=== PATIENT | male | born 1950 | race Caucasian/White ===

== ENCOUNTER → 2016-09-07 | Outpatient (CLI) | payer MEDICARE ==
[2015-11-26 23:42] VITALS: BP 168/88
[~2016-09-07] MED LIST: CLIN300C8 PO; FLUT9.9S NS
--- NOTE | 2016-09-07 16:18 | RAD ---
Indication congestion. Chronic sinusitis. Axial images through the paranasal sinuses were obtained and reformatted in the coronal and sagittal planes. No similar imaging is available. No acute finding is seen in the visualized brain. There is a small focus of encephalomalacia in the right posterior fossa. The mastoid air cells are normally aerated. There is some minimal debris in the left frontal sinus. The right frontal sinus appears normal. Ethmoid air cells are normally aerated. There is small polyp or retention cyst in the right maxillary sinus. Minimal mucosal thickening is seen at the base of the left. The sphenoid sinus appears unremarkable. Ostiomeatal complexes are unremarkable. IMPRESSION: No significant finding. Minimal debris in the left frontal sinus and slight mucosal thickening at the base of the left maxillary sinus. PQRS Compliance Statement: One or more of the following individualized dose reduction techniques were utilized for this examination: 1. Automated exposure control 2. Adjustment of the mA and/or kV according to patient size 3. Use of iterative reconstruction technique
== END | disposition home or self-care (01) ==
LOC: CT 12:44
PROVIDERS: ATTEND Otolaryngology
DX: J32.4 Chronic pansinusitis (principal); J34.1 Cyst and mucocele of nose and nasal sinus; G93.89 Other specified disorders of brain
CPT/HCPCS: 70486

== ENCOUNTER 2016-10-31 08:28 | Inpatient (IN) | payer MEDICARE ==
[~2016-10-31] VITALS: Ht 167.6 cm; Wt 87.1 kg
[2016-10-31] MEDS ORDERED: MORPHINE SULFATE 2 MG/ML DISP.SYRIN. IV/SQ PRN (08:45)
--- NOTE | 2016-10-31 09:00 | PHYS DOC ---
General Chief Complaint: CHEST PAIN Stated Complaint: CHEST PAIN Time Seen by MD: 08:30 Source: patient Exam Limitations: no limitations Problems: History of Present Illness Initial Comments Patient is an 66-year-old male brought to the ED by his significant other with chest discomfort. Patient states that 2 days (Sunday) while walking at [employer] he noticed bilateral lower chest discomfort described as burning. He had no associated shortness of breath, cough, nausea or vomiting, arm or neck symptoms , dizziness, palpitations, or syncope. He says he woke up with the symptoms on Sunday morning and that they were not resulted from riding roller coasters or other aggressive park rides. Over the course of the past 2 days symptoms remained present. The patient cannot reproduce these symptoms with deep breaths or positional changes. Currently pt with b/l lower chest/rib pain 6/10 burning , like can't take deep breath. States today pain worsened so he and SO thought he should come for evaluation. PCP Dr Brothers Patient follows with Dr. Rod's developmental writing instructor for "silent PA" in the past. He saw Dr. Rod this past week, spouse says he recently started hydrochlorothiazide. Timing/Duration: constant (2 days) Severity: moderate Modifying Factors: improves with other Associated Symptoms: chest pain, other Allergies: Coded Allergies: Penicillins (Verified Allergy, Unknown, 11/26/15) Past Medical History Medical History: heart disease (silent PA in past follows with Dr Rod), high cholesterol, hypertension Surgical History: noncontributory Social History Smoker: quit greater than 1 year (1975) Alcohol: occasionally Drugs: none Review of Systems Constitutional: denies chills, denies diaphoresis, denies fever, malaise Respiratory: see HPI Cardiovascular: see HPI Gastrointestinal: denies abdominal pain, denies diarrhea, denies nausea, denies vomiting Genitourinary: denies dysuria, denies frequency, denies hematuria Musculoskeletal: denies back pain, denies joint swelling, denies neck pain Psychiatric/Neurological: denies headache, denies numbness, denies paresthesia , denies weakness Hematologic/Lymphatic: denies blood clots, denies easy bleeding, denies easy bruising Physical Exam General Appearance: no apparent distress, obese Eyes: bilateral eye normal inspection, bilateral eye PERRL, bilateral eye EOMI Ear, Nose, Throat: hearing grossly normal, normal ENT inspection, normal pharynx Neck: non-tender, supple Respiratory: chest non-tender, no respiratory distress, other (faint wheeze b/ l good air movement) Cardiovascular: normal peripheral pulses, regular rate, rhythm Gastrointestinal: normal bowel sounds, non tender, soft Back: no CVA tenderness, no vertebral tenderness Extremities: non-tender, normal inspection Neurologic/Psychiatric: vp of marketing II-XII nml as tested, no motor/sensory deficits, alert, normal mood/affect, oriented x 3 Skin: normal color, warm/dry Orders, Labs, Meds EKG: NSR 63 bpm, diffuse T flattening, artifact noted v6 no STEMI. Interpreted by Dr Swanson. PATIENT: GEOVANNI ROQUE ACCOUNT: [id number] : 1950 LOCATION: ER AGE: 66 SEX: M EXAM STATUS: REG ER ORD. PHYSICIAN: TANA SWANSON DO REASON: b/l lower chest pain PROCEDURE: CHEST PA & LATERAL Chest, 2 views, 10/31/2016: History: Chest pain Comparison is made to a study from 11/26/2015. The heart size and pulmonary vascularity are normal. There is a calcified granuloma in the right lower chest. No acute infiltrates are seen. There is no evidence of pleural fluid. IMPRESSION: No acute cardiopulmonary abnormality is detected. DICTATED AND SIGNED BY: ROBI OREILLY MD DATE: 10/31/16906 CC: JEANNE BROTHERS MD; TANA SWANSON DO ~ Pertinent labs: glucosuria 100, Cr 1.5, BUN 15 1045: Pt rechecked, states after duoneb CP improved somewhat currently states /10. I discussed pt with Dr Fleming. Given pt symptoms and PMH pt accepted for Obs to follow CE, continue respiratory support, Cardiology evaluation/echo tomorrow. Departure Time of Disposition: 10:57 Disposition: ADMITTED INPATIENT Diagnosis: chest pain, COPD, renal insuff, h/o CAD Condition: STABLE Additional Instructions: Tele/Obs admission Dr Fleming is accepting TANA SWANSON DO Oct 31, 2016 09:00
--- NOTE | 2016-10-31 09:10 | RAD ---
Chest, 2 views, 10/31/2016: History: Chest pain Comparison is made to a study from 11/26/2015. The heart size and pulmonary vascularity are normal. There is a calcified granuloma in the right lower chest. No acute infiltrates are seen. There is no evidence of pleural fluid. IMPRESSION: No acute cardiopulmonary abnormality is detected.
[2016-10-31 09:11] LABS: BASO # 0.1 x10^3/uL (0.0-0.2); BASO % 1 % (0-3); EOS # 0.3 x10^3/uL (0.0-0.7); EOS % 4 % (0-3); HEMOGLOBIN 12.9 g/dL (13.0-17.5); LYMPH # 1.4 x10^3/uL (1.0-4.8); LYMPH % 21 % (24-48); MEAN CORPUSCULAR HEMOGLOBIN 31 pg (25-35); MEAN CORPUSCULAR HGB CONC 35 g/dL (31-37); MEAN CORPUSCULAR VOLUME 87 fL (79-100); MONO # 0.8 x10^3/uL (0.0-1.1); MONO % 12 % (0-9); NEUT # 4.2 x10^3uL (1.8-7.7); NEUT % 62 % (31-73); PLATELET COUNT 259 x10^3/uL (140-400); RED BLOOD COUNT 4.24 x10^6/uL (4.30-5.70); RED CELL DISTRIBUTION WIDTH 14.5 % (11.5-14.5); WHITE BLOOD COUNT 6.8 x10^3/uL (4.0-11.0)
[2016-10-31] MEDS ORDERED: KETOROLAC 30 MG/ML VIAL. IV ONE (09:20)
[2016-10-31] MEDS ORDERED: ASPIRIN 81 MG TAB.CHEW PO ONE (09:20)
[2016-10-31] MEDS ORDERED: NITROGLYCERIN SUBLINGUAL 0.4 MG BOTTLE OF 25. SL PRN (09:20)
[2016-10-31 09:21] LABS: ALBUMIN 3.7 g/dL (3.4-5.0); ALBUMIN/GLOBULIN RATIO 1.1 (1.0-1.7); CREATININE 1.5 mg/dL (0.7-1.3); GFR 46.8; MAGNESIUM 1.9 mg/dL (1.8-2.4); POTASSIUM 3.5 mmol/L (3.5-5.1); TOTAL BILIRUBIN 0.7 mg/dL (0.2-1.0); TOTAL PROTEIN 7.2 g/dL (6.4-8.2)
[2016-10-31] MEDS ORDERED: IPRATRPIUM/ALBUTEROL 0.5/2.5MG 3 ML NEBU. NEB ONE (09:45)
[2016-10-31 09:52] LABS: BARBITURATES NEG (NEG); BENZODIAZEPINES NEG (NEG); CANNABINOIDS NEG (NEG); COCAINE NEG (NEG); METHADONE NEG (NEG); OPIATES NEG (NEG); PHENCYCLIDINE NEG (NEG)
[2016-10-31 09:53] LABS: AMPHETAMINE/METHAMPHETAMINE NEG (NEG)
[2016-10-31 09:56] LABS: BACTERIA,URINE 0 /HPF (0-FEW); BILIRUBIN,URINE NEG (NEG); CLARITY,URINE CLEAR; COLOR,URINE YELLOW; GLUCOSE,URINE 100 mg/dL (NEG); NITRITE,URINE NEG (NEG); RBC,URINE 0 /HPF (0-2); SQUAMOUS EPITHELIAL CELL,UR OCC /LPF; UROBILINOGEN,URINE 0.2 mg/dL (0.2 mg/dL); WBC,URINE 0 /HPF (0-4)
[2016-10-31] MEDS ORDERED: ACETAMINOPHEN 325 MG TABLET PO PRN (11:00)
[2016-10-31] MEDS ORDERED: ONDANSETRON PF 4 MG/2 ML VIAL. IV PRN (11:00)
[2016-10-31 13:09] VITALS: BP_SYST 166; BP_DIAS 70; BP_DIAS 98
--- NOTE | 2016-10-31 13:18 | NUR ---
The patient, GEOVANNI ROQUE, 66 y/o, M admitted by JULISA HICKEY MD, was given written information regarding hospital policies, unit procedures and contact persons. Valuables were checked and documented, pt's Sarah at bedside during admission, pt denies pain, call light within reach, no complaints.
--- NOTE | 2016-10-31 13:45 | NUR ---
MAIRA Rhodes with Dr. George's office notified of consult- pt had stress test and ECHO earlier this year and his BP meds were adjusted a couple of weeks ago. No orders at this time.
[2016-10-31] MEDS ORDERED: BENZ1TAB5 PO (14:15)
[2016-10-31] MEDS ORDERED: ASPI81TA50 PO (14:15)
[2016-10-31] MEDS ORDERED: LOSA100T6 PO (14:15)
[2016-10-31] MEDS ORDERED: METO-247 PO (14:17)
[2016-10-31] MEDS ORDERED: SIMV20TA3 PO (14:17)
[2016-10-31] MEDS ORDERED: OMEP40CA5 PO (14:17)
[2016-10-31] MEDS ORDERED: CETI10TA22 PO (14:17)
[2016-10-31] MEDS ORDERED: HYDR25TA9 PO (14:32)
[2016-10-31 15:14] VITALS: BP 159/72
[2016-10-31] MEDS ORDERED: ALBUTEROL SULFATE 2.5 MG/3 ML NEBU. NEB PRN (16:00)
[2016-10-31] MEDS: IPRATRPIUM/ALBUTEROL 0.5/2.5MG 3 ML NEBU. NEB SCH ×3 (16:00→21:27)
[2016-10-31] MEDS ORDERED: methylPREDNISolone SOD SUCC PF 125 MG/2 ML VIAL. IV SCH (18:00)
--- NOTE | 2016-10-31 18:42 | HP ---
ADMIT DATE: 10/31/2016 HISTORY OF PRESENT ILLNESS: The patient is a 66-year-old male patient who came to the Emergency Room this morning with a complaint of chest pain and basically described it as bilateral lower chest discomfort and described as burning that started 2 days ago while walking at . He awakened this morning at around 6:30 in the morning with the same complaint from sleep, but denied any shortness of breath. Denied any cough, nausea, or vomiting. Denied any pain in his left arm, shoulder, or left side of the neck. Denied any dizziness, palpitations, or syncope. Over the course of the last 2 days, symptoms remained present. The patient cannot produce these symptoms with deep breathing or positional changes. Currently, he has pain in both costochondral junction rated about 6-10 burning in nature and because of that, he was admitted. He came to the Emergency Room for further evaluation and treatment. PAST MEDICAL HISTORY: Significant for hypertension, hyperlipidemia, and gastroesophageal reflux disease. He apparently is known to have coronary artery disease and has had myocardial infarction, although has no stent deployment or open heart surgery and according to his , he has had a stress test done about a year ago and was normal and was seen by Dr. Rodriguez about a week ago and was started him on hydrochlorothiazide. PAST SURGICAL HISTORY: Significant for left rotator cuff repair and esophagogastroduodenoscopy as well as colonoscopy. ALLERGIES: He is allergic to PENICILLIN. MEDICATIONS: He is currently on following medications, he is on aspirin 81 mg once a day, benztropine mesylate 1 mg 3 times a day, and cetirizine 10 mg daily. He is on simvastatin 20 mg at bedtime, omeprazole 40 mg once a day, metoprolol succinate 100 mg once a day, losartan potassium 100 mg once a day, and hydrochlorothiazide 25 mg once a day. FAMILY HISTORY: He has three brothers, the older brother at age of 52 because of myocardial infarction and second brother has open heart surgery. Third brother is according to him is overweight, but otherwise healthy. He has two sisters who are older, but healthier. His father at age of 58 because of myocardial infarction. Mother at age of 86. She has severe osteoporosis. SOCIAL HISTORY: He is and has 3 sons and 1 daughter. He is an ex-smoker quit in 1975 after smoking pack a day for almost 10 years. He drinks a can of beer almost everyday. He does not use drugs. 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 REVIEW OF SYSTEMS: The patient denied any blurring of vision, cataract, glaucoma, or macular degeneration. Denied any earache, tinnitus, or sensorineural deafness. Denied any nosebleeds, stuffy nose, or postnasal drip. Denied any sore throat, sore tongue, toothache, hoarseness of voice, or difficulty swallowing. Denied any nausea, vomiting, diarrhea, or constipation. Denied any hematemesis, melena, or hematochezia. Denied any dysuria, frequency, or hematuria. Did complain of chest pain. Denied any shortness of breath, orthopnea, or paroxysmal nocturnal dyspnea, although he did complain that he sleeps in a recliner because of shortness of breath. Denied any chills, rigors, or fever. Denied any dizziness, lightheadedness, or vertigo. PHYSICAL EXAMINATION: GENERAL: On arrival to the Emergency Room, he looked well and was clearly in no apparent respiratory distress. Slightly pale, but no jaundice, cyanosis, or thyromegaly. No jugular venous distention. No limb edema. VITAL SIGNS: His heart rate was 67, blood pressure 166/70, temperature was 98.6, respiratory rate 20, and oxygen saturation was 96%. HEENT: Showed normocephalic and atraumatic. NECK: Supple. HEART: Showed normal first and second heart sounds with no gallop, rub, or murmur. CHEST: Clear to auscultation. No crepitation or rhonchi. ABDOMEN: Distended, soft, and nontender. No guarding or rigidity. No organomegaly. Hernial orifices are intact. Bowel sounds normal. NEUROLOGIC: He was awake, alert, and responding appropriately. Cranial nerves are intact. EXTREMITIES: He moves extremities without difficulty. He ambulates without assistance or assistive devices. LABORATORY DATA: He had lab work done while in the Emergency Room showed his white cell count to be 6800, hemoglobin 13, hematocrit 37, MCV 87, and platelet count 259,000 with normal manual differential. His serum sodium was 135, potassium 3.5, chloride 99, bicarbonate 29, anion gap of 7, BUN 14, creatinine 1.5, and estimated GFR was 45 mL per minute. His glucose was 90, calcium was 9, and magnesium was 1.9. Total bilirubin, AST, ALT, and alkaline phosphatase were normal. His first set of cardiac enzymes showed troponin to be less than 0.017. His total protein was 7.2, albumin 3.7, and lipase 134. B-type natriuretic peptide was 243. His prothrombin time was 10.3, INR of 1, aPTT 26, and D-dimer was 0.28. Urinalysis showed the urine was yellow and clear with a pH of 5.5 and specific gravity 1.005. The urine was negative for protein. There was small amount of glucose, negative for ketones, nitrite, and leukocyte esterase. His urine toxicology screen was negative. His chest x-ray showed that his heart size and pulmonary vascularity are normal. There is a calcified granuloma in the right lower lobe. No acute infiltrates are seen. There is no evidence of pleural fluid. He has had an EKG, which showed that he was in normal sinus rhythm at 63 beats per minute. Diffuse T wave flattening, but no evidence of ST segment elevation or depression. ASSESSMENT AND PLAN: The plan is basically the patient was admitted with chest pain, although the complaint is fairly atypical it looks like more of costochondral pain in both sides. He does not carry a diagnosis of COPD, although he has quit smoking in 1975 after smoking for about one pack a day for almost 10 years according to him. He has a very strong family history of coronary artery disease and he apparently has also impaired kidney function. Unfortunately, I do not have any other numbers to compare with. My plan is to do two more sets of cardiac enzyme and consult the cardiology team. We will check his fasting lipid profile tomorrow and continue all his current medication and decide on further management accordingly. JULISA HICKEY MD DR: ZENA/shilo JOB#: [id number] / [id number]
--- NOTE | 2016-10-31 19:19 | PDOC ---
Exam Serg Demential Exam: Serg Note: Please also refer to the separate dictated note~for this date of service dictated separately.~Patient seen individually. Discussed the patient with Nursing staff reviewed the chart.~Reviewed interim history and current functioning. Reviewed vital signs,~Labs/ Radiology~and current medications noted below. Continue current treatment with the changes noted in the dictated addendum note Assessment: Vital Signs: Vital Signs Date Time Temp Pulse Resp B/P (MAP) Pulse Ox O2 Delivery O2 Flow Rate FiO2 10/31/16 16:44 99 Room Air 10/31/16 15:14 98.4 66 20 159/72 (101) I&O Intake and Output 11/01/16 07:00 Intake Total 820 ml Balance 820 ml Intake Oral 820 ml # Voids 2 Labs: Laboratory Tests Test 10/31/16 08:50 10/31/16 09:33 White Blood Count 6.8 x10^3/uL (4.0-11.0) Red Blood Count 4.24 x10^6/uL (4.30-5.70) L Hemoglobin 12.9 g/dL (13.0-17.5) L Hematocrit 37.0 % (39.0-53.0) L Mean Corpuscular Volume 87 fL (79-100) Mean Corpuscular Hemoglobin 31 pg (25-35) Mean Corpuscular Hemoglobin Concent 35 g/dL (31-37) Red Cell Distribution Width 14.5 % (11.5-14.5) Platelet Count 259 x10^3/uL (140-400) Neutrophils (%) (Auto) 62 % (31-73) Lymphocytes (%) (Auto) 21 % (24-48) L Monocytes (%) (Auto) 12 % (0-9) H Eosinophils (%) (Auto) 4 % (0-3) H Basophils (%) (Auto) 1 % (0-3) Neutrophils # (Auto) 4.2 x10^3uL (1.8-7.7) Lymphocytes # (Auto) 1.4 x10^3/uL (1.0-4.8) Monocytes # (Auto) 0.8 x10^3/uL (0.0-1.1) Eosinophils # (Auto) 0.3 x10^3/uL (0.0-0.7) Basophils # (Auto) 0.1 x10^3/uL (0.0-0.2) Prothrombin Time 10.3 SEC (9.4-11.4) Prothrombin Time INR 1.0 (0.9-1.1) PTT 26 SEC (23-33) D-Dimer (Stacy) 0.28 mg/L (0.00-0.50) Sodium Level 135 mmol/L (136-145) L Potassium Level 3.5 mmol/L (3.5-5.1) Chloride Level 99 mmol/L (98-107) Carbon Dioxide Level 29 mmol/L (21-32) Anion Gap 7 (6-14) Blood Urea Nitrogen 14 mg/dL (8-26) Creatinine 1.5 mg/dL (0.7-1.3) H Estimated GFR (Cockcroft-Gault) 46.8 BUN/Creatinine Ratio 9 (6-20) Glucose Level 90 mg/dL (70-99) Calcium Level 9.0 mg/dL (8.5-10.1) Magnesium Level 1.9 mg/dL (1.8-2.4) Total Bilirubin 0.7 mg/dL (0.2-1.0) Aspartate Amino Transferase (AST) 18 U/L (15-37) Alanine Aminotransferase (ALT) 19 U/L (16-63) Alkaline Phosphatase 61 U/L (46-116) Creatine Kinase 208 U/L (39-308) Troponin I Quantitative < 0.017 ng/mL (0-0.055) CW-Vmj-S-Type Natriuretic Peptide 243 pg/mL (0-124) H Total Protein 7.2 g/dL (6.4-8.2) Albumin 3.7 g/dL (3.4-5.0) Albumin/Globulin Ratio 1.1 (1.0-1.7) Lipase 134 U/L (73-393) Urine Collection Type Unknown Urine Color Yellow Urine Clarity Clear Urine pH 5.5 Urine Specific [place] <=1.005 Urine Protein Neg (NEG-TRACE) Urine Glucose (UA) 100 mg/dL (NEG) Urine Ketones (Stick) Neg mg/dL (NEG) Urine Blood Neg (NEG) Urine Nitrite Neg (NEG) Urine Bilirubin Neg (NEG) Urine Urobilinogen Dipstick 0.2 mg/dL (0.2 mg/dL) Urine Leukocyte Esterase Neg (NEG) Urine RBC 0 /HPF (0-2) Urine WBC 0 /HPF (0-4) Urine Squamous Epithelial Cells Occ /LPF Urine Bacteria 0 /HPF (0-FEW) Urine Opiates Screen Neg (NEG) Urine Methadone Screen Neg (NEG) Urine Barbiturates Neg (NEG) Urine Phencyclidine Screen Neg (NEG) Urine Amphetamine/Methamphetamine Neg (NEG) Urine Benzodiazepines Screen Neg (NEG) Urine Cocaine Screen Neg (NEG) Urine Cannabinoids Screen Neg (NEG) Urine Ethyl Alcohol Neg (NEG) Current Medications: Meds: Current Medications Aspirin (Children'S Aspirin) 324 mg 1X ONCE PO Last administered on 10/31/16 09:17; Start 10/31/16 at 09:20; Stop 10/31/16 at 09:21; Status DC Nitroglycerin (Nitrostat) 0.4 mg PRN Q5MIN PRN SL CP RATING > 1/10; Start 10/31 at 09:20; Stop 11/01/16 at 09:19 Morphine Sulfate (Morphine 2mg Syringe) 2 mg PRN Q15MIN PRN IV/SQ PAIN GREATER THAN 3/10 Last administered on 10/31/16 11:33; Start 10/31/16 at 08:45; Stop at 08:44 Ketorolac Tromethamine (Toradol) 30 mg 1X ONCE IV Last administered on 09:20; Start 10/31/16 at 09:20; Stop 10/31/16 at 09:21; Status DC Albuterol/ Ipratropium (Duoneb) 3 ml 1X ONCE NEB Last administered on 09:41; Start 10/31/16 at 09:45; Stop 10/31/16 at 09:46; Status DC Ondansetron HCl (Zofran) 4 mg PRN Q4HRS PRN IV NAUSEA/VOMITING; Start 10/31/16 at 11:00; Stop 11/01/16 at 10:59 Acetaminophen (Tylenol) 650 mg PRN Q4HRS PRN PO FEVER; Start 10/31/16 at 11:00 ; Stop 11/01/16 at 10:59 Albuterol/ Ipratropium (Duoneb) 3 ml RTQID NEB Last administered on 9/12/17at 16:42; Start 10/31/16 at 12:00; Stop 11/01/16 at 11:59 Methylprednisolone Sodium Succinate (SOLU-Medrol 125MG VIAL) 125 mg Q6HRS IV ; Start 10/31/16 at 18:00; Stop 10/31/16 at 18:00; Status DC Aspirin (Aspirin Enteric Coated) 81 mg DAILY PO ; Start 11/01/16 at 09:00 Benztropine Mesylate (Cogentin) 1 mg TID PO ; Start 10/31/16 at 21:00; Stop 02/04 at 21:00; Status DC Cetirizine HCl (ZyrTEC) 10 mg DAILY PO ; Start 11/01/16 at 09:00 Hydrochlorothiazide (Hydrodiuril) 25 mg DAILY PO ; Start 11/01/16 at 09:00 Simvastatin (Zocor) 20 mg QHS PO ; Start 10/31/16 at 21:00 Losartan Potassium (Cozaar) 100 mg DAILY PO ; Start 11/01/16 at 09:00 Metoprolol Succinate (Toprol Xl) 100 mg DAILY PO ; Start 11/01/16 at 09:00 Pantoprazole Sodium (Protonix) 40 mg DAILYAC PO ; Start 11/01/16 at 07:30 Albuterol Sulfate (Ventolin) 2.5 mg Q1HR PRN NEB SHORTNESS OF BREATH; Start 02/04 at 16:00 Benztropine Mesylate (Cogentin) 1 mg BID76 PO ; Start 11/01/16 at 07:00 Quetiapine Fumarate (SEROquel) 25 mg QHS PO ; Start 10/31/16 at 21:00 Active Scripts Active Reported Hydrochlorothiazide Tablet (Hydrochlorothiazide) 25 Mg Tablet 1 Tab PO DAILY Zyrtec (Cetirizine Hcl) 10 Mg Tablet 1 Tab PO DAILY Simvastatin 20 Mg Tablet 1 Tab PO QHS Metoprolol Succinate ( Xl ) (Metoprolol Succinate) 100 Mg Tab.er.24h 1 Tab PO DAILY Omeprazole 40 Mg Capsule.dr 1 Cap PO DAILY Losartan Potassium 100 Mg Tablet 100 Mg PO DAILY Benztropine Mesylate 1 Mg Tablet 1 Tab PO TID Aspir-Low (Aspirin) 81 Mg Tablet.dr 1 Tab PO DAILY Diagnosis: Problems: (1) Anxiety disorder (2) Dementia, vascular, with delusions (3) Impulse control disorder (4) Psychosis, atypical JOSE NOLASCO MD Oct 31, 2016 19:19
[2016-10-31] MEDS ORDERED: BENZOCAINE/MENTHOL LOZENGE 16'S BOX. PO PRN (19:30)
[2016-10-31] MEDS: HYDROcodone/APAP 5/325MG 1 TAB TABLET PO PRN (19:45)
[2016-10-31 19:55] VITALS: BP 142/55
[2016-10-31] MEDS: SIMVASTATIN 20 MG TABLET PO SCH (20:25)
[2016-10-31] MEDS ORDERED: BENZTROPINE MESYLATE 1 MG TABLET PO SCH (21:00)
[2016-10-31] MEDS ORDERED: QUEtiapine 25 MG TABLET. PO SCH (21:00)
[2016-10-31 22:51] VITALS: BP 134/72
--- NOTE | 2016-11-01 01:04 | EKG ---
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
[2016-11-01 05:03] VITALS: BP 139/65
[2016-11-01] MEDS: IPRATRPIUM/ALBUTEROL 0.5/2.5MG 3 ML NEBU. NEB SCH ×2 (05:32→11:02)
[2016-11-01] MEDS: BENZTROPINE MESYLATE 1 MG TABLET PO SCH ×2 (06:17→18:19)
[2016-11-01 06:37] LABS: BASO # 0.1 x10^3/uL (0.0-0.2); BASO % 1 % (0-3); EOS # 0.3 x10^3/uL (0.0-0.7); EOS % 4 % (0-3); HEMATOCRIT 35.1 % (39.0-53.0); HEMOGLOBIN 12.4 g/dL (13.0-17.5); LYMPH # 1.4 x10^3/uL (1.0-4.8); LYMPH % 20 % (24-48); MEAN CORPUSCULAR HEMOGLOBIN 31 pg (25-35); MEAN CORPUSCULAR HGB CONC 36 g/dL (31-37); MEAN CORPUSCULAR VOLUME 86 fL (79-100); MONO # 0.8 x10^3/uL (0.0-1.1); MONO % 12 % (0-9); NEUT # 4.3 x10^3uL (1.8-7.7); NEUT % 63 % (31-73); PLATELET COUNT 190 x10^3/uL (140-400); RED BLOOD COUNT 4.06 x10^6/uL (4.30-5.70); RED CELL DISTRIBUTION WIDTH 13.9 % (11.5-14.5); WHITE BLOOD COUNT 6.8 x10^3/uL (4.0-11.0)
[2016-11-01 06:51] LABS: ALBUMIN 3.3 g/dL (3.4-5.0); ALBUMIN/GLOBULIN RATIO 1.3 (1.0-1.7); CALCIUM 8.3 mg/dL (8.5-10.1); CREATININE 3.4 mg/dL (0.7-1.3); GFR 18.2; POTASSIUM 3.5 mmol/L (3.5-5.1); TOTAL BILIRUBIN 0.6 mg/dL (0.2-1.0); TOTAL PROTEIN 5.9 g/dL (6.4-8.2)
[2016-11-01] MEDS: PANTOPRAZOLE 40 MG TABLET. PO SCH (07:40)
[2016-11-01] MEDS ORDERED: hydroCHLOROthiazide 25 MG TABLET PO SCH (09:00)
[2016-11-01] MEDS ORDERED: LOSARTAN 50 MG TABLET. PO SCH (09:00)
[2016-11-01] MEDS: ASPIRIN ENTERIC COATED 81 MG TABLET.DR. PO SCH (09:04)
[2016-11-01] MEDS: METOPROLOL SUCC 24HR ER 50 MG TAB.ER.24H. PO SCH (09:05)
[2016-11-01] MEDS: CETIRIZINE HCL 10 MG TABLET PO SCH (09:06)
[2016-11-01] MEDS ORDERED: hydrALAZINE 20 MG/ML VIAL. IV PRN (09:30)
[2016-11-01] MEDS ORDERED: IV NORMAL SALINE 500ML 500 ML IV ONE (09:30)
--- NOTE | 2016-11-01 09:47 | PDOC2 ---
CARDIAC CONSULT DATE OF CONSULT Date Of Consult DATE: 11/01/16 TIME: 09:30 REASON FOR CONSULT Reason for Consult Chest pain REFERRING PHYSICIAN Referring Physician Dr. Jose Fleming HPI History of Present Illness Mr. Chan is a very pleasant 66-year-old gentleman who usually follows closely with my partner, Dr. Jack Rod, in our office. The patient has a history of essential hypertension, hyperlipidemia, heart failure with preserved ejection fraction, abnormal ECG, and abnormal stress test consistent with prior infarct. The patient was most recently seen in our office a few weeks ago at which time he was noted to be mildly hypertensive, and was initiated on a regimen of hydrochlorothiazide in addition to his baseline antihypertensives. The patient does usually take a beta-angela and angiotensin receptor angela for his underlying cardiomyopathy. Unfortunately, the patient was recently admitted to [facility] with a several day history of progressive coughing associated with development of chest pain. He described this as a burning sensation that radiated across his chest. He denies any radiation to his arms, neck, or back. He did not have any significant association with shortness of breath. Patient denies any associated nausea or vomiting. Apparently, the patient woken from sleep yesterday morning with severe coughing and resultant chest pain, and this prompted him to come in for further evaluation. His symptoms have apparently improved somewhat since admission. The patient has not been able to identify any exacerbating or relieving factors other than palpation of his chest as well as deep coughing and respiratory movements. He has not been able to identify any relieving factors. His workup thus far has included serial troponin enzymes which were negative. His ECG did not demonstrate any significant ischemic changes. I did review his chest x-ray which was unremarkable. In review of his records, the patient's most recent echocardiogram was performed in our office in February of 2016. This demonstrated evidence of a mid distal anterior, mid distal anteroseptal, and mid distal inferior and apical hypokinesis. His LV systolic function was borderline normal with an ejection fraction calculated to be 50-55%. He did not have any significant structural or functional abnormalities noted otherwise. The patient's most recent ischemic evaluation was in the form of a Lexiscan nuclear stress test performed in May 2015 which demonstrated evidence of prior infarct, but no inducible ischemia. This morning, the patient reports that he is doing relatively well. Review of his lab workup, however, does demonstrate development of acute renal failure. The patient has remained hemodynamically stable otherwise. He has no other particular complaints this morning. PAST MEDICAL HISTORY Past Medical History Past medical history is consistent with essential hypertension, hyperlipidemia, abnormal ECG, abnormal stress test, questionable prior myocardial infarct, borderline cardiomyopathy, paranoid schizophrenia. FAMILY HISTORY Family History Noncontributory SOCIAL HISTORY Social History Pt denies any active smoking. CURRENT MEDICATIONS Current Medications Current Medications Aspirin (Children'S Aspirin) 324 mg 1X ONCE PO Last administered on 10/31/16 09:17; Start 10/31/16 at 09:20; Stop 10/31/16 at 09:21; Status DC Nitroglycerin (Nitrostat) 0.4 mg PRN Q5MIN PRN SL CP RATING > 1/10; Start 10/31 at 09:20; Stop 11/01/16 at 09:19; Status DC Morphine Sulfate (Morphine 2mg Syringe) 2 mg PRN Q15MIN PRN IV/SQ PAIN GREATER THAN 3/10 Last administered on 10/31/16 11:33; Start 10/31/16 at 08:45; Stop at 08:44; Status DC Ketorolac Tromethamine (Toradol) 30 mg 1X ONCE IV Last administered on 09:20; Start 10/31/16 at 09:20; Stop 10/31/16 at 09:21; Status DC Albuterol/ Ipratropium (Duoneb) 3 ml 1X ONCE NEB Last administered on 09:41; Start 10/31/16 at 09:45; Stop 10/31/16 at 09:46; Status DC Ondansetron HCl (Zofran) 4 mg PRN Q4HRS PRN IV NAUSEA/VOMITING; Start 10/31/16 at 11:00; Stop 11/01/16 at 10:59 Acetaminophen (Tylenol) 650 mg PRN Q4HRS PRN PO FEVER; Start 10/31/16 at 11:00 ; Stop 11/01/16 at 10:59 Albuterol/ Ipratropium (Duoneb) 3 ml RTQID NEB Last administered on 11/01/16 05:32; Start 10/31/16 at 12:00; Stop 11/01/16 at 11:59 Methylprednisolone Sodium Succinate (SOLU-Medrol 125MG VIAL) 125 mg Q6HRS IV ; Start 10/31/16 at 18:00; Stop 10/31/16 at 18:00; Status DC Aspirin (Aspirin Enteric Coated) 81 mg DAILY PO Last administered on 11/01/16 09:04; Start 11/01/16 at 09:00 Benztropine Mesylate (Cogentin) 1 mg TID PO ; Start 10/31/16 at 21:00; Stop 02/04 at 21:00; Status DC Cetirizine HCl (ZyrTEC) 10 mg DAILY PO Last administered on 11/01/16 09:06; Start 11/01/16 at 09:00 Hydrochlorothiazide (Hydrodiuril) 25 mg DAILY PO Last administered on 09:06; Start 11/01/16 at 09:00; Status Future Hold Simvastatin (Zocor) 20 mg QHS PO Last administered on 10/31/16 20:25; Start at 21:00 Losartan Potassium (Cozaar) 100 mg DAILY PO Last administered on 11/01/16 09: 05; Start 11/01/16 at 09:00; Status Future Hold Metoprolol Succinate (Toprol Xl) 100 mg DAILY PO Last administered on 09:05; Start 11/01/16 at 09:00 Pantoprazole Sodium (Protonix) 40 mg DAILYAC PO Last administered on 11/01/16 07:40; Start 11/01/16 at 07:30 Albuterol Sulfate (Ventolin) 2.5 mg Q1HR PRN NEB SHORTNESS OF BREATH; Start 02/04 at 16:00 Benztropine Mesylate (Cogentin) 1 mg [id number] PO Last administered on 11/01/16 06 :17; Start 11/01/16 at 07:00 Quetiapine Fumarate (SEROquel) 25 mg QHS PO Last administered on 10/31/16 20: 25; Start 10/31/16 at 21:00 Throat Lozenges (Cepacol Sore Throat Lozenge) 1 katty PRN Q2HR PRN PO SORE THROAT Last administered on 10/31/16 19:44; Start 10/31/16 at 19:30 Acetaminophen/ Hydrocodone Bitart (Lortab 5/325) 1 tab PRN Q6HRS PRN PO PAIN Last administered on 10/31/16t 19:45; Start 10/31/16 at 19:30 Sodium Chloride 500 ml @ 0 mls/hr 1X ONCE IV ; Start 11/01/16 at 09:30; Stop at 09:31 Sodium Chloride 1,000 ml @ 75 mls/hr [id number] IV ; Start 11/01/16 at 09:30; Status UNV Hydralazine HCl (Apresoline) 10 mg PRN Q4HRS PRN IV ELEVATED BP, SEE COMMENTS; Start 11/01/16 at 09:30; Status UNV Active Scripts Active Reported Hydrochlorothiazide Tablet (Hydrochlorothiazide) 25 Mg Tablet 1 Tab PO DAILY Zyrtec (Cetirizine Hcl) 10 Mg Tablet 1 Tab PO DAILY Simvastatin 20 Mg Tablet 1 Tab PO QHS Metoprolol Succinate ( Xl ) (Metoprolol Succinate) 100 Mg Tab.er.24h 1 Tab PO DAILY Omeprazole 40 Mg Capsule.dr 1 Cap PO DAILY Losartan Potassium 100 Mg Tablet 100 Mg PO DAILY Benztropine Mesylate 1 Mg Tablet 1 Tab PO TID Aspir-Low (Aspirin) 81 Mg Tablet.dr 1 Tab PO DAILY ALLERGIES Allergies: Coded Allergies: Penicillins (Verified Allergy, Unknown, 11/26/15) ROS Review of Systems 14-point organ system ROS is negative other than as described above. PHYSICAL EXAM General: Alert, Oriented X3, Cooperative, No acute distress HEENT: Atraumatic, PERRLA, EOMI Lungs: Clear to auscultation, Normal air movement Heart: Regular rate, Normal S1, Normal S2, No murmurs, Gallops, Rubs Abdomen: Normal bowel sounds, Soft, No tenderness Extremities: No clubbing, No cyanosis, No edema, Normal pulses Skin: No rashes Neuro: Normal speech, Strength at 5/5 X4 ext, Normal tone, Cranial nerves 3-12 NL Psych/Mental Status: Mental status NL, Mood NL MUSCULOSKELETAL: No deformity, No swelling VITALS Vital Signs Vital Signs Date Time Temp Pulse Resp B/P (MAP) Pulse Ox O2 Delivery O2 Flow Rate FiO2 11/01/16 09:05 70 139/65 11/01/16 05:33 95 Room Air 11/01/16 05:03 98.1 18 LABS LABS Laboratory Tests Test 10/31/16 08:50 10/31/16 09:33 11/01/16 06:15 White Blood Count 6.8 x10^3/uL (4.0-11.0) 6.8 x10^3/uL (4.0-11.0) Red Blood Count 4.24 x10^6/uL (4.30-5.70) 4.06 x10^6/uL (4.30-5.70) Hemoglobin 12.9 g/dL (13.0-17.5) 12.4 g/dL (13.0-17.5) Hematocrit 37.0 % (39.0-53.0) 35.1 % (39.0-53.0) Mean Corpuscular Volume 87 fL (79-100) 86 fL (79-100) Mean Corpuscular Hemoglobin 31 pg (25-35) 31 pg (25-35) Mean Corpuscular Hemoglobin Concent 35 g/dL (31-37) 36 g/dL (31-37) Red Cell Distribution Width 14.5 % (11.5-14.5) 13.9 % (11.5-14.5) Platelet Count 259 x10^3/uL (140-400) 190 x10^3/uL (140-400) Neutrophils (%) (Auto) 62 % (31-73) 63 % (31-73) Lymphocytes (%) (Auto) 21 % (24-48) 20 % (24-48) Monocytes (%) (Auto) 12 % (0-9) 12 % (0-9) Eosinophils (%) (Auto) 4 % (0-3) 4 % (0-3) Basophils (%) (Auto) 1 % (0-3) 1 % (0-3) Neutrophils # (Auto) 4.2 x10^3uL (1.8-7.7) 4.3 x10^3uL (1.8-7.7) Lymphocytes # (Auto) 1.4 x10^3/uL (1.0-4.8) 1.4 x10^3/uL (1.0-4.8) Monocytes # (Auto) 0.8 x10^3/uL (0.0-1.1) 0.8 x10^3/uL (0.0-1.1) Eosinophils # (Auto) 0.3 x10^3/uL (0.0-0.7) 0.3 x10^3/uL (0.0-0.7) Basophils # (Auto) 0.1 x10^3/uL (0.0-0.2) 0.1 x10^3/uL (0.0-0.2) Prothrombin Time 10.3 SEC (9.4-11.4) Prothromb Time International Ratio 1.0 (0.9-1.1) Activated Partial Thromboplast Time 26 SEC (23-33) D-Dimer (Stacy) 0.28 mg/L (0.00-0.50) Sodium Level 135 mmol/L (136-145) 133 mmol/L (136-145) Potassium Level 3.5 mmol/L (3.5-5.1) 3.5 mmol/L (3.5-5.1) Chloride Level 99 mmol/L (98-107) 98 mmol/L (98-107) Carbon Dioxide Level 29 mmol/L (21-32) 30 mmol/L (21-32) Anion Gap 7 (6-14) 5 (6-14) Blood Urea Nitrogen 14 mg/dL (8-26) 24 mg/dL (8-26) Creatinine 1.5 mg/dL (0.7-1.3) 3.4 mg/dL (0.7-1.3) Estimated GFR (Cockcroft-Gault) 46.8 18.2 BUN/Creatinine Ratio 9 (6-20) 7 (6-20) Glucose Level 90 mg/dL (70-99) 104 mg/dL (70-99) Calcium Level 9.0 mg/dL (8.5-10.1) 8.3 mg/dL (8.5-10.1) Magnesium Level 1.9 mg/dL (1.8-2.4) Total Bilirubin 0.7 mg/dL (0.2-1.0) 0.6 mg/dL (0.2-1.0) Aspartate Amino Transf (AST/SGOT) 18 U/L (15-37) 23 U/L (15-37) Alanine Aminotransferase (ALT/SGPT) 19 U/L (16-63) 19 U/L (16-63) Alkaline Phosphatase 61 U/L (46-116) 56 U/L (46-116) Creatine Kinase 208 U/L (39-308) Troponin I Quantitative < 0.017 ng/mL (0-0.055) < 0.017 ng/mL (0-0.055) XN-Kza-K-Type Natriuretic Peptide 243 pg/mL (0-124) Total Protein 7.2 g/dL (6.4-8.2) 5.9 g/dL (6.4-8.2) Albumin 3.7 g/dL (3.4-5.0) 3.3 g/dL (3.4-5.0) Albumin/Globulin Ratio 1.1 (1.0-1.7) 1.3 (1.0-1.7) Lipase 134 U/L (73-393) Urine Collection Type Unknown Urine Color Yellow Urine Clarity Clear Urine pH 5.5 Urine Specific [place] <=1.005 Urine Protein Neg (NEG-TRACE) Urine Glucose (UA) 100 mg/dL (NEG) Urine Ketones (Stick) Neg mg/dL (NEG) Urine Blood Neg (NEG) Urine Nitrite Neg (NEG) Urine Bilirubin Neg (NEG) Urine Urobilinogen Dipstick 0.2 mg/dL (0.2 mg/dL) Urine Leukocyte Esterase Neg (NEG) Urine RBC 0 /HPF (0-2) Urine WBC 0 /HPF (0-4) Urine Squamous Epithelial Cells Occ /LPF Urine Bacteria 0 /HPF (0-FEW) Urine Opiates Screen Neg (NEG) Urine Methadone Screen Neg (NEG) Urine Barbiturates Neg (NEG) Urine Phencyclidine Screen Neg (NEG) Urine Amphetamine/Methamphetamine Neg (NEG) Urine Benzodiazepines Screen Neg (NEG) Urine Cocaine Screen Neg (NEG) Urine Cannabinoids Screen Neg (NEG) Urine Ethyl Alcohol Neg (NEG) ECHOCARDIOGRAM Echocardiogram ECHOCARDIOGRAM IMPRESSION (03/20/2016): This is a limited 2D study to assess ejection fraction. The left ventricle is normal in size. There is normal left ventricular wall thickness. There is mid-distal anterior, mid-distal anteroseptal, mid-distal inferior, and apical hypokinesis. The left ventricular systolic function appears low normal with a visually estimated ejection fraction of 50-55%. The left ventricular diastolic function was not determined on this study. Compared to the report (images were not available for review) of the study dated 06/07/2015, the ejection fraction appears slightly improved. ASSESSMENT/PLAN Assessment/Plan 1. Chest pain, atypical 2. Essential hypertension 3. Hyperlipidemia 4. Acute renal failure 5. History of mild ischemic cardiomyopathy, stable 6. Abnormal ECG Mr. Cahn presented with a several day history of progressively worsening cough associated with chest discomfort. Etiology of his chest pain is not completely clear at this point in time, but he does report multiple atypical features. I suspect that his pain is related to underlying costochondritis related to his chronic coughing. Interestingly, the his chest discomfort is reproducible on exam with deep palpation of his chest wall. From a cardiovascular standpoint, the patient did undergo a workup for ACS with serial troponin enzymes which were negative. His ECG did not demonstrate any acute ischemic changes. I do note that he had a echocardiogram performed earlier this year with findings noted above. His most recent ischemic evaluation was approximately 1 year ago, and was deemed to be low risk for ischemia. Of most concern currently is the fact that the patient has developed acute renal failure. I suspect this is due to pre renal source versus ATN. I have asked the nursing staff to discontinue his hydrochlorothiazide in the acute setting. I will also continue to hold his ARB. I have asked that the patient receive IV fluids today. I will plan on managing his blood pressure with IV hydralazine on a as needed basis. Once renal function improves, we could consider restarting his home Cozaar regimen at that time. If he remains hypertensive, we may need to consider placing the patient on amlodipine. At this point in time, I would hold off on any cardiac diagnostic testing. We could reconsider a repeat stress test in the outpatient setting once he is ready for discharge. Thank you for allowing me to participate in the care of your patient. Should you have any further questions, please do not hesitate to contact me. We will continue to follow along. SERAFIN TENORIO MD Nov 01, 2016 09:47
[2016-11-01 10:13] VITALS: BP 137/64
--- NOTE | 2016-11-01 10:45 | CONS ---
DATE OF CONSULTATION: 10/31/2016 PSYCHIATRIC CONSULTATION IDENTIFYING DATA: The patient is a 66-year-old male seen in bed 115 , [facility] for a psychiatric consult requested by Dr. Fleming on account of the patient's paranoia, questionable hallucinations. The patient seen individually, discussed with nursing staff, reviewed the chart. I met with the patient's . All of this was done the evening of 10/31/2016. This note covers elements not covered in my initial note on the patient. CHIEF COMPLAINT: "Yes, I do get afraid." HISTORY OF PRESENT ILLNESS: The patient has an 8-10 year history of increasing paranoia, believing one of his ex-coworkers is going to kill him. He has been psychotic, questionably hallucinating. He was treated at the [facility] in [place] by MAIRA Ordaz started on Invega and later changed to Risperdal and it was at 6 mg a day according to the . The paranoia was much better, but the patient was having tremors and weakness. The took him to Neurology and they suggested tapering the Risperdal, which was done. The patient's paranoia and psychosis remained fairly under control, despite coming off the Risperdal, but then recently the patient had sinus infection and was started on steroids 2 months ago and the paranoia has come back significantly. It is to a point where the patient can stay at home by himself and the takes him in the car with her to work and he stays in the car all day. Reportedly; the patient has a followup with , with Psychiatry, and with Neurology, but since he is here at [place], the question is whether we should consider restarting him on an antipsychotic for his psychosis. The states his psychosis is interfering significantly with his functioning and the patient concurs. He has had some short-term memory deficits, but is reasonably oriented. He drinks 1 beer a day, but no history of alcohol withdrawal symptoms, DUIs, DTs, or shakes is noted. No clear history of bipolar disorder. PAST PSYCHIATRIC HISTORY: As noted above. PAST MEDICAL HISTORY: The patient was admitted for chest pain. He has a history of hypertension, hyperlipidemia, GERD, coronary artery disease; status post AL with stent and open heart surgery. PAST SURGICAL HISTORY: Left rotator cuff repair, EGD, colonoscopy. DRUG ALLERGIES: ALLERGY TO PENICILLIN. CURRENT PSYCHOTROPICS: He is not on Risperdal any longer and he is on Cogentin 1 mg 3 times a day. It is unclear why he is on such a high dosage; however. FAMILY HISTORY: Positive for AL in his 2 brothers and father. Mother at age 86 and she had severe osteoporosis. SOCIAL HISTORY: He is , has 3 sons and 1 daughter. He is an ex-smoker, quit in 76 after smoking a pack a day for 10 years. Drinks a can of beer almost daily. No history of alcohol abuse. 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 He lives at home with his who is still employed. MENTAL STATUS EXAMINATION: The patient is oriented to himself and situation. He was unaware of the year, felt it was 2017; unaware of the month, felt the date was the where is in fact is the 12th. He a long harden. Speech is coherent, abstraction fair, able to do one step on serial sevens, unable to spell world forward or backward because he stated he is not good at spelling. No active suicidal or homicidal ideation. Attention span is short. says CT head was done at Neurology and they will be returning there for followup and therefore, we will not repeat it here. REVIEW OF SYSTEMS: Positive for some tiredness. No blurred vision. No GI, , pulmonary, eye, ENT system symptoms on review. No suicidal or homicidal ideation. 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 PLAN: I had a lengthy discussion with the patient and his about treatment options. They would like to avoid Risperdal and were unable to afford the Invega. We will start the patient on Seroquel 25 mg p.o. at bedtime since hopefully this should be better tolerated than the Risperdal. I just do not know at what dosage would it have an adequate antipsychotic effect, but he will be following up at for further adjustments. For now, we will start at 25 mg p.o. at bedtime and reduce the Cogentin from 1 mg 3 times a day to 1 mg [address] a day[address] Dr. Fleming, thank you for the opportunity to participate in your patient's care. We will follow with you. JOSE NOLASCO MD DR: SAMARA/shilo JOB#: [id number] / [id number]
[2016-11-01] MEDS: IV NORMAL SALINE 1,000ML 1,000 ML IV SCH ×2 (11:08→21:35)
[2016-11-01] MEDS: HYDROcodone/APAP 5/325MG 1 TAB TABLET PO PRN (12:44)
[2016-11-01 12:56] VITALS: BP 108/72
[2016-11-01 15:54] VITALS: BP 166/72
--- NOTE | 2016-11-01 18:16 | PDOC ---
Exam Serg Demential Exam: Serg Note: Please also refer to the separate dictated note~for this date of service dictated separately.~Patient seen individually. Discussed the patient with Nursing staff reviewed the chart.~Reviewed interim history and current functioning. Reviewed vital signs,~Labs/ Radiology~and current medications noted below. Continue current treatment with the changes noted in the dictated addendum note Assessment: Vital Signs: Vital Signs Date Time Temp Pulse Resp B/P (MAP) Pulse Ox O2 Delivery O2 Flow Rate FiO2 11/01/16 15:54 98.2 64 20 166/72 (103) 97 Room Air I&O Intake and Output 11/02/16 07:01 Intake Total 1200 ml Output Total 300 ml Balance 900 ml Intake Oral 1200 ml Output Urine Total 300 ml Labs: Laboratory Tests Test 11/01/16 06:15 White Blood Count 6.8 x10^3/uL (4.0-11.0) Red Blood Count 4.06 x10^6/uL (4.30-5.70) L Hemoglobin 12.4 g/dL (13.0-17.5) L Hematocrit 35.1 % (39.0-53.0) L Mean Corpuscular Volume 86 fL (79-100) Mean Corpuscular Hemoglobin 31 pg (25-35) Mean Corpuscular Hemoglobin Concent 36 g/dL (31-37) Red Cell Distribution Width 13.9 % (11.5-14.5) Platelet Count 190 x10^3/uL (140-400) Neutrophils (%) (Auto) 63 % (31-73) Lymphocytes (%) (Auto) 20 % (24-48) L Monocytes (%) (Auto) 12 % (0-9) H Eosinophils (%) (Auto) 4 % (0-3) H Basophils (%) (Auto) 1 % (0-3) Neutrophils # (Auto) 4.3 x10^3uL (1.8-7.7) Lymphocytes # (Auto) 1.4 x10^3/uL (1.0-4.8) Monocytes # (Auto) 0.8 x10^3/uL (0.0-1.1) Eosinophils # (Auto) 0.3 x10^3/uL (0.0-0.7) Basophils # (Auto) 0.1 x10^3/uL (0.0-0.2) Sodium Level 133 mmol/L (136-145) L Potassium Level 3.5 mmol/L (3.5-5.1) Chloride Level 98 mmol/L (98-107) Carbon Dioxide Level 30 mmol/L (21-32) Anion Gap 5 (6-14) L Blood Urea Nitrogen 24 mg/dL (8-26) # Creatinine 3.4 mg/dL (0.7-1.3) H Estimated GFR (Cockcroft-Gault) 18.2 BUN/Creatinine Ratio 7 (6-20) Glucose Level 104 mg/dL (70-99) H Calcium Level 8.3 mg/dL (8.5-10.1) L Total Bilirubin 0.6 mg/dL (0.2-1.0) Aspartate Amino Transferase (AST) 23 U/L (15-37) Alanine Aminotransferase (ALT) 19 U/L (16-63) Alkaline Phosphatase 56 U/L (46-116) Troponin I Quantitative < 0.017 ng/mL (0-0.055) Total Protein 5.9 g/dL (6.4-8.2) L Albumin 3.3 g/dL (3.4-5.0) L Albumin/Globulin Ratio 1.3 (1.0-1.7) Triglycerides Level 222 mg/dL (0-150) H Cholesterol Level 123 mg/dL (0-200) LDL Cholesterol, Calculated 51 mg/dL (0-100) VLDL Cholesterol, Calculated 44 mg/dL (0-40) H Non-HDL Cholesterol Calculated 95 mg/dL (0-129) HDL Cholesterol 28 mg/dL (40-60) L Cholesterol/HDL Ratio 4.0 Current Medications: Meds: Current Medications Aspirin (Children'S Aspirin) 324 mg 1X ONCE PO Last administered on 10/31/16 09:17; Start 10/31/16 at 09:20; Stop 10/31/16 at 09:21; Status DC Nitroglycerin (Nitrostat) 0.4 mg PRN Q5MIN PRN SL CP RATING > 1/10; Start 10/31 at 09:20; Stop 11/01/16 at 09:19; Status DC Morphine Sulfate (Morphine 2mg Syringe) 2 mg PRN Q15MIN PRN IV/SQ PAIN GREATER THAN 3/10 Last administered on 10/31/16 11:33; Start 10/31/16 at 08:45; Stop at 08:44; Status DC Ketorolac Tromethamine (Toradol) 30 mg 1X ONCE IV Last administered on 09:20; Start 10/31/16 at 09:20; Stop 10/31/16 at 09:21; Status DC Albuterol/ Ipratropium (Duoneb) 3 ml 1X ONCE NEB Last administered on 09:41; Start 10/31/16 at 09:45; Stop 10/31/16 at 09:46; Status DC Ondansetron HCl (Zofran) 4 mg PRN Q4HRS PRN IV NAUSEA/VOMITING; Start 10/31/16 at 11:00; Stop 11/01/16 at 10:59; Status DC Acetaminophen (Tylenol) 650 mg PRN Q4HRS PRN PO FEVER; Start 10/31/16 at 11:00 ; Stop 11/01/16 at 10:59; Status DC Albuterol/ Ipratropium (Duoneb) 3 ml RTQID NEB Last administered on 11/01/16 11:02; Start 10/31/16 at 12:00; Stop 11/01/16 at 11:59; Status DC Methylprednisolone Sodium Succinate (SOLU-Medrol 125MG VIAL) 125 mg Q6HRS IV ; Start 10/31/16 at 18:00; Stop 10/31/16 at 18:00; Status DC Aspirin (Aspirin Enteric Coated) 81 mg DAILY PO Last administered on 11/01/16 09:04; Start 11/01/16 at 09:00 Benztropine Mesylate (Cogentin) 1 mg TID PO ; Start 10/31/16 at 21:00; Stop 02/04 at 21:00; Status DC Cetirizine HCl (ZyrTEC) 10 mg DAILY PO Last administered on 11/01/16 09:06; Start 11/01/16 at 09:00 Hydrochlorothiazide (Hydrodiuril) 25 mg DAILY PO Last administered on 09:06; Start 11/01/16 at 09:00; Status Future Hold Simvastatin (Zocor) 20 mg QHS PO Last administered on 10/31/16 20:25; Start at 21:00 Losartan Potassium (Cozaar) 100 mg DAILY PO Last administered on 11/01/16 09: 05; Start 11/01/16 at 09:00; Status Future Hold Metoprolol Succinate (Toprol Xl) 100 mg DAILY PO Last administered on 09:05; Start 11/01/16 at 09:00 Pantoprazole Sodium (Protonix) 40 mg DAILYAC PO Last administered on 11/01/16 07:40; Start 11/01/16 at 07:30 Albuterol Sulfate (Ventolin) 2.5 mg Q1HR PRN NEB SHORTNESS OF BREATH; Start 02/04 at 16:00 Benztropine Mesylate (Cogentin) 1 mg [id number] PO Last administered on 11/01/16 06 :17; Start 11/01/16 at 07:00 Quetiapine Fumarate (SEROquel) 25 mg QHS PO Last administered on 10/31/16 20: 25; Start 10/31/16 at 21:00 Throat Lozenges (Cepacol Sore Throat Lozenge) 1 katty PRN Q2HR PRN PO SORE THROAT Last administered on 10/31/16 19:44; Start 10/31/16 at 19:30 Acetaminophen/ Hydrocodone Bitart (Lortab 5/325) 1 tab PRN Q6HRS PRN PO PAIN Last administered on 11/01/16 12:44; Start 10/31/16 at 19:30 Sodium Chloride 500 ml @ 0 mls/hr 1X ONCE IV Last administered on 11/01/16 09 :50; Start 11/01/16 at 09:30; Stop 11/01/16 at 09:31; Status DC Sodium Chloride 1,000 ml @ 75 mls/hr [id number] IV Last administered on 11:08; Start 11/01/16 at 09:30 Hydralazine HCl (Apresoline) 10 mg PRN Q4HRS PRN IV ELEVATED BP, SEE COMMENTS; Start 11/01/16 at 09:30 Active Scripts Active Reported Hydrochlorothiazide Tablet (Hydrochlorothiazide) 25 Mg Tablet 1 Tab PO DAILY Zyrtec (Cetirizine Hcl) 10 Mg Tablet 1 Tab PO DAILY Simvastatin 20 Mg Tablet 1 Tab PO QHS Metoprolol Succinate ( Xl ) (Metoprolol Succinate) 100 Mg Tab.er.24h 1 Tab PO DAILY Omeprazole 40 Mg Capsule.dr 1 Cap PO DAILY Losartan Potassium 100 Mg Tablet 100 Mg PO DAILY Benztropine Mesylate 1 Mg Tablet 1 Tab PO TID Aspir-Low (Aspirin) 81 Mg Tablet.dr 1 Tab PO DAILY Diagnosis: Problems: (1) Dementia, vascular, with delusions (2) Psychosis, atypical (3) Impulse control disorder (4) Anxiety disorder JOSE NOLASCO MD Nov 01, 2016 18:16
[2016-11-01 19:34] VITALS: BP 157/97
[2016-11-01] MEDS: QUEtiapine 50 MG TABLET. PO SCH (20:08)
[2016-11-01] MEDS: SIMVASTATIN 20 MG TABLET PO SCH (20:08)
[2016-11-01] MEDS ORDERED: IPRATRPIUM/ALBUTEROL 0.5/2.5MG 3 ML NEBU. NEB ONE (20:45)
--- NOTE | 2016-11-01 22:12 | NUR ---
Nursing: Pt increasingly anxious and delusional. Shouting at , "Don't tell me it's not real!" Believes there is a man outside the window polluting the air in his room. Now wandering in hallway looking out windows. Unable to calm pt down. Dr. Alonzo notified. PRN orders received and meds administered. Pt compliant with meds. Pt now sitting up in chair at end of the fallon, but refuses to return to room at this time. at side. Will monitor.
[2016-11-01] MEDS: HALOPERIDOL 5 MG TABLET PO PRN (22:22)
[2016-11-01] MEDS: LORazepam 0.5 MG TABLET PO PRN (22:22)
[2016-11-01 23:42] VITALS: BP 165/63
--- NOTE | 2016-11-02 00:32 | NUR ---
Nursing: PRN Haldol and Ativan effective. Pt calmed and willing to return to room. Now laying in bed, resting comfortably. at bedside.
--- NOTE | 2016-11-02 04:23 | PN ---
DATE: 11/01/2016 SUBJECTIVE: The patient is resting flat, comfortably in bed, in no apparent distress. He continued to have pain around his bilateral costochondral areas; however, he was evaluated by the adjunct political science instructor, he had 2 sets of cardiac enzymes that were negative. His chest pain is atypical, of more concern is that his kidney function has dramatically deteriorated. His creatinine has risen from 1.5 to 3.4. His nephrotoxic medications were discontinued including hydrochlorothiazide, losartan potassium and I have requested to scan his bladder and obviously , we will arrange for him to have an indwelling Blair catheter. PHYSICAL EXAMINATION: GENERAL: When I examined him, he was resting flat, comfortably in bed, in no apparent respiratory distress, pale, but no jaundice, cyanosis or thyromegaly. No jugular venous distention. No lower limb edema. VITAL SIGNS: His heart rate was 73, blood pressure 137/64, temperature was 98.5, respiratory rate 20 and oxygen saturation was 94%. HEAD, EYES, EARS, NOSE AND THROAT: Showed normocephalic, atraumatic. NECK: Supple. HEART: Showed normal first and second heart sounds with no gallop, rub or murmur. CHEST: Clear to auscultation. No crepitation or rhonchi. ABDOMEN: Distended, soft, nontender. No guarding or rigidity. No organomegaly. Hernial orifices intact. Bowel sounds normal. NEUROLOGIC: He was awake, alert, responding appropriately. Cranial nerves intact. He moves extremities without difficulty, ambulates without assistance or assistive devices. The patient apparently has been hallucinating and we did consult Dr. Alonzo to see him and his impression is that the patient either has psychotic disorder, unspecified versus early major neurocognitive disorder, possibly vascular with delusion. He was started on Seroquel p.o. at bedtime. He was also started on Cogentin from 1-3 times a day to 1 mg twice a day. His intake over the last 24 hours was 1060, no output was recorded. LABORATORY DATA: This morning showed a serum sodium 133, potassium 3.5, chloride 98, bicarbonate 30, anion gap of 5, BUN 24, creatinine 3.4. Estimated GFR was down to 18 mL per minute. His glucose 104. Calcium was 8.3. Total bilirubin, AST, ALT, alkaline phosphatase were normal. Total protein was 5.9, albumin 3.3. His triglycerides were . Total cholesterol 123, HDL cholesterol was 51, VLDL was 44. HDL was 28 and the ratio was 4. ASSESSMENT AND PLAN: Chest pain, fairly atypical. The two sets of cardiac enzymes were negative. The adjunct political science instructor recommended to hold off on any cardiac diagnostic testing, to re-consider repeat stress test as an outpatient. His acute renal failure the cause of which is not very clear; however, we stopped his hydrochlorothiazide and his losartan and was started on IV fluid. We will repeat his labs tomorrow. I did scan his bladder and there was no evidence of any obstruction at least for the time being and we will decide on further management accordingly. Other medical problems are including essential hypertension, hyperlipidemia, history of mild ischemic cardiomyopathy. JULISA HICKEY MD DR: ZENA/shilo JOB#: [id number] / [id number]
[2016-11-02] MEDS: BENZTROPINE MESYLATE 1 MG TABLET PO SCH ×2 (05:32→17:29)
[2016-11-02 06:02] VITALS: BP 152/66
[2016-11-02 07:01] LABS: CREATININE 2.7 mg/dL (0.7-1.3); GFR 23.8; MAGNESIUM 1.6 mg/dL (1.8-2.4); POTASSIUM 3.4 mmol/L (3.5-5.1)
[2016-11-02] MEDS: ASPIRIN ENTERIC COATED 81 MG TABLET.DR. PO SCH (07:36)
[2016-11-02] MEDS: PANTOPRAZOLE 40 MG TABLET. PO SCH (07:36)
[2016-11-02] MEDS: CETIRIZINE HCL 10 MG TABLET PO SCH (07:36)
[2016-11-02] MEDS: METOPROLOL SUCC 24HR ER 50 MG TAB.ER.24H. PO SCH (07:36)
[2016-11-02] MEDS: HALOPERIDOL 5 MG TABLET PO PRN ×3 (07:36→18:01)
--- NOTE | 2016-11-02 09:24 | RAD ---
Examination: Ultrasound kidneys History: History of acute renal failure Comparison: None available Findings: The right kidney measures 11.5 x 6.4 x 5.5 cm Left kidney 11.3 x5.8 x5.8 cm. Urinary bladder is mildly distended. Mild prominent appearing pyramids identified in the bilateral kidneys. No evidence of hydronephrosis. Bilateral ureteral jets identified in the urinary bladder. Impression: Minimally prominent pyramids in the bilateral kidneys. No evidence of hydronephrosis or mass.
[2016-11-02] MEDS ORDERED: SODIUM CHLORIDE 0.65% NASAL SPRAY 45ML BOTTLE. NS PRN (09:30)
--- NOTE | 2016-11-02 09:45 | PDOC ---
ANA WILLS [employer] [employer] 11/02/16 0945: PROGRESS NOTES Assessment We are seeing the patient for chest pain 1. Chest pain, atypical - cardiac enzymes are negative and myocardial infarction has been ruled out. Will plan for outpatient nuclear stress test. 2. Essential hypertension - will add amlodipine and keep him off of the Cozaar hydrochlorothiazide for now. 3. Hyperlipidemia -continue medical therapy 4. Acute renal failure -his creatinine has improved and today is down to 2.7. I would recommend continuing IV fluid and check again in the a.m.. We will keep him off his Cozaar and hydrochlorothiazide for now. 5. History of mild ischemic cardiomyopathy, stable 6. Abnormal ECG Problems: Subjective he is quite sleepy this morning and does feel like he is improving. His chest pain has improved only hurts when he is coughing. He continues to feel short of breath. Objective Vital Signs Date Time Temp Pulse Resp B/P (MAP) Pulse Ox O2 Delivery O2 Flow Rate FiO2 11/02/16 08:00 Room Air 11/02/16 07:36 69 152/66 11/02/16 06:02 98.1 20 96 Intake and Output 11/03/16 07:00 Intake Total 480 ml Output Total 400 ml Balance 80 ml Intake Oral 480 ml Output Urine Total 400 ml Abdomen: Normal bowel sounds, Soft, No tenderness Heart: Regular rate, Normal S1, Normal S2, No murmurs Extremities: No edema, Normal pulses General: Alert, Oriented X3, Cooperative HEENT: EOMI, Mucous membr. moist/pink Lungs: Clear to auscultation Psych/Mental Status: Mental status NL, Mood NL Review of Relevant I have reviewed the following items víctor (where applicable) has been applied. Labs Laboratory Tests Test 11/01/16 06:15 11/02/16 06:22 White Blood Count 6.8 x10^3/uL (4.0-11.0) Red Blood Count 4.06 x10^6/uL (4.30-5.70) Hemoglobin 12.4 g/dL (13.0-17.5) Hematocrit 35.1 % (39.0-53.0) Mean Corpuscular Volume 86 fL (79-100) Mean Corpuscular Hemoglobin 31 pg (25-35) Mean Corpuscular Hemoglobin Concent 36 g/dL (31-37) Red Cell Distribution Width 13.9 % (11.5-14.5) Platelet Count 190 x10^3/uL (140-400) Neutrophils (%) (Auto) 63 % (31-73) Lymphocytes (%) (Auto) 20 % (24-48) Monocytes (%) (Auto) 12 % (0-9) Eosinophils (%) (Auto) 4 % (0-3) Basophils (%) (Auto) 1 % (0-3) Neutrophils # (Auto) 4.3 x10^3uL (1.8-7.7) Lymphocytes # (Auto) 1.4 x10^3/uL (1.0-4.8) Monocytes # (Auto) 0.8 x10^3/uL (0.0-1.1) Eosinophils # (Auto) 0.3 x10^3/uL (0.0-0.7) Basophils # (Auto) 0.1 x10^3/uL (0.0-0.2) Sodium Level 133 mmol/L (136-145) 133 mmol/L (136-145) Potassium Level 3.5 mmol/L (3.5-5.1) 3.4 mmol/L (3.5-5.1) Chloride Level 98 mmol/L (98-107) 100 mmol/L (98-107) Carbon Dioxide Level 30 mmol/L (21-32) 26 mmol/L (21-32) Anion Gap 5 (6-14) 7 (6-14) Blood Urea Nitrogen 24 mg/dL (8-26) 21 mg/dL (8-26) Creatinine 3.4 mg/dL (0.7-1.3) 2.7 mg/dL (0.7-1.3) Estimated GFR (Cockcroft-Gault) 18.2 23.8 BUN/Creatinine Ratio 7 (6-20) Glucose Level 104 mg/dL (70-99) 97 mg/dL (70-99) Calcium Level 8.3 mg/dL (8.5-10.1) 8.0 mg/dL (8.5-10.1) Total Bilirubin 0.6 mg/dL (0.2-1.0) Aspartate Amino Transf (AST/SGOT) 23 U/L (15-37) Alanine Aminotransferase (ALT/SGPT) 19 U/L (16-63) Alkaline Phosphatase 56 U/L (46-116) Troponin I Quantitative < 0.017 ng/mL (0-0.055) Total Protein 5.9 g/dL (6.4-8.2) Albumin 3.3 g/dL (3.4-5.0) Albumin/Globulin Ratio 1.3 (1.0-1.7) Triglycerides Level 222 mg/dL (0-150) Cholesterol Level 123 mg/dL (0-200) LDL Cholesterol, Calculated 51 mg/dL (0-100) VLDL Cholesterol, Calculated 44 mg/dL (0-40) Non-HDL Cholesterol Calculated 95 mg/dL (0-129) HDL Cholesterol 28 mg/dL (40-60) Cholesterol/HDL Ratio 4.0 Magnesium Level 1.6 mg/dL (1.8-2.4) Medications Current Medications Aspirin (Children'S Aspirin) 324 mg 1X ONCE PO Last administered on 10/31/16 09:17; Start 10/31/16 at 09:20; Stop 10/31/16 at 09:21; Status DC Nitroglycerin (Nitrostat) 0.4 mg PRN Q5MIN PRN SL CP RATING > 1/10; Start 10/31 at 09:20; Stop 11/01/16 at 09:19; Status DC Morphine Sulfate (Morphine 2mg Syringe) 2 mg PRN Q15MIN PRN IV/SQ PAIN GREATER THAN 3/10 Last administered on 10/31/16 11:33; Start 10/31/16 at 08:45; Stop at 08:44; Status DC Ketorolac Tromethamine (Toradol) 30 mg 1X ONCE IV Last administered on 09:20; Start 10/31/16 at 09:20; Stop 10/31/16 at 09:21; Status DC Albuterol/ Ipratropium (Duoneb) 3 ml 1X ONCE NEB Last administered on 09:41; Start 10/31/16 at 09:45; Stop 10/31/16 at 09:46; Status DC Ondansetron HCl (Zofran) 4 mg PRN Q4HRS PRN IV NAUSEA/VOMITING; Start 10/31/16 at 11:00; Stop 11/01/16 at 10:59; Status DC Acetaminophen (Tylenol) 650 mg PRN Q4HRS PRN PO FEVER; Start 10/31/16 at 11:00 ; Stop 11/01/16 at 10:59; Status DC Albuterol/ Ipratropium (Duoneb) 3 ml RTQID NEB Last administered on 11/01/16 11:02; Start 10/31/16 at 12:00; Stop 11/01/16 at 11:59; Status DC Methylprednisolone Sodium Succinate (SOLU-Medrol 125MG VIAL) 125 mg Q6HRS IV ; Start 10/31/16 at 18:00; Stop 10/31/16 at 18:00; Status DC Aspirin (Aspirin Enteric Coated) 81 mg DAILY PO Last administered on 11/02/16 07:36; Start 11/01/16 at 09:00 Benztropine Mesylate (Cogentin) 1 mg TID PO ; Start 10/31/16 at 21:00; Stop 02/04 at 21:00; Status DC Cetirizine HCl (ZyrTEC) 10 mg DAILY PO Last administered on 11/02/16 07:36; Start 11/01/16 at 09:00 Hydrochlorothiazide (Hydrodiuril) 25 mg DAILY PO Last administered on 09:06; Start 11/01/16 at 09:00; Status Future Hold Simvastatin (Zocor) 20 mg QHS PO Last administered on 11/01/16 20:08; Start at 21:00 Losartan Potassium (Cozaar) 100 mg DAILY PO Last administered on 11/01/16 09: 05; Start 11/01/16 at 09:00; Status Future Hold Metoprolol Succinate (Toprol Xl) 100 mg DAILY PO Last administered on 07:36; Start 11/01/16 at 09:00 Pantoprazole Sodium (Protonix) 40 mg DAILYAC PO Last administered on 11/02/16 07:36; Start 11/01/16 at 07:30 Albuterol Sulfate (Ventolin) 2.5 mg Q1HR PRN NEB SHORTNESS OF BREATH Last administered on 11/01/16 20:50; Start 10/31/16 at 16:00 Benztropine Mesylate (Cogentin) 1 mg [id number] PO Last administered on 11/02/16 05 :32; Start 11/01/16 at 07:00 Quetiapine Fumarate (SEROquel) 25 mg QHS PO Last administered on 10/31/16 20: 25; Start 10/31/16 at 21:00; Stop 11/01/16 at 18:32; Status DC Throat Lozenges (Cepacol Sore Throat Lozenge) 1 katty PRN Q2HR PRN PO SORE THROAT Last administered on 10/31/16 19:44; Start 10/31/16 at 19:30 Acetaminophen/ Hydrocodone Bitart (Lortab 5/325) 1 tab PRN Q6HRS PRN PO PAIN Last administered on 11/01/16 12:44; Start 10/31/16 at 19:30 Sodium Chloride 500 ml @ 0 mls/hr 1X ONCE IV Last administered on 11/01/16 09 :50; Start 11/01/16 at 09:30; Stop 11/01/16 at 09:31; Status DC Sodium Chloride 1,000 ml @ 75 mls/hr [id number] IV Last administered on 21:35; Start 11/01/16 at 09:30 Hydralazine HCl (Apresoline) 10 mg PRN Q4HRS PRN IV ELEVATED BP, SEE COMMENTS Last administered on 11/01/16 21:33; Start 11/01/16 at 09:30 Quetiapine Fumarate (SEROquel) 50 mg QHS PO Last administered on 11/01/16 20: 08; Start 11/01/16 at 21:00 Albuterol/ Ipratropium (Duoneb) 3 ml 1X ONCE NEB ; Start 11/01/16 at 20:45; Stop 11/01/16 at 20:47; Status DC Haloperidol (Haldol) 5 mg PRN Q2HR PRN PO PSYCHOSIS Last administered on 07:36; Start 11/01/16 at 22:15 Lorazepam (Ativan) 0.25 mg PRN Q2HR PRN PO ANXIETY / AGITATION Last administered on 11/01/16 22:22; Start 11/01/16 at 22:15 Sodium Chloride (Saline Mist Nasal) 1 jose de jesus PRN Q1HR PRN NS NASAL CONGESTION; Start 11/02/16 at 09:30 Amlodipine Besylate (Norvasc) 10 mg DAILY PO ; Start 11/02/16 at 10:00 Active Scripts Active Reported Hydrochlorothiazide Tablet (Hydrochlorothiazide) 25 Mg Tablet 1 Tab PO DAILY Zyrtec (Cetirizine Hcl) 10 Mg Tablet 1 Tab PO DAILY Simvastatin 20 Mg Tablet 1 Tab PO QHS Metoprolol Succinate ( Xl ) (Metoprolol Succinate) 100 Mg Tab.er.24h 1 Tab PO DAILY Omeprazole 40 Mg Capsule.dr 1 Cap PO DAILY Losartan Potassium 100 Mg Tablet 100 Mg PO DAILY Benztropine Mesylate 1 Mg Tablet 1 Tab PO TID Aspir-Low (Aspirin) 81 Mg Tablet.dr 1 Tab PO DAILY Vitals/I & O Vital Sign - Last 24 Hours 11/01/16 11/01/16 11/01/16 11/01/16 10:13 11:03 12:44 12:56 Temp 98.5 Pulse 73 80 Resp 20 B/P (MAP) 137/64 (88) 108/72 (84) Pulse Ox 94 95 97 O2 Delivery Room Air Room Air Room Air Room Air 11/01/16 11/01/16 11/01/16 11/01/16 15:19 15:54 19:34 20:00 Temp 98.2 98.8 Pulse 64 65 Resp 20 20 B/P (MAP) 166/72 (103) 157/97 (117) Pulse Ox 97 96 O2 Delivery Room Air Room Air Room Air Room Air 11/01/16 11/01/16 11/01/16 11/02/16 20:52 21:33 23:42 06:02 Temp 98.6 98.1 Pulse 72 73 69 Resp 18 20 B/P (MAP) 181/71 165/63 (97) 152/66 (94) Pulse Ox 96 96 96 O2 Delivery Room Air Room Air Room Air 11/02/16 11/02/16 07:36 08:00 Pulse 69 B/P (MAP) 152/66 O2 Delivery Room Air Intake and Output 11/02/16 11/02/16 11/03/16 15:00 23:00 07:00 Intake Total 480 ml Output Total 400 ml Balance 80 ml GEOVANNI SINHA Jr, MD 11/06/16 0976: PROGRESS NOTES Assessment The patient was seen by Ana Wills, [employer] and I have reviewed her findings and plan and agree with above. Due to staffing constraints, we did not have an attending available on this day to see the patient. Problems: ANA WILLS APRN Nov 02, 2016 09:45 GEOVANNI SINHA Jr, MD Nov 06, 2016 18:21
[2016-11-02 11:21] VITALS: BP 151/67
[2016-11-02] MEDS: amLODIPine BESYLATE 10 MG TABLET PO SCH (11:33)
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
[2016-11-02] MEDS: IV NORMAL SALINE 1,000ML 1,000 ML IV SCH ×2 (12:28→20:15)
[2016-11-02 16:14] VITALS: BP 138/64
[2016-11-02] MEDS: MAGNESIUM OXIDE 400 MG TABLET PO SCH ×2 (17:28→20:15)
[2016-11-02] MEDS: POTASSIUM CHLORIDE 20 MEQ TABLET.ER. PO SCH ×2 (17:28→20:16)
[2016-11-02 19:40] VITALS: BP 162/80
[2016-11-02] MEDS: QUEtiapine 50 MG TABLET. PO SCH (20:16)
[2016-11-02] MEDS: LORazepam 0.5 MG TABLET PO PRN (20:16)
[2016-11-02] MEDS: SIMVASTATIN 20 MG TABLET PO SCH (20:16)
--- NOTE | 2016-11-02 21:29 | PDOC ---
Exam Serg Demential Exam: Serg Note: Please also refer to the separate dictated note~for this date of service dictated separately.~Patient seen individually. Discussed the patient with Nursing staff reviewed the chart.~Reviewed interim history and current functioning. Reviewed vital signs,~Labs/ Radiology~and current medications noted below. Continue current treatment with the changes noted in the dictated addendum note Assessment: Vital Signs: Vital Signs Date Time Temp Pulse Resp B/P (MAP) Pulse Ox O2 Delivery O2 Flow Rate FiO2 11/02/16 19:40 98.0 71 20 162/80 (107) 97 Room Air I&O Intake and Output 11/03/16 07:00 Intake Total 2794 ml Output Total 3500 ml Balance -706 ml Intake Oral 1880 ml IV Total 914 ml Output Urine Total 3500 ml # Bowel Movements 1 Labs: Laboratory Tests Test 11/02/16 06:22 Sodium Level 133 mmol/L (136-145) L Potassium Level 3.4 mmol/L (3.5-5.1) L Chloride Level 100 mmol/L (98-107) Carbon Dioxide Level 26 mmol/L (21-32) Anion Gap 7 (6-14) Blood Urea Nitrogen 21 mg/dL (8-26) Creatinine 2.7 mg/dL (0.7-1.3) H Estimated GFR (Cockcroft-Gault) 23.8 Glucose Level 97 mg/dL (70-99) Calcium Level 8.0 mg/dL (8.5-10.1) L Magnesium Level 1.6 mg/dL (1.8-2.4) L Current Medications: Meds: Current Medications Aspirin (Children'S Aspirin) 324 mg 1X ONCE PO Last administered on 10/31/16 09:17; Start 10/31/16 at 09:20; Stop 10/31/16 at 09:21; Status DC Nitroglycerin (Nitrostat) 0.4 mg PRN Q5MIN PRN SL CP RATING > 1/10; Start 10/31 at 09:20; Stop 11/01/16 at 09:19; Status DC Morphine Sulfate (Morphine 2mg Syringe) 2 mg PRN Q15MIN PRN IV/SQ PAIN GREATER THAN 3/10 Last administered on 10/31/16 11:33; Start 10/31/16 at 08:45; Stop at 08:44; Status DC Ketorolac Tromethamine (Toradol) 30 mg 1X ONCE IV Last administered on 09:20; Start 10/31/16 at 09:20; Stop 10/31/16 at 09:21; Status DC Albuterol/ Ipratropium (Duoneb) 3 ml 1X ONCE NEB Last administered on 09:41; Start 10/31/16 at 09:45; Stop 10/31/16 at 09:46; Status DC Ondansetron HCl (Zofran) 4 mg PRN Q4HRS PRN IV NAUSEA/VOMITING; Start 10/31/16 at 11:00; Stop 11/01/16 at 10:59; Status DC Acetaminophen (Tylenol) 650 mg PRN Q4HRS PRN PO FEVER; Start 10/31/16 at 11:00 ; Stop 11/01/16 at 10:59; Status DC Albuterol/ Ipratropium (Duoneb) 3 ml RTQID NEB Last administered on 11/01/16 11:02; Start 10/31/16 at 12:00; Stop 11/01/16 at 11:59; Status DC Methylprednisolone Sodium Succinate (SOLU-Medrol 125MG VIAL) 125 mg Q6HRS IV ; Start 10/31/16 at 18:00; Stop 10/31/16 at 18:00; Status DC Aspirin (Aspirin Enteric Coated) 81 mg DAILY PO Last administered on 11/02/16 07:36; Start 11/01/16 at 09:00 Benztropine Mesylate (Cogentin) 1 mg TID PO ; Start 10/31/16 at 21:00; Stop 02/04 at 21:00; Status DC Cetirizine HCl (ZyrTEC) 10 mg DAILY PO Last administered on 11/02/16 07:36; Start 11/01/16 at 09:00 Hydrochlorothiazide (Hydrodiuril) 25 mg DAILY PO Last administered on 09:06; Start 11/01/16 at 09:00; Status Future Hold Simvastatin (Zocor) 20 mg QHS PO Last administered on 11/02/16 20:16; Start at 21:00 Losartan Potassium (Cozaar) 100 mg DAILY PO Last administered on 11/01/16 09: 05; Start 11/01/16 at 09:00; Status Future Hold Metoprolol Succinate (Toprol Xl) 100 mg DAILY PO Last administered on 07:36; Start 11/01/16 at 09:00 Pantoprazole Sodium (Protonix) 40 mg DAILYAC PO Last administered on 11/02/16 07:36; Start 11/01/16 at 07:30 Albuterol Sulfate (Ventolin) 2.5 mg Q1HR PRN NEB SHORTNESS OF BREATH Last administered on 11/01/16 20:50; Start 10/31/16 at 16:00 Benztropine Mesylate (Cogentin) 1 mg [id number] PO Last administered on 11/02/16 17 :29; Start 11/01/16 at 07:00 Quetiapine Fumarate (SEROquel) 25 mg QHS PO Last administered on 10/31/16 20: 25; Start 10/31/16 at 21:00; Stop 11/01/16 at 18:32; Status DC Throat Lozenges (Cepacol Sore Throat Lozenge) 1 katty PRN Q2HR PRN PO SORE THROAT Last administered on 10/31/16 19:44; Start 10/31/16 at 19:30 Acetaminophen/ Hydrocodone Bitart (Lortab 5/325) 1 tab PRN Q6HRS PRN PO PAIN Last administered on 11/01/16 12:44; Start 10/31/16 at 19:30 Sodium Chloride 500 ml @ 0 mls/hr 1X ONCE IV Last administered on 11/01/16 09 :50; Start 11/01/16 at 09:30; Stop 11/01/16 at 09:31; Status DC Sodium Chloride 1,000 ml @ 75 mls/hr [id number] IV Last administered on 20:15; Start 11/01/16 at 09:30 Hydralazine HCl (Apresoline) 10 mg PRN Q4HRS PRN IV ELEVATED BP, SEE COMMENTS Last administered on 11/01/16 21:33; Start 11/01/16 at 09:30 Quetiapine Fumarate (SEROquel) 50 mg QHS PO Last administered on 11/02/16 20: 16; Start 11/01/16 at 21:00 Albuterol/ Ipratropium (Duoneb) 3 ml 1X ONCE NEB ; Start 11/01/16 at 20:45; Stop 11/01/16 at 20:47; Status DC Haloperidol (Haldol) 5 mg PRN Q2HR PRN PO PSYCHOSIS Last administered on 18:01; Start 11/01/16 at 22:15 Lorazepam (Ativan) 0.25 mg PRN Q2HR PRN PO ANXIETY / AGITATION Last administered on 11/02/16 20:16; Start 11/01/16 at 22:15 Sodium Chloride (Saline Mist Nasal) 1 jose de jesus PRN Q1HR PRN NS NASAL CONGESTION Last administered on 11/02/16 11:33; Start 11/02/16 at 09:30 Amlodipine Besylate (Norvasc) 10 mg DAILY PO Last administered on 11/02/16 11: 33; Start 11/02/16 at 10:00 Potassium Chloride (Klor-Con) 20 meq TID PO Last administered on 11/02/16 20: 16; Start 11/02/16 at 14:00 Magnesium Oxide (Magnesium Oxide) 400 mg TID PO Last administered on 11/02/16 20:15; Start 11/02/16 at 14:00 Active Scripts Active Reported Hydrochlorothiazide Tablet (Hydrochlorothiazide) 25 Mg Tablet 1 Tab PO DAILY Zyrtec (Cetirizine Hcl) 10 Mg Tablet 1 Tab PO DAILY Simvastatin 20 Mg Tablet 1 Tab PO QHS Metoprolol Succinate ( Xl ) (Metoprolol Succinate) 100 Mg Tab.er.24h 1 Tab PO DAILY Omeprazole 40 Mg Capsule.dr 1 Cap PO DAILY Losartan Potassium 100 Mg Tablet 100 Mg PO DAILY Benztropine Mesylate 1 Mg Tablet 1 Tab PO TID Aspir-Low (Aspirin) 81 Mg Tablet.dr 1 Tab PO DAILY Diagnosis: Problems: (1) Impulse control disorder (2) Psychosis, atypical (3) Dementia, vascular, with delusions JOSE NOLASCO MD Nov 02, 2016 21:29
[2016-11-02 23:15] VITALS: BP 145/73
[2016-11-03 05:21] VITALS: BP 166/75
[2016-11-03] MEDS: BENZTROPINE MESYLATE 1 MG TABLET PO SCH (06:00)
[2016-11-03 06:33] LABS: BASO # 0.1 x10^3/uL (0.0-0.2); BASO % 1 % (0-3); EOS # 0.3 x10^3/uL (0.0-0.7); EOS % 6 % (0-3); HEMATOCRIT 33.2 % (39.0-53.0); HEMOGLOBIN 11.9 g/dL (13.0-17.5); LYMPH # 1.5 x10^3/uL (1.0-4.8); LYMPH % 30 % (24-48); MEAN CORPUSCULAR HEMOGLOBIN 31 pg (25-35); MEAN CORPUSCULAR HGB CONC 36 g/dL (31-37); MEAN CORPUSCULAR VOLUME 86 fL (79-100); MONO # 0.7 x10^3/uL (0.0-1.1); MONO % 13 % (0-9); NEUT # 2.5 x10^3uL (1.8-7.7); NEUT % 49 % (31-73); PLATELET COUNT 207 x10^3/uL (140-400); RED BLOOD COUNT 3.86 x10^6/uL (4.30-5.70); RED CELL DISTRIBUTION WIDTH 14.2 % (11.5-14.5)
[2016-11-03 06:43] LABS: ALBUMIN 3.2 g/dL (3.4-5.0); CALCIUM 8.8 mg/dL (8.5-10.1); CREATININE 1.7 mg/dL (0.7-1.3); GFR 40.5; POTASSIUM 4.5 mmol/L (3.5-5.1); TOTAL BILIRUBIN 0.5 mg/dL (0.2-1.0); TOTAL PROTEIN 6.5 g/dL (6.4-8.2)
[2016-11-03] MEDS: CETIRIZINE HCL 10 MG TABLET PO SCH (08:27)
[2016-11-03] MEDS: amLODIPine BESYLATE 10 MG TABLET PO SCH (08:27)
[2016-11-03] MEDS: PANTOPRAZOLE 40 MG TABLET. PO SCH (08:28)
[2016-11-03] MEDS: ASPIRIN ENTERIC COATED 81 MG TABLET.DR. PO SCH (08:28)
[2016-11-03] MEDS: METOPROLOL SUCC 24HR ER 50 MG TAB.ER.24H. PO SCH (08:28)
[2016-11-03] MEDS: MAGNESIUM OXIDE 400 MG TABLET PO SCH (08:28)
[2016-11-03] MEDS: POTASSIUM CHLORIDE 20 MEQ TABLET.ER. PO SCH (08:32)
--- NOTE | 2016-11-03 09:01 | PDOC ---
ANA WILLS [employer] AD[employer] 11/03/16 0901: PROGRESS NOTES Assessment We are seeing the patient for chest pain 1. Chest pain, atypical - cardiac enzymes are negative and myocardial infarction has been ruled out. Will plan for outpatient nuclear stress test. 2. Essential hypertension - He has been Metoprolol XL and Cozaar and last week HCT was added. Cozaar and HCT were stopped when creatinine raimundo to 3.7 and amlodipine was started. Today improved to 1.7 and blood pressure is borderline. Plan to add back cozaar. 3. Hyperlipidemia -continue medical therapy 4. Acute renal failure -his creatinine has improved with stopping HCT and hydration -- today is down to 1.7 5. History of mild ischemic cardiomyopathy, stable 6. Abnormal ECG Problems: Subjective He was given Ativan last night and this morning is very sleepy. He denies any chest pain, dyspnea, or palpitations. Slept well and appetite is good. Objective Vital Signs Date Time Temp Pulse Resp B/P (MAP) Pulse Ox O2 Delivery O2 Flow Rate FiO2 11/03/16 08:28 72 166/75 11/03/16 07:38 Room Air 11/03/16 05:21 97.8 20 93 Abdomen: Normal bowel sounds, Soft, No tenderness Heart: Regular rate, Normal S1, Normal S2, No murmurs Extremities: No edema, Normal pulses General: Alert, Cooperative, No acute distress HEENT: EOMI, Mucous membr. moist/pink Psych/Mental Status: Mental status NL, Mood NL Review of Relevant I have reviewed the following items víctor (where applicable) has been applied. Labs Laboratory Tests Test 11/02/16 06:22 11/03/16 06:04 Sodium Level 133 mmol/L (136-145) 141 mmol/L (136-145) Potassium Level 3.4 mmol/L (3.5-5.1) 4.5 mmol/L (3.5-5.1) Chloride Level 100 mmol/L (98-107) 106 mmol/L (98-107) Carbon Dioxide Level 26 mmol/L (21-32) 33 mmol/L (21-32) Anion Gap 7 (6-14) 2 (6-14) Blood Urea Nitrogen 21 mg/dL (8-26) 16 mg/dL (8-26) Creatinine 2.7 mg/dL (0.7-1.3) 1.7 mg/dL (0.7-1.3) Estimated GFR (Cockcroft-Gault) 23.8 40.5 Glucose Level 97 mg/dL (70-99) 96 mg/dL (70-99) Calcium Level 8.0 mg/dL (8.5-10.1) 8.8 mg/dL (8.5-10.1) Magnesium Level 1.6 mg/dL (1.8-2.4) 1.8 mg/dL (1.8-2.4) White Blood Count 5.0 x10^3/uL (4.0-11.0) Red Blood Count 3.86 x10^6/uL (4.30-5.70) Hemoglobin 11.9 g/dL (13.0-17.5) Hematocrit 33.2 % (39.0-53.0) Mean Corpuscular Volume 86 fL (79-100) Mean Corpuscular Hemoglobin 31 pg (25-35) Mean Corpuscular Hemoglobin Concent 36 g/dL (31-37) Red Cell Distribution Width 14.2 % (11.5-14.5) Platelet Count 207 x10^3/uL (140-400) Neutrophils (%) (Auto) 49 % (31-73) Lymphocytes (%) (Auto) 30 % (24-48) Monocytes (%) (Auto) 13 % (0-9) Eosinophils (%) (Auto) 6 % (0-3) Basophils (%) (Auto) 1 % (0-3) Neutrophils # (Auto) 2.5 x10^3uL (1.8-7.7) Lymphocytes # (Auto) 1.5 x10^3/uL (1.0-4.8) Monocytes # (Auto) 0.7 x10^3/uL (0.0-1.1) Eosinophils # (Auto) 0.3 x10^3/uL (0.0-0.7) Basophils # (Auto) 0.1 x10^3/uL (0.0-0.2) BUN/Creatinine Ratio 9 (6-20) Total Bilirubin 0.5 mg/dL (0.2-1.0) Aspartate Amino Transf (AST/SGOT) 22 U/L (15-37) Alanine Aminotransferase (ALT/SGPT) 19 U/L (16-63) Alkaline Phosphatase 49 U/L (46-116) Total Protein 6.5 g/dL (6.4-8.2) Albumin 3.2 g/dL (3.4-5.0) Albumin/Globulin Ratio 1.0 (1.0-1.7) Medications Current Medications Aspirin (Children'S Aspirin) 324 mg 1X ONCE PO Last administered on 10/31/16 09:17; Start 10/31/16 at 09:20; Stop 10/31/16 at 09:21; Status DC Nitroglycerin (Nitrostat) 0.4 mg PRN Q5MIN PRN SL CP RATING > 1/10; Start 10/31 at 09:20; Stop 11/01/16 at 09:19; Status DC Morphine Sulfate (Morphine 2mg Syringe) 2 mg PRN Q15MIN PRN IV/SQ PAIN GREATER THAN 3/10 Last administered on 10/31/16 11:33; Start 10/31/16 at 08:45; Stop at 08:44; Status DC Ketorolac Tromethamine (Toradol) 30 mg 1X ONCE IV Last administered on 09:20; Start 10/31/16 at 09:20; Stop 10/31/16 at 09:21; Status DC Albuterol/ Ipratropium (Duoneb) 3 ml 1X ONCE NEB Last administered on 09:41; Start 10/31/16 at 09:45; Stop 10/31/16 at 09:46; Status DC Ondansetron HCl (Zofran) 4 mg PRN Q4HRS PRN IV NAUSEA/VOMITING; Start 10/31/16 at 11:00; Stop 11/01/16 at 10:59; Status DC Acetaminophen (Tylenol) 650 mg PRN Q4HRS PRN PO FEVER; Start 10/31/16 at 11:00 ; Stop 11/01/16 at 10:59; Status DC Albuterol/ Ipratropium (Duoneb) 3 ml RTQID NEB Last administered on 11/01/16 11:02; Start 10/31/16 at 12:00; Stop 11/01/16 at 11:59; Status DC Methylprednisolone Sodium Succinate (SOLU-Medrol 125MG VIAL) 125 mg Q6HRS IV ; Start 10/31/16 at 18:00; Stop 10/31/16 at 18:00; Status DC Aspirin (Aspirin Enteric Coated) 81 mg DAILY PO Last administered on 11/03/16 08:28; Start 11/01/16 at 09:00 Benztropine Mesylate (Cogentin) 1 mg TID PO ; Start 10/31/16 at 21:00; Stop 02/04 at 21:00; Status DC Cetirizine HCl (ZyrTEC) 10 mg DAILY PO Last administered on 11/03/16 08:27; Start 11/01/16 at 09:00 Hydrochlorothiazide (Hydrodiuril) 25 mg DAILY PO Last administered on 09:06; Start 11/01/16 at 09:00; Status Future Hold Simvastatin (Zocor) 20 mg QHS PO Last administered on 11/02/16 20:16; Start at 21:00 Losartan Potassium (Cozaar) 100 mg DAILY PO Last administered on 11/01/16 09: 05; Start 11/01/16 at 09:00; Status Future Hold Metoprolol Succinate (Toprol Xl) 100 mg DAILY PO Last administered on 08:28; Start 11/01/16 at 09:00 Pantoprazole Sodium (Protonix) 40 mg DAILYAC PO Last administered on 11/03/16 08:28; Start 11/01/16 at 07:30 Albuterol Sulfate (Ventolin) 2.5 mg Q1HR PRN NEB SHORTNESS OF BREATH Last administered on 11/01/16 20:50; Start 10/31/16 at 16:00 Benztropine Mesylate (Cogentin) 1 mg [id number] PO Last administered on 11/03/16 06 :00; Start 11/01/16 at 07:00 Quetiapine Fumarate (SEROquel) 25 mg QHS PO Last administered on 10/31/16 20: 25; Start 10/31/16 at 21:00; Stop 11/01/16 at 18:32; Status DC Throat Lozenges (Cepacol Sore Throat Lozenge) 1 katty PRN Q2HR PRN PO SORE THROAT Last administered on 10/31/16 19:44; Start 10/31/16 at 19:30 Acetaminophen/ Hydrocodone Bitart (Lortab 5/325) 1 tab PRN Q6HRS PRN PO PAIN Last administered on 11/01/16 12:44; Start 10/31/16 at 19:30 Sodium Chloride 500 ml @ 0 mls/hr 1X ONCE IV Last administered on 11/01/16 09 :50; Start 11/01/16 at 09:30; Stop 11/01/16 at 09:31; Status DC Sodium Chloride 1,000 ml @ 75 mls/hr [id number] IV Last administered on 20:15; Start 11/01/16 at 09:30 Hydralazine HCl (Apresoline) 10 mg PRN Q4HRS PRN IV ELEVATED BP, SEE COMMENTS Last administered on 11/01/16 21:33; Start 11/01/16 at 09:30 Quetiapine Fumarate (SEROquel) 50 mg QHS PO Last administered on 11/02/16 20: 16; Start 11/01/16 at 21:00 Albuterol/ Ipratropium (Duoneb) 3 ml 1X ONCE NEB ; Start 11/01/16 at 20:45; Stop 11/01/16 at 20:47; Status DC Haloperidol (Haldol) 5 mg PRN Q2HR PRN PO PSYCHOSIS Last administered on 18:01; Start 11/01/16 at 22:15 Lorazepam (Ativan) 0.25 mg PRN Q2HR PRN PO ANXIETY / AGITATION Last administered on 11/02/16 20:16; Start 11/01/16 at 22:15 Sodium Chloride (Saline Mist Nasal) 1 jose de jesus PRN Q1HR PRN NS NASAL CONGESTION Last administered on 11/02/16 11:33; Start 11/02/16 at 09:30 Amlodipine Besylate (Norvasc) 10 mg DAILY PO Last administered on 11/03/16 08: 27; Start 11/02/16 at 10:00 Potassium Chloride (Klor-Con) 20 meq TID PO Last administered on 11/03/16 08: 32; Start 11/02/16 at 14:00 Magnesium Oxide (Magnesium Oxide) 400 mg TID PO Last administered on 9/15/17at 08:28; Start 11/02/16 at 14:00 Active Scripts Active Reported Hydrochlorothiazide Tablet (Hydrochlorothiazide) 25 Mg Tablet 1 Tab PO DAILY Zyrtec (Cetirizine Hcl) 10 Mg Tablet 1 Tab PO DAILY Simvastatin 20 Mg Tablet 1 Tab PO QHS Metoprolol Succinate ( Xl ) (Metoprolol Succinate) 100 Mg Tab.er.24h 1 Tab PO DAILY Omeprazole 40 Mg Capsule. 1 Cap PO DAILY Losartan Potassium 100 Mg Tablet 100 Mg PO DAILY Benztropine Mesylate 1 Mg Tablet 1 Tab PO TID Aspir-Low (Aspirin) 81 Mg Tablet.dr 1 Tab PO DAILY Vitals/I & O Vital Sign - Last 24 Hours 11/02/16 11/02/16 11/02/16 11/02/16 11:21 11:33 11:35 16:14 Temp 98.3 98.3 Pulse 63 63 53 Resp 14 18 B/P (MAP) 151/67 (95) 151/67 138/64 (88) Pulse Ox 96 97 O2 Delivery Room Air Room Air 11/02/16 11/02/16 11/02/16 11/03/16 19:40 20:00 23:15 05:21 Temp 98.0 98.2 97.8 Pulse 71 68 72 Resp 20 19 20 B/P (MAP) 162/80 (107) 145/73 (97) 166/75 (105) Pulse Ox 97 96 93 O2 Delivery Room Air Room Air Room Air Room Air 11/03/16 11/03/16 11/03/16 07:38 08:27 08:28 Pulse 72 72 B/P (MAP) 166/75 166/75 O2 Delivery Room Air MYLES QUINTEROS MD 11/03/16 1240: PROGRESS NOTES Assessment I have participated in the care of this patient and I have reviewed and agree with all pertinent clinical information above including history, exam, and recommendations. His chest pains have improved and the patient is described as a burning sensation Constitutional: Well developed, well nourished, no acute distress, non-toxic appearance. HENT: Normocephalic, atraumatic, bilateral external ears normal, oropharynx moist, no oral exudates, nose normal. Eyes: MARY, EOMI, conjunctiva normal, no discharge. Neck: Normal range of motion, no tenderness, supple, no stridor. Cardiovascular: First and second heart sounds. No significant murmurs Thorax and Lungs: Diminished Breath sounds bilaterally Abdomen: Bowel sounds normal, soft, no tenderness, no masses, no pulsatile masses. Skin: Warm, dry, no erythema, no rash. Back: No tenderness, no CVA tenderness. Extremities: Intact distal pulses, no tenderness, no cyanosis, no clubbing, ROM intact, no edema. Neurologic: Alert and oriented X 3, normal motor function, normal sensory function, no focal deficits noted. Psychologic: Affect normal, judgement normal, mood normal. Impression Chest pain: The pain was atypical, a burning sensation when he developed a deep breath in. His troponins are negative. We will arrange him to a have a outpatient stress test Acute renal failure: Unknown etiology. His creatinine went up to 3.4. His ultrasound of the kidneys were negative. There is no documented hypotension although his reports that his blood pressure was in the 80s Hypertension: Amlodipine has been added Problems: ANA WILLS APRN Nov 03, 2016 09:01 MYLES QUINTEROS MD Nov 03, 2016 12:40
--- NOTE | 2016-11-03 10:18 | PN ---
DATE: 11/02/2016 SUBJECTIVE: The patient is sitting comfortably in his chair in no apparent distress. He denied any chest pain, denied any shortness of breath, orthopnea, or paroxysmal nocturnal dyspnea. He stated that he has been in and out of the bathroom as we start him yesterday on IV fluid and his urine output has dramatically risen. PHYSICAL EXAMINATION: GENERAL: When I saw him, he looked well and was clearly in no apparent respiratory distress, pale, but no jaundice, cyanosis, or thyromegaly. No jugular venous distention. No limb edema. VITAL SIGNS: His heart rate 63, blood pressure was 151/67, temperature was 98.3, respiratory rate was 14, and oxygen saturation was 96%. HEAD, EYES, EARS, NOSE AND THROAT: Showed normocephalic, atraumatic. NECK: Supple. HEART: Showed normal first and second heart sounds with no gallop, rub, or murmur. CHEST: Clear to auscultation. No crepitation or rhonchi. ABDOMEN: Distended, soft, nontender. NEUROLOGIC: He was awake, alert, responding appropriately. Cranial nerves intact. He moves extremities without difficulty. He ambulates without assistance or assistive devices. His intake over the last 24 hours was 4050, output was . LABORATORY DATA: As of this morning showed a serum sodium 133, potassium 3.4, chloride 100, bicarbonate 26, anion gap of 7, BUN 21, creatinine 2.7, estimated GFR was 23 mL per minute. His glucose was 97. Calcium was 8, magnesium was 1.6. Total bilirubin, AST, ALT, alkaline phosphatase were normal. His total protein was 5.9, albumin 3.3. His white cell count was 6800, hemoglobin was 12.4, hematocrit 35, MCV 86, and platelet count of 190,000. ASSESSMENT: Chest pain is fairly atypical. Two sets of cardiac enzymes ruled out myocardial infarction and acute kidney injury for which we discontinued his losartan and hydrochlorothiazide, he is now on IV fluid and his kidney function is improving. Creatinine is down from 3.4-2.7. Other medical problems including hypertension seems to be reasonably controlled, hyperlipidemia, history of mild ischemic cardiomyopathy. PLAN: To continue with IV fluid, replenish his potassium. We will repeat his lab work, apparently was seen by Dr. Alonzo and recommended inpatient psychiatric stabilization. We will discharge him tomorrow if his kidney function has normalized. JULISA HICKEY MD DR: ZENA/shilo JOB#: [id number] / [id number]
[2016-11-03 11:00] VITALS: BP 161/79
--- NOTE | 2016-11-03 14:54 | NUR ---
NSG NOTE; DISCHARGE TO [facility] REPORT CALLED TO JEANNE JARQUIN ON HU DISCHARGE TO [facility] AT 1435 VIA AMB ACCOMP BY SPOUSE AND [facility] PERSONNEL
[2016-11-03] MEDS ORDERED: QUET50TA5 PO (16:40)
[2016-11-03] MEDS ORDERED: POTA10CA PO (16:40)
[2016-11-03] MEDS ORDERED: HYDR-2758 PO (16:40)
[2016-11-03] MEDS ORDERED: MAGN400T3 PO (16:40)
[2016-11-03] MEDS ORDERED: SODI30SP NS (16:40)
[2016-11-03] MEDS ORDERED: PANT40TA3 PO (16:40)
[2016-11-03] MEDS ORDERED: AMLO10TA2 PO (16:40)
[2016-11-03] MEDS ORDERED: BENZ1LOZ48 PO (16:40)
[2016-11-03] MEDS ORDERED: ALBU18HF IH (16:40)
[2016-11-03] MEDS ORDERED: LORA0.5T PO (16:40)
[2016-11-03] MEDS ORDERED: HALO5TAB PO (16:40)
--- NOTE | 2016-11-03 23:04 | DS ---
DATE OF DISCHARGE: 10/31/2016 Discharge Summary DATE OF DISCHARGE: 11/03/2016 DATE OF SERVICE: 11/03/2016 HOSPITAL COURSE: The patient is a 66-year-old male patient who was admitted initially for chest pain which was fairly atypical, has had 3 sets of cardiac enzymes that ruled out myocardial infarction and the Cardiology team planned for outpatient nuclear stress test, hypertension and while in the hospital, his creatinine has dramatically risen from 1.5 to 3.7. His hydrochlorothiazide was added with Cozaar recently and both were stopped and we started him on IV fluids. His creatinine came down from 3.7 to 1.7, hyperlipidemia and basically as his kidney function improved, the patient was seen by Dr. Alonzo for psychotic disorder, unspecified with possible neurocognitive disorder, possible Alzheimer, vascular and he recommended that the patient be [facility] for inpatient psychiatric stabilization to which the patient and his agreed and the patient was discharged to [facility] to continue with all his medication. PHYSICAL EXAMINATION: GENERAL: When I saw him this afternoon, he looked well and was clearly in no apparent respiratory distress, pale, but no jaundice, cyanosis, or thyromegaly. No jugular venous distension. No limb edema. VITAL SIGNS: His heart rate was 62, blood pressure was 161/79, temperature was 98.3, respiratory rate was 18 and oxygen saturation was 97% on room air. HEAD, EYES, EARS, NOSE AND THROAT: Showed normocephalic, atraumatic. NECK: Supple. HEART: Showed normal first and second heart sounds with no gallop, rub or murmur. CHEST: Clear to auscultation. No crepitation or rhonchi. ABDOMEN: Distended, soft, nontender. No guarding or rigidity. No organomegaly. Hernial orifices intact. Bowel sounds normal. NEUROLOGIC: He was awake, alert, responding appropriately. All cranial nerves intact. He moves extremities without difficulty, ambulates without assistance or assistive devices. His intake over the last 24 hours was 3785, output was 5700. LABORATORY DATA: This morning showed a serum sodium 141, potassium 4.5, chloride 106, bicarbonate 33, anion gap of 2, BUN 16, creatinine 1.7, estimated GFR was 14 mL per minute. His glucose was 96, calcium was 8.8, magnesium was 1.8. Total bilirubin, AST, ALT, alkaline phosphatase were normal. Total protein was 6.5, albumin was 3.2. He had, as I said, 3 sets of cardiac enzymes negative. EKG was normal. His triglycerides were 222, cholesterol 123, LDL was 51, VLDL was 44, and HDL cholesterol was 28. The ratio was 4. White cell count this morning was 5000, hemoglobin 12, hematocrit 33, MCV 86 and platelet count 207,000. DISCHARGE MEDICATIONS: He was transferred to [facility] to continue on following medications: Magnesium oxide 400 mg 3 times a day. Potassium chloride 20 mEq 3 times a day. Amlodipine 10 mg daily. Saline nasal spray one spray to each nostril every hour as needed. Lorazepam 0.25 mg every 2 hours. Haloperidol 5 mg every 2 hours as needed for agitation. Quetiapine fumarate 50 mg at bedtime. Hydralazine. We discontinued his hydralazine and normal saline. Metoprolol 100 mg once a day. Cetirizine 10 mg once a day. Aspirin 81 mg once a day. Protonix 40 mg daily. Benztropine 1 mg twice a day. Simvastatin 20 mg at bedtime. Hydrocodone/APAP 5/325 one tablet every 4 hours. He is on Cepacol sore throat lozenges, 1 lozenge every 2 hours. Albuterol sulfate 2.5 mg every 2 hours by nebulizer. FINAL DISCHARGE DIAGNOSES: 1. Atypical chest pain, myocardial infarction was ruled out. The Cardiology planned outpatient nuclear stress test. 2. Hypertension, reasonably controlled. His Cozaar and hydrochlorothiazide were discontinued. He is now on metoprolol and amlodipine. 3. Acute kidney injury. Creatinine has improved. His creatinine is down to 1.7 from high of 3.7. 4. Hyperlipidemia for which he is on simvastatin and his LDL was only 51. 5. History of ischemic cardiomyopathy, stable. 6. Psychotic disorder versus neurocognitive disorder for which he was transferred to [facility]. JULISA HICKEY MD DR: ZENA/shilo JOB#: [id number] / [id number]
--- NOTE | 2016-11-04 02:08 | PN ---
DATE: 11/02/2016 This late entry 11/02/2016 covers elements not covered in my initial of 11/02/2016. I met with the patient's evening of 11/02/2016 and around midnight of 11/01/2016/11/02/2016, I was called by nursing staff as the patient was extremely paranoid, agitated, felt there was someone after him, looking through the windows. He was loud, disruptive, psychotic, wanted the security called, sat out, refused to get back into his room, and it was quite an ordeal. I did prescribe p.r.n. Haldol and Ativan and after quite a long time, he seemed to settle down. Nursing staff had to clean the hallway and the floor of his room with alcohol before he would enter the room. During the day on 11/02/2016, he admits to having had the experience the previous evening, minimizes any recent thoughts in that respect, remains intermittently psychotic, nevertheless, more so in the evening. REVIEW OF SYSTEMS: Positive for some tiredness. No CV, , pulmonary, eye system symptoms on review. MENTAL STATUS EXAM: Oriented to himself and situation. Speech is coherent, typical for him, abstraction fair, computation impaired, language function intact. Attention span short. I discussed all of this with the patient's . LABORATORY DATA: Reviewed. IMPRESSION: Psychotic disorder, unspecified, rule out major neurocognitive disorder, early Lewy body with delusions, anxiety disorder, unspecified. PLAN: Continue current psychotropics as mentioned in my initial note. Haldol and Ativan p.r.n. have been added and we will leave it at that. We will transfer him to the [facility] for further psychiatric stabilization once he is medically stable. MAN Delicia NOLASCO MD DR: SAMARA/shilo JOB#: [id number] / [id number]
== END 2016-11-03 14:35 | DRG 205 ==
LOC: ER 08:28 → 1 SOUTH 12:00 → ER 12:35
PROVIDERS: ADMIT Internal Medicine; ATTEND Internal Medicine
DX: M94.0 Chondrocostal junction syndrome [Tietze] (principal); N17.0 Acute kidney failure with tubular necrosis; F23 Brief psychotic disorder; E78.00 Pure hypercholesterolemia, unspecified; E78.5 Hyperlipidemia, unspecified; F01.50 Vascular dementia, unspecified severity, without behavioral disturbance, psychotic disturbance, mood disturbance, and anxiety; F02.80 Dementia in other diseases classified elsewhere, unspecified severity, without behavioral disturbance, psychotic disturbance, mood disturbance, and anxiety; G30.9 Alzheimer's disease, unspecified; I50.9 Heart failure, unspecified; F41.9 Anxiety disorder, unspecified; F63.9 Impulse disorder, unspecified; I11.0 Hypertensive heart disease with heart failure; I25.10 Atherosclerotic heart disease of native coronary artery without angina pectoris; R94.39 Abnormal result of other cardiovascular function study; R20.8 Other disturbances of skin sensation; I25.5 Ischemic cardiomyopathy; K21.9 Gastro-esophageal reflux disease without esophagitis; I25.2 Old myocardial infarction; Z82.49 Family history of ischemic heart disease and other diseases of the circulatory system; Z87.891 Personal history of nicotine dependence; Z82.62 Family history of osteoporosis; Z88.0 Allergy status to penicillin
CPT/HCPCS: 36415; 71020; 76770; 80048; 80053; 80061; 80307; 81001; 82550; 83690; 83735; 83880; 84484; 85025; 85379; 85610; 85730; 93005; 94250; 94640; 96374; 96375; J0360; J1885; J2270; J7040; J7613; J7620; 99285-25; G0479; J7030

== ENCOUNTER 2016-11-03 13:31 | Inpatient (IN) | payer MEDICARE ==
[~2016-11-03] VITALS: Ht 167.6 cm; Wt 90.0 kg
[~2016-11-03 13:31] MED LIST changes: +ASPI81TA50 PO; +BENZ1TAB5 PO; +CETI10TA22 PO; +HYDR25TA9 PO; +LOSA100T6 PO; +METO-247 PO; +OMEP40CA5 PO; +SIMV20TA3 PO
[2016-11-03] MEDS ORDERED: MAGNESIUM HYDROXIDE 2,400 MG/30 ML ORAL.SUSP. PO PRN (14:45)
[2016-11-03] MEDS ORDERED: METHYL SALICYLATE/MENTHOL TOPICAL OINTMENT 29GM TUBE. TP PRN (14:45)
[2016-11-03] MEDS ORDERED: ACETAMINOPHEN 325 MG TABLET PO PRN (14:45)
[2016-11-03] MEDS ORDERED: AMLO10TA2 PO (16:40)
[2016-11-03] MEDS ORDERED: QUET50TA5 PO (16:40)
[2016-11-03] MEDS ORDERED: HYDR-2758 PO (16:40)
[2016-11-03] MEDS ORDERED: BENZ1LOZ48 PO (16:40)
[2016-11-03] MEDS ORDERED: PANT40TA3 PO (16:40)
[2016-11-03] MEDS ORDERED: ALBU18HF IH (16:40)
[2016-11-03] MEDS ORDERED: POTA10CA PO (16:40)
[2016-11-03] MEDS ORDERED: MAGN400T3 PO (16:40)
[2016-11-03] MEDS ORDERED: SODI30SP NS (16:40)
[2016-11-03] MEDS ORDERED: LORA0.5T PO (16:40)
[2016-11-03] MEDS ORDERED: HALO5TAB PO (16:40)
[2016-11-03 16:49] VITALS: BP 164/74
--- NOTE | 2016-11-03 20:17 | PDOC ---
Exam Serg Demential Exam: Serg Note: Please also refer to the separate dictated note~for this date of service dictated separately.~Patient seen individually. Discussed the patient with Nursing staff reviewed the chart.~Reviewed interim history and current functioning. Reviewed vital signs,~Labs/ Radiology~and current medications noted below. Continue current treatment with the changes noted in the dictated addendum note Assessment: Vital Signs: Vital Signs Date Time Temp Pulse Resp B/P (MAP) Pulse Ox O2 Delivery O2 Flow Rate FiO2 11/03/16 16:49 97.7 65 18 164/74 (104) 96 I&O Intake and Output 11/04/16 07:00 Intake Total 480 ml Balance 480 ml Intake Oral 480 ml Labs: Laboratory Tests Test 11/03/16 06:04 Magnesium Level 1.8 mg/dL (1.8-2.4) Current Medications: Meds: Current Medications Acetaminophen (Tylenol) 650 mg PRN Q6HRS PRN PO PAIN / TEMP; Start 11/03/16 at 14:45 Multi-Ingredient Ointment (Analgesic [place]) 1 jose de jesus PRN QID PRN TP MUSCLE PAIN; Start 11/03/16 at 14:45 Al Hydroxide/Mg Hydroxide (Mylanta Plus Xs) 15 ml PRN AFTMEALHC PRN PO DYSPEPSIA; Start 11/03/16 at 14:45 Magnesium Hydroxide (Milk Of Magnesia) 2,400 mg PRN QHS PRN PO CONSTIPATION; Start 11/03/16 at 14:45 Aspirin (Aspirin Enteric Coated) 81 mg DAILY PO ; Start 11/04/16 at 09:00 Cetirizine HCl (ZyrTEC) 10 mg DAILY PO ; Start 11/04/16 at 09:00 Losartan Potassium (Cozaar) 100 mg DAILY PO ; Start 11/04/16 at 09:00 Active Scripts Active Reported Amlodipine Besylate 10 Mg Tablet 10 Mg PO DAILY Saline Nasal [place] (Sodium Chloride) 30 Ml [place] 30 Ml NS Q1HR PRN Seroquel (Quetiapine Fumarate) 50 Mg Tablet 50 Mg PO QHS Potassium Chloride 10 Meq Capsule.er 20 Meq PO TID Protonix (Pantoprazole Sodium) 40 Mg Tablet.dr 40 Mg PO DAILYAC Magnesium Oxide 400 Mg Tablet 400 Mg PO TID Lorazepam 0.5 Mg Tablet 0.25 Mg PO PRN Q2HR PRN Hydrocodone-Apap 5-325 (Hydrocodone Bit/Acetaminophen) 1 Each Tablet 1 Tab PO PRN Q6HRS PRN Haloperidol 5 Mg Tablet 5 Mg PO PRN Q2HR PRN Cepacol Sore Throat Lozenge (Benzocaine/Menthol) 1 Each Lozenge 1 Each PO PRN Q2HR PRN Ventolin Hfa Inhaler (Albuterol Sulfate) 18 Gm Hfa.aer.ad 2.5 Mg IH Q1HR PRN Zyrtec (Cetirizine Hcl) 10 Mg Tablet 1 Tab PO DAILY Simvastatin 20 Mg Tablet 20 Mg PO QHS Metoprolol Succinate ( Xl ) (Metoprolol Succinate) 100 Mg Tab.er.24h 100 Mg PO DAILY Benztropine Mesylate 1 Mg Tablet 1 Mg PO [id number] Aspir-Low (Aspirin) 81 Mg Tablet. 1 Tab PO DAILY Diagnosis: Problems: (1) Anxiety disorder (2) Impulse control disorder (3) Psychosis, atypical (4) Dementia, vascular, with delusions (5) Unspecified psychosis JOSE NOLASCO MD Nov 03, 2016 20:17
[2016-11-04] MEDS ORDERED: BENZOCAINE/MENTHOL LOZENGE 16'S BOX. PO PRN
[2016-11-04] MEDS ORDERED: HYDROcodone/APAP 5/325MG 1 TAB TABLET PO PRN
[2016-11-04] MEDS ORDERED: LORazepam 0.5 MG TABLET PO PRN
[2016-11-04] MEDS ORDERED: SODIUM CHLORIDE 0.65% NASAL SPRAY 45ML BOTTLE. NS PRN
[2016-11-04] MEDS ORDERED: ALBUTEROL SULFATE 8GM INHALER. IH PRN
[2016-11-04] MEDS ORDERED: ALBUTEROL SULFATE 2.5 MG/3 ML NEBU. NEB PRN (00:15)
[2016-11-04 05:13] LABS: T3 TOTAL 112 ng/dL (71-180); THYROXINE 7.6 ug/dL (4.5-12.0)
[2016-11-04 06:04] VITALS: BP 170/99
[2016-11-04] MEDS ORDERED: BENZTROPINE MESYLATE 1 MG TABLET PO SCH (07:00)
[2016-11-04] MEDS: METOPROLOL SUCC 24HR ER 50 MG TAB.ER.24H. PO SCH (09:07)
[2016-11-04] MEDS: MAGNESIUM OXIDE 400 MG TABLET PO SCH ×3 (09:07→20:40)
[2016-11-04] MEDS: PANTOPRAZOLE 40 MG TABLET. PO SCH (09:07)
[2016-11-04] MEDS: POTASSIUM CHLORIDE 20 MEQ TABLET.ER. PO SCH ×3 (09:08→20:40)
[2016-11-04] MEDS: CETIRIZINE HCL 10 MG TABLET PO SCH (09:08)
[2016-11-04] MEDS: amLODIPine BESYLATE 10 MG TABLET PO SCH (09:08)
[2016-11-04] MEDS: ASPIRIN ENTERIC COATED 81 MG TABLET.DR. PO SCH (09:08)
[2016-11-04] MEDS: LOSARTAN 50 MG TABLET. PO SCH (09:09)
--- NOTE | 2016-11-04 09:51 | HP ---
ADMIT DATE: 11/03/2016 This is a late entry covers the elements not covered in my initial note of 11/03/2016. IDENTIFYING DATA: The patient is a 66-year-old male referred to us from [address] [place] [address] Fleming where I had followed him from a psychiatric standpoint on account of worsening paranoia, hallucinations, being extremely fearful, distraught, agitated that prior coworker was trying to kill him. He had failed prior outpatient psychiatric interventions at the [facility] and at the [facility] where he was also seen for a neurological consult. CHIEF COMPLAINT: "Yes, he is going to kill me." My says that will not happen, but she does not know everything. I told him that I would report him at work for his alcohol and he said he would come after me. He comes, but people do not see him. I see him." I met with the patient's several times, gathered background information at length. HISTORY OF PRESENT ILLNESS: The patient has 8 to 10-year history of increasing paranoia, believing one of his ex-coworker was going to kill him because of the above. He has been psychotic, hallucinating. He was treated at the [facility] in [place] by MAIRA Ordaz and started on a Invega, later changed to Risperdal 6 mg a day. Paranoia was better. He was having tremors, weakness, Cogentin was added. The took him to Neurology; they suggested tapering the Risperdal, which was done. The patient did well for a period of time off the Risperdal, then recently had a sinus infection for which he has been hospitalized for recurrence of her psychosis was very significant after he had been on steroids. It reached a point where the patient is unable to stay at home by himself and the takes him in the car with her to work and he stays in the car all the day. The was to take him back to psychiatry Neurology for followup, but he presented to [facility] for his medical reconsult, I was asked to consult and followed him on . While on , I was called in the middle of the night and the patient refused to be in his room, was outside in the hallway, agitated, psychotic, will see the coworker coming to kill him. We had started Haldol p.r.n. seems to help a little bit with psychosis persisted behaviors were deemed dangerous, unmanageable at home where he lives at home with his and therefore, referred for inpatient psychiatric stabilization. He does have a history of mood swings, some history of drinking beer, but no DUIs, DTs shakes noted. No clear history of bipolar disorder. He has had some short-term memory deficits and given the extent of his psychosis, question has been raised about the possibility of Lewy body dementia. PAST PSYCHIATRIC HISTORY: As above. PAST MEDICAL HISTORY: The patient was admitted to [facility] for chest pain, history of hypertension, hyperlipidemia, GERD, coronary artery disease, status post ME and stent and open heart. PAST SURGICAL HISTORY: Left rotator cuff surgery, EGD, and colonoscopy. ALLERGIES: PENICILLIN. FAMILY HISTORY: Positive for ME in his 2 brothers and father. Mother at 86. She had severe osteoporosis. SOCIAL HISTORY: He is , has 3 sons, 1 daughter. He is an ex-smoker, quit in 76 after smoking a pack a day for 10 years. He drinks one can of beer everyday. 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 He lives at home with his who is still employed. CURRENT PSYCHOTROPICS: Cogentin 1 mg b.i.d., Haldol 5 mg q.2 hours p.r.n. psychosis, and Ativan 0.25 mg q.2 hours p.r.n. anxiety, and Seroquel 50 mg at bedtime. MENTAL STATUS EXAM: The patient was seen individually evening of 11/03/2016. He is oriented to himself, situation, and confused about the year and the month, knew he was at the hospital. He was still very paranoid and has spent an extended amount of time attending to address with him some of his psychosis that his does not see this situation in the same way as he does and he was quite clear that they she does not know "everything." Speech is coherent, abstraction fair, computation impaired, language function intact, attention span short. Memory is impaired. No active suicidal or homicidal ideation. LABORATORY DATA: Reviewed. 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 Rest of diagnoses as above. PLAN: Admit to the geropsychiatry unit at [facility]. I will see the patient daily individually. Medical followup with Dr. Leigh/Dr. Fleming. Continue current psychotropics, but reduce the Cogentin down to 1 mg a day since this could be worsening some of his cognitive deficits in fact worsening the paranoia and given the possibility of Lewy body dementia. We will start Namenda 5 b.i.d., Exelon patch 4.6 mg a day. Adjust these two a therapeutic level. Increase Seroquel to 75 mg p.o. at bedtime. Maintain the rest unchanged. We will make further adjustments as clinically indicated. I will carefully review the drug interactions and risk/benefit ratio favors no clubbing change once noted above. MAN Delicia NOLASCO MD DR: SAMARA/shilo JOB#: [id number] / [id number]
--- NOTE | 2016-11-04 11:21 | RAD ---
CT head without contrast 11/04/2016 Indication: Altered mental status Comparison: 09/07/[address] Technique: Multiple axial noncontrast CT images of the head were obtained from the skull base through the vertex. Findings: The ventricles, sulci and basal cisterns are within normal limits. 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 Vergara-white matter differentiation is otherwise normal. There is no acute intracranial hemorrhage. There is no mass, mass effect or midline shift. Posterior fossa is within normal limits. Sellar and suprasellar cistern appear normal. Orbits are normal in appearance. Paranasal sinuses are well aerated. Mastoid air cells are well aerated. Scalp and calvaria are normal. Impression: There is no acute intracranial hemorrhage. 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 PQRS Compliance Statement: One or more of the following individualized dose reduction techniques were utilized for this examination: 1. Automated exposure control 2. Adjustment of the mA and/or kV according to patient size 3. Use of iterative reconstruction technique
[2016-11-04 11:35] LABS: THYROID STIM HORMONE (TSH) 5.492 uIU/mL (0.358-3.740)
[2016-11-04 13:57] LABS: BASO # 0.1 x10^3/uL (0.0-0.2); BASO % 1 % (0-3); EOS # 0.3 x10^3/uL (0.0-0.7); EOS % 4 % (0-3); HEMATOCRIT 36.7 % (39.0-53.0); HEMOGLOBIN 13.2 g/dL (13.0-17.5); LYMPH # 1.1 x10^3/uL (1.0-4.8); LYMPH % 16 % (24-48); MEAN CORPUSCULAR HEMOGLOBIN 31 pg (25-35); MEAN CORPUSCULAR HGB CONC 36 g/dL (31-37); MEAN CORPUSCULAR VOLUME 86 fL (79-100); MONO # 0.6 x10^3/uL (0.0-1.1); MONO % 9 % (0-9); NEUT # 4.7 x10^3uL (1.8-7.7); NEUT % 70 % (31-73); PLATELET COUNT 269 x10^3/uL (140-400); RED BLOOD COUNT 4.26 x10^6/uL (4.30-5.70); RED CELL DISTRIBUTION WIDTH 14.2 % (11.5-14.5); WHITE BLOOD COUNT 6.7 x10^3/uL (4.0-11.0)
[2016-11-04 14:14] LABS: ALBUMIN 3.7 g/dL (3.4-5.0); ALBUMIN/GLOBULIN RATIO 0.9 (1.0-1.7); CALCIUM 9.2 mg/dL (8.5-10.1); CREATININE 1.5 mg/dL (0.7-1.3); GFR 46.8; TOTAL BILIRUBIN 0.5 mg/dL (0.2-1.0); TOTAL PROTEIN 7.6 g/dL (6.4-8.2)
[2016-11-04 15:40] VITALS: BP 148/70
[2016-11-04] MEDS: hydrALAZINE 25 MG TABLET PO SCH (20:40)
[2016-11-04] MEDS: ATORVASTATIN CALCIUM 10 MG TABLET. PO SCH (20:40)
[2016-11-04] MEDS: MEMANTINE 5 MG TABLET. PO SCH (20:40)
[2016-11-04] MEDS: QUEtiapine 50 MG TABLET. PO SCH (20:41)
[2016-11-04] MEDS: CLOBETASOL EMOLLIENT 0.05% TOPICAL CREAM 15GM TUBE. TP SCH (20:42)
[2016-11-04] MEDS ORDERED: QUEtiapine 50 MG TABLET. PO SCH (21:00)
--- NOTE | 2016-11-04 22:40 | PDOC ---
Exam Serg Demential Exam: Serg Note: Please also refer to the separate dictated note~for this date of service dictated separately.~Patient seen individually. Discussed the patient with Nursing staff reviewed the chart.~Reviewed interim history and current functioning. Reviewed vital signs,~Labs/ Radiology~and current medications noted below. Continue current treatment with the changes noted in the dictated addendum note Assessment: Vital Signs: Vital Signs Date Time Temp Pulse Resp B/P (MAP) Pulse Ox O2 Delivery O2 Flow Rate FiO2 11/04/16 20:40 81 148/70 11/04/16 15:40 97.9 16 93 I&O Intake and Output 11/05/16 07:00 Intake Total 840 ml Balance 840 ml Intake Oral 840 ml Labs: Laboratory Tests Test 11/04/16 13:43 White Blood Count 6.7 x10^3/uL (4.0-11.0) Red Blood Count 4.26 x10^6/uL (4.30-5.70) L Hemoglobin 13.2 g/dL (13.0-17.5) Hematocrit 36.7 % (39.0-53.0) L Mean Corpuscular Volume 86 fL (79-100) Mean Corpuscular Hemoglobin 31 pg (25-35) Mean Corpuscular Hemoglobin Concent 36 g/dL (31-37) Red Cell Distribution Width 14.2 % (11.5-14.5) Platelet Count 269 x10^3/uL (140-400) Neutrophils (%) (Auto) 70 % (31-73) Lymphocytes (%) (Auto) 16 % (24-48) L Monocytes (%) (Auto) 9 % (0-9) Eosinophils (%) (Auto) 4 % (0-3) H Basophils (%) (Auto) 1 % (0-3) Neutrophils # (Auto) 4.7 x10^3uL (1.8-7.7) Lymphocytes # (Auto) 1.1 x10^3/uL (1.0-4.8) Monocytes # (Auto) 0.6 x10^3/uL (0.0-1.1) Eosinophils # (Auto) 0.3 x10^3/uL (0.0-0.7) Basophils # (Auto) 0.1 x10^3/uL (0.0-0.2) Sodium Level 136 mmol/L (136-145) Potassium Level 4.0 mmol/L (3.5-5.1) Chloride Level 101 mmol/L (98-107) Carbon Dioxide Level 26 mmol/L (21-32) Anion Gap 9 (6-14) Blood Urea Nitrogen 12 mg/dL (8-26) Creatinine 1.5 mg/dL (0.7-1.3) H Estimated GFR (Cockcroft-Gault) 46.8 BUN/Creatinine Ratio 8 (6-20) Glucose Level 152 mg/dL (70-99) H Calcium Level 9.2 mg/dL (8.5-10.1) Total Bilirubin 0.5 mg/dL (0.2-1.0) Aspartate Amino Transferase (AST) 38 U/L (15-37) H Alanine Aminotransferase (ALT) 44 U/L (16-63) Alkaline Phosphatase 61 U/L (46-116) Total Protein 7.6 g/dL (6.4-8.2) Albumin 3.7 g/dL (3.4-5.0) Albumin/Globulin Ratio 0.9 (1.0-1.7) L Current Medications: Meds: Current Medications Acetaminophen (Tylenol) 650 mg PRN Q6HRS PRN PO PAIN / TEMP; Start 11/03/16 at 14:45 Multi-Ingredient Ointment (Analgesic Jefferson) 1 jose de jesus PRN QID PRN TP MUSCLE PAIN; Start 11/03/16 at 14:45 Al Hydroxide/Mg Hydroxide (Mylanta Plus Xs) 15 ml PRN AFTMEALHC PRN PO DYSPEPSIA; Start 11/03/16 at 14:45 Magnesium Hydroxide (Milk Of Magnesia) 2,400 mg PRN QHS PRN PO CONSTIPATION; Start 11/03/16 at 14:45 Aspirin (Aspirin Enteric Coated) 81 mg DAILY PO Last administered on 11/04/16 09:08; Start 11/04/16 at 09:00 Cetirizine HCl (ZyrTEC) 10 mg DAILY PO Last administered on 11/04/16 09:08; Start 11/04/16 at 09:00 Losartan Potassium (Cozaar) 100 mg DAILY PO Last administered on 11/04/16 09: 09; Start 11/04/16 at 09:00 Benztropine Mesylate (Cogentin) 1 mg [id number] PO Last administered on 11/04/16 06 :04; Start 11/04/16 at 07:00; Stop 11/04/16 at 12:16; Status DC Haloperidol (Haldol) 5 mg PRN Q2HR PRN PO psychosis; Start 11/04/16 at 00:00 Lorazepam (Ativan) 0.25 mg PRN Q2HR PRN PO ANXIETY / AGITATION; Start 11/04/16 at 00:00 Quetiapine Fumarate (SEROquel) 50 mg QHS PO ; Start 11/04/16 at 21:00; Stop at 21:00; Status DC Albuterol Sulfate (Ventolin Hfa) 2 puff Q1HR PRN IH SHORTNESS OF BREATH; Start 11/04/16 at 00:00; Status UNV Amlodipine Besylate (Norvasc) 10 mg DAILY PO Last administered on 11/04/16 09: 08; Start 11/04/16 at 09:00 Throat Lozenges (Cepacol Sore Throat Lozenge) 1 katty PRN Q2HR PRN PO sore throat ; Start 11/04/16 at 00:00 Acetaminophen/ Hydrocodone Bitart (Lortab 5/325) 1 tab PRN Q6HRS PRN PO SEVERE PAIN; Start 11/04/16 at 00:00 Magnesium Oxide (Magnesium Oxide) 400 mg TID PO Last administered on 11/04/16 20:40; Start 11/04/16 at 09:00 Pantoprazole Sodium (Protonix) 40 mg DAILYAC PO Last administered on 11/04/16 09:07; Start 11/04/16 at 07:30 Atorvastatin Calcium (Lipitor) 10 mg QHS PO Last administered on 11/04/16 20: 40; Start 11/04/16 at 21:00 Sodium Chloride (Saline Mist Nasal) 1 jose de jesus PRN Q1HR PRN NS nasal congestion; Start 11/04/16 at 00:00 Metoprolol Succinate (Toprol Xl) 100 mg DAILY PO Last administered on 09:07; Start 11/04/16 at 09:00 Potassium Chloride (Klor-Con) 20 meq TID PO Last administered on 11/04/16 20: 40; Start 11/04/16 at 09:00 Albuterol Sulfate (Ventolin) 2.5 mg PRN Q1HR PRN NEB SHORTNESS OF BREATH; Start 11/04/16 at 00:15 Rivastigmine (Exelon) 1 patch DAILY TD ; Start 11/05/16 at 09:00 Benztropine Mesylate (Cogentin) 1 mg DAILY PO ; Start 11/05/16 at 09:00 Quetiapine Fumarate (SEROquel) 75 mg QHS PO Last administered on 11/04/16 20: 41; Start 11/04/16 at 21:00 Memantine (Namenda) 5 mg BID PO Last administered on 11/04/16 20:40; Start at 21:00 Hydralazine HCl (Apresoline) 25 mg TID PO Last administered on 11/04/16 20:40 ; Start 11/04/16 at 21:00 Clobetasol Propionate 1 jose de jesus BID TP Last administered on 11/04/16 20:42; Start 11/04/16 at 21:00 Active Scripts Active Reported Amlodipine Besylate 10 Mg Tablet 10 Mg PO DAILY Saline Nasal Cypress (Sodium Chloride) 30 Ml Cypress 30 Ml NS Q1HR PRN Seroquel (Quetiapine Fumarate) 50 Mg Tablet 50 Mg PO QHS Potassium Chloride 10 Meq Capsule.er 20 Meq PO TID Protonix (Pantoprazole Sodium) 40 Mg Tablet.dr 40 Mg PO DAILYAC Magnesium Oxide 400 Mg Tablet 400 Mg PO TID Lorazepam 0.5 Mg Tablet 0.25 Mg PO PRN Q2HR PRN Hydrocodone-Apap 5-325 (Hydrocodone Bit/Acetaminophen) 1 Each Tablet 1 Tab PO PRN Q6HRS PRN Haloperidol 5 Mg Tablet 5 Mg PO PRN Q2HR PRN Cepacol Sore Throat Lozenge (Benzocaine/Menthol) 1 Each Lozenge 1 Each PO PRN Q2HR PRN Ventolin Hfa Inhaler (Albuterol Sulfate) 18 Gm Hfa.aer.ad 2.5 Mg IH Q1HR PRN Zyrtec (Cetirizine Hcl) 10 Mg Tablet 1 Tab PO DAILY Simvastatin 20 Mg Tablet 20 Mg PO QHS Metoprolol Succinate ( Xl ) (Metoprolol Succinate) 100 Mg Tab.er.24h 100 Mg PO DAILY Benztropine Mesylate 1 Mg Tablet 1 Mg PO [id number] Aspir-Low (Aspirin) 81 Mg Tablet. 1 Tab PO DAILY Diagnosis: Problems: (1) Lewy body dementia with behavioral disturbance (2) Dementia, vascular, with delusions (3) Unspecified psychosis (4) Psychosis, atypical (5) Impulse control disorder (6) Anxiety disorder JOSE NOLASCO MD Nov 04, 2016 22:40
[2016-11-05 05:41] VITALS: BP 167/79
[2016-11-05] MEDS: PANTOPRAZOLE 40 MG TABLET. PO SCH (07:18)
[2016-11-05] MEDS: METOPROLOL SUCC 24HR ER 50 MG TAB.ER.24H. PO SCH (07:18)
[2016-11-05] MEDS: POTASSIUM CHLORIDE 20 MEQ TABLET.ER. PO SCH ×3 (07:19→20:46)
[2016-11-05] MEDS: amLODIPine BESYLATE 10 MG TABLET PO SCH (07:19)
[2016-11-05] MEDS: CETIRIZINE HCL 10 MG TABLET PO SCH (07:19)
[2016-11-05] MEDS: MEMANTINE 5 MG TABLET. PO SCH ×2 (07:19→20:45)
[2016-11-05] MEDS: MAGNESIUM OXIDE 400 MG TABLET PO SCH ×3 (07:20→20:45)
[2016-11-05] MEDS: ASPIRIN ENTERIC COATED 81 MG TABLET.DR. PO SCH (07:20)
[2016-11-05] MEDS: hydrALAZINE 25 MG TABLET PO SCH ×3 (07:20→20:46)
[2016-11-05] MEDS: LOSARTAN 50 MG TABLET. PO SCH (07:20)
[2016-11-05 08:22] LABS: CALCIUM 9.2 mg/dL (8.5-10.1); CREATININE 1.3 mg/dL (0.7-1.3); GFR 55.2; POTASSIUM 4.1 mmol/L (3.5-5.1)
[2016-11-05] MEDS: CLOBETASOL EMOLLIENT 0.05% TOPICAL CREAM 15GM TUBE. TP SCH ×2 (09:47→20:49)
[2016-11-05] MEDS: BENZTROPINE MESYLATE 1 MG TABLET PO SCH (09:47)
[2016-11-05] MEDS: RIVASTIGMINE 4.6MG PATCH. TD SCH (09:47)
--- NOTE | 2016-11-05 09:53 | CONS ---
DATE OF CONSULTATION: 11/04/2016 HISTORY OF PRESENT ILLNESS: The patient is a 66-year-old male patient who was initially admitted to [address] [place] [address] with a complaint of chest pain that was fairly atypical, we did 3 sets of cardiac enzymes that were negative. His fasting lipid profile showed that his LDL cholesterol was only 51. He was seen in consultation by the Cardiology team and they did not recommend any further ischemic workup; however, while he was in [address] [place] [address], his serum creatinine has dramatically risen from 1.5 to 3.4 and his BUN has also risen from 14 to 24 and therefore, I have discontinued his losartan and hydrochlorothiazide and was started on IV fluid. His creatinine came down nicely from 3.4 to 2.7 and finally to 1.7. As he had some psychotic disorder, unspecified with possible major neurocognitive disorder, Lewy body, delusion, anxiety, a decision was made to admit him to [facility] for inpatient psychiatric stabilization after his kidney function has improved. When I saw him today, he looked well and he denied any further episodes of chest pain. In fact, he denied any other complaint. PAST MEDICAL HISTORY: Significant for hypertension, hyperlipidemia, gastroesophageal reflux disease. He apparently is known to have coronary artery disease. He apparently is followed by Dr. Rod and was started on hydrochlorothiazide only a week before his admission. PAST SURGICAL HISTORY: Significant for left rotator cuff repair and esophagogastroduodenoscopy as well as colonoscopy. ALLERGIES: He is allergic to PENICILLIN. MEDICATIONS: He is currently on following medications: He is on albuterol sulfate via nebulizer every 4 hours, amlodipine besylate 10 mg once a day, aspirin 81 mg once a day, Cepacol sore throat lozenges 1 every 2 hours, benztropine mesylate 1 mg twice a day, cetirizine 10 mg once a day, haloperidol 5 mg every 2 hours, hydrocodone/APAP 5/325 one every 6 hours, lorazepam 0.5 mg every 2 hours, magnesium oxide 400 mg 3 times a day, metoprolol succinate 100 mg extended release tablet 1 tablet once a day, Protonix 40 mg daily before breakfast, potassium chloride 20 mEq 3 times a day, Seroquel 50 mg at bedtime, simvastatin 20 mg at bedtime, saline nasal spray one spray to each nostril every hour as needed for nasal congestion. PHYSICAL EXAMINATION: GENERAL: On examining him today, he was sitting comfortably in bed, in no apparent respiratory distress. He was pale, but no jaundice, cyanosis, or thyromegaly. No jugular venous distention. No limb edema. VITAL SIGNS: His heart rate was 74, blood pressure was 170/99, temperature was 98.4, respiratory rate was 18 and oxygen saturation was 93% on room air. HEENT: Showed normocephalic, atraumatic. NECK: Supple. HEART: Showed normal first and second heart sounds with no gallop, rub or murmur. CHEST: Clear to auscultation. No crepitation or rhonchi. ABDOMEN: Distended, soft, nontender. NEUROLOGIC: He was awake, alert, responding appropriately. Cranial nerves intact. EXTREMITIES: He moves extremities without difficulty, ambulates without assistance or assistive devices. LABORATORY DATA: This morning showed a white cell count of 6700, hemoglobin 13, hematocrit 37, MCV 86 and platelet count 269,000. His chemistry showed a serum sodium 136, potassium 4, chloride 101, bicarbonate 26, anion gap of 9, BUN 12, creatinine 1.5, estimated GFR was 47 mL per minute. His glucose 152. Calcium was 9.2. Total bilirubin, AST, ALT, alkaline phosphatase were normal. His triglycerides were 127, total cholesterol 132, LDL cholesterol 73, VLDL was 25, HDL cholesterol was 98 and the ratio was 3. His TSH was slightly elevated at 5.49, however, his total T4 and total T3 were normal. His 25-hydroxy vitamin D was 58.9. Serum iron was 7, TIBC was 209 and percent saturation was 36%. SUMMARY: This is a 66-year-old male patient who was seen initially in [address] [place] [address] for what seemed to be atypical chest pain. He has 3 sets of cardiac enzymes and EKG that ruled out myocardial infarction. While there, he was noted to have some form of unspecified psychosis versus early cognitive impairment. He also developed acute kidney injury likely a combination of hydrochlorothiazide and losartan potassium, it was stopped. He was treated with IV fluid and his kidney function has slowly improved, in fact by this morning, his creatinine was down to 1.5, which is the baseline. He is here for inpatient psychiatric stabilization. His blood pressure continues to be slightly elevated. My plan is to add another antihypertensive medication, he is already on metoprolol 100 mg once a day and amlodipine 10 mg, he is also on losartan potassium 100 mg. I will add hydralazine 25 mg 3 times a day and repeat again his labs tomorrow to make sure that his kidney function continues to improve. Thank you, Dr. Alonzo for allowing me to participate in the care of this patient. JULISA HICKEY MD DR: ZENA/shilo JOB#: [id number] / [id number]
[2016-11-05 15:58] VITALS: BP 159/68
--- NOTE | 2016-11-05 19:46 | PDOC ---
Exam Serg Demential Exam: Serg Note: Please also refer to the separate dictated note~for this date of service dictated separately.~Patient seen individually. Discussed the patient with Nursing staff reviewed the chart.~Reviewed interim history and current functioning. Reviewed vital signs,~Labs/ Radiology~and current medications noted below. Continue current treatment with the changes noted in the dictated addendum note Assessment: Vital Signs: Vital Signs Date Time Temp Pulse Resp B/P (MAP) Pulse Ox O2 Delivery O2 Flow Rate FiO2 11/05/16 15:58 98.3 93 18 159/68 (98) 97 I&O Intake and Output 11/06/16 07:00 Intake Total 1200 ml Balance 1200 ml Intake Oral 1200 ml Labs: Laboratory Tests Test 11/05/16 07:37 Sodium Level 137 mmol/L (136-145) Potassium Level 4.1 mmol/L (3.5-5.1) Chloride Level 104 mmol/L (98-107) Carbon Dioxide Level 27 mmol/L (21-32) Anion Gap 6 (6-14) Blood Urea Nitrogen 9 mg/dL (8-26) Creatinine 1.3 mg/dL (0.7-1.3) Estimated GFR (Cockcroft-Gault) 55.2 Glucose Level 113 mg/dL (70-99) H Calcium Level 9.2 mg/dL (8.5-10.1) Current Medications: Meds: Current Medications Acetaminophen (Tylenol) 650 mg PRN Q6HRS PRN PO PAIN / TEMP Last administered on 11/05/16 15:40; Start 11/03/16 at 14:45 Multi-Ingredient Ointment (Analgesic [place]) 1 jose de jesus PRN QID PRN TP MUSCLE PAIN; Start 11/03/16 at 14:45 Al Hydroxide/Mg Hydroxide (Mylanta Plus Xs) 15 ml PRN AFTMEALHC PRN PO DYSPEPSIA; Start 11/03/16 at 14:45 Magnesium Hydroxide (Milk Of Magnesia) 2,400 mg PRN QHS PRN PO CONSTIPATION; Start 11/03/16 at 14:45 Aspirin (Aspirin Enteric Coated) 81 mg DAILY PO Last administered on 11/05/16 07:20; Start 11/04/16 at 09:00 Cetirizine HCl (ZyrTEC) 10 mg DAILY PO Last administered on 11/05/16 07:19; Start 11/04/16 at 09:00 Losartan Potassium (Cozaar) 100 mg DAILY PO Last administered on 11/05/16 07: 20; Start 11/04/16 at 09:00 Benztropine Mesylate (Cogentin) 1 mg [id number] PO Last administered on 11/04/16 06 :04; Start 11/04/16 at 07:00; Stop 11/04/16 at 12:16; Status DC Haloperidol (Haldol) 5 mg PRN Q2HR PRN PO psychosis; Start 11/04/16 at 00:00 Lorazepam (Ativan) 0.25 mg PRN Q2HR PRN PO ANXIETY / AGITATION Last administered on 11/04/16 23:45; Start 11/04/16 at 00:00 Quetiapine Fumarate (SEROquel) 50 mg QHS PO ; Start 11/04/16 at 21:00; Stop at 21:00; Status DC Albuterol Sulfate (Ventolin Hfa) 2 puff Q1HR PRN IH SHORTNESS OF BREATH; Start 11/04/16 at 00:00; Status UNV Amlodipine Besylate (Norvasc) 10 mg DAILY PO Last administered on 11/05/16 07: 19; Start 11/04/16 at 09:00 Throat Lozenges (Cepacol Sore Throat Lozenge) 1 katty PRN Q2HR PRN PO sore throat ; Start 11/04/16 at 00:00 Acetaminophen/ Hydrocodone Bitart (Lortab 5/325) 1 tab PRN Q6HRS PRN PO SEVERE PAIN; Start 11/04/16 at 00:00 Magnesium Oxide (Magnesium Oxide) 400 mg TID PO Last administered on 11/05/16 13:37; Start 11/04/16 at 09:00 Pantoprazole Sodium (Protonix) 40 mg DAILYAC PO Last administered on 11/05/16 07:18; Start 11/04/16 at 07:30 Atorvastatin Calcium (Lipitor) 10 mg QHS PO Last administered on 11/04/16 20: 40; Start 11/04/16 at 21:00 Sodium Chloride (Saline Mist Nasal) 1 jose de jesus PRN Q1HR PRN NS nasal congestion; Start 11/04/16 at 00:00 Metoprolol Succinate (Toprol Xl) 100 mg DAILY PO Last administered on 07:18; Start 11/04/16 at 09:00 Potassium Chloride (Klor-Con) 20 meq TID PO Last administered on 11/05/16 13: 39; Start 11/04/16 at 09:00 Albuterol Sulfate (Ventolin) 2.5 mg PRN Q1HR PRN NEB SHORTNESS OF BREATH; Start 11/04/16 at 00:15 Rivastigmine (Exelon) 1 patch DAILY TD Last administered on 11/05/16 09:47; Start 11/05/16 at 09:00 Benztropine Mesylate (Cogentin) 1 mg DAILY PO Last administered on 11/05/16 09 :47; Start 11/05/16 at 09:00 Quetiapine Fumarate (SEROquel) 75 mg QHS PO Last administered on 11/04/16 20: 41; Start 11/04/16 at 21:00 Memantine (Namenda) 5 mg BID PO Last administered on 11/05/16 07:19; Start at 21:00 Hydralazine HCl (Apresoline) 25 mg TID PO Last administered on 11/05/16 13:38 ; Start 11/04/16 at 21:00 Clobetasol Propionate 1 jose de jesus BID TP Last administered on 11/05/16 09:47; Start 11/04/16 at 21:00 Mirtazapine (Remeron) 7.5 mg QHS PO ; Start 11/05/16 at 21:00 Active Scripts Active Reported Amlodipine Besylate 10 Mg Tablet 10 Mg PO DAILY Saline Nasal [place] (Sodium Chloride) 30 Ml [place] 30 Ml NS Q1HR PRN Seroquel (Quetiapine Fumarate) 50 Mg Tablet 50 Mg PO QHS Potassium Chloride 10 Meq Capsule.er 20 Meq PO TID Protonix (Pantoprazole Sodium) 40 Mg Tablet.dr 40 Mg PO DAILYAC Magnesium Oxide 400 Mg Tablet 400 Mg PO TID Lorazepam 0.5 Mg Tablet 0.25 Mg PO PRN Q2HR PRN Hydrocodone-Apap 5-325 (Hydrocodone Bit/Acetaminophen) 1 Each Tablet 1 Tab PO PRN Q6HRS PRN Haloperidol 5 Mg Tablet 5 Mg PO PRN Q2HR PRN Cepacol Sore Throat Lozenge (Benzocaine/Menthol) 1 Each Lozenge 1 Each PO PRN Q2HR PRN Ventolin Hfa Inhaler (Albuterol Sulfate) 18 Gm Hfa.aer.ad 2.5 Mg IH Q1HR PRN Zyrtec (Cetirizine Hcl) 10 Mg Tablet 1 Tab PO DAILY Simvastatin 20 Mg Tablet 20 Mg PO QHS Metoprolol Succinate ( Xl ) (Metoprolol Succinate) 100 Mg Tab.er.24h 100 Mg PO DAILY Benztropine Mesylate 1 Mg Tablet 1 Mg PO [id number] Aspir-Low (Aspirin) 81 Mg Tablet.dr 1 Tab PO DAILY Diagnosis: Problems: (1) Anxiety disorder (2) Impulse control disorder (3) Psychosis, atypical (4) Unspecified psychosis (5) Dementia, vascular, with delusions (6) Lewy body dementia with behavioral disturbance JOSE NOLASCO MD Nov 05, 2016 19:46
[2016-11-05] MEDS: ATORVASTATIN CALCIUM 10 MG TABLET. PO SCH (20:45)
[2016-11-05] MEDS: QUEtiapine 50 MG TABLET. PO SCH (20:49)
[2016-11-05] MEDS: MIRTAZAPINE 7.5 MG TABLET. PO SCH (20:52)
--- NOTE | 2016-11-06 00:41 | PN ---
DATE: 11/04/2016 This is a late entry for 11/04/2016 covers elements not covered in my initial note of 11/04/2016. I met with the patient evening of 11/04/2016. SUBJECTIVE: The patient has been calm, wandering, pleasant, still paranoid, believes his coworker is going to try and hurt him. REVIEW OF SYSTEMS: No CV, , pulmonary, eye system symptoms on review. MENTAL STATUS EXAM: Oriented to himself and situation. Speech coherent, abstraction fair, computation impaired, language function intact, attention span short. Mood and affect still somewhat anxious, labile, paranoid, more so in the evening. LABORATORY DATA: Reviewed. IMPRESSION: Unchanged from initial note. PLAN: Continue current psychotropics mentioned in my initial note including Exelon patch and Namenda that were added together with Seroquel, the reduced dosage of Cogentin and Haldol p.r.n. JOSE NOLASCO MD DR: SAMARA/shilo JOB#: [id number] / [id number]
[2016-11-06 06:12] VITALS: BP 143/68
[2016-11-06] MEDS: RIVASTIGMINE 4.6MG PATCH. TD SCH (07:50)
[2016-11-06] MEDS: CETIRIZINE HCL 10 MG TABLET PO SCH (07:51)
[2016-11-06] MEDS: BENZTROPINE MESYLATE 1 MG TABLET PO SCH (07:51)
[2016-11-06] MEDS: MAGNESIUM OXIDE 400 MG TABLET PO SCH ×3 (07:51→20:39)
[2016-11-06] MEDS: LOSARTAN 50 MG TABLET. PO SCH (07:51)
[2016-11-06] MEDS: PANTOPRAZOLE 40 MG TABLET. PO SCH (07:51)
[2016-11-06] MEDS: ASPIRIN ENTERIC COATED 81 MG TABLET.DR. PO SCH (07:52)
[2016-11-06] MEDS: amLODIPine BESYLATE 10 MG TABLET PO SCH (07:53)
[2016-11-06] MEDS: POTASSIUM CHLORIDE 20 MEQ TABLET.ER. PO SCH ×3 (07:53→20:38)
[2016-11-06] MEDS: METOPROLOL SUCC 24HR ER 50 MG TAB.ER.24H. PO SCH (07:53)
[2016-11-06] MEDS: MEMANTINE 5 MG TABLET. PO SCH ×2 (07:53→20:38)
[2016-11-06] MEDS: hydrALAZINE 25 MG TABLET PO SCH ×3 (07:54→20:38)
[2016-11-06] MEDS: CLOBETASOL EMOLLIENT 0.05% TOPICAL CREAM 15GM TUBE. TP SCH ×2 (09:00→20:41)
[2016-11-06] MEDS ORDERED: Influenza vaccine per PROTOCOL. MC PRN (12:45)
[2016-11-06 16:15] VITALS: BP 124/66
[2016-11-06] MEDS ORDERED: traZODone 100 MG TABLET. PO PRN (18:15)
--- NOTE | 2016-11-06 19:44 | PDOC ---
Exam Serg Demential Exam: Serg Note: Please also refer to the separate dictated note~for this date of service dictated separately.~Patient seen individually. Discussed the patient with Nursing staff reviewed the chart.~Reviewed interim history and current functioning. Reviewed vital signs,~Labs/ Radiology~and current medications noted below. Continue current treatment with the changes noted in the dictated addendum note Assessment: Vital Signs: Vital Signs Date Time Temp Pulse Resp B/P (MAP) Pulse Ox O2 Delivery O2 Flow Rate FiO2 11/06/16 16:15 97.8 71 16 124/66 (85) 98 I&O Intake and Output 11/07/16 07:00 Intake Total 1200 ml Balance 1200 ml Intake Oral 1200 ml Current Medications: Meds: Current Medications Acetaminophen (Tylenol) 650 mg PRN Q6HRS PRN PO PAIN / TEMP Last administered on 11/05/16 15:40; Start 11/03/16 at 14:45 Multi-Ingredient Ointment (Analgesic [place]) 1 jose de jesus PRN QID PRN TP MUSCLE PAIN; Start 11/03/16 at 14:45 Al Hydroxide/Mg Hydroxide (Mylanta Plus Xs) 15 ml PRN AFTMEALHC PRN PO DYSPEPSIA; Start 11/03/16 at 14:45 Magnesium Hydroxide (Milk Of Magnesia) 2,400 mg PRN QHS PRN PO CONSTIPATION; Start 11/03/16 at 14:45 Aspirin (Aspirin Enteric Coated) 81 mg DAILY PO Last administered on 11/06/16 07:52; Start 11/04/16 at 09:00 Cetirizine HCl (ZyrTEC) 10 mg DAILY PO Last administered on 11/06/16 07:51; Start 11/04/16 at 09:00 Losartan Potassium (Cozaar) 100 mg DAILY PO Last administered on 11/06/16 07: 51; Start 11/04/16 at 09:00 Benztropine Mesylate (Cogentin) 1 mg [id number] PO Last administered on 11/04/16 06 :04; Start 11/04/16 at 07:00; Stop 11/04/16 at 12:16; Status DC Haloperidol (Haldol) 5 mg PRN Q2HR PRN PO psychosis; Start 11/04/16 at 00:00 Lorazepam (Ativan) 0.25 mg PRN Q2HR PRN PO ANXIETY / AGITATION Last administered on 11/04/16 23:45; Start 11/04/16 at 00:00 Quetiapine Fumarate (SEROquel) 50 mg QHS PO ; Start 11/04/16 at 21:00; Stop at 21:00; Status DC Albuterol Sulfate (Ventolin Hfa) 2 puff Q1HR PRN IH SHORTNESS OF BREATH; Start 11/04/16 at 00:00; Status UNV Amlodipine Besylate (Norvasc) 10 mg DAILY PO Last administered on 11/06/16 07: 53; Start 11/04/16 at 09:00 Throat Lozenges (Cepacol Sore Throat Lozenge) 1 katty PRN Q2HR PRN PO sore throat ; Start 11/04/16 at 00:00 Acetaminophen/ Hydrocodone Bitart (Lortab 5/325) 1 tab PRN Q6HRS PRN PO SEVERE PAIN; Start 11/04/16 at 00:00 Magnesium Oxide (Magnesium Oxide) 400 mg TID PO Last administered on 11/06/16 13:34; Start 11/04/16 at 09:00 Pantoprazole Sodium (Protonix) 40 mg DAILYAC PO Last administered on 11/06/16 07:51; Start 11/04/16 at 07:30 Atorvastatin Calcium (Lipitor) 10 mg QHS PO Last administered on 11/05/16 20: 45; Start 11/04/16 at 21:00 Sodium Chloride (Saline Mist Nasal) 1 jose de jesus PRN Q1HR PRN NS nasal congestion; Start 11/04/16 at 00:00 Metoprolol Succinate (Toprol Xl) 100 mg DAILY PO Last administered on 07:53; Start 11/04/16 at 09:00 Potassium Chloride (Klor-Con) 20 meq TID PO Last administered on 11/06/16 13: 34; Start 11/04/16 at 09:00 Albuterol Sulfate (Ventolin) 2.5 mg PRN Q1HR PRN NEB SHORTNESS OF BREATH; Start 11/04/16 at 00:15 Rivastigmine (Exelon) 1 patch DAILY TD Last administered on 11/06/16 07:50; Start 11/05/16 at 09:00; Stop 11/06/16 at 18:07; Status DC Benztropine Mesylate (Cogentin) 1 mg DAILY PO Last administered on 11/06/16 07 :51; Start 11/05/16 at 09:00; Stop 11/06/16 at 15:28; Status DC Quetiapine Fumarate (SEROquel) 75 mg QHS PO Last administered on 11/05/16 20: 49; Start 11/04/16 at 21:00 Memantine (Namenda) 5 mg BID PO Last administered on 11/06/16 07:53; Start at 21:00 Hydralazine HCl (Apresoline) 25 mg TID PO Last administered on 11/06/16 13:34 ; Start 11/04/16 at 21:00 Clobetasol Propionate 1 jose de jesus BID TP Last administered on 11/05/16 09:47; Start 11/04/16 at 21:00 Mirtazapine (Remeron) 7.5 mg QHS PO Last administered on 11/05/16 20:52; Start 11/05/16 at 21:00 Info (FLU VACCINE per PROTOCOL) 1 ea PRN 1X PRN MC PER PROTOCOL; Start at 12:45 Rivastigmine (Exelon) 1 patch DAILY TD ; Start 11/07/16 at 09:00 Trazodone HCl (Desyrel) 100 mg QHS PO ; Start 11/06/16 at 21:00 Trazodone HCl (Desyrel) 100 mg PRN QHS PRN PO INSOMNIA, MAY REPEAT X1; Start at 18:15 Active Scripts Active Reported Amlodipine Besylate 10 Mg Tablet 10 Mg PO DAILY Saline Nasal [place] (Sodium Chloride) 30 Ml [place] 30 Ml NS Q1HR PRN Seroquel (Quetiapine Fumarate) 50 Mg Tablet 50 Mg PO QHS Potassium Chloride 10 Meq Capsule.er 20 Meq PO TID Protonix (Pantoprazole Sodium) 40 Mg Tablet.dr 40 Mg PO DAILYAC Magnesium Oxide 400 Mg Tablet 400 Mg PO TID Lorazepam 0.5 Mg Tablet 0.25 Mg PO PRN Q2HR PRN Hydrocodone-Apap 5-325 (Hydrocodone Bit/Acetaminophen) 1 Each Tablet 1 Tab PO PRN Q6HRS PRN Haloperidol 5 Mg Tablet 5 Mg PO PRN Q2HR PRN Cepacol Sore Throat Lozenge (Benzocaine/Menthol) 1 Each Lozenge 1 Each PO PRN Q2HR PRN Ventolin Hfa Inhaler (Albuterol Sulfate) 18 Gm Hfa.aer.ad 2.5 Mg IH Q1HR PRN Zyrtec (Cetirizine Hcl) 10 Mg Tablet 1 Tab PO DAILY Simvastatin 20 Mg Tablet 20 Mg PO QHS Metoprolol Succinate ( Xl ) (Metoprolol Succinate) 100 Mg Tab.er.24h 100 Mg PO DAILY Benztropine Mesylate 1 Mg Tablet 1 Mg PO [id number] Aspir-Low (Aspirin) 81 Mg Tablet.dr 1 Tab PO DAILY Diagnosis: Problems: (1) Anxiety disorder (2) Impulse control disorder (3) Psychosis, atypical (4) Unspecified psychosis (5) Dementia, vascular, with delusions (6) Lewy body dementia with behavioral disturbance JOSE NOLASCO MD Nov 06, 2016 19:44
[2016-11-06 20:34] VITALS: BP 157/84
[2016-11-06] MEDS: QUEtiapine 50 MG TABLET. PO SCH (20:37)
[2016-11-06] MEDS: MIRTAZAPINE 7.5 MG TABLET. PO SCH (20:37)
[2016-11-06] MEDS: ATORVASTATIN CALCIUM 10 MG TABLET. PO SCH (20:39)
[2016-11-06] MEDS: traZODone 100 MG TABLET. PO SCH (20:41)
--- NOTE | 2016-11-07 05:11 | PN ---
DATE: 11/05/2016 SUBJECTIVE: This is a late entry 11/05/2016 covers elements not covered in my initial note of 11/05/2016. The patient was seen individually evening of 11/05/2016. Overall, per nursing report he has been compliant and gets paranoid suspicious in the evening and this was quite evident as I met with him and discussed this. He slept 5-1/4 hours. REVIEW OF SYSTEMS: No CV, , pulmonary, eye, or ENT system symptoms on review. MENTAL STATUS EXAM: Does have short term memory deficits. Speech is coherent, abstraction fair, computation impaired, and language function intact. Mood and affect are somewhat anxious. Paranoia is evident more so in the evening. LABORATORY DATA: Reviewed. IMPRESSION: Probable major neurocognitive disorder, early Lewy body with delusion, depression, psychotic disorder, unspecified; anxiety disorder, unspecified; and impulse control disorder, unspecified. PLAN: Continue Haldol, Ativan p.r.n., Seroquel 75 mg at bedtime, Namenda 5 b.i.d., Exelon patch 4.6 mg a day, Cogentin 1 mg daily, which we will go ahead and stop starting 11/06/2016, and increase the Exelon patch to 9.5 mg a day on 11/06/2016 and we will later increase the Namenda as well. We will start Remeron 7.5 mg at bedtime. Reviewed and drug interactions. Risk/benefit ratio favors no further change. I have carefully considered all possible interactions given his Lewy body dementia diagnosis. JOSE NOLASCO MD DR: SAMARA/shilo JOB#: [id number] / [id number]
[2016-11-07 05:58] VITALS: BP 146/75
[2016-11-07] MEDS: PANTOPRAZOLE 40 MG TABLET. PO SCH (08:47)
[2016-11-07] MEDS: METOPROLOL SUCC 24HR ER 50 MG TAB.ER.24H. PO SCH (08:47)
[2016-11-07] MEDS: hydrALAZINE 25 MG TABLET PO SCH ×3 (08:47→19:53)
[2016-11-07] MEDS: LOSARTAN 50 MG TABLET. PO SCH (08:48)
[2016-11-07] MEDS: amLODIPine BESYLATE 10 MG TABLET PO SCH (08:48)
[2016-11-07] MEDS: POTASSIUM CHLORIDE 20 MEQ TABLET.ER. PO SCH ×3 (08:48→19:54)
[2016-11-07] MEDS: CETIRIZINE HCL 10 MG TABLET PO SCH (08:48)
[2016-11-07] MEDS: MEMANTINE 5 MG TABLET. PO SCH ×2 (08:48→19:54)
[2016-11-07] MEDS: MAGNESIUM OXIDE 400 MG TABLET PO SCH ×3 (08:48→19:54)
[2016-11-07] MEDS: ASPIRIN ENTERIC COATED 81 MG TABLET.DR. PO SCH (08:48)
[2016-11-07] MEDS: RIVASTIGMINE 9.5MG PATCH. TD SCH (08:51)
[2016-11-07] MEDS: CLOBETASOL EMOLLIENT 0.05% TOPICAL CREAM 15GM TUBE. TP SCH ×2 (08:51→19:55)
[2016-11-07] MEDS: HALOPERIDOL 5 MG TABLET PO PRN (08:51)
[2016-11-07 15:46] VITALS: BP 111/57
--- NOTE | 2016-11-07 19:40 | PDOC ---
Exam Serg Demential Exam: Serg Note: Please also refer to the separate dictated note~for this date of service dictated separately.~Patient seen individually. Discussed the patient with Nursing staff reviewed the chart.~Reviewed interim history and current functioning. Reviewed vital signs,~Labs/ Radiology~and current medications noted below. Continue current treatment with the changes noted in the dictated addendum note Assessment: Vital Signs: Vital Signs Date Time Temp Pulse Resp B/P (MAP) Pulse Ox O2 Delivery O2 Flow Rate FiO2 11/07/16 15:46 97.6 68 18 111/57 (75) 94 11/06/16 20:59 Room Air I&O Intake and Output 11/08/16 07:00 Intake Total 1640 ml Balance 1640 ml Intake Oral 1640 ml Current Medications: Meds: Current Medications Acetaminophen (Tylenol) 650 mg PRN Q6HRS PRN PO PAIN / TEMP Last administered on 11/05/16 15:40; Start 11/03/16 at 14:45 Multi-Ingredient Ointment (Analgesic [place]) 1 jose de jesus PRN QID PRN TP MUSCLE PAIN; Start 11/03/16 at 14:45 Al Hydroxide/Mg Hydroxide (Mylanta Plus Xs) 15 ml PRN AFTMEALHC PRN PO DYSPEPSIA; Start 11/03/16 at 14:45 Magnesium Hydroxide (Milk Of Magnesia) 2,400 mg PRN QHS PRN PO CONSTIPATION; Start 11/03/16 at 14:45 Aspirin (Aspirin Enteric Coated) 81 mg DAILY PO Last administered on 11/07/16 08:48; Start 11/04/16 at 09:00 Cetirizine HCl (ZyrTEC) 10 mg DAILY PO Last administered on 11/07/16 08:48; Start 11/04/16 at 09:00 Losartan Potassium (Cozaar) 100 mg DAILY PO Last administered on 11/07/16 08: 48; Start 11/04/16 at 09:00 Benztropine Mesylate (Cogentin) 1 mg [id number] PO Last administered on 11/04/16 06 :04; Start 11/04/16 at 07:00; Stop 11/04/16 at 12:16; Status DC Haloperidol (Haldol) 5 mg PRN Q2HR PRN PO psychosis Last administered on 08:51; Start 11/04/16 at 00:00 Lorazepam (Ativan) 0.25 mg PRN Q2HR PRN PO ANXIETY / AGITATION Last administered on 11/04/16 23:45; Start 11/04/16 at 00:00 Quetiapine Fumarate (SEROquel) 50 mg QHS PO ; Start 11/04/16 at 21:00; Stop at 21:00; Status DC Albuterol Sulfate (Ventolin Hfa) 2 puff Q1HR PRN IH SHORTNESS OF BREATH; Start 11/04/16 at 00:00; Status UNV Amlodipine Besylate (Norvasc) 10 mg DAILY PO Last administered on 11/07/16 08: 48; Start 11/04/16 at 09:00 Throat Lozenges (Cepacol Sore Throat Lozenge) 1 katty PRN Q2HR PRN PO sore throat ; Start 11/04/16 at 00:00 Acetaminophen/ Hydrocodone Bitart (Lortab 5/325) 1 tab PRN Q6HRS PRN PO SEVERE PAIN; Start 11/04/16 at 00:00 Magnesium Oxide (Magnesium Oxide) 400 mg TID PO Last administered on 11/07/16 14:25; Start 11/04/16 at 09:00 Pantoprazole Sodium (Protonix) 40 mg DAILYAC PO Last administered on 11/07/16 08:47; Start 11/04/16 at 07:30 Atorvastatin Calcium (Lipitor) 10 mg QHS PO Last administered on 11/06/16 20: 39; Start 11/04/16 at 21:00 Sodium Chloride (Saline Mist Nasal) 1 jose de jesus PRN Q1HR PRN NS nasal congestion; Start 11/04/16 at 00:00 Metoprolol Succinate (Toprol Xl) 100 mg DAILY PO Last administered on 08:47; Start 11/04/16 at 09:00 Potassium Chloride (Klor-Con) 20 meq TID PO Last administered on 11/07/16 14: 25; Start 11/04/16 at 09:00 Albuterol Sulfate (Ventolin) 2.5 mg PRN Q1HR PRN NEB SHORTNESS OF BREATH Last administered on 11/06/16 20:59; Start 11/04/16 at 00:15 Rivastigmine (Exelon) 1 patch DAILY TD Last administered on 11/06/16 07:50; Start 11/05/16 at 09:00; Stop 11/06/16 at 18:07; Status DC Benztropine Mesylate (Cogentin) 1 mg DAILY PO Last administered on 11/06/16 07 :51; Start 11/05/16 at 09:00; Stop 11/06/16 at 15:28; Status DC Quetiapine Fumarate (SEROquel) 75 mg QHS PO Last administered on 11/06/16 20: 37; Start 11/04/16 at 21:00 Memantine (Namenda) 5 mg BID PO Last administered on 11/07/16 08:48; Start at 21:00 Hydralazine HCl (Apresoline) 25 mg TID PO Last administered on 11/07/16 14:25 ; Start 11/04/16 at 21:00 Clobetasol Propionate 1 jose de jesus BID TP Last administered on 11/07/16 08:51; Start 11/04/16 at 21:00 Mirtazapine (Remeron) 7.5 mg QHS PO Last administered on 11/06/16 20:37; Start 11/05/16 at 21:00 Info (FLU VACCINE per PROTOCOL) 1 ea PRN 1X PRN MC PER PROTOCOL; Start at 12:45 Rivastigmine (Exelon) 1 patch DAILY TD Last administered on 11/07/16 08:51; Start 11/07/16 at 09:00 Trazodone HCl (Desyrel) 100 mg QHS PO Last administered on 11/06/16 20:41; Start 11/06/16 at 21:00 Trazodone HCl (Desyrel) 100 mg PRN QHS PRN PO INSOMNIA, MAY REPEAT X1; Start at 18:15 Active Scripts Active Reported Amlodipine Besylate 10 Mg Tablet 10 Mg PO DAILY Saline Nasal [place] (Sodium Chloride) 30 Ml [place] 30 Ml NS Q1HR PRN Seroquel (Quetiapine Fumarate) 50 Mg Tablet 50 Mg PO QHS Potassium Chloride 10 Meq Capsule.er 20 Meq PO TID Protonix (Pantoprazole Sodium) 40 Mg Tablet.dr 40 Mg PO DAILYAC Magnesium Oxide 400 Mg Tablet 400 Mg PO TID Lorazepam 0.5 Mg Tablet 0.25 Mg PO PRN Q2HR PRN Hydrocodone-Apap 5-325 (Hydrocodone Bit/Acetaminophen) 1 Each Tablet 1 Tab PO PRN Q6HRS PRN Haloperidol 5 Mg Tablet 5 Mg PO PRN Q2HR PRN Cepacol Sore Throat Lozenge (Benzocaine/Menthol) 1 Each Lozenge 1 Each PO PRN Q2HR PRN Ventolin Hfa Inhaler (Albuterol Sulfate) 18 Gm Hfa.aer.ad 2.5 Mg IH Q1HR PRN Zyrtec (Cetirizine Hcl) 10 Mg Tablet 1 Tab PO DAILY Simvastatin 20 Mg Tablet 20 Mg PO QHS Metoprolol Succinate ( Xl ) (Metoprolol Succinate) 100 Mg Tab.er.24h 100 Mg PO DAILY Benztropine Mesylate 1 Mg Tablet 1 Mg PO [id number] Aspir-Low (Aspirin) 81 Mg Tablet. 1 Tab PO DAILY Diagnosis: Problems: (1) Anxiety disorder (2) Impulse control disorder (3) Psychosis, atypical (4) Unspecified psychosis (5) Dementia, vascular, with delusions (6) Lewy body dementia with behavioral disturbance JOSE NOLASCO MD Nov 07, 2016 19:40
[2016-11-07] MEDS: ATORVASTATIN CALCIUM 10 MG TABLET. PO SCH (19:54)
[2016-11-07] MEDS: MIRTAZAPINE 7.5 MG TABLET. PO SCH (19:54)
[2016-11-07] MEDS: traZODone 100 MG TABLET. PO SCH (19:54)
[2016-11-07] MEDS: QUEtiapine 50 MG TABLET. PO SCH (19:55)
--- NOTE | 2016-11-08 04:33 | PN ---
DATE: 11/06/2016 PSYCHIATRIC PROGRESS NOTE This is a late entry for 11/06/2016 covers the elements not covered in my initial note of 11/06/2016. SUBJECTIVE: I met with the patient in the evening of 11/06/2016. The patient slept 3-3/4 hours the previous evening, gets a little more paranoid in the evening believing his ex-coworkers is going to come and hurt him, but less so than before, little bit calmer, more pleasant on 11/06/2016 than the day before. REVIEW OF SYSTEMS: No CV, , pulmonary, eye, ENT system symptoms on review. MENTAL STATUS EXAM: Oriented to himself and situation. Speech is coherent, abstraction fair, computation impaired, language function intact, attention span short. Mood and affect still somewhat anxious, dysphoric, labile at times, but improved. LABORATORY DATA: Reviewed. IMPRESSION: Unchanged from initial note. PLAN: Start trazodone 100 mg at bedtime scheduled plus june repeat x 1 p.r.n. insomnia. Continue Remeron 7.5 mg at bedtime, rest of the psychotropics unchanged as before including Seroquel 75 mg at bedtime, Haldol and Ativan p.r.n., Namenda 5 b.i.d., Exelon patch was increased to 9.5 mg daily. We will need to increase Namenda in due course as well given the probability of diagnosis of major neurocognitive disorder, Lewy body type with delusions. Reviewed drug interactions. Risk/benefit ratio favors no further. JOSE NOLASCO MD DR: SAMAAR/shilo JOB#: [id number] / [id number]
[2016-11-08 05:40] VITALS: BP 131/64
[2016-11-08] MEDS: CLOBETASOL EMOLLIENT 0.05% TOPICAL CREAM 15GM TUBE. TP SCH ×2 (09:00→19:41)
[2016-11-08] MEDS: RIVASTIGMINE 9.5MG PATCH. TD SCH (09:55)
[2016-11-08] MEDS: LOSARTAN 50 MG TABLET. PO SCH (09:56)
[2016-11-08] MEDS: POTASSIUM CHLORIDE 20 MEQ TABLET.ER. PO SCH ×3 (09:56→19:40)
[2016-11-08] MEDS: MEMANTINE 5 MG TABLET. PO SCH (09:56)
[2016-11-08] MEDS: METOPROLOL SUCC 24HR ER 50 MG TAB.ER.24H. PO SCH (09:57)
[2016-11-08] MEDS: MAGNESIUM OXIDE 400 MG TABLET PO SCH ×3 (09:57→19:41)
[2016-11-08] MEDS: amLODIPine BESYLATE 10 MG TABLET PO SCH (09:57)
[2016-11-08] MEDS: PANTOPRAZOLE 40 MG TABLET. PO SCH (09:58)
[2016-11-08] MEDS: ASPIRIN ENTERIC COATED 81 MG TABLET.DR. PO SCH (09:58)
[2016-11-08] MEDS: CETIRIZINE HCL 10 MG TABLET PO SCH (09:58)
[2016-11-08] MEDS: hydrALAZINE 25 MG TABLET PO SCH ×3 (09:58→19:41)
[2016-11-08 16:42] VITALS: BP 128/65
[2016-11-08] MEDS: traZODone 100 MG TABLET. PO SCH (19:40)
[2016-11-08] MEDS: ATORVASTATIN CALCIUM 10 MG TABLET. PO SCH (19:40)
[2016-11-08] MEDS: MIRTAZAPINE 7.5 MG TABLET. PO SCH (19:41)
[2016-11-08] MEDS: QUEtiapine 50 MG TABLET. PO SCH (19:43)
[2016-11-08] MEDS: MEMANTINE 10 MG TABLET. PO SCH (19:46)
--- NOTE | 2016-11-08 21:06 | PDOC ---
Exam Serg Demential Exam: Serg Note: Please also refer to the separate dictated note~for this date of service dictated separately.~Patient seen individually. Discussed the patient with Nursing staff reviewed the chart.~Reviewed interim history and current functioning. Reviewed vital signs,~Labs/ Radiology~and current medications noted below. Continue current treatment with the changes noted in the dictated addendum note Assessment: Vital Signs: Vital Signs Date Time Temp Pulse Resp B/P (MAP) Pulse Ox O2 Delivery O2 Flow Rate FiO2 11/08/16 19:41 71 128/65 11/08/16 16:42 97.9 16 98 11/08/16 05:40 Room Air I&O Intake and Output 11/09/16 07:00 Intake Total 1080 ml Balance 1080 ml Intake Oral 1080 ml Current Medications: Meds: Current Medications Acetaminophen (Tylenol) 650 mg PRN Q6HRS PRN PO PAIN / TEMP Last administered on 11/05/16 15:40; Start 11/03/16 at 14:45 Multi-Ingredient Ointment (Analgesic [place]) 1 jose de jesus PRN QID PRN TP MUSCLE PAIN; Start 11/03/16 at 14:45 Al Hydroxide/Mg Hydroxide (Mylanta Plus Xs) 15 ml PRN AFTMEALHC PRN PO DYSPEPSIA; Start 11/03/16 at 14:45 Magnesium Hydroxide (Milk Of Magnesia) 2,400 mg PRN QHS PRN PO CONSTIPATION; Start 11/03/16 at 14:45 Aspirin (Aspirin Enteric Coated) 81 mg DAILY PO Last administered on 11/08/16 09:58; Start 11/04/16 at 09:00 Cetirizine HCl (ZyrTEC) 10 mg DAILY PO Last administered on 11/08/16 09:58; Start 11/04/16 at 09:00 Losartan Potassium (Cozaar) 100 mg DAILY PO Last administered on 11/08/16 09: 56; Start 11/04/16 at 09:00 Benztropine Mesylate (Cogentin) 1 mg [id number] PO Last administered on 11/04/16 06 :04; Start 11/04/16 at 07:00; Stop 11/04/16 at 12:16; Status DC Haloperidol (Haldol) 5 mg PRN Q2HR PRN PO psychosis Last administered on 08:51; Start 11/04/16 at 00:00 Lorazepam (Ativan) 0.25 mg PRN Q2HR PRN PO ANXIETY / AGITATION Last administered on 11/04/16 23:45; Start 11/04/16 at 00:00 Quetiapine Fumarate (SEROquel) 50 mg QHS PO ; Start 11/04/16 at 21:00; Stop at 21:00; Status DC Albuterol Sulfate (Ventolin Hfa) 2 puff Q1HR PRN IH SHORTNESS OF BREATH; Start 11/04/16 at 00:00; Status UNV Amlodipine Besylate (Norvasc) 10 mg DAILY PO Last administered on 11/08/16 09: 57; Start 11/04/16 at 09:00 Throat Lozenges (Cepacol Sore Throat Lozenge) 1 katty PRN Q2HR PRN PO sore throat ; Start 11/04/16 at 00:00 Acetaminophen/ Hydrocodone Bitart (Lortab 5/325) 1 tab PRN Q6HRS PRN PO SEVERE PAIN; Start 11/04/16 at 00:00 Magnesium Oxide (Magnesium Oxide) 400 mg TID PO Last administered on 11/08/16 19:41; Start 11/04/16 at 09:00 Pantoprazole Sodium (Protonix) 40 mg DAILYAC PO Last administered on 11/08/16 09:58; Start 11/04/16 at 07:30 Atorvastatin Calcium (Lipitor) 10 mg QHS PO Last administered on 11/08/16 19: 40; Start 11/04/16 at 21:00 Sodium Chloride (Saline Mist Nasal) 1 jose de jesus PRN Q1HR PRN NS nasal congestion; Start 11/04/16 at 00:00 Metoprolol Succinate (Toprol Xl) 100 mg DAILY PO Last administered on 09:57; Start 11/04/16 at 09:00 Potassium Chloride (Klor-Con) 20 meq TID PO Last administered on 11/08/16 19: 40; Start 11/04/16 at 09:00 Albuterol Sulfate (Ventolin) 2.5 mg PRN Q1HR PRN NEB SHORTNESS OF BREATH Last administered on 11/06/16 20:59; Start 11/04/16 at 00:15 Rivastigmine (Exelon) 1 patch DAILY TD Last administered on 11/06/16 07:50; Start 11/05/16 at 09:00; Stop 11/06/16 at 18:07; Status DC Benztropine Mesylate (Cogentin) 1 mg DAILY PO Last administered on 11/06/16 07 :51; Start 11/05/16 at 09:00; Stop 11/06/16 at 15:28; Status DC Quetiapine Fumarate (SEROquel) 75 mg QHS PO Last administered on 11/08/16 19: 43; Start 11/04/16 at 21:00 Memantine (Namenda) 5 mg BID PO Last administered on 11/08/16 09:56; Start at 21:00; Stop 11/08/16 at 13:31; Status DC Hydralazine HCl (Apresoline) 25 mg TID PO Last administered on 11/08/16 19:41 ; Start 11/04/16 at 21:00 Clobetasol Propionate 1 jose de jesus BID TP Last administered on 11/08/16 19:41; Start 11/04/16 at 21:00 Mirtazapine (Remeron) 7.5 mg QHS PO Last administered on 11/08/16 19:41; Start 11/05/16 at 21:00 Info (FLU VACCINE per PROTOCOL) 1 ea PRN 1X PRN MC PER PROTOCOL; Start at 12:45 Rivastigmine (Exelon) 1 patch DAILY TD Last administered on 11/08/16 09:55; Start 11/07/16 at 09:00 Trazodone HCl (Desyrel) 100 mg QHS PO Last administered on 11/08/16 19:40; Start 11/06/16 at 21:00 Trazodone HCl (Desyrel) 100 mg PRN QHS PRN PO INSOMNIA, MAY REPEAT X1; Start at 18:15 Memantine (Namenda) 10 mg BID PO Last administered on 11/08/16 19:46; Start at 21:00 Active Scripts Active Reported Amlodipine Besylate 10 Mg Tablet 10 Mg PO DAILY Saline Nasal [place] (Sodium Chloride) 30 Ml [place] 30 Ml NS Q1HR PRN Seroquel (Quetiapine Fumarate) 50 Mg Tablet 50 Mg PO QHS Potassium Chloride 10 Meq Capsule.er 20 Meq PO TID Protonix (Pantoprazole Sodium) 40 Mg Tablet.dr 40 Mg PO DAILYAC Magnesium Oxide 400 Mg Tablet 400 Mg PO TID Lorazepam 0.5 Mg Tablet 0.25 Mg PO PRN Q2HR PRN Hydrocodone-Apap 5-325 (Hydrocodone Bit/Acetaminophen) 1 Each Tablet 1 Tab PO PRN Q6HRS PRN Haloperidol 5 Mg Tablet 5 Mg PO PRN Q2HR PRN Cepacol Sore Throat Lozenge (Benzocaine/Menthol) 1 Each Lozenge 1 Each PO PRN Q2HR PRN Ventolin Hfa Inhaler (Albuterol Sulfate) 18 Gm Hfa.aer.ad 2.5 Mg IH Q1HR PRN Zyrtec (Cetirizine Hcl) 10 Mg Tablet 1 Tab PO DAILY Simvastatin 20 Mg Tablet 20 Mg PO QHS Metoprolol Succinate ( Xl ) (Metoprolol Succinate) 100 Mg Tab.er.24h 100 Mg PO DAILY Benztropine Mesylate 1 Mg Tablet 1 Mg PO [id number] Aspir-Low (Aspirin) 81 Mg Tablet. 1 Tab PO DAILY Diagnosis: Problems: (1) Anxiety disorder (2) Impulse control disorder (3) Psychosis, atypical (4) Unspecified psychosis (5) Dementia, vascular, with delusions (6) Lewy body dementia with behavioral disturbance JOSE NOLASCO MD Nov 08, 2016 21:06
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
[2016-11-09 05:50] VITALS: BP 138/79
[2016-11-09] MEDS: RIVASTIGMINE 9.5MG PATCH. TD SCH (09:35)
[2016-11-09] MEDS: ASPIRIN ENTERIC COATED 81 MG TABLET.DR. PO SCH (09:36)
[2016-11-09] MEDS: CETIRIZINE HCL 10 MG TABLET PO SCH (09:36)
[2016-11-09] MEDS: LOSARTAN 50 MG TABLET. PO SCH (09:36)
[2016-11-09] MEDS: METOPROLOL SUCC 24HR ER 50 MG TAB.ER.24H. PO SCH (09:36)
[2016-11-09] MEDS: MAGNESIUM OXIDE 400 MG TABLET PO SCH ×3 (09:37→20:15)
[2016-11-09] MEDS: amLODIPine BESYLATE 10 MG TABLET PO SCH (09:37)
[2016-11-09] MEDS: PANTOPRAZOLE 40 MG TABLET. PO SCH (09:37)
[2016-11-09] MEDS: hydrALAZINE 25 MG TABLET PO SCH ×3 (09:37→20:14)
[2016-11-09] MEDS: MEMANTINE 10 MG TABLET. PO SCH ×2 (09:37→20:15)
[2016-11-09] MEDS: CLOBETASOL EMOLLIENT 0.05% TOPICAL CREAM 15GM TUBE. TP SCH ×2 (09:38→20:13)
[2016-11-09] MEDS: POTASSIUM CHLORIDE 20 MEQ TABLET.ER. PO SCH ×3 (09:38→20:15)
[2016-11-09 16:22] VITALS: BP 112/53
[2016-11-09] MEDS: QUEtiapine 50 MG TABLET. PO SCH (20:14)
[2016-11-09] MEDS: MIRTAZAPINE 7.5 MG TABLET. PO SCH (20:14)
[2016-11-09] MEDS: traZODone 100 MG TABLET. PO SCH (20:15)
[2016-11-09] MEDS: ATORVASTATIN CALCIUM 10 MG TABLET. PO SCH (20:15)
--- NOTE | 2016-11-09 21:04 | PDOC ---
Exam Serg Demential Exam: Serg Note: Please also refer to the separate dictated note~for this date of service dictated separately.~Patient seen individually. Discussed the patient with Nursing staff reviewed the chart.~Reviewed interim history and current functioning. Reviewed vital signs,~Labs/ Radiology~and current medications noted below. Continue current treatment with the changes noted in the dictated addendum note Assessment: Vital Signs: Vital Signs Date Time Temp Pulse Resp B/P (MAP) Pulse Ox O2 Delivery O2 Flow Rate FiO2 11/09/16 20:14 69 112/53 11/09/16 16:22 97.7 17 95 11/09/16 05:50 Room Air I&O Intake and Output 11/10/16 07:00 Intake Total 940 ml Balance 940 ml Intake Oral 940 ml Current Medications: Meds: Current Medications Acetaminophen (Tylenol) 650 mg PRN Q6HRS PRN PO PAIN / TEMP Last administered on 11/05/16 15:40; Start 11/03/16 at 14:45 Multi-Ingredient Ointment (Analgesic [place]) 1 jose de jesus PRN QID PRN TP MUSCLE PAIN; Start 11/03/16 at 14:45 Al Hydroxide/Mg Hydroxide (Mylanta Plus Xs) 15 ml PRN AFTMEALHC PRN PO DYSPEPSIA; Start 11/03/16 at 14:45 Magnesium Hydroxide (Milk Of Magnesia) 2,400 mg PRN QHS PRN PO CONSTIPATION; Start 11/03/16 at 14:45 Aspirin (Aspirin Enteric Coated) 81 mg DAILY PO Last administered on 11/09/16 09:36; Start 11/04/16 at 09:00 Cetirizine HCl (ZyrTEC) 10 mg DAILY PO Last administered on 11/09/16 09:36; Start 11/04/16 at 09:00 Losartan Potassium (Cozaar) 100 mg DAILY PO Last administered on 11/09/16 09: 36; Start 11/04/16 at 09:00 Benztropine Mesylate (Cogentin) 1 mg [id number] PO Last administered on 11/04/16 06 :04; Start 11/04/16 at 07:00; Stop 11/04/16 at 12:16; Status DC Haloperidol (Haldol) 5 mg PRN Q2HR PRN PO psychosis Last administered on 08:51; Start 11/04/16 at 00:00 Lorazepam (Ativan) 0.25 mg PRN Q2HR PRN PO ANXIETY / AGITATION Last administered on 11/04/16 23:45; Start 11/04/16 at 00:00 Quetiapine Fumarate (SEROquel) 50 mg QHS PO ; Start 11/04/16 at 21:00; Stop at 21:00; Status DC Albuterol Sulfate (Ventolin Hfa) 2 puff Q1HR PRN IH SHORTNESS OF BREATH; Start 11/04/16 at 00:00; Status UNV Amlodipine Besylate (Norvasc) 10 mg DAILY PO Last administered on 11/09/16 09: 37; Start 11/04/16 at 09:00 Throat Lozenges (Cepacol Sore Throat Lozenge) 1 katty PRN Q2HR PRN PO sore throat ; Start 11/04/16 at 00:00 Acetaminophen/ Hydrocodone Bitart (Lortab 5/325) 1 tab PRN Q6HRS PRN PO SEVERE PAIN; Start 11/04/16 at 00:00 Magnesium Oxide (Magnesium Oxide) 400 mg TID PO Last administered on 11/09/16 20:15; Start 11/04/16 at 09:00 Pantoprazole Sodium (Protonix) 40 mg DAILYAC PO Last administered on 11/09/16 09:37; Start 11/04/16 at 07:30 Atorvastatin Calcium (Lipitor) 10 mg QHS PO Last administered on 11/09/16 20: 15; Start 11/04/16 at 21:00 Sodium Chloride (Saline Mist Nasal) 1 jose de jesus PRN Q1HR PRN NS nasal congestion; Start 11/04/16 at 00:00 Metoprolol Succinate (Toprol Xl) 100 mg DAILY PO Last administered on 09:36; Start 11/04/16 at 09:00 Potassium Chloride (Klor-Con) 20 meq TID PO Last administered on 11/09/16 20: 15; Start 11/04/16 at 09:00 Albuterol Sulfate (Ventolin) 2.5 mg PRN Q1HR PRN NEB SHORTNESS OF BREATH Last administered on 11/06/16 20:59; Start 11/04/16 at 00:15 Rivastigmine (Exelon) 1 patch DAILY TD Last administered on 11/06/16 07:50; Start 11/05/16 at 09:00; Stop 11/06/16 at 18:07; Status DC Benztropine Mesylate (Cogentin) 1 mg DAILY PO Last administered on 11/06/16 07 :51; Start 11/05/16 at 09:00; Stop 11/06/16 at 15:28; Status DC Quetiapine Fumarate (SEROquel) 75 mg QHS PO Last administered on 11/08/16 19: 43; Start 11/04/16 at 21:00; Stop 11/09/16 at 18:09; Status DC Memantine (Namenda) 5 mg BID PO Last administered on 11/08/16 09:56; Start at 21:00; Stop 11/08/16 at 13:31; Status DC Hydralazine HCl (Apresoline) 25 mg TID PO Last administered on 11/09/16 20:14 ; Start 11/04/16 at 21:00 Clobetasol Propionate 1 jose de jesus BID TP Last administered on 11/09/16 20:13; Start 11/04/16 at 21:00 Mirtazapine (Remeron) 7.5 mg QHS PO Last administered on 11/09/16 20:14; Start 11/05/16 at 21:00 Info (FLU VACCINE per PROTOCOL) 1 ea PRN 1X PRN MC PER PROTOCOL; Start at 12:45 Rivastigmine (Exelon) 1 patch DAILY TD Last administered on 11/09/16 09:35; Start 11/07/16 at 09:00 Trazodone HCl (Desyrel) 100 mg QHS PO Last administered on 11/09/16 20:15; Start 11/06/16 at 21:00 Trazodone HCl (Desyrel) 100 mg PRN QHS PRN PO INSOMNIA, MAY REPEAT X1; Start at 18:15 Memantine (Namenda) 10 mg BID PO Last administered on 11/09/16 20:15; Start at 21:00 Quetiapine Fumarate (SEROquel) 125 mg QHS PO Last administered on 9/21/17at 20: 14; Start 11/09/16 at 21:00 Active Scripts Active Reported Amlodipine Besylate 10 Mg Tablet 10 Mg PO DAILY Saline Nasal [place] (Sodium Chloride) 30 Ml [place] 30 Ml NS Q1HR PRN Seroquel (Quetiapine Fumarate) 50 Mg Tablet 50 Mg PO QHS Potassium Chloride 10 Meq Capsule.er 20 Meq PO TID Protonix (Pantoprazole Sodium) 40 Mg Tablet.dr 40 Mg PO DAILYAC Magnesium Oxide 400 Mg Tablet 400 Mg PO TID Lorazepam 0.5 Mg Tablet 0.25 Mg PO PRN Q2HR PRN Hydrocodone-Apap 5-325 (Hydrocodone Bit/Acetaminophen) 1 Each Tablet 1 Tab PO PRN Q6HRS PRN Haloperidol 5 Mg Tablet 5 Mg PO PRN Q2HR PRN Cepacol Sore Throat Lozenge (Benzocaine/Menthol) 1 Each Lozenge 1 Each PO PRN Q2HR PRN Ventolin Hfa Inhaler (Albuterol Sulfate) 18 Gm Hfa.aer.ad 2.5 Mg IH Q1HR PRN Zyrtec (Cetirizine Hcl) 10 Mg Tablet 1 Tab PO DAILY Simvastatin 20 Mg Tablet 20 Mg PO QHS Metoprolol Succinate ( Xl ) (Metoprolol Succinate) 100 Mg Tab.er.24h 100 Mg PO DAILY Benztropine Mesylate 1 Mg Tablet 1 Mg PO [id number] Aspir-Low (Aspirin) 81 Mg Tablet. 1 Tab PO DAILY Diagnosis: Problems: (1) Anxiety disorder (2) Impulse control disorder (3) Psychosis, atypical (4) Unspecified psychosis (5) Dementia, vascular, with delusions (6) Lewy body dementia with behavioral disturbance JOSE NOLASCO MD Nov 09, 2016 21:04
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
[2016-11-10 05:55] VITALS: BP 162/63
[2016-11-10] MEDS: hydrALAZINE 25 MG TABLET PO SCH ×3 (09:48→19:53)
[2016-11-10] MEDS: METOPROLOL SUCC 24HR ER 50 MG TAB.ER.24H. PO SCH (09:48)
[2016-11-10] MEDS: ASPIRIN ENTERIC COATED 81 MG TABLET.DR. PO SCH (09:48)
[2016-11-10] MEDS: CLOBETASOL EMOLLIENT 0.05% TOPICAL CREAM 15GM TUBE. TP SCH ×2 (09:48→19:54)
[2016-11-10] MEDS: LOSARTAN 50 MG TABLET. PO SCH (09:49)
[2016-11-10] MEDS: POTASSIUM CHLORIDE 20 MEQ TABLET.ER. PO SCH ×3 (09:49→19:53)
[2016-11-10] MEDS: PANTOPRAZOLE 40 MG TABLET. PO SCH (09:51)
[2016-11-10] MEDS: CETIRIZINE HCL 10 MG TABLET PO SCH (09:51)
[2016-11-10] MEDS: MAGNESIUM OXIDE 400 MG TABLET PO SCH ×3 (09:51→19:53)
[2016-11-10] MEDS: MEMANTINE 10 MG TABLET. PO SCH ×2 (09:51→19:53)
[2016-11-10] MEDS: RIVASTIGMINE 9.5MG PATCH. TD SCH (09:52)
[2016-11-10] MEDS: amLODIPine BESYLATE 10 MG TABLET PO SCH (09:52)
[2016-11-10] MEDS: FLU VACC QS2017-18 (36MOS+)/PF 0.5 ML SYRINGE. VAX IM ONE ×2 (10:00→10:40)
[2016-11-10] MEDS ORDERED: FLU VACC QS2017-18 (36MOS+)/PF 0.5 ML SYRINGE. VAX IM ONE (11:00)
[2016-11-10 13:11] VITALS: BP 116/58
[2016-11-10 16:09] VITALS: BP 130/70
[2016-11-10] MEDS: traZODone 100 MG TABLET. PO SCH (19:53)
[2016-11-10] MEDS: ATORVASTATIN CALCIUM 10 MG TABLET. PO SCH (19:53)
[2016-11-10] MEDS: MIRTAZAPINE 7.5 MG TABLET. PO SCH (19:53)
[2016-11-10] MEDS: QUEtiapine 50 MG TABLET. PO SCH (19:53)
--- NOTE | 2016-11-10 20:55 | PDOC ---
Exam Serg Demential Exam: Serg Note: Please also refer to the separate dictated note~for this date of service dictated separately.~Patient seen individually. Discussed the patient with Nursing staff reviewed the chart.~Reviewed interim history and current functioning. Reviewed vital signs,~Labs/ Radiology~and current medications noted below. Continue current treatment with the changes noted in the dictated addendum note Assessment: Vital Signs: Vital Signs Date Time Temp Pulse Resp B/P (MAP) Pulse Ox O2 Delivery O2 Flow Rate FiO2 11/10/16 19:53 67 130/70 11/10/16 16:09 97.7 18 96 11/10/16 13:11 Room Air I&O Intake and Output 11/11/16 06:59 Intake Total 1680 ml Balance 1680 ml Intake Oral 1680 ml Current Medications: Meds: Current Medications Acetaminophen (Tylenol) 650 mg PRN Q6HRS PRN PO PAIN / TEMP Last administered on 11/05/16 15:40; Start 11/03/16 at 14:45 Multi-Ingredient Ointment (Analgesic [place]) 1 jose de jesus PRN QID PRN TP MUSCLE PAIN; Start 11/03/16 at 14:45 Al Hydroxide/Mg Hydroxide (Mylanta Plus Xs) 15 ml PRN AFTMEALHC PRN PO DYSPEPSIA; Start 11/03/16 at 14:45 Magnesium Hydroxide (Milk Of Magnesia) 2,400 mg PRN QHS PRN PO CONSTIPATION; Start 11/03/16 at 14:45 Aspirin (Aspirin Enteric Coated) 81 mg DAILY PO Last administered on 11/10/16 09:48; Start 11/04/16 at 09:00 Cetirizine HCl (ZyrTEC) 10 mg DAILY PO Last administered on 11/10/16 09:51; Start 11/04/16 at 09:00 Losartan Potassium (Cozaar) 100 mg DAILY PO Last administered on 11/10/16 09: 49; Start 11/04/16 at 09:00 Benztropine Mesylate (Cogentin) 1 mg [id number] PO Last administered on 11/04/16 06 :04; Start 11/04/16 at 07:00; Stop 11/04/16 at 12:16; Status DC Haloperidol (Haldol) 5 mg PRN Q2HR PRN PO psychosis Last administered on 08:51; Start 11/04/16 at 00:00 Lorazepam (Ativan) 0.25 mg PRN Q2HR PRN PO ANXIETY / AGITATION Last administered on 11/04/16 23:45; Start 11/04/16 at 00:00 Quetiapine Fumarate (SEROquel) 50 mg QHS PO ; Start 11/04/16 at 21:00; Stop at 21:00; Status DC Albuterol Sulfate (Ventolin Hfa) 2 puff Q1HR PRN IH SHORTNESS OF BREATH; Start 11/04/16 at 00:00; Status UNV Amlodipine Besylate (Norvasc) 10 mg DAILY PO Last administered on 11/10/16 09: 52; Start 11/04/16 at 09:00 Throat Lozenges (Cepacol Sore Throat Lozenge) 1 katty PRN Q2HR PRN PO sore throat ; Start 11/04/16 at 00:00 Acetaminophen/ Hydrocodone Bitart (Lortab 5/325) 1 tab PRN Q6HRS PRN PO SEVERE PAIN; Start 11/04/16 at 00:00 Magnesium Oxide (Magnesium Oxide) 400 mg TID PO Last administered on 11/10/16 19:53; Start 11/04/16 at 09:00 Pantoprazole Sodium (Protonix) 40 mg DAILYAC PO Last administered on 11/10/16 09:51; Start 11/04/16 at 07:30 Atorvastatin Calcium (Lipitor) 10 mg QHS PO Last administered on 11/10/16 19: 53; Start 11/04/16 at 21:00 Sodium Chloride (Saline Mist Nasal) 1 jose de jesus PRN Q1HR PRN NS nasal congestion; Start 11/04/16 at 00:00 Metoprolol Succinate (Toprol Xl) 100 mg DAILY PO Last administered on 09:48; Start 11/04/16 at 09:00 Potassium Chloride (Klor-Con) 20 meq TID PO Last administered on 11/10/16 19: 53; Start 11/04/16 at 09:00 Albuterol Sulfate (Ventolin) 2.5 mg PRN Q1HR PRN NEB SHORTNESS OF BREATH Last administered on 11/06/16 20:59; Start 11/04/16 at 00:15 Rivastigmine (Exelon) 1 patch DAILY TD Last administered on 11/06/16 07:50; Start 11/05/16 at 09:00; Stop 11/06/16 at 18:07; Status DC Benztropine Mesylate (Cogentin) 1 mg DAILY PO Last administered on 11/06/16 07 :51; Start 11/05/16 at 09:00; Stop 11/06/16 at 15:28; Status DC Quetiapine Fumarate (SEROquel) 75 mg QHS PO Last administered on 11/08/16 19: 43; Start 11/04/16 at 21:00; Stop 11/09/16 at 18:09; Status DC Memantine (Namenda) 5 mg BID PO Last administered on 11/08/16 09:56; Start at 21:00; Stop 11/08/16 at 13:31; Status DC Hydralazine HCl (Apresoline) 25 mg TID PO Last administered on 11/10/16 19:53 ; Start 11/04/16 at 21:00 Clobetasol Propionate 1 jose de jesus BID TP Last administered on 11/10/16 19:54; Start 11/04/16 at 21:00 Mirtazapine (Remeron) 7.5 mg QHS PO Last administered on 11/10/16 19:53; Start 11/05/16 at 21:00 Info (FLU VACCINE per PROTOCOL) 1 ea PRN 1X PRN MC PER PROTOCOL; Start at 12:45; Stop 11/10/16 at 09:14; Status DC Rivastigmine (Exelon) 1 patch DAILY TD Last administered on 11/10/16 09:52; Start 11/07/16 at 09:00 Trazodone HCl (Desyrel) 100 mg QHS PO Last administered on 11/10/16 19:53; Start 11/06/16 at 21:00 Trazodone HCl (Desyrel) 100 mg PRN QHS PRN PO INSOMNIA, MAY REPEAT X1; Start at 18:15 Memantine (Namenda) 10 mg BID PO Last administered on 11/10/16 19:53; Start at 21:00 Quetiapine Fumarate (SEROquel) 125 mg QHS PO Last administered on 11/10/16 19: 53; Start 11/09/16 at 21:00 Influenza Virus Vaccine Quadrival (Fluarix Quad Syringe) 0.5 ml 1X ONCE VAX IM ; Start 11/10/16 at 10:00; Stop 11/10/16 at 10:01; Status DC Influenza Virus Vaccine Quadrival (Fluarix Quad Syringe) 0.5 ml 1X ONCE VAX IM Last administered on 11/10/16 10:54; Start 11/10/16 at 11:00; Stop 11/10/16 at 11:01; Status DC Active Scripts Active Reported Amlodipine Besylate 10 Mg Tablet 10 Mg PO DAILY Saline Nasal [place] (Sodium Chloride) 30 Ml [place] 30 Ml NS Q1HR PRN Seroquel (Quetiapine Fumarate) 50 Mg Tablet 50 Mg PO QHS Potassium Chloride 10 Meq Capsule.er 20 Meq PO TID Protonix (Pantoprazole Sodium) 40 Mg Tablet. 40 Mg PO DAILYAC Magnesium Oxide 400 Mg Tablet 400 Mg PO TID Lorazepam 0.5 Mg Tablet 0.25 Mg PO PRN Q2HR PRN Hydrocodone-Apap 5-325 (Hydrocodone Bit/Acetaminophen) 1 Each Tablet 1 Tab PO PRN Q6HRS PRN Haloperidol 5 Mg Tablet 5 Mg PO PRN Q2HR PRN Cepacol Sore Throat Lozenge (Benzocaine/Menthol) 1 Each Lozenge 1 Each PO PRN Q2HR PRN Ventolin Hfa Inhaler (Albuterol Sulfate) 18 Gm Hfa.aer.ad 2.5 Mg IH Q1HR PRN Zyrtec (Cetirizine Hcl) 10 Mg Tablet 1 Tab PO DAILY Simvastatin 20 Mg Tablet 20 Mg PO QHS Metoprolol Succinate ( Xl ) (Metoprolol Succinate) 100 Mg Tab.er.24h 100 Mg PO DAILY Benztropine Mesylate 1 Mg Tablet 1 Mg PO [id number] Aspir-Low (Aspirin) 81 Mg Tablet. 1 Tab PO DAILY Diagnosis: Problems: (1) Anxiety disorder (2) Impulse control disorder (3) Psychosis, atypical (4) Unspecified psychosis (5) Dementia, vascular, with delusions (6) Lewy body dementia with behavioral disturbance JOSE NOLASCO MD Nov 10, 2016 20:55
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
[2016-11-11 06:13] VITALS: BP 136/65
[2016-11-11 08:10] LABS: BASO # 0.1 x10^3/uL (0.0-0.2); BASO % 1 % (0-3); EOS # 0.4 x10^3/uL (0.0-0.7); EOS % 6 % (0-3); HEMATOCRIT 37.6 % (39.0-53.0); LYMPH # 1.4 x10^3/uL (1.0-4.8); LYMPH % 22 % (24-48); MEAN CORPUSCULAR HEMOGLOBIN 31 pg (25-35); MEAN CORPUSCULAR HGB CONC 35 g/dL (31-37); MEAN CORPUSCULAR VOLUME 88 fL (79-100); MONO # 0.7 x10^3/uL (0.0-1.1); MONO % 10 % (0-9); NEUT # 4.2 x10^3uL (1.8-7.7); NEUT % 62 % (31-73); PLATELET COUNT 249 x10^3/uL (140-400); RED BLOOD COUNT 4.26 x10^6/uL (4.30-5.70); WHITE BLOOD COUNT 6.8 x10^3/uL (4.0-11.0)
[2016-11-11 08:20] LABS: ALBUMIN 3.7 g/dL (3.4-5.0); ALBUMIN/GLOBULIN RATIO 1.1 (1.0-1.7); CREATININE 1.2 mg/dL (0.7-1.3); GFR 60.6; POTASSIUM 4.8 mmol/L (3.5-5.1); TOTAL BILIRUBIN 0.4 mg/dL (0.2-1.0); TOTAL PROTEIN 7.2 g/dL (6.4-8.2)
[2016-11-11] MEDS: PANTOPRAZOLE 40 MG TABLET. PO SCH (09:19)
[2016-11-11] MEDS: hydrALAZINE 25 MG TABLET PO SCH ×3 (09:22→19:36)
[2016-11-11] MEDS: ASPIRIN ENTERIC COATED 81 MG TABLET.DR. PO SCH (09:23)
[2016-11-11] MEDS: MEMANTINE 10 MG TABLET. PO SCH ×2 (09:24→19:39)
[2016-11-11] MEDS: LOSARTAN 50 MG TABLET. PO SCH (09:24)
[2016-11-11] MEDS: POTASSIUM CHLORIDE 20 MEQ TABLET.ER. PO SCH ×3 (09:24→19:36)
[2016-11-11] MEDS: MAGNESIUM OXIDE 400 MG TABLET PO SCH ×3 (09:24→19:36)
[2016-11-11] MEDS: amLODIPine BESYLATE 10 MG TABLET PO SCH (09:25)
[2016-11-11] MEDS: METOPROLOL SUCC 24HR ER 50 MG TAB.ER.24H. PO SCH (09:25)
[2016-11-11] MEDS: CLOBETASOL EMOLLIENT 0.05% TOPICAL CREAM 15GM TUBE. TP SCH ×2 (09:26→19:37)
[2016-11-11] MEDS: RIVASTIGMINE 9.5MG PATCH. TD SCH (09:26)
[2016-11-11] MEDS: CETIRIZINE HCL 10 MG TABLET PO SCH (09:26)
[2016-11-11 12:59] VITALS: BP 124/67
[2016-11-11] MEDS: MAG HYDROX/AL HYDROX/SIMETH 30 ML ORAL.SUSP PO PRN (13:02)
[2016-11-11 16:52] VITALS: BP 147/62
[2016-11-11] MEDS: MIRTAZAPINE 7.5 MG TABLET. PO SCH (19:36)
[2016-11-11] MEDS: QUEtiapine 50 MG TABLET. PO SCH (19:36)
[2016-11-11] MEDS: ATORVASTATIN CALCIUM 10 MG TABLET. PO SCH (19:36)
[2016-11-11] MEDS: traZODone 100 MG TABLET. PO SCH (19:37)
--- NOTE | 2016-11-11 21:09 | PDOC ---
Exam Serg Demential Exam: Serg Note: Please also refer to the separate dictated note~for this date of service dictated separately.~Patient seen individually. Discussed the patient with Nursing staff reviewed the chart.~Reviewed interim history and current functioning. Reviewed vital signs,~Labs/ Radiology~and current medications noted below. Continue current treatment with the changes noted in the dictated addendum note Assessment: Vital Signs: Vital Signs Date Time Temp Pulse Resp B/P (MAP) Pulse Ox O2 Delivery O2 Flow Rate FiO2 11/11/16 19:36 72 147/62 11/11/16 16:52 98.4 18 96 Room Air I&O Intake and Output 11/12/16 07:00 Intake Total 960 ml Balance 960 ml Intake Oral 960 ml Labs: Laboratory Tests Test 11/11/16 07:51 White Blood Count 6.8 x10^3/uL (4.0-11.0) Red Blood Count 4.26 x10^6/uL (4.30-5.70) L Hemoglobin 13.0 g/dL (13.0-17.5) Hematocrit 37.6 % (39.0-53.0) L Mean Corpuscular Volume 88 fL (79-100) Mean Corpuscular Hemoglobin 31 pg (25-35) Mean Corpuscular Hemoglobin Concent 35 g/dL (31-37) Red Cell Distribution Width 14.0 % (11.5-14.5) Platelet Count 249 x10^3/uL (140-400) Neutrophils (%) (Auto) 62 % (31-73) Lymphocytes (%) (Auto) 22 % (24-48) L Monocytes (%) (Auto) 10 % (0-9) H Eosinophils (%) (Auto) 6 % (0-3) H Basophils (%) (Auto) 1 % (0-3) Neutrophils # (Auto) 4.2 x10^3uL (1.8-7.7) Lymphocytes # (Auto) 1.4 x10^3/uL (1.0-4.8) Monocytes # (Auto) 0.7 x10^3/uL (0.0-1.1) Eosinophils # (Auto) 0.4 x10^3/uL (0.0-0.7) Basophils # (Auto) 0.1 x10^3/uL (0.0-0.2) Sodium Level 142 mmol/L (136-145) Potassium Level 4.8 mmol/L (3.5-5.1) Chloride Level 106 mmol/L (98-107) Carbon Dioxide Level 27 mmol/L (21-32) Anion Gap 9 (6-14) Blood Urea Nitrogen 10 mg/dL (8-26) Creatinine 1.2 mg/dL (0.7-1.3) Estimated GFR (Cockcroft-Gault) 60.6 BUN/Creatinine Ratio 8 (6-20) Glucose Level 93 mg/dL (70-99) Calcium Level 9.0 mg/dL (8.5-10.1) Total Bilirubin 0.4 mg/dL (0.2-1.0) Aspartate Amino Transferase (AST) 24 U/L (15-37) Alanine Aminotransferase (ALT) 43 U/L (16-63) Alkaline Phosphatase 56 U/L (46-116) Total Protein 7.2 g/dL (6.4-8.2) Albumin 3.7 g/dL (3.4-5.0) Albumin/Globulin Ratio 1.1 (1.0-1.7) Current Medications: Meds: Current Medications Acetaminophen (Tylenol) 650 mg PRN Q6HRS PRN PO PAIN / TEMP Last administered on 11/05/16 15:40; Start 11/03/16 at 14:45 Multi-Ingredient Ointment (Analgesic [place]) 1 jose de jesus PRN QID PRN TP MUSCLE PAIN; Start 11/03/16 at 14:45 Al Hydroxide/Mg Hydroxide (Mylanta Plus Xs) 15 ml PRN AFTMEALHC PRN PO DYSPEPSIA Last administered on 11/11/16 13:02; Start 11/03/16 at 14:45 Magnesium Hydroxide (Milk Of Magnesia) 2,400 mg PRN QHS PRN PO CONSTIPATION; Start 11/03/16 at 14:45 Aspirin (Aspirin Enteric Coated) 81 mg DAILY PO Last administered on 11/11/16 09:23; Start 11/04/16 at 09:00 Cetirizine HCl (ZyrTEC) 10 mg DAILY PO Last administered on 11/11/16 09:26; Start 11/04/16 at 09:00 Losartan Potassium (Cozaar) 100 mg DAILY PO Last administered on 11/11/16 09: 24; Start 11/04/16 at 09:00 Benztropine Mesylate (Cogentin) 1 mg [id number] PO Last administered on 11/04/16 06 :04; Start 11/04/16 at 07:00; Stop 11/04/16 at 12:16; Status DC Haloperidol (Haldol) 5 mg PRN Q2HR PRN PO psychosis Last administered on 08:51; Start 11/04/16 at 00:00 Lorazepam (Ativan) 0.25 mg PRN Q2HR PRN PO ANXIETY / AGITATION Last administered on 11/04/16 23:45; Start 11/04/16 at 00:00 Quetiapine Fumarate (SEROquel) 50 mg QHS PO ; Start 11/04/16 at 21:00; Stop at 21:00; Status DC Albuterol Sulfate (Ventolin Hfa) 2 puff Q1HR PRN IH SHORTNESS OF BREATH; Start 11/04/16 at 00:00; Status UNV Amlodipine Besylate (Norvasc) 10 mg DAILY PO Last administered on 11/11/16 09: 25; Start 11/04/16 at 09:00 Throat Lozenges (Cepacol Sore Throat Lozenge) 1 katty PRN Q2HR PRN PO sore throat ; Start 11/04/16 at 00:00 Acetaminophen/ Hydrocodone Bitart (Lortab 5/325) 1 tab PRN Q6HRS PRN PO SEVERE PAIN; Start 11/04/16 at 00:00 Magnesium Oxide (Magnesium Oxide) 400 mg TID PO Last administered on 11/11/16 19:36; Start 11/04/16 at 09:00 Pantoprazole Sodium (Protonix) 40 mg DAILYAC PO Last administered on 11/11/16 09:19; Start 11/04/16 at 07:30 Atorvastatin Calcium (Lipitor) 10 mg QHS PO Last administered on 11/11/16 19: 36; Start 11/04/16 at 21:00 Sodium Chloride (Saline Mist Nasal) 1 jose de jesus PRN Q1HR PRN NS nasal congestion; Start 11/04/16 at 00:00 Metoprolol Succinate (Toprol Xl) 100 mg DAILY PO Last administered on 09:25; Start 11/04/16 at 09:00 Potassium Chloride (Klor-Con) 20 meq TID PO Last administered on 11/11/16 19: 36; Start 11/04/16 at 09:00 Albuterol Sulfate (Ventolin) 2.5 mg PRN Q1HR PRN NEB SHORTNESS OF BREATH Last administered on 11/06/16 20:59; Start 11/04/16 at 00:15 Rivastigmine (Exelon) 1 patch DAILY TD Last administered on 11/06/16 07:50; Start 11/05/16 at 09:00; Stop 11/06/16 at 18:07; Status DC Benztropine Mesylate (Cogentin) 1 mg DAILY PO Last administered on 11/06/16 07 :51; Start 11/05/16 at 09:00; Stop 11/06/16 at 15:28; Status DC Quetiapine Fumarate (SEROquel) 75 mg QHS PO Last administered on 11/08/16 19: 43; Start 11/04/16 at 21:00; Stop 11/09/16 at 18:09; Status DC Memantine (Namenda) 5 mg BID PO Last administered on 11/08/16 09:56; Start at 21:00; Stop 11/08/16 at 13:31; Status DC Hydralazine HCl (Apresoline) 25 mg TID PO Last administered on 11/11/16 19:36 ; Start 11/04/16 at 21:00 Clobetasol Propionate 1 jose de jesus BID TP Last administered on 11/11/16 19:37; Start 11/04/16 at 21:00 Mirtazapine (Remeron) 7.5 mg QHS PO Last administered on 11/11/16 19:36; Start 11/05/16 at 21:00 Info (FLU VACCINE per PROTOCOL) 1 ea PRN 1X PRN MC PER PROTOCOL; Start at 12:45; Stop 11/10/16 at 09:14; Status DC Rivastigmine (Exelon) 1 patch DAILY TD Last administered on 11/11/16 09:26; Start 11/07/16 at 09:00 Trazodone HCl (Desyrel) 100 mg QHS PO Last administered on 11/11/16 19:37; Start 11/06/16 at 21:00 Trazodone HCl (Desyrel) 100 mg PRN QHS PRN PO INSOMNIA, MAY REPEAT X1; Start at 18:15 Memantine (Namenda) 10 mg BID PO Last administered on 11/11/16 19:39; Start at 21:00 Quetiapine Fumarate (SEROquel) 125 mg QHS PO Last administered on 11/11/16 19: 36; Start 11/09/16 at 21:00 Influenza Virus Vaccine Quadrival (Fluarix Quad Syringe) 0.5 ml 1X ONCE VAX IM ; Start 11/10/16 at 10:00; Stop 11/10/16 at 10:01; Status DC Influenza Virus Vaccine Quadrival (Fluarix Quad Syringe) 0.5 ml 1X ONCE VAX IM Last administered on 11/10/16 10:54; Start 11/10/16 at 11:00; Stop 11/10/16 at 11:01; Status DC Active Scripts Active Reported Amlodipine Besylate 10 Mg Tablet 10 Mg PO DAILY Saline Nasal [place] (Sodium Chloride) 30 Ml [place] 30 Ml NS Q1HR PRN Seroquel (Quetiapine Fumarate) 50 Mg Tablet 50 Mg PO QHS Potassium Chloride 10 Meq Capsule.er 20 Meq PO TID Protonix (Pantoprazole Sodium) 40 Mg Tablet.dr 40 Mg PO DAILYAC Magnesium Oxide 400 Mg Tablet 400 Mg PO TID Lorazepam 0.5 Mg Tablet 0.25 Mg PO PRN Q2HR PRN Hydrocodone-Apap 5-325 (Hydrocodone Bit/Acetaminophen) 1 Each Tablet 1 Tab PO PRN Q6HRS PRN Haloperidol 5 Mg Tablet 5 Mg PO PRN Q2HR PRN Cepacol Sore Throat Lozenge (Benzocaine/Menthol) 1 Each Lozenge 1 Each PO PRN Q2HR PRN Ventolin Hfa Inhaler (Albuterol Sulfate) 18 Gm Hfa.aer.ad 2.5 Mg IH Q1HR PRN Zyrtec (Cetirizine Hcl) 10 Mg Tablet 1 Tab PO DAILY Simvastatin 20 Mg Tablet 20 Mg PO QHS Metoprolol Succinate ( Xl ) (Metoprolol Succinate) 100 Mg Tab.er.24h 100 Mg PO DAILY Benztropine Mesylate 1 Mg Tablet 1 Mg PO [id number] Aspir-Low (Aspirin) 81 Mg Tablet. 1 Tab PO DAILY Diagnosis: Problems: (1) Anxiety disorder (2) Impulse control disorder (3) Psychosis, atypical (4) Unspecified psychosis (5) Dementia, vascular, with delusions (6) Lewy body dementia with behavioral disturbance JOSE NOLASCO MD Nov 11, 2016 21:09
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
[2016-11-12 06:15] VITALS: BP 171/67
[2016-11-12] MEDS: PANTOPRAZOLE 40 MG TABLET. PO SCH (09:10)
[2016-11-12] MEDS: hydrALAZINE 25 MG TABLET PO SCH ×3 (09:11→19:47)
[2016-11-12] MEDS: ASPIRIN ENTERIC COATED 81 MG TABLET.DR. PO SCH (09:12)
[2016-11-12] MEDS: POTASSIUM CHLORIDE 20 MEQ TABLET.ER. PO SCH ×3 (09:13→19:46)
[2016-11-12] MEDS: LOSARTAN 50 MG TABLET. PO SCH (09:13)
[2016-11-12] MEDS: MEMANTINE 10 MG TABLET. PO SCH ×2 (09:13→19:47)
[2016-11-12] MEDS: MAGNESIUM OXIDE 400 MG TABLET PO SCH ×3 (09:13→19:46)
[2016-11-12] MEDS: METOPROLOL SUCC 24HR ER 50 MG TAB.ER.24H. PO SCH (09:20)
[2016-11-12] MEDS: amLODIPine BESYLATE 10 MG TABLET PO SCH (09:20)
[2016-11-12] MEDS: RIVASTIGMINE 9.5MG PATCH. TD SCH (09:21)
[2016-11-12] MEDS: CLOBETASOL EMOLLIENT 0.05% TOPICAL CREAM 15GM TUBE. TP SCH ×2 (09:21→19:46)
[2016-11-12] MEDS: CETIRIZINE HCL 10 MG TABLET PO SCH (09:21)
[2016-11-12 14:16] VITALS: BP 126/53
[2016-11-12 16:15] VITALS: BP 144/67
[2016-11-12] MEDS: QUEtiapine 50 MG TABLET. PO SCH (19:46)
[2016-11-12] MEDS: MIRTAZAPINE 7.5 MG TABLET. PO SCH (19:46)
[2016-11-12] MEDS: ATORVASTATIN CALCIUM 10 MG TABLET. PO SCH (19:46)
[2016-11-12] MEDS: traZODone 100 MG TABLET. PO SCH (19:47)
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
[2016-11-12] MEDS: HALOPERIDOL 5 MG TABLET PO PRN (21:18)
--- NOTE | 2016-11-12 22:37 | PDOC ---
Exam Serg Demential Exam: Serg Note: Please also refer to the separate dictated note~for this date of service dictated separately.~Patient seen individually. Discussed the patient with Nursing staff reviewed the chart.~Reviewed interim history and current functioning. Reviewed vital signs,~Labs/ Radiology~and current medications noted below. Continue current treatment with the changes noted in the dictated addendum note Assessment: Vital Signs: Vital Signs Date Time Temp Pulse Resp B/P (MAP) Pulse Ox O2 Delivery O2 Flow Rate FiO2 11/12/16 19:47 80 144/67 11/12/16 16:15 97.8 18 96 11/12/16 06:15 Room Air I&O Intake and Output 11/13/16 07:00 Intake Total 1800 ml Balance 1800 ml Intake Oral 1800 ml # Voids 1 Current Medications: Meds: Current Medications Acetaminophen (Tylenol) 650 mg PRN Q6HRS PRN PO PAIN / TEMP Last administered on 11/05/16 15:40; Start 11/03/16 at 14:45 Multi-Ingredient Ointment (Analgesic [place]) 1 jose de jesus PRN QID PRN TP MUSCLE PAIN; Start 11/03/16 at 14:45 Al Hydroxide/Mg Hydroxide (Mylanta Plus Xs) 15 ml PRN AFTMEALHC PRN PO DYSPEPSIA Last administered on 11/11/16 13:02; Start 11/03/16 at 14:45 Magnesium Hydroxide (Milk Of Magnesia) 2,400 mg PRN QHS PRN PO CONSTIPATION; Start 11/03/16 at 14:45 Aspirin (Aspirin Enteric Coated) 81 mg DAILY PO Last administered on 11/12/16 09:12; Start 11/04/16 at 09:00 Cetirizine HCl (ZyrTEC) 10 mg DAILY PO Last administered on 11/12/16 09:21; Start 11/04/16 at 09:00 Losartan Potassium (Cozaar) 100 mg DAILY PO Last administered on 11/12/16 09: 13; Start 11/04/16 at 09:00 Benztropine Mesylate (Cogentin) 1 mg [id number] PO Last administered on 11/04/16 06 :04; Start 11/04/16 at 07:00; Stop 11/04/16 at 12:16; Status DC Haloperidol (Haldol) 5 mg PRN Q2HR PRN PO psychosis Last administered on 21:18; Start 11/04/16 at 00:00 Lorazepam (Ativan) 0.25 mg PRN Q2HR PRN PO ANXIETY / AGITATION Last administered on 11/04/16 23:45; Start 11/04/16 at 00:00 Quetiapine Fumarate (SEROquel) 50 mg QHS PO ; Start 11/04/16 at 21:00; Stop at 21:00; Status DC Albuterol Sulfate (Ventolin Hfa) 2 puff Q1HR PRN IH SHORTNESS OF BREATH; Start 11/04/16 at 00:00; Status UNV Amlodipine Besylate (Norvasc) 10 mg DAILY PO Last administered on 11/12/16 09: 20; Start 11/04/16 at 09:00 Throat Lozenges (Cepacol Sore Throat Lozenge) 1 katty PRN Q2HR PRN PO sore throat ; Start 11/04/16 at 00:00 Acetaminophen/ Hydrocodone Bitart (Lortab 5/325) 1 tab PRN Q6HRS PRN PO SEVERE PAIN; Start 11/04/16 at 00:00 Magnesium Oxide (Magnesium Oxide) 400 mg TID PO Last administered on 11/12/16 19:46; Start 11/04/16 at 09:00 Pantoprazole Sodium (Protonix) 40 mg DAILYAC PO Last administered on 11/12/16 09:10; Start 11/04/16 at 07:30 Atorvastatin Calcium (Lipitor) 10 mg QHS PO Last administered on 11/12/16 19: 46; Start 11/04/16 at 21:00 Sodium Chloride (Saline Mist Nasal) 1 jose de jesus PRN Q1HR PRN NS nasal congestion; Start 11/04/16 at 00:00 Metoprolol Succinate (Toprol Xl) 100 mg DAILY PO Last administered on 09:20; Start 11/04/16 at 09:00 Potassium Chloride (Klor-Con) 20 meq TID PO Last administered on 11/12/16 19: 46; Start 11/04/16 at 09:00 Albuterol Sulfate (Ventolin) 2.5 mg PRN Q1HR PRN NEB SHORTNESS OF BREATH Last administered on 11/06/16 20:59; Start 11/04/16 at 00:15 Rivastigmine (Exelon) 1 patch DAILY TD Last administered on 11/06/16 07:50; Start 11/05/16 at 09:00; Stop 11/06/16 at 18:07; Status DC Benztropine Mesylate (Cogentin) 1 mg DAILY PO Last administered on 11/06/16 07 :51; Start 11/05/16 at 09:00; Stop 11/06/16 at 15:28; Status DC Quetiapine Fumarate (SEROquel) 75 mg QHS PO Last administered on 11/08/16 19: 43; Start 11/04/16 at 21:00; Stop 11/09/16 at 18:09; Status DC Memantine (Namenda) 5 mg BID PO Last administered on 11/08/16 09:56; Start at 21:00; Stop 11/08/16 at 13:31; Status DC Hydralazine HCl (Apresoline) 25 mg TID PO Last administered on 11/12/16 19:47 ; Start 11/04/16 at 21:00 Clobetasol Propionate 1 jose de jesus BID TP Last administered on 11/12/16 19:46; Start 11/04/16 at 21:00 Mirtazapine (Remeron) 7.5 mg QHS PO Last administered on 11/12/16 19:46; Start 11/05/16 at 21:00 Info (FLU VACCINE per PROTOCOL) 1 ea PRN 1X PRN MC PER PROTOCOL; Start at 12:45; Stop 11/10/16 at 09:14; Status DC Rivastigmine (Exelon) 1 patch DAILY TD Last administered on 11/12/16 09:21; Start 11/07/16 at 09:00 Trazodone HCl (Desyrel) 100 mg QHS PO Last administered on 11/12/16 19:47; Start 11/06/16 at 21:00 Trazodone HCl (Desyrel) 100 mg PRN QHS PRN PO INSOMNIA, MAY REPEAT X1 Last administered on 11/12/16 21:18; Start 11/06/16 at 18:15 Memantine (Namenda) 10 mg BID PO Last administered on 11/12/16 19:47; Start at 21:00 Quetiapine Fumarate (SEROquel) 125 mg QHS PO Last administered on 11/11/16 19: 36; Start 11/09/16 at 21:00; Stop 11/12/16 at 18:12; Status DC Influenza Virus Vaccine Quadrival (Fluarix Quad Syringe) 0.5 ml 1X ONCE VAX IM ; Start 11/10/16 at 10:00; Stop 11/10/16 at 10:01; Status DC Influenza Virus Vaccine Quadrival (Fluarix Quad Syringe) 0.5 ml 1X ONCE VAX IM Last administered on 11/10/16 10:54; Start 11/10/16 at 11:00; Stop 11/10/16 at 11:01; Status DC Quetiapine Fumarate (SEROquel) 175 mg QHS PO Last administered on 11/12/16 19: 46; Start 11/12/16 at 21:00 Active Scripts Active Reported Amlodipine Besylate 10 Mg Tablet 10 Mg PO DAILY Saline Nasal [place] (Sodium Chloride) 30 Ml [place] 30 Ml NS Q1HR PRN Seroquel (Quetiapine Fumarate) 50 Mg Tablet 50 Mg PO QHS Potassium Chloride 10 Meq Capsule.er 20 Meq PO TID Protonix (Pantoprazole Sodium) 40 Mg Tablet. 40 Mg PO DAILYAC Magnesium Oxide 400 Mg Tablet 400 Mg PO TID Lorazepam 0.5 Mg Tablet 0.25 Mg PO PRN Q2HR PRN Hydrocodone-Apap 5-325 (Hydrocodone Bit/Acetaminophen) 1 Each Tablet 1 Tab PO PRN Q6HRS PRN Haloperidol 5 Mg Tablet 5 Mg PO PRN Q2HR PRN Cepacol Sore Throat Lozenge (Benzocaine/Menthol) 1 Each Lozenge 1 Each PO PRN Q2HR PRN Ventolin Hfa Inhaler (Albuterol Sulfate) 18 Gm Hfa.aer.ad 2.5 Mg IH Q1HR PRN Zyrtec (Cetirizine Hcl) 10 Mg Tablet 1 Tab PO DAILY Simvastatin 20 Mg Tablet 20 Mg PO QHS Metoprolol Succinate ( Xl ) (Metoprolol Succinate) 100 Mg Tab.er.24h 100 Mg PO DAILY Benztropine Mesylate 1 Mg Tablet 1 Mg PO [id number] Aspir-Low (Aspirin) 81 Mg Tablet.dr 1 Tab PO DAILY Diagnosis: Problems: (1) Anxiety disorder (2) Impulse control disorder (3) Psychosis, atypical (4) Unspecified psychosis (5) Dementia, vascular, with delusions (6) Lewy body dementia with behavioral disturbance JOSE NOLASCO MD Nov 12, 2016 22:37
[2016-11-13 06:49] VITALS: BP 144/68
[2016-11-13] MEDS: PANTOPRAZOLE 40 MG TABLET. PO SCH (08:56)
[2016-11-13] MEDS: ASPIRIN ENTERIC COATED 81 MG TABLET.DR. PO SCH (08:57)
[2016-11-13] MEDS: hydrALAZINE 25 MG TABLET PO SCH ×3 (08:57→20:00)
[2016-11-13] MEDS: MAGNESIUM OXIDE 400 MG TABLET PO SCH ×3 (08:59→20:01)
[2016-11-13] MEDS: LOSARTAN 50 MG TABLET. PO SCH (08:59)
[2016-11-13] MEDS: MEMANTINE 10 MG TABLET. PO SCH ×2 (08:59→20:00)
[2016-11-13] MEDS: POTASSIUM CHLORIDE 20 MEQ TABLET.ER. PO SCH ×3 (08:59→19:59)
[2016-11-13] MEDS: amLODIPine BESYLATE 10 MG TABLET PO SCH (09:00)
[2016-11-13] MEDS: METOPROLOL SUCC 24HR ER 50 MG TAB.ER.24H. PO SCH (09:00)
[2016-11-13] MEDS: CETIRIZINE HCL 10 MG TABLET PO SCH (09:01)
[2016-11-13] MEDS: CLOBETASOL EMOLLIENT 0.05% TOPICAL CREAM 15GM TUBE. TP SCH ×2 (09:01→20:01)
[2016-11-13] MEDS: RIVASTIGMINE 9.5MG PATCH. TD SCH (09:01)
[2016-11-13 14:00] VITALS: BP 136/68
[2016-11-13 16:22] VITALS: BP 118/71
[2016-11-13] MEDS: ATORVASTATIN CALCIUM 10 MG TABLET. PO SCH (19:59)
[2016-11-13] MEDS: traZODone 100 MG TABLET. PO SCH (19:59)
[2016-11-13] MEDS: MIRTAZAPINE 7.5 MG TABLET. PO SCH (20:00)
[2016-11-13] MEDS: QUEtiapine 50 MG TABLET. PO SCH (20:00)
--- NOTE | 2016-11-13 20:58 | PDOC ---
Exam Serg Demential Exam: Serg Note: Please also refer to the separate dictated note~for this date of service dictated separately.~Patient seen individually. Discussed the patient with Nursing staff reviewed the chart.~Reviewed interim history and current functioning. Reviewed vital signs,~Labs/ Radiology~and current medications noted below. Continue current treatment with the changes noted in the dictated addendum note Assessment: Vital Signs: Vital Signs Date Time Temp Pulse Resp B/P (MAP) Pulse Ox O2 Delivery O2 Flow Rate FiO2 11/13/16 20:00 70 118/71 11/13/16 16:22 98.0 18 95 11/12/16 06:15 Room Air I&O Intake and Output 11/14/16 07:00 Intake Total 1440 ml Balance 1440 ml Intake Oral 840 ml Tube Feeding 600 ml # Bowel Movements 1 Current Medications: Meds: Current Medications Acetaminophen (Tylenol) 650 mg PRN Q6HRS PRN PO PAIN / TEMP Last administered on 11/05/16 15:40; Start 11/03/16 at 14:45 Multi-Ingredient Ointment (Analgesic [place]) 1 jose de jesus PRN QID PRN TP MUSCLE PAIN; Start 11/03/16 at 14:45 Al Hydroxide/Mg Hydroxide (Mylanta Plus Xs) 15 ml PRN AFTMEALHC PRN PO DYSPEPSIA Last administered on 11/11/16 13:02; Start 11/03/16 at 14:45 Magnesium Hydroxide (Milk Of Magnesia) 2,400 mg PRN QHS PRN PO CONSTIPATION; Start 11/03/16 at 14:45 Aspirin (Aspirin Enteric Coated) 81 mg DAILY PO Last administered on 11/13/16 08:57; Start 11/04/16 at 09:00 Cetirizine HCl (ZyrTEC) 10 mg DAILY PO Last administered on 11/13/16 09:01; Start 11/04/16 at 09:00 Losartan Potassium (Cozaar) 100 mg DAILY PO Last administered on 11/13/16 08: 59; Start 11/04/16 at 09:00 Benztropine Mesylate (Cogentin) 1 mg [id number] PO Last administered on 11/04/16 06 :04; Start 11/04/16 at 07:00; Stop 11/04/16 at 12:16; Status DC Haloperidol (Haldol) 5 mg PRN Q2HR PRN PO psychosis Last administered on 21:18; Start 11/04/16 at 00:00 Lorazepam (Ativan) 0.25 mg PRN Q2HR PRN PO ANXIETY / AGITATION Last administered on 11/04/16 23:45; Start 11/04/16 at 00:00 Quetiapine Fumarate (SEROquel) 50 mg QHS PO ; Start 11/04/16 at 21:00; Stop at 21:00; Status DC Albuterol Sulfate (Ventolin Hfa) 2 puff Q1HR PRN IH SHORTNESS OF BREATH; Start 11/04/16 at 00:00; Status UNV Amlodipine Besylate (Norvasc) 10 mg DAILY PO Last administered on 11/13/16 09: 00; Start 11/04/16 at 09:00 Throat Lozenges (Cepacol Sore Throat Lozenge) 1 katty PRN Q2HR PRN PO sore throat ; Start 11/04/16 at 00:00 Acetaminophen/ Hydrocodone Bitart (Lortab 5/325) 1 tab PRN Q6HRS PRN PO SEVERE PAIN; Start 11/04/16 at 00:00 Magnesium Oxide (Magnesium Oxide) 400 mg TID PO Last administered on 11/13/16 20:01; Start 11/04/16 at 09:00 Pantoprazole Sodium (Protonix) 40 mg DAILYAC PO Last administered on 11/13/16 08:56; Start 11/04/16 at 07:30 Atorvastatin Calcium (Lipitor) 10 mg QHS PO Last administered on 11/13/16 19: 59; Start 11/04/16 at 21:00 Sodium Chloride (Saline Mist Nasal) 1 jose de jesus PRN Q1HR PRN NS nasal congestion; Start 11/04/16 at 00:00 Metoprolol Succinate (Toprol Xl) 100 mg DAILY PO Last administered on 09:00; Start 11/04/16 at 09:00 Potassium Chloride (Klor-Con) 20 meq TID PO Last administered on 11/13/16 19: 59; Start 11/04/16 at 09:00 Albuterol Sulfate (Ventolin) 2.5 mg PRN Q1HR PRN NEB SHORTNESS OF BREATH Last administered on 11/06/16 20:59; Start 11/04/16 at 00:15 Rivastigmine (Exelon) 1 patch DAILY TD Last administered on 11/06/16 07:50; Start 11/05/16 at 09:00; Stop 11/06/16 at 18:07; Status DC Benztropine Mesylate (Cogentin) 1 mg DAILY PO Last administered on 11/06/16 07 :51; Start 11/05/16 at 09:00; Stop 11/06/16 at 15:28; Status DC Quetiapine Fumarate (SEROquel) 75 mg QHS PO Last administered on 11/08/16 19: 43; Start 11/04/16 at 21:00; Stop 11/09/16 at 18:09; Status DC Memantine (Namenda) 5 mg BID PO Last administered on 11/08/16 09:56; Start at 21:00; Stop 11/08/16 at 13:31; Status DC Hydralazine HCl (Apresoline) 25 mg TID PO Last administered on 11/13/16 20:00 ; Start 11/04/16 at 21:00 Clobetasol Propionate 1 jose de jesus BID TP Last administered on 11/13/16 20:01; Start 11/04/16 at 21:00 Mirtazapine (Remeron) 7.5 mg QHS PO Last administered on 11/13/16 20:00; Start 11/05/16 at 21:00 Info (FLU VACCINE per PROTOCOL) 1 ea PRN 1X PRN MC PER PROTOCOL; Start at 12:45; Stop 11/10/16 at 09:14; Status DC Rivastigmine (Exelon) 1 patch DAILY TD Last administered on 11/13/16 09:01; Start 11/07/16 at 09:00 Trazodone HCl (Desyrel) 100 mg QHS PO Last administered on 11/13/16 19:59; Start 11/06/16 at 21:00 Trazodone HCl (Desyrel) 100 mg PRN QHS PRN PO INSOMNIA, MAY REPEAT X1 Last administered on 11/12/16 21:18; Start 11/06/16 at 18:15 Memantine (Namenda) 10 mg BID PO Last administered on 11/13/16 20:00; Start at 21:00 Quetiapine Fumarate (SEROquel) 125 mg QHS PO Last administered on 11/11/16 19: 36; Start 11/09/16 at 21:00; Stop 11/12/16 at 18:12; Status DC Influenza Virus Vaccine Quadrival (Fluarix Quad Syringe) 0.5 ml 1X ONCE VAX IM ; Start 11/10/16 at 10:00; Stop 11/10/16 at 10:01; Status DC Influenza Virus Vaccine Quadrival (Fluarix Quad Syringe) 0.5 ml 1X ONCE VAX IM Last administered on 11/10/16 10:54; Start 11/10/16 at 11:00; Stop 11/10/16 at 11:01; Status DC Quetiapine Fumarate (SEROquel) 175 mg QHS PO Last administered on 11/13/16 20: 00; Start 11/12/16 at 21:00 Active Scripts Active Reported Amlodipine Besylate 10 Mg Tablet 10 Mg PO DAILY Saline Nasal [place] (Sodium Chloride) 30 Ml [place] 30 Ml NS Q1HR PRN Seroquel (Quetiapine Fumarate) 50 Mg Tablet 50 Mg PO QHS Potassium Chloride 10 Meq Capsule.er 20 Meq PO TID Protonix (Pantoprazole Sodium) 40 Mg Tablet.dr 40 Mg PO DAILYAC Magnesium Oxide 400 Mg Tablet 400 Mg PO TID Lorazepam 0.5 Mg Tablet 0.25 Mg PO PRN Q2HR PRN Hydrocodone-Apap 5-325 (Hydrocodone Bit/Acetaminophen) 1 Each Tablet 1 Tab PO PRN Q6HRS PRN Haloperidol 5 Mg Tablet 5 Mg PO PRN Q2HR PRN Cepacol Sore Throat Lozenge (Benzocaine/Menthol) 1 Each Lozenge 1 Each PO PRN Q2HR PRN Ventolin Hfa Inhaler (Albuterol Sulfate) 18 Gm Hfa.aer.ad 2.5 Mg IH Q1HR PRN Zyrtec (Cetirizine Hcl) 10 Mg Tablet 1 Tab PO DAILY Simvastatin 20 Mg Tablet 20 Mg PO QHS Metoprolol Succinate ( Xl ) (Metoprolol Succinate) 100 Mg Tab.er.24h 100 Mg PO DAILY Benztropine Mesylate 1 Mg Tablet 1 Mg PO [id number] Aspir-Low (Aspirin) 81 Mg Tablet. 1 Tab PO DAILY Diagnosis: Problems: (1) Anxiety disorder (2) Impulse control disorder (3) Psychosis, atypical (4) Unspecified psychosis (5) Dementia, vascular, with delusions (6) Lewy body dementia with behavioral disturbance JOSE NOLASCO MD Nov 13, 2016 20:57
[2016-11-14 06:16] VITALS: BP 144/75
[2016-11-14] MEDS: CETIRIZINE HCL 10 MG TABLET PO SCH (07:57)
[2016-11-14] MEDS: ASPIRIN ENTERIC COATED 81 MG TABLET.DR. PO SCH (07:57)
[2016-11-14] MEDS: MAGNESIUM OXIDE 400 MG TABLET PO SCH ×3 (07:57→19:28)
[2016-11-14] MEDS: amLODIPine BESYLATE 10 MG TABLET PO SCH (07:57)
[2016-11-14] MEDS: hydrALAZINE 25 MG TABLET PO SCH ×3 (07:57→19:28)
[2016-11-14] MEDS: MEMANTINE 10 MG TABLET. PO SCH ×2 (07:58→19:29)
[2016-11-14] MEDS: PANTOPRAZOLE 40 MG TABLET. PO SCH (07:58)
[2016-11-14] MEDS: POTASSIUM CHLORIDE 20 MEQ TABLET.ER. PO SCH ×3 (07:58→19:28)
[2016-11-14] MEDS: LOSARTAN 50 MG TABLET. PO SCH (07:58)
[2016-11-14] MEDS: METOPROLOL SUCC 24HR ER 50 MG TAB.ER.24H. PO SCH (07:59)
[2016-11-14] MEDS: RIVASTIGMINE 9.5MG PATCH. TD SCH (07:59)
[2016-11-14] MEDS: CLOBETASOL EMOLLIENT 0.05% TOPICAL CREAM 15GM TUBE. TP SCH ×2 (08:01→19:29)
--- NOTE | 2016-11-14 08:21 | PN ---
DATE: 11/12/2016 PSYCHIATRIC PROGRESS NOTE This late entry 11/12/2016, covers elements not covered in my initial note of 11/12/2016. I met with the patient evening of 11/12/2016. The patient is still delusional, believes that his worker is out to get him, I processed this with him at some length individually. REVIEW OF SYSTEMS: No CV, , pulmonary, eye system symptoms on review. MENTAL STATUS EXAM: Oriented to himself and situation. Speech is coherent, has some latency, abstraction fair, computation impaired, language function intact, attention span short. Mood and affect, despite the above, appears improved, but he is somewhat paranoid. LABORATORY DATA: Reviewed. IMPRESSION: Unchanged from initial note. PLAN: Increase Seroquel 125 mg at bedtime to 175 mg at bedtime. Maintain the rest unchanged. Reviewed drug interactions, risk/benefit ratio favors no further change. DIAGNOSES: Psychotic disorder, unspecified; possible dementia, Lewy body with delusions; anxiety disorder, unspecified; mild cognitive impairment. MAN Delicia NOLASCO MD DR: SAMARA/shilo JOB#: [id number] / [id number]
[2016-11-14 16:03] VITALS: BP 127/74
[2016-11-14] MEDS: ATORVASTATIN CALCIUM 10 MG TABLET. PO SCH (19:28)
[2016-11-14] MEDS: MIRTAZAPINE 7.5 MG TABLET. PO SCH (19:28)
[2016-11-14] MEDS: traZODone 100 MG TABLET. PO SCH (19:29)
[2016-11-14] MEDS: QUEtiapine 50 MG TABLET. PO SCH (19:29)
--- NOTE | 2016-11-14 20:50 | PDOC ---
Exam Serg Demential Exam: Serg Note: Please also refer to the separate dictated note~for this date of service dictated separately.~Patient seen individually. Discussed the patient with Nursing staff reviewed the chart.~Reviewed interim history and current functioning. Reviewed vital signs,~Labs/ Radiology~and current medications noted below. Continue current treatment with the changes noted in the dictated addendum note Assessment: Vital Signs: Vital Signs Date Time Temp Pulse Resp B/P (MAP) Pulse Ox O2 Delivery O2 Flow Rate FiO2 11/14/16 19:28 66 127/74 11/14/16 16:03 98.4 16 96 11/12/16 06:15 Room Air I&O Intake and Output 11/15/16 07:00 Intake Total 1200 ml Balance 1200 ml Intake Oral 1200 ml Current Medications: Meds: Current Medications Acetaminophen (Tylenol) 650 mg PRN Q6HRS PRN PO PAIN / TEMP Last administered on 11/05/16 15:40; Start 11/03/16 at 14:45 Multi-Ingredient Ointment (Analgesic [place]) 1 jose [place] jesus PRN QID PRN TP MUSCLE PAIN; Start 11/03/16 at 14:45 Al Hydroxide/Mg Hydroxide (Mylanta Plus Xs) 15 ml PRN AFTMEALHC PRN PO DYSPEPSIA Last administered on 11/11/16 13:02; Start 11/03/16 at 14:45 Magnesium Hydroxide (Milk Of Magnesia) 2,400 mg PRN QHS PRN PO CONSTIPATION; Start 11/03/16 at 14:45 Aspirin (Aspirin Enteric Coated) 81 mg DAILY PO Last administered on 11/14/16 07:57; Start 11/04/16 at 09:00 Cetirizine HCl (ZyrTEC) 10 mg DAILY PO Last administered on 11/14/16 07:57; Start 11/04/16 at 09:00 Losartan Potassium (Cozaar) 100 mg DAILY PO Last administered on 11/14/16 07: 58; Start 11/04/16 at 09:00 Benztropine Mesylate (Cogentin) 1 mg [id number] PO Last administered on 11/04/16 06 :04; Start 11/04/16 at 07:00; Stop 11/04/16 at 12:16; Status DC Haloperidol (Haldol) 5 mg PRN Q2HR PRN PO psychosis Last administered on 21:18; Start 11/04/16 at 00:00 Lorazepam (Ativan) 0.25 mg PRN Q2HR PRN PO ANXIETY / AGITATION Last administered on 11/04/16 23:45; Start 11/04/16 at 00:00 Quetiapine Fumarate (SEROquel) 50 mg QHS PO ; Start 11/04/16 at 21:00; Stop at 21:00; Status DC Albuterol Sulfate (Ventolin Hfa) 2 puff Q1HR PRN IH SHORTNESS OF BREATH; Start 11/04/16 at 00:00; Status UNV Amlodipine Besylate (Norvasc) 10 mg DAILY PO Last administered on 11/14/16 07: 57; Start 11/04/16 at 09:00 Throat Lozenges (Cepacol Sore Throat Lozenge) 1 katty PRN Q2HR PRN PO sore throat ; Start 11/04/16 at 00:00 Acetaminophen/ Hydrocodone Bitart (Lortab 5/325) 1 tab PRN Q6HRS PRN PO SEVERE PAIN; Start 11/04/16 at 00:00 Magnesium Oxide (Magnesium Oxide) 400 mg TID PO Last administered on 11/14/16 19:28; Start 11/04/16 at 09:00 Pantoprazole Sodium (Protonix) 40 mg DAILYAC PO Last administered on 11/14/16 07:58; Start 11/04/16 at 07:30 Atorvastatin Calcium (Lipitor) 10 mg QHS PO Last administered on 11/14/16 19: 28; Start 11/04/16 at 21:00 Sodium Chloride (Saline Mist Nasal) 1 jose de jesus PRN Q1HR PRN NS nasal congestion; Start 11/04/16 at 00:00 Metoprolol Succinate (Toprol Xl) 100 mg DAILY PO Last administered on 07:59; Start 11/04/16 at 09:00 Potassium Chloride (Klor-Con) 20 meq TID PO Last administered on 11/14/16 19: 28; Start 11/04/16 at 09:00 Albuterol Sulfate (Ventolin) 2.5 mg PRN Q1HR PRN NEB SHORTNESS OF BREATH Last administered on 11/06/16 20:59; Start 11/04/16 at 00:15 Rivastigmine (Exelon) 1 patch DAILY TD Last administered on 11/06/16 07:50; Start 11/05/16 at 09:00; Stop 11/06/16 at 18:07; Status DC Benztropine Mesylate (Cogentin) 1 mg DAILY PO Last administered on 11/06/16 07 :51; Start 11/05/16 at 09:00; Stop 11/06/16 at 15:28; Status DC Quetiapine Fumarate (SEROquel) 75 mg QHS PO Last administered on 11/08/16 19: 43; Start 11/04/16 at 21:00; Stop 11/09/16 at 18:09; Status DC Memantine (Namenda) 5 mg BID PO Last administered on 11/08/16 09:56; Start at 21:00; Stop 11/08/16 at 13:31; Status DC Hydralazine HCl (Apresoline) 25 mg TID PO Last administered on 11/14/16 19:28 ; Start 11/04/16 at 21:00 Clobetasol Propionate 1 jose de jesus BID TP Last administered on 11/14/16 19:29; Start 11/04/16 at 21:00 Mirtazapine (Remeron) 7.5 mg QHS PO Last administered on 11/14/16 19:28; Start 11/05/16 at 21:00 Info (FLU VACCINE per PROTOCOL) 1 ea PRN 1X PRN MC PER PROTOCOL; Start at 12:45; Stop 11/10/16 at 09:14; Status DC Rivastigmine (Exelon) 1 patch DAILY TD Last administered on 11/14/16 07:59; Start 11/07/16 at 09:00 Trazodone HCl (Desyrel) 100 mg QHS PO Last administered on 11/14/16 19:29; Start 11/06/16 at 21:00 Trazodone HCl (Desyrel) 100 mg PRN QHS PRN PO INSOMNIA, MAY REPEAT X1 Last administered on 11/12/16 21:18; Start 11/06/16 at 18:15 Memantine (Namenda) 10 mg BID PO Last administered on 11/14/16 19:29; Start at 21:00 Quetiapine Fumarate (SEROquel) 125 mg QHS PO Last administered on 11/11/16 19: 36; Start 11/09/16 at 21:00; Stop 11/12/16 at 18:12; Status DC Influenza Virus Vaccine Quadrival (Fluarix Quad Syringe) 0.5 ml 1X ONCE VAX IM ; Start 11/10/16 at 10:00; Stop 11/10/16 at 10:01; Status DC Influenza Virus Vaccine Quadrival (Fluarix Quad Syringe) 0.5 ml 1X ONCE VAX IM Last administered on 11/10/16 10:54; Start 11/10/16 at 11:00; Stop 11/10/16 at 11:01; Status DC Quetiapine Fumarate (SEROquel) 175 mg QHS PO Last administered on 11/14/16 19: 29; Start 11/12/16 at 21:00 Fluvoxamine Maleate (Luvox) 25 mg HS PO Last administered on 11/14/16 20:30; Start 11/14/16 at 21:00 Active Scripts Active Reported Amlodipine Besylate 10 Mg Tablet 10 Mg PO DAILY Saline Nasal [place] (Sodium Chloride) 30 Ml [place] 30 Ml NS Q1HR PRN Seroquel (Quetiapine Fumarate) 50 Mg Tablet 50 Mg PO QHS Potassium Chloride 10 Meq Capsule.er 20 Meq PO TID Protonix (Pantoprazole Sodium) 40 Mg Tablet.dr 40 Mg PO DAILYAC Magnesium Oxide 400 Mg Tablet 400 Mg PO TID Lorazepam 0.5 Mg Tablet 0.25 Mg PO PRN Q2HR PRN Hydrocodone-Apap 5-325 (Hydrocodone Bit/Acetaminophen) 1 Each Tablet 1 Tab PO PRN Q6HRS PRN Haloperidol 5 Mg Tablet 5 Mg PO PRN Q2HR PRN Cepacol Sore Throat Lozenge (Benzocaine/Menthol) 1 Each Lozenge 1 Each PO PRN Q2HR PRN Ventolin Hfa Inhaler (Albuterol Sulfate) 18 Gm Hfa.aer.ad 2.5 Mg IH Q1HR PRN Zyrtec (Cetirizine Hcl) 10 Mg Tablet 1 Tab PO DAILY Simvastatin 20 Mg Tablet 20 Mg PO QHS Metoprolol Succinate ( Xl ) (Metoprolol Succinate) 100 Mg Tab.er.24h 100 Mg PO DAILY Benztropine Mesylate 1 Mg Tablet 1 Mg PO [id number] Aspir-Low (Aspirin) 81 Mg Tablet. 1 Tab PO DAILY Diagnosis: Problems: (1) Anxiety disorder (2) Impulse control disorder (3) Psychosis, atypical (4) Unspecified psychosis (5) Dementia, vascular, with delusions (6) Lewy body dementia with behavioral disturbance (7) Obsessive compulsive disorder JOSE NOLASCO MD Nov 14, 2016 20:50
[2016-11-15 06:19] VITALS: BP 128/67
[2016-11-15] MEDS: POTASSIUM CHLORIDE 20 MEQ TABLET.ER. PO SCH ×3 (09:07→19:43)
[2016-11-15] MEDS: METOPROLOL SUCC 24HR ER 50 MG TAB.ER.24H. PO SCH (09:08)
[2016-11-15] MEDS: MEMANTINE 10 MG TABLET. PO SCH ×2 (09:08→19:43)
[2016-11-15] MEDS: hydrALAZINE 25 MG TABLET PO SCH ×3 (09:08→19:43)
[2016-11-15] MEDS: CETIRIZINE HCL 10 MG TABLET PO SCH (09:08)
[2016-11-15] MEDS: LOSARTAN 50 MG TABLET. PO SCH (09:08)
[2016-11-15] MEDS: ASPIRIN ENTERIC COATED 81 MG TABLET.DR. PO SCH (09:09)
[2016-11-15] MEDS: MAGNESIUM OXIDE 400 MG TABLET PO SCH ×3 (09:09→19:43)
[2016-11-15] MEDS: amLODIPine BESYLATE 10 MG TABLET PO SCH (09:09)
[2016-11-15] MEDS: RIVASTIGMINE 9.5MG PATCH. TD SCH (09:09)
[2016-11-15] MEDS: PANTOPRAZOLE 40 MG TABLET. PO SCH (09:09)
[2016-11-15] MEDS: CLOBETASOL EMOLLIENT 0.05% TOPICAL CREAM 15GM TUBE. TP SCH ×2 (09:12→19:44)
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
[2016-11-15 16:09] VITALS: BP 160/74
[2016-11-15] MEDS: traZODone 100 MG TABLET. PO SCH (19:42)
[2016-11-15] MEDS: QUEtiapine 50 MG TABLET. PO SCH (19:42)
[2016-11-15] MEDS: MIRTAZAPINE 7.5 MG TABLET. PO SCH (19:43)
[2016-11-15] MEDS: ATORVASTATIN CALCIUM 10 MG TABLET. PO SCH (19:44)
--- NOTE | 2016-11-15 20:41 | PDOC ---
Exam Serg Demential Exam: Serg Note: Please also refer to the separate dictated note~for this date of service dictated separately.~Patient seen individually. Discussed the patient with Nursing staff reviewed the chart.~Reviewed interim history and current functioning. Reviewed vital signs,~Labs/ Radiology~and current medications noted below. Continue current treatment with the changes noted in the dictated addendum note Assessment: Vital Signs: Vital Signs Date Time Temp Pulse Resp B/P (MAP) Pulse Ox O2 Delivery O2 Flow Rate FiO2 11/15/16 19:43 68 160/74 11/15/16 16:09 97.9 19 97 11/12/16 06:15 Room Air I&O Intake and Output 11/16/16 07:00 Intake Total 1080 ml Balance 1080 ml Intake Oral 1080 ml Current Medications: Meds: Current Medications Acetaminophen (Tylenol) 650 mg PRN Q6HRS PRN PO PAIN / TEMP Last administered on 11/05/16 15:40; Start 11/03/16 at 14:45 Multi-Ingredient Ointment (Analgesic [place]) 1 jose de jesus PRN QID PRN TP MUSCLE PAIN; Start 11/03/16 at 14:45 Al Hydroxide/Mg Hydroxide (Mylanta Plus Xs) 15 ml PRN AFTMEALHC PRN PO DYSPEPSIA Last administered on 11/11/16 13:02; Start 11/03/16 at 14:45 Magnesium Hydroxide (Milk Of Magnesia) 2,400 mg PRN QHS PRN PO CONSTIPATION; Start 11/03/16 at 14:45 Aspirin (Aspirin Enteric Coated) 81 mg DAILY PO Last administered on 11/15/16 09:09; Start 11/04/16 at 09:00 Cetirizine HCl (ZyrTEC) 10 mg DAILY PO Last administered on 11/15/16 09:08; Start 11/04/16 at 09:00 Losartan Potassium (Cozaar) 100 mg DAILY PO Last administered on 11/15/16 09: 08; Start 11/04/16 at 09:00 Benztropine Mesylate (Cogentin) 1 mg [id number] PO Last administered on 11/04/16 06 :04; Start 11/04/16 at 07:00; Stop 11/04/16 at 12:16; Status DC Haloperidol (Haldol) 5 mg PRN Q2HR PRN PO psychosis Last administered on 21:18; Start 11/04/16 at 00:00 Lorazepam (Ativan) 0.25 mg PRN Q2HR PRN PO ANXIETY / AGITATION Last administered on 11/04/16 23:45; Start 11/04/16 at 00:00 Quetiapine Fumarate (SEROquel) 50 mg QHS PO ; Start 11/04/16 at 21:00; Stop at 21:00; Status DC Albuterol Sulfate (Ventolin Hfa) 2 puff Q1HR PRN IH SHORTNESS OF BREATH; Start 11/04/16 at 00:00; Status UNV Amlodipine Besylate (Norvasc) 10 mg DAILY PO Last administered on 11/15/16 09: 09; Start 11/04/16 at 09:00 Throat Lozenges (Cepacol Sore Throat Lozenge) 1 katty PRN Q2HR PRN PO sore throat ; Start 11/04/16 at 00:00 Acetaminophen/ Hydrocodone Bitart (Lortab 5/325) 1 tab PRN Q6HRS PRN PO SEVERE PAIN; Start 11/04/16 at 00:00 Magnesium Oxide (Magnesium Oxide) 400 mg TID PO Last administered on 11/15/16 19:43; Start 11/04/16 at 09:00 Pantoprazole Sodium (Protonix) 40 mg DAILYAC PO Last administered on 11/15/16 09:09; Start 11/04/16 at 07:30 Atorvastatin Calcium (Lipitor) 10 mg QHS PO Last administered on 11/15/16 19: 44; Start 11/04/16 at 21:00 Sodium Chloride (Saline Mist Nasal) 1 jsoe de jesus PRN Q1HR PRN NS nasal congestion; Start 11/04/16 at 00:00 Metoprolol Succinate (Toprol Xl) 100 mg DAILY PO Last administered on 09:08; Start 11/04/16 at 09:00 Potassium Chloride (Klor-Con) 20 meq TID PO Last administered on 11/15/16 19: 43; Start 11/04/16 at 09:00 Albuterol Sulfate (Ventolin) 2.5 mg PRN Q1HR PRN NEB SHORTNESS OF BREATH Last administered on 11/06/16 20:59; Start 11/04/16 at 00:15 Rivastigmine (Exelon) 1 patch DAILY TD Last administered on 11/06/16 07:50; Start 11/05/16 at 09:00; Stop 11/06/16 at 18:07; Status DC Benztropine Mesylate (Cogentin) 1 mg DAILY PO Last administered on 11/06/16 07 :51; Start 11/05/16 at 09:00; Stop 11/06/16 at 15:28; Status DC Quetiapine Fumarate (SEROquel) 75 mg QHS PO Last administered on 11/08/16 19: 43; Start 11/04/16 at 21:00; Stop 11/09/16 at 18:09; Status DC Memantine (Namenda) 5 mg BID PO Last administered on 11/08/16 09:56; Start at 21:00; Stop 11/08/16 at 13:31; Status DC Hydralazine HCl (Apresoline) 25 mg TID PO Last administered on 11/15/16 19:43 ; Start 11/04/16 at 21:00 Clobetasol Propionate 1 jose de jesus BID TP Last administered on 11/15/16 19:44; Start 11/04/16 at 21:00 Mirtazapine (Remeron) 7.5 mg QHS PO Last administered on 11/15/16 19:43; Start 11/05/16 at 21:00 Info (FLU VACCINE per PROTOCOL) 1 ea PRN 1X PRN MC PER PROTOCOL; Start at 12:45; Stop 11/10/16 at 09:14; Status DC Rivastigmine (Exelon) 1 patch DAILY TD Last administered on 11/15/16 09:09; Start 11/07/16 at 09:00 Trazodone HCl (Desyrel) 100 mg QHS PO Last administered on 11/15/16 19:42; Start 11/06/16 at 21:00 Trazodone HCl (Desyrel) 100 mg PRN QHS PRN PO INSOMNIA, MAY REPEAT X1 Last administered on 11/12/16 21:18; Start 11/06/16 at 18:15 Memantine (Namenda) 10 mg BID PO Last administered on 11/15/16 19:43; Start at 21:00 Quetiapine Fumarate (SEROquel) 125 mg QHS PO Last administered on 11/11/16 19: 36; Start 11/09/16 at 21:00; Stop 11/12/16 at 18:12; Status DC Influenza Virus Vaccine Quadrival (Fluarix Quad Syringe) 0.5 ml 1X ONCE VAX IM ; Start 11/10/16 at 10:00; Stop 11/10/16 at 10:01; Status DC Influenza Virus Vaccine Quadrival (Fluarix Quad Syringe) 0.5 ml 1X ONCE VAX IM Last administered on 11/10/16 10:54; Start 11/10/16 at 11:00; Stop 11/10/16 at 11:01; Status DC Quetiapine Fumarate (SEROquel) 175 mg QHS PO Last administered on 11/15/16 19: 42; Start 11/12/16 at 21:00 Fluvoxamine Maleate (Luvox) 25 mg HS PO Last administered on 11/15/16 19:43; Start 11/14/16 at 21:00 Active Scripts Active Reported Amlodipine Besylate 10 Mg Tablet 10 Mg PO DAILY Saline Nasal [place] (Sodium Chloride) 30 Ml [place] 30 Ml NS Q1HR PRN Seroquel (Quetiapine Fumarate) 50 Mg Tablet 50 Mg PO QHS Potassium Chloride 10 Meq Capsule.er 20 Meq PO TID Protonix (Pantoprazole Sodium) 40 Mg Tablet.dr 40 Mg PO DAILYAC Magnesium Oxide 400 Mg Tablet 400 Mg PO TID Lorazepam 0.5 Mg Tablet 0.25 Mg PO PRN Q2HR PRN Hydrocodone-Apap 5-325 (Hydrocodone Bit/Acetaminophen) 1 Each Tablet 1 Tab PO PRN Q6HRS PRN Haloperidol 5 Mg Tablet 5 Mg PO PRN Q2HR PRN Cepacol Sore Throat Lozenge (Benzocaine/Menthol) 1 Each Lozenge 1 Each PO PRN Q2HR PRN Ventolin Hfa Inhaler (Albuterol Sulfate) 18 Gm Hfa.aer.ad 2.5 Mg IH Q1HR PRN Zyrtec (Cetirizine Hcl) 10 Mg Tablet 1 Tab PO DAILY Simvastatin 20 Mg Tablet 20 Mg PO QHS Metoprolol Succinate ( Xl ) (Metoprolol Succinate) 100 Mg Tab.er.24h 100 Mg PO DAILY Benztropine Mesylate 1 Mg Tablet 1 Mg PO [id number] Aspir-Low (Aspirin) 81 Mg Tablet. 1 Tab PO DAILY Diagnosis: Problems: (1) Anxiety disorder (2) Impulse control disorder (3) Psychosis, atypical (4) Unspecified psychosis (5) Dementia, vascular, with delusions (6) Lewy body dementia with behavioral disturbance (7) Obsessive compulsive disorder JOSE NOLASCO MD Nov 15, 2016 20:41
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
[2016-11-16 05:56] VITALS: BP 146/66
[2016-11-16] MEDS: POTASSIUM CHLORIDE 20 MEQ TABLET.ER. PO SCH ×3 (09:51→20:28)
[2016-11-16] MEDS: LOSARTAN 50 MG TABLET. PO SCH (09:52)
[2016-11-16] MEDS: MAGNESIUM OXIDE 400 MG TABLET PO SCH ×3 (09:52→20:28)
[2016-11-16] MEDS: PANTOPRAZOLE 40 MG TABLET. PO SCH (09:52)
[2016-11-16] MEDS: hydrALAZINE 25 MG TABLET PO SCH ×3 (09:52→20:27)
[2016-11-16] MEDS: CETIRIZINE HCL 10 MG TABLET PO SCH (09:52)
[2016-11-16] MEDS: ASPIRIN ENTERIC COATED 81 MG TABLET.DR. PO SCH (09:52)
[2016-11-16] MEDS: amLODIPine BESYLATE 10 MG TABLET PO SCH (09:53)
[2016-11-16] MEDS: CLOBETASOL EMOLLIENT 0.05% TOPICAL CREAM 15GM TUBE. TP SCH ×2 (09:53→20:27)
[2016-11-16] MEDS: MEMANTINE 10 MG TABLET. PO SCH ×2 (09:53→20:28)
[2016-11-16] MEDS: RIVASTIGMINE 9.5MG PATCH. TD SCH (09:53)
[2016-11-16] MEDS: METOPROLOL SUCC 24HR ER 50 MG TAB.ER.24H. PO SCH (09:56)
[2016-11-16 15:48] VITALS: BP 114/46
[2016-11-16] MEDS: QUEtiapine 50 MG TABLET. PO SCH (20:27)
[2016-11-16] MEDS: MIRTAZAPINE 7.5 MG TABLET. PO SCH (20:27)
[2016-11-16] MEDS: ATORVASTATIN CALCIUM 10 MG TABLET. PO SCH (20:28)
[2016-11-16] MEDS: traZODone 100 MG TABLET. PO SCH (20:29)
--- NOTE | 2016-11-16 20:38 | PDOC ---
Exam Serg Demential Exam: Serg Note: Please also refer to the separate dictated note~for this date of service dictated separately.~Patient seen individually. Discussed the patient with Nursing staff reviewed the chart.~Reviewed interim history and current functioning. Reviewed vital signs,~Labs/ Radiology~and current medications noted below. Continue current treatment with the changes noted in the dictated addendum note Assessment: Vital Signs: Vital Signs Date Time Temp Pulse Resp B/P (MAP) Pulse Ox O2 Delivery O2 Flow Rate FiO2 11/16/16 20:27 69 122/64 11/16/16 15:48 98.8 18 95 Room Air I&O Intake and Output 11/17/16 06:59 Intake Total 960 ml Balance 960 ml Intake Oral 960 ml Current Medications: Meds: Current Medications Acetaminophen (Tylenol) 650 mg PRN Q6HRS PRN PO PAIN / TEMP Last administered on 11/05/16 15:40; Start 11/03/16 at 14:45 Multi-Ingredient Ointment (Analgesic [place]) 1 jose de jesus PRN QID PRN TP MUSCLE PAIN; Start 11/03/16 at 14:45 Al Hydroxide/Mg Hydroxide (Mylanta Plus Xs) 15 ml PRN AFTMEALHC PRN PO DYSPEPSIA Last administered on 11/11/16 13:02; Start 11/03/16 at 14:45 Magnesium Hydroxide (Milk Of Magnesia) 2,400 mg PRN QHS PRN PO CONSTIPATION; Start 11/03/16 at 14:45 Aspirin (Aspirin Enteric Coated) 81 mg DAILY PO Last administered on 11/16/16 09:52; Start 11/04/16 at 09:00 Cetirizine HCl (ZyrTEC) 10 mg DAILY PO Last administered on 11/16/16 09:52; Start 11/04/16 at 09:00 Losartan Potassium (Cozaar) 100 mg DAILY PO Last administered on 11/16/16 09: 52; Start 11/04/16 at 09:00 Benztropine Mesylate (Cogentin) 1 mg [id number] PO Last administered on 11/04/16 06 :04; Start 11/04/16 at 07:00; Stop 11/04/16 at 12:16; Status DC Haloperidol (Haldol) 5 mg PRN Q2HR PRN PO psychosis Last administered on 21:18; Start 11/04/16 at 00:00 Lorazepam (Ativan) 0.25 mg PRN Q2HR PRN PO ANXIETY / AGITATION Last administered on 11/04/16 23:45; Start 11/04/16 at 00:00 Quetiapine Fumarate (SEROquel) 50 mg QHS PO ; Start 11/04/16 at 21:00; Stop at 21:00; Status DC Albuterol Sulfate (Ventolin Hfa) 2 puff Q1HR PRN IH SHORTNESS OF BREATH; Start 11/04/16 at 00:00; Status UNV Amlodipine Besylate (Norvasc) 10 mg DAILY PO Last administered on 11/16/16 09: 53; Start 11/04/16 at 09:00 Throat Lozenges (Cepacol Sore Throat Lozenge) 1 katty PRN Q2HR PRN PO sore throat ; Start 11/04/16 at 00:00 Acetaminophen/ Hydrocodone Bitart (Lortab 5/325) 1 tab PRN Q6HRS PRN PO SEVERE PAIN; Start 11/04/16 at 00:00 Magnesium Oxide (Magnesium Oxide) 400 mg TID PO Last administered on 11/16/16 20:28; Start 11/04/16 at 09:00 Pantoprazole Sodium (Protonix) 40 mg DAILYAC PO Last administered on 11/16/16 09:52; Start 11/04/16 at 07:30 Atorvastatin Calcium (Lipitor) 10 mg QHS PO Last administered on 11/16/16 20: 28; Start 11/04/16 at 21:00 Sodium Chloride (Saline Mist Nasal) 1 jose de jesus PRN Q1HR PRN NS nasal congestion; Start 11/04/16 at 00:00 Metoprolol Succinate (Toprol Xl) 100 mg DAILY PO Last administered on 09:56; Start 11/04/16 at 09:00 Potassium Chloride (Klor-Con) 20 meq TID PO Last administered on 11/16/16 20: 28; Start 11/04/16 at 09:00 Albuterol Sulfate (Ventolin) 2.5 mg PRN Q1HR PRN NEB SHORTNESS OF BREATH Last administered on 11/06/16 20:59; Start 11/04/16 at 00:15 Rivastigmine (Exelon) 1 patch DAILY TD Last administered on 11/06/16 07:50; Start 11/05/16 at 09:00; Stop 11/06/16 at 18:07; Status DC Benztropine Mesylate (Cogentin) 1 mg DAILY PO Last administered on 11/06/16 07 :51; Start 11/05/16 at 09:00; Stop 11/06/16 at 15:28; Status DC Quetiapine Fumarate (SEROquel) 75 mg QHS PO Last administered on 11/08/16 19: 43; Start 11/04/16 at 21:00; Stop 11/09/16 at 18:09; Status DC Memantine (Namenda) 5 mg BID PO Last administered on 11/08/16 09:56; Start at 21:00; Stop 11/08/16 at 13:31; Status DC Hydralazine HCl (Apresoline) 25 mg TID PO Last administered on 11/16/16 20:27 ; Start 11/04/16 at 21:00 Clobetasol Propionate 1 jose de jesus BID TP Last administered on 11/16/16 20:27; Start 11/04/16 at 21:00 Mirtazapine (Remeron) 7.5 mg QHS PO Last administered on 11/16/16 20:27; Start 11/05/16 at 21:00 Info (FLU VACCINE per PROTOCOL) 1 ea PRN 1X PRN MC PER PROTOCOL; Start at 12:45; Stop 11/10/16 at 09:14; Status DC Rivastigmine (Exelon) 1 patch DAILY TD Last administered on 11/16/16 09:53; Start 11/07/16 at 09:00 Trazodone HCl (Desyrel) 100 mg QHS PO Last administered on 11/16/16 20:29; Start 11/06/16 at 21:00 Trazodone HCl (Desyrel) 100 mg PRN QHS PRN PO INSOMNIA, MAY REPEAT X1 Last administered on 11/12/16 21:18; Start 11/06/16 at 18:15 Memantine (Namenda) 10 mg BID PO Last administered on 11/16/16 20:28; Start at 21:00 Quetiapine Fumarate (SEROquel) 125 mg QHS PO Last administered on 11/11/16 19: 36; Start 11/09/16 at 21:00; Stop 11/12/16 at 18:12; Status DC Influenza Virus Vaccine Quadrival (Fluarix Quad Syringe) 0.5 ml 1X ONCE VAX IM ; Start 11/10/16 at 10:00; Stop 11/10/16 at 10:01; Status DC Influenza Virus Vaccine Quadrival (Fluarix Quad Syringe) 0.5 ml 1X ONCE VAX IM Last administered on 11/10/16 10:54; Start 11/10/16 at 11:00; Stop 11/10/16 at 11:01; Status DC Quetiapine Fumarate (SEROquel) 175 mg QHS PO Last administered on 11/16/16 20: 27; Start 11/12/16 at 21:00 Fluvoxamine Maleate (Luvox) 25 mg HS PO Last administered on 11/16/16 20:27; Start 11/14/16 at 21:00 Active Scripts Active Reported Amlodipine Besylate 10 Mg Tablet 10 Mg PO DAILY Saline Nasal [place] (Sodium Chloride) 30 Ml [place] 30 Ml NS Q1HR PRN Seroquel (Quetiapine Fumarate) 50 Mg Tablet 50 Mg PO QHS Potassium Chloride 10 Meq Capsule.er 20 Meq PO TID Protonix (Pantoprazole Sodium) 40 Mg Tablet.dr 40 Mg PO DAILYAC Magnesium Oxide 400 Mg Tablet 400 Mg PO TID Lorazepam 0.5 Mg Tablet 0.25 Mg PO PRN Q2HR PRN Hydrocodone-Apap 5-325 (Hydrocodone Bit/Acetaminophen) 1 Each Tablet 1 Tab PO PRN Q6HRS PRN Haloperidol 5 Mg Tablet 5 Mg PO PRN Q2HR PRN Cepacol Sore Throat Lozenge (Benzocaine/Menthol) 1 Each Lozenge 1 Each PO PRN Q2HR PRN Ventolin Hfa Inhaler (Albuterol Sulfate) 18 Gm Hfa.aer.ad 2.5 Mg IH Q1HR PRN Zyrtec (Cetirizine Hcl) 10 Mg Tablet 1 Tab PO DAILY Simvastatin 20 Mg Tablet 20 Mg PO QHS Metoprolol Succinate ( Xl ) (Metoprolol Succinate) 100 Mg Tab.er.24h 100 Mg PO DAILY Benztropine Mesylate 1 Mg Tablet 1 Mg PO [id number] Aspir-Low (Aspirin) 81 Mg Tablet. 1 Tab PO DAILY Diagnosis: Problems: (1) Anxiety disorder (2) Impulse control disorder (3) Psychosis, atypical (4) Unspecified psychosis (5) Dementia, vascular, with delusions (6) Lewy body dementia with behavioral disturbance (7) Obsessive compulsive disorder JOSE NOLASCO MD Nov 16, 2016 20:38
[2016-11-17 06:42] VITALS: BP 119/78
--- NOTE | 2016-11-17 08:03 | PN ---
DATE: 11/15/2016 This is a late entry for 11/15/2016 covers elements not covered in my initial note of 11/15/2016. SUBJECTIVE: I met with the patient in the evening of 11/15/2016. His visited him twice during the day and he has not expressed any of delusions. It is unclear if he is hiding them because he wants to get home, but I processed this with him at length individually and he denied it. REVIEW OF SYSTEMS: No CV, , pulmonary, eye, ENT system symptoms on review. MENTAL STATUS EXAM: Oriented to himself and situation. Speech is coherent, has a typical jannet to it. Abstraction fair, computation impaired. Short-term memory has some impairment. No active suicidal or homicidal ideation. Seems less psychotic. LABORATORY DATA: Reviewed. IMPRESSION: Unchanged from initial note. PLAN: Continue current psychotropics. Reviewed drug interactions. Risk/benefit ratio favors no further change. JOSE NOLASCO MD DR: SAMARA/shiol JOB#: [id number] / [id number]
[2016-11-17 08:26] VITALS: BP 122/54
[2016-11-17] MEDS: CLOBETASOL EMOLLIENT 0.05% TOPICAL CREAM 15GM TUBE. TP SCH ×2 (09:00→20:09)
[2016-11-17] MEDS: CETIRIZINE HCL 10 MG TABLET PO SCH (09:26)
[2016-11-17] MEDS: POTASSIUM CHLORIDE 20 MEQ TABLET.ER. PO SCH ×3 (09:26→20:09)
[2016-11-17] MEDS: MEMANTINE 10 MG TABLET. PO SCH ×2 (09:27→20:10)
[2016-11-17] MEDS: hydrALAZINE 25 MG TABLET PO SCH ×3 (09:27→20:10)
[2016-11-17] MEDS: METOPROLOL SUCC 24HR ER 50 MG TAB.ER.24H. PO SCH (09:27)
[2016-11-17] MEDS: amLODIPine BESYLATE 10 MG TABLET PO SCH (09:28)
[2016-11-17] MEDS: MAGNESIUM OXIDE 400 MG TABLET PO SCH ×3 (09:28→20:10)
[2016-11-17] MEDS: LOSARTAN 50 MG TABLET. PO SCH (09:28)
[2016-11-17] MEDS: ASPIRIN ENTERIC COATED 81 MG TABLET.DR. PO SCH (09:28)
[2016-11-17] MEDS: PANTOPRAZOLE 40 MG TABLET. PO SCH (09:28)
[2016-11-17] MEDS: RIVASTIGMINE 9.5MG PATCH. TD SCH (09:28)
[2016-11-17 10:35] LABS: ALBUMIN 3.7 g/dL (3.4-5.0); CALCIUM 9.2 mg/dL (8.5-10.1); CREATININE 1.2 mg/dL (0.7-1.3); GFR 60.6; MAGNESIUM 2.2 mg/dL (1.8-2.4); POTASSIUM 4.5 mmol/L (3.5-5.1); TOTAL BILIRUBIN 0.4 mg/dL (0.2-1.0); TOTAL PROTEIN 7.3 g/dL (6.4-8.2)
[2016-11-17 10:40] LABS: BASO # 0.1 x10^3/uL (0.0-0.2); BASO % 1 % (0-3); EOS # 0.3 x10^3/uL (0.0-0.7); EOS % 4 % (0-3); HEMATOCRIT 37.5 % (39.0-53.0); LYMPH # 0.9 x10^3/uL (1.0-4.8); LYMPH % 12 % (24-48); MEAN CORPUSCULAR HEMOGLOBIN 31 pg (25-35); MEAN CORPUSCULAR HGB CONC 35 g/dL (31-37); MEAN CORPUSCULAR VOLUME 88 fL (79-100); MONO # 0.6 x10^3/uL (0.0-1.1); MONO % 8 % (0-9); NEUT # 5.6 x10^3uL (1.8-7.7); NEUT % 75 % (31-73); PLATELET COUNT 276 x10^3/uL (140-400); RED BLOOD COUNT 4.26 x10^6/uL (4.30-5.70); RED CELL DISTRIBUTION WIDTH 14.1 % (11.5-14.5); WHITE BLOOD COUNT 7.5 x10^3/uL (4.0-11.0)
[2016-11-17 14:58] VITALS: BP 145/73
[2016-11-17 16:15] VITALS: BP 167/82
[2016-11-17] MEDS: ATORVASTATIN CALCIUM 10 MG TABLET. PO SCH (20:09)
[2016-11-17] MEDS: QUEtiapine 50 MG TABLET. PO SCH (20:09)
[2016-11-17] MEDS: traZODone 100 MG TABLET. PO SCH (20:11)
[2016-11-17] MEDS: MIRTAZAPINE 15 MG TABLET PO SCH (20:16)
[2016-11-17] MEDS ORDERED: MIRTAZAPINE 7.5 MG TABLET. PO SCH (21:00)
--- NOTE | 2016-11-17 22:08 | PDOC ---
Exam Serg Demential Exam: Serg Note: Please also refer to the separate dictated note~for this date of service dictated separately.~Patient seen individually. Discussed the patient with Nursing staff reviewed the chart.~Reviewed interim history and current functioning. Reviewed vital signs,~Labs/ Radiology~and current medications noted below. Continue current treatment with the changes noted in the dictated addendum note Assessment: Vital Signs: Vital Signs Date Time Temp Pulse Resp B/P (MAP) Pulse Ox O2 Delivery O2 Flow Rate FiO2 11/17/16 20:10 71 167/82 11/17/16 16:15 97.4 18 97 11/16/16 15:48 Room Air I&O Intake and Output 11/18/16 07:00 Intake Total 1560 ml Balance 1560 ml Intake Oral 1560 ml Labs: Laboratory Tests Test 11/17/16 10:10 White Blood Count 7.5 x10^3/uL (4.0-11.0) Red Blood Count 4.26 x10^6/uL (4.30-5.70) L Hemoglobin 13.0 g/dL (13.0-17.5) Hematocrit 37.5 % (39.0-53.0) L Mean Corpuscular Volume 88 fL (79-100) Mean Corpuscular Hemoglobin 31 pg (25-35) Mean Corpuscular Hemoglobin Concent 35 g/dL (31-37) Red Cell Distribution Width 14.1 % (11.5-14.5) Platelet Count 276 x10^3/uL (140-400) Neutrophils (%) (Auto) 75 % (31-73) H Lymphocytes (%) (Auto) 12 % (24-48) L Monocytes (%) (Auto) 8 % (0-9) Eosinophils (%) (Auto) 4 % (0-3) H Basophils (%) (Auto) 1 % (0-3) Neutrophils # (Auto) 5.6 x10^3uL (1.8-7.7) Lymphocytes # (Auto) 0.9 x10^3/uL (1.0-4.8) L Monocytes # (Auto) 0.6 x10^3/uL (0.0-1.1) Eosinophils # (Auto) 0.3 x10^3/uL (0.0-0.7) Basophils # (Auto) 0.1 x10^3/uL (0.0-0.2) Sodium Level 140 mmol/L (136-145) Potassium Level 4.5 mmol/L (3.5-5.1) Chloride Level 105 mmol/L (98-107) Carbon Dioxide Level 27 mmol/L (21-32) Anion Gap 8 (6-14) Blood Urea Nitrogen 12 mg/dL (8-26) Creatinine 1.2 mg/dL (0.7-1.3) Estimated GFR (Cockcroft-Gault) 60.6 BUN/Creatinine Ratio 10 (6-20) Glucose Level 133 mg/dL (70-99) H Calcium Level 9.2 mg/dL (8.5-10.1) Magnesium Level 2.2 mg/dL (1.8-2.4) Total Bilirubin 0.4 mg/dL (0.2-1.0) Aspartate Amino Transferase (AST) 27 U/L (15-37) Alanine Aminotransferase (ALT) 47 U/L (16-63) Alkaline Phosphatase 59 U/L (46-116) Total Protein 7.3 g/dL (6.4-8.2) Albumin 3.7 g/dL (3.4-5.0) Albumin/Globulin Ratio 1.0 (1.0-1.7) Current Medications: Meds: Current Medications Acetaminophen (Tylenol) 650 mg PRN Q6HRS PRN PO PAIN / TEMP Last administered on 11/05/16 15:40; Start 11/03/16 at 14:45 Multi-Ingredient Ointment (Analgesic [place]) 1 [place]ose [place]us PRN QID PRN TP MUSCLE PAIN; Start 11/03/16 at 14:45 Al Hydroxide/Mg Hydroxide (Mylanta Plus Xs) 15 ml PRN AFTMEALHC PRN PO DYSPEPSIA Last administered on 11/11/16 13:02; Start 11/03/16 at 14:45 Magnesium Hydroxide (Milk Of Magnesia) 2,400 mg PRN QHS PRN PO CONSTIPATION; Start 11/03/16 at 14:45 Aspirin (Aspirin Enteric Coated) 81 mg DAILY PO Last administered on 11/17/16 09:28; Start 11/04/16 at 09:00 Cetirizine HCl (ZyrTEC) 10 mg DAILY PO Last administered on 11/17/16 09:26; Start 11/04/16 at 09:00 Losartan Potassium (Cozaar) 100 mg DAILY PO Last administered on 11/17/16 09: 28; Start 11/04/16 at 09:00 Benztropine Mesylate (Cogentin) 1 mg [id number] PO Last administered on 11/04/16 06 :04; Start 11/04/16 at 07:00; Stop 11/04/16 at 12:16; Status DC Haloperidol (Haldol) 5 mg PRN Q2HR PRN PO psychosis Last administered on 21:18; Start 11/04/16 at 00:00 Lorazepam (Ativan) 0.25 mg PRN Q2HR PRN PO ANXIETY / AGITATION Last administered on 11/04/16 23:45; Start 11/04/16 at 00:00 Quetiapine Fumarate (SEROquel) 50 mg QHS PO ; Start 11/04/16 at 21:00; Stop at 21:00; Status DC Albuterol Sulfate (Ventolin Hfa) 2 puff Q1HR PRN IH SHORTNESS OF BREATH; Start 11/04/16 at 00:00; Status UNV Amlodipine Besylate (Norvasc) 10 mg DAILY PO Last administered on 11/17/16 09: 28; Start 11/04/16 at 09:00 Throat Lozenges (Cepacol Sore Throat Lozenge) 1 katty PRN Q2HR PRN PO sore throat ; Start 11/04/16 at 00:00 Acetaminophen/ Hydrocodone Bitart (Lortab 5/325) 1 tab PRN Q6HRS PRN PO SEVERE PAIN; Start 11/04/16 at 00:00 Magnesium Oxide (Magnesium Oxide) 400 mg TID PO Last administered on 11/17/16 20:10; Start 11/04/16 at 09:00 Pantoprazole Sodium (Protonix) 40 mg DAILYAC PO Last administered on 11/17/16 09:28; Start 11/04/16 at 07:30 Atorvastatin Calcium (Lipitor) 10 mg QHS PO Last administered on 11/17/16 20: 09; Start 11/04/16 at 21:00 Sodium Chloride (Saline Mist Nasal) 1 jose de jesus PRN Q1HR PRN NS nasal congestion; Start 11/04/16 at 00:00 Metoprolol Succinate (Toprol Xl) 100 mg DAILY PO Last administered on 09:27; Start 11/04/16 at 09:00 Potassium Chloride (Klor-Con) 20 meq TID PO Last administered on 11/17/16 20: 09; Start 11/04/16 at 09:00 Albuterol Sulfate (Ventolin) 2.5 mg PRN Q1HR PRN NEB SHORTNESS OF BREATH Last administered on 11/06/16 20:59; Start 11/04/16 at 00:15 Rivastigmine (Exelon) 1 patch DAILY TD Last administered on 11/06/16 07:50; Start 11/05/16 at 09:00; Stop 11/06/16 at 18:07; Status DC Benztropine Mesylate (Cogentin) 1 mg DAILY PO Last administered on 11/06/16 07 :51; Start 11/05/16 at 09:00; Stop 11/06/16 at 15:28; Status DC Quetiapine Fumarate (SEROquel) 75 mg QHS PO Last administered on 11/08/16 19: 43; Start 11/04/16 at 21:00; Stop 11/09/16 at 18:09; Status DC Memantine (Namenda) 5 mg BID PO Last administered on 11/08/16 09:56; Start at 21:00; Stop 11/08/16 at 13:31; Status DC Hydralazine HCl (Apresoline) 25 mg TID PO Last administered on 11/17/16 20:10 ; Start 11/04/16 at 21:00 Clobetasol Propionate 1 jose de jesus BID TP Last administered on 11/17/16 20:09; Start 11/04/16 at 21:00 Mirtazapine (Remeron) 7.5 mg QHS PO Last administered on 11/16/16 20:27; Start 11/05/16 at 21:00; Stop 11/17/16 at 20:13; Status DC Info (FLU VACCINE per PROTOCOL) 1 ea PRN 1X PRN MC PER PROTOCOL; Start at 12:45; Stop 11/10/16 at 09:14; Status DC Rivastigmine (Exelon) 1 patch DAILY TD Last administered on 11/17/16 09:28; Start 11/07/16 at 09:00 Trazodone HCl (Desyrel) 100 mg QHS PO Last administered on 11/17/16 20:11; Start 11/06/16 at 21:00 Trazodone HCl (Desyrel) 100 mg PRN QHS PRN PO INSOMNIA, MAY REPEAT X1 Last administered on 11/12/16 21:18; Start 11/06/16 at 18:15 Memantine (Namenda) 10 mg BID PO Last administered on 11/17/16 20:10; Start at 21:00 Quetiapine Fumarate (SEROquel) 125 mg QHS PO Last administered on 11/11/16 19: 36; Start 11/09/16 at 21:00; Stop 11/12/16 at 18:12; Status DC Influenza Virus Vaccine Quadrival (Fluarix Quad Syringe) 0.5 ml 1X ONCE VAX IM ; Start 11/10/16 at 10:00; Stop 11/10/16 at 10:01; Status DC Influenza Virus Vaccine Quadrival (Fluarix Quad [id number] Syringe) 0.5 ml 1X ONCE VAX IM Last administered on 11/10/16 10:54; Start 11/10/16 at 11:00; Stop 11/10/16 at 11:01; Status DC Quetiapine Fumarate (SEROquel) 175 mg QHS PO Last administered on 11/17/16 20: 09; Start 11/12/16 at 21:00 Fluvoxamine Maleate (Luvox) 25 mg HS PO Last administered on 11/17/16 20:16; Start 11/14/16 at 21:00 Mirtazapine (Remeron) 7.5 mg QHS PO ; Start 11/17/16 at 21:00; Stop 11/17/16 at 21:00; Status DC Mirtazapine (Remeron) 15 mg QHS PO Last administered on 11/17/16 20:16; Start 11/17/16 at 21:00 Active Scripts Active Reported Amlodipine Besylate 10 Mg Tablet 10 Mg PO DAILY Saline Nasal [place] (Sodium Chloride) 30 Ml [place] 30 Ml NS Q1HR PRN Seroquel (Quetiapine Fumarate) 50 Mg Tablet 50 Mg PO QHS Potassium Chloride 10 Meq Capsule.er 20 Meq PO TID Protonix (Pantoprazole Sodium) 40 Mg Tablet.dr 40 Mg PO DAILYAC Magnesium Oxide 400 Mg Tablet 400 Mg PO TID Lorazepam 0.5 Mg Tablet 0.25 Mg PO PRN Q2HR PRN Hydrocodone-Apap 5-325 (Hydrocodone Bit/Acetaminophen) 1 Each Tablet 1 Tab PO PRN Q6HRS PRN Haloperidol 5 Mg Tablet 5 Mg PO PRN Q2HR PRN Cepacol Sore Throat Lozenge (Benzocaine/Menthol) 1 Each Lozenge 1 Each PO PRN Q2HR PRN Ventolin Hfa Inhaler (Albuterol Sulfate) 18 Gm Hfa.aer.ad 2.5 Mg IH Q1HR PRN Zyrtec (Cetirizine Hcl) 10 Mg Tablet 1 Tab PO DAILY Simvastatin 20 Mg Tablet 20 Mg PO QHS Metoprolol Succinate ( Xl ) (Metoprolol Succinate) 100 Mg Tab.er.24h 100 Mg PO DAILY Benztropine Mesylate 1 Mg Tablet 1 Mg PO [id number] Aspir-Low (Aspirin) 81 Mg Tablet. 1 Tab PO DAILY Diagnosis: Problems: (1) Anxiety disorder (2) Impulse control disorder (3) Psychosis, atypical (4) Unspecified psychosis (5) Dementia, vascular, with delusions (6) Lewy body dementia with behavioral disturbance (7) Obsessive compulsive disorder JOSE NOLASCO MD Nov 17, 2016 22:08
--- NOTE | 2016-11-18 04:02 | PN ---
DATE: 11/16/2016 PSYCHIATRIC PROGRESS NOTE This is a late entry for 11/16/2016, covers the elements not covered in my initial note of 11/16/2016. SUBJECTIVE: I met with the patient the evening of 11/16/2016 and staffed at a treatment team meeting with the entire team and the patient's morning of 11/16/2016. Reviewed his history at some length with the , response to treatment. states that during her visits twice a day, he has not voiced any clear psychotic symptoms to her, but she is wondering if he is hiding it because he wants to come home. REVIEW OF SYSTEMS: No CV, , pulmonary, eye system on review, but he complains of some dyspepsia. I have discussed with BRITTON Garcia, and we will give him a p.r.n. to help with this. MENTAL STATUS EXAM: Reasonably oriented. Short term memory is impaired. Speech is coherent, abstraction fair, computation somewhat impaired, language function intact. Attention span is short. Denies any overt psychotic symptoms, but we will have to observe this little more carefully to confirm he is not hiding it. LABORATORY DATA: Reviewed. IMPRESSION: Unchanged from initial note. PLAN: Continue current psychotropics. Reviewed drug interactions. Risk/benefit ratio favors no further change. If psychotic symptoms are evident we may increase the Seroquel and if he is still somewhat obsessive we will increase the Luvox. MAN Delicia NOLASCO MD DR: SAMARA/shilo JOB#: [id number] / [id number]
[2016-11-18 06:01] VITALS: BP 119/62
[2016-11-18] MEDS: POTASSIUM CHLORIDE 20 MEQ TABLET.ER. PO SCH ×3 (09:04→19:34)
[2016-11-18] MEDS: PANTOPRAZOLE 40 MG TABLET. PO SCH (09:05)
[2016-11-18] MEDS: METOPROLOL SUCC 24HR ER 50 MG TAB.ER.24H. PO SCH (09:05)
[2016-11-18] MEDS: hydrALAZINE 25 MG TABLET PO SCH ×3 (09:06→19:31)
[2016-11-18] MEDS: amLODIPine BESYLATE 10 MG TABLET PO SCH (09:07)
[2016-11-18] MEDS: CETIRIZINE HCL 10 MG TABLET PO SCH (09:09)
[2016-11-18] MEDS: MEMANTINE 10 MG TABLET. PO SCH ×2 (09:09→19:31)
[2016-11-18] MEDS: RIVASTIGMINE 9.5MG PATCH. TD SCH (09:09)
[2016-11-18] MEDS: LOSARTAN 50 MG TABLET. PO SCH (09:09)
[2016-11-18] MEDS: MAGNESIUM OXIDE 400 MG TABLET PO SCH ×3 (09:09→19:30)
[2016-11-18] MEDS: ASPIRIN ENTERIC COATED 81 MG TABLET.DR. PO SCH (09:09)
[2016-11-18] MEDS: CLOBETASOL EMOLLIENT 0.05% TOPICAL CREAM 15GM TUBE. TP SCH ×2 (09:10→19:31)
[2016-11-18] MEDS: MAG HYDROX/AL HYDROX/SIMETH 30 ML ORAL.SUSP PO PRN (16:09)
[2016-11-18 16:47] VITALS: BP 160/70
[2016-11-18] MEDS: ATORVASTATIN CALCIUM 10 MG TABLET. PO SCH (19:30)
[2016-11-18] MEDS: MIRTAZAPINE 15 MG TABLET PO SCH (19:31)
[2016-11-18] MEDS: QUEtiapine 50 MG TABLET. PO SCH (19:33)
[2016-11-18] MEDS: traZODone 100 MG TABLET. PO SCH (19:34)
--- NOTE | 2016-11-18 22:58 | PDOC ---
Exam Serg Demential Exam: Serg Note: Please also refer to the separate dictated note~for this date of service dictated separately.~Patient seen individually. Discussed the patient with Nursing staff reviewed the chart.~Reviewed interim history and current functioning. Reviewed vital signs,~Labs/ Radiology~and current medications noted below. Continue current treatment with the changes noted in the dictated addendum note Assessment: Vital Signs: Vital Signs Date Time Temp Pulse Resp B/P (MAP) Pulse Ox O2 Delivery O2 Flow Rate FiO2 11/18/16 19:31 72 160/70 11/18/16 16:47 97.9 20 96 11/18/16 06:01 Room Air I&O Intake and Output 11/19/16 07:00 Intake Total 1800 ml Balance 1800 ml Intake Oral 1800 ml Current Medications: Meds: Current Medications Acetaminophen (Tylenol) 650 mg PRN Q6HRS PRN PO PAIN / TEMP Last administered on 11/05/16 15:40; Start 11/03/16 at 14:45 Multi-Ingredient Ointment (Analgesic [place]) 1 jose de jesus PRN QID PRN TP MUSCLE PAIN; Start 11/03/16 at 14:45 Al Hydroxide/Mg Hydroxide (Mylanta Plus Xs) 15 ml PRN AFTMEALHC PRN PO DYSPEPSIA Last administered on 11/18/16 16:09; Start 11/03/16 at 14:45 Magnesium Hydroxide (Milk Of Magnesia) 2,400 mg PRN QHS PRN PO CONSTIPATION; Start 11/03/16 at 14:45 Aspirin (Aspirin Enteric Coated) 81 mg DAILY PO Last administered on 11/18/16 09:09; Start 11/04/16 at 09:00 Cetirizine HCl (ZyrTEC) 10 mg DAILY PO Last administered on 11/18/16 09:09; Start 11/04/16 at 09:00 Losartan Potassium (Cozaar) 100 mg DAILY PO Last administered on 11/18/16 09: 09; Start 11/04/16 at 09:00 Benztropine Mesylate (Cogentin) 1 mg [id number] PO Last administered on 11/04/16 06 :04; Start 11/04/16 at 07:00; Stop 11/04/16 at 12:16; Status DC Haloperidol (Haldol) 5 mg PRN Q2HR PRN PO psychosis Last administered on 21:18; Start 11/04/16 at 00:00 Lorazepam (Ativan) 0.25 mg PRN Q2HR PRN PO ANXIETY / AGITATION Last administered on 11/04/16 23:45; Start 11/04/16 at 00:00 Quetiapine Fumarate (SEROquel) 50 mg QHS PO ; Start 11/04/16 at 21:00; Stop at 21:00; Status DC Albuterol Sulfate (Ventolin Hfa) 2 puff Q1HR PRN IH SHORTNESS OF BREATH; Start 11/04/16 at 00:00; Status UNV Amlodipine Besylate (Norvasc) 10 mg DAILY PO Last administered on 11/18/16 09: 07; Start 11/04/16 at 09:00 Throat Lozenges (Cepacol Sore Throat Lozenge) 1 katty PRN Q2HR PRN PO sore throat ; Start 11/04/16 at 00:00 Acetaminophen/ Hydrocodone Bitart (Lortab 5/325) 1 tab PRN Q6HRS PRN PO SEVERE PAIN; Start 11/04/16 at 00:00 Magnesium Oxide (Magnesium Oxide) 400 mg TID PO Last administered on 11/18/16 19:30; Start 11/04/16 at 09:00 Pantoprazole Sodium (Protonix) 40 mg DAILYAC PO Last administered on 11/18/16 09:05; Start 11/04/16 at 07:30 Atorvastatin Calcium (Lipitor) 10 mg QHS PO Last administered on 11/18/16 19: 30; Start 11/04/16 at 21:00 Sodium Chloride (Saline Mist Nasal) 1 jose de jesus PRN Q1HR PRN NS nasal congestion; Start 11/04/16 at 00:00 Metoprolol Succinate (Toprol Xl) 100 mg DAILY PO Last administered on 09:05; Start 11/04/16 at 09:00 Potassium Chloride (Klor-Con) 20 meq TID PO Last administered on 11/18/16 19: 34; Start 11/04/16 at 09:00 Albuterol Sulfate (Ventolin) 2.5 mg PRN Q1HR PRN NEB SHORTNESS OF BREATH Last administered on 11/06/16 20:59; Start 11/04/16 at 00:15 Rivastigmine (Exelon) 1 patch DAILY TD Last administered on 11/06/16 07:50; Start 11/05/16 at 09:00; Stop 11/06/16 at 18:07; Status DC Benztropine Mesylate (Cogentin) 1 mg DAILY PO Last administered on 11/06/16 07 :51; Start 11/05/16 at 09:00; Stop 11/06/16 at 15:28; Status DC Quetiapine Fumarate (SEROquel) 75 mg QHS PO Last administered on 11/08/16 19: 43; Start 11/04/16 at 21:00; Stop 11/09/16 at 18:09; Status DC Memantine (Namenda) 5 mg BID PO Last administered on 11/08/16 09:56; Start at 21:00; Stop 11/08/16 at 13:31; Status DC Hydralazine HCl (Apresoline) 25 mg TID PO Last administered on 11/18/16 19:31 ; Start 11/04/16 at 21:00 Clobetasol Propionate 1 jose de jesus BID TP Last administered on 11/18/16 19:31; Start 11/04/16 at 21:00 Mirtazapine (Remeron) 7.5 mg QHS PO Last administered on 11/16/16 20:27; Start 11/05/16 at 21:00; Stop 11/17/16 at 20:13; Status DC Info (FLU VACCINE per PROTOCOL) 1 ea PRN 1X PRN MC PER PROTOCOL; Start at 12:45; Stop 11/10/16 at 09:14; Status DC Rivastigmine (Exelon) 1 patch DAILY TD Last administered on 11/18/16 09:09; Start 11/07/16 at 09:00 Trazodone HCl (Desyrel) 100 mg QHS PO Last administered on 11/18/16 19:34; Start 11/06/16 at 21:00 Trazodone HCl (Desyrel) 100 mg PRN QHS PRN PO INSOMNIA, MAY REPEAT X1 Last administered on 11/12/16 21:18; Start 11/06/16 at 18:15 Memantine (Namenda) 10 mg BID PO Last administered on 11/18/16 19:31; Start at 21:00 Quetiapine Fumarate (SEROquel) 125 mg QHS PO Last administered on 11/11/16 19: 36; Start 11/09/16 at 21:00; Stop 11/12/16 at 18:12; Status DC Influenza Virus Vaccine Quadrival (Fluarix Quad Syringe) 0.5 ml 1X ONCE VAX IM ; Start 11/10/16 at 10:00; Stop 11/10/16 at 10:01; Status DC Influenza Virus Vaccine Quadrival (Fluarix Quad Syringe) 0.5 ml 1X ONCE VAX IM Last administered on 11/10/16 10:54; Start 11/10/16 at 11:00; Stop 11/10/16 at 11:01; Status DC Quetiapine Fumarate (SEROquel) 175 mg QHS PO Last administered on 11/18/16 19: 33; Start 11/12/16 at 21:00 Fluvoxamine Maleate (Luvox) 25 mg HS PO Last administered on 11/17/16 20:16; Start 11/14/16 at 21:00; Stop 11/18/16 at 12:39; Status DC Mirtazapine (Remeron) 7.5 mg QHS PO ; Start 11/17/16 at 21:00; Stop 11/17/16 at 21:00; Status DC Mirtazapine (Remeron) 15 mg QHS PO Last administered on 11/18/16 19:31; Start 11/17/16 at 21:00 Fluvoxamine Maleate (Luvox) 50 mg HS PO Last administered on 11/18/16 19:34; Start 11/18/16 at 21:00 Active Scripts Active Reported Amlodipine Besylate 10 Mg Tablet 10 Mg PO DAILY Saline Nasal [place] (Sodium Chloride) 30 Ml [place] 30 Ml NS Q1HR PRN Seroquel (Quetiapine Fumarate) 50 Mg Tablet 50 Mg PO QHS Potassium Chloride 10 Meq Capsule.er 20 Meq PO TID Protonix (Pantoprazole Sodium) 40 Mg Tablet.dr 40 Mg PO DAILYAC Magnesium Oxide 400 Mg Tablet 400 Mg PO TID Lorazepam 0.5 Mg Tablet 0.25 Mg PO PRN Q2HR PRN Hydrocodone-Apap 5-325 (Hydrocodone Bit/Acetaminophen) 1 Each Tablet 1 Tab PO PRN Q6HRS PRN Haloperidol 5 Mg Tablet 5 Mg PO PRN Q2HR PRN Cepacol Sore Throat Lozenge (Benzocaine/Menthol) 1 Each Lozenge 1 Each PO PRN Q2HR PRN Ventolin Hfa Inhaler (Albuterol Sulfate) 18 Gm Hfa.aer.ad 2.5 Mg IH Q1HR PRN Zyrtec (Cetirizine Hcl) 10 Mg Tablet 1 Tab PO DAILY Simvastatin 20 Mg Tablet 20 Mg PO QHS Metoprolol Succinate ( Xl ) (Metoprolol Succinate) 100 Mg Tab.er.24h 100 Mg PO DAILY Benztropine Mesylate 1 Mg Tablet 1 Mg PO [id number] Aspir-Low (Aspirin) 81 Mg Tablet. 1 Tab PO DAILY Diagnosis: Problems: (1) Anxiety disorder (2) Impulse control disorder (3) Psychosis, atypical (4) Unspecified psychosis (5) Dementia, vascular, with delusions (6) Lewy body dementia with behavioral disturbance (7) Obsessive compulsive disorder JOSE NOLASCO MD Nov 18, 2016 22:57
--- NOTE | 2016-11-19 00:39 | PN ---
DATE: 11/17/2016 This is a late 11/17/2016, covers the elements not covered in my initial note of 11/17/2016. SUBJECTIVE: I met with the patient the evening of 11/17/2016. Plan was for transition home over the weekend, but the night prior to 11/17/2016, he slept poorly and was somewhat more anxious, but he denies overt psychotic symptoms, though it is questionable whether he is hiding this because he does want to get back home. He is somewhat angry with staff members as well. His has informed us that the Exelon patch is going to cost her about $190 a month. We have asked to check if the Exelon tablets would be better covered on the insurance post-discharge and if not, then she will check on the Aricept. REVIEW OF SYSTEMS: No CV, , pulmonary, eye, ENT system symptoms on review. MENTAL STATUS EXAM: Oriented to himself and situation. Speech is coherent, abstraction fair, computation impaired. Short-term memory is impaired. Language function intact. No active suicidal or homicidal ideation. He denies overt delusions about the ex-coworker and we will have to accept it that the nursing staff are carefully observing if they see any signs and indicating something to the contrary. LABORATORY DATA: Reviewed. IMPRESSION: Unchanged from initial note. PLAN: Continue current psychotropics. We will increase his Remeron from 7.5 mg at bedtime to 15 mg at bedtime. Starting 11/18/2016, we will increase the Luvox to 50 mg at bedtime, trazodone 100 mg at bedtime, may repeat x 1, Seroquel 175 mg at bedtime, Ativan p.r.n. We reviewed drug interactions, risk/benefit ratio favors no further change. JOSE NOLASCO MD DR: SAMARA/shilo JOB#: [id number] / [id number]
[2016-11-19 05:57] VITALS: BP 136/63
[2016-11-19] MEDS: LOSARTAN 50 MG TABLET. PO SCH (07:46)
[2016-11-19] MEDS: POTASSIUM CHLORIDE 20 MEQ TABLET.ER. PO SCH ×3 (07:46→19:33)
[2016-11-19] MEDS: MAGNESIUM OXIDE 400 MG TABLET PO SCH ×3 (07:47→19:33)
[2016-11-19] MEDS: amLODIPine BESYLATE 10 MG TABLET PO SCH (07:47)
[2016-11-19] MEDS: MEMANTINE 10 MG TABLET. PO SCH ×2 (07:47→19:33)
[2016-11-19] MEDS: METOPROLOL SUCC 24HR ER 50 MG TAB.ER.24H. PO SCH (07:47)
[2016-11-19] MEDS: ASPIRIN ENTERIC COATED 81 MG TABLET.DR. PO SCH (07:47)
[2016-11-19] MEDS: CLOBETASOL EMOLLIENT 0.05% TOPICAL CREAM 15GM TUBE. TP SCH ×2 (07:48→19:35)
[2016-11-19] MEDS: RIVASTIGMINE 9.5MG PATCH. TD SCH (07:48)
[2016-11-19] MEDS: CETIRIZINE HCL 10 MG TABLET PO SCH (07:48)
[2016-11-19] MEDS: hydrALAZINE 25 MG TABLET PO SCH ×3 (07:48→19:33)
[2016-11-19] MEDS: PANTOPRAZOLE 40 MG TABLET. PO SCH (07:48)
[2016-11-19 16:33] VITALS: BP 132/64
[2016-11-19] MEDS: MIRTAZAPINE 15 MG TABLET PO SCH (19:33)
[2016-11-19] MEDS: QUEtiapine 50 MG TABLET. PO SCH (19:33)
[2016-11-19] MEDS: ATORVASTATIN CALCIUM 10 MG TABLET. PO SCH (19:33)
[2016-11-19] MEDS: traZODone 100 MG TABLET. PO SCH (19:33)
[2016-11-19] MEDS: DIVALPROEX ER 500 MG TAB.ER.24H PO SCH (19:35)
--- NOTE | 2016-11-19 21:06 | PDOC ---
Exam Serg Demential Exam: Serg Note: Please also refer to the separate dictated note~for this date of service dictated separately.~Patient seen individually. Discussed the patient with Nursing staff reviewed the chart.~Reviewed interim history and current functioning. Reviewed vital signs,~Labs/ Radiology~and current medications noted below. Continue current treatment with the changes noted in the dictated addendum note Assessment: Vital Signs: Vital Signs Date Time Temp Pulse Resp B/P (MAP) Pulse Ox O2 Delivery O2 Flow Rate FiO2 11/19/16 19:33 66 132/64 11/19/16 16:33 98.5 20 94 11/19/16 05:57 Room Air I&O Intake and Output 11/20/16 07:00 Intake Total 1080 ml Balance 1080 ml Intake Oral 1080 ml Current Medications: Meds: Current Medications Acetaminophen (Tylenol) 650 mg PRN Q6HRS PRN PO PAIN / TEMP Last administered on 11/05/16 15:40; Start 11/03/16 at 14:45 Multi-Ingredient Ointment (Analgesic [place]) 1 [place]ose [place] PRN QID PRN TP MUSCLE PAIN; Start 11/03/16 at 14:45 Al Hydroxide/Mg Hydroxide (Mylanta Plus Xs) 15 ml PRN AFTMEALHC PRN PO DYSPEPSIA Last administered on 11/18/16 16:09; Start 11/03/16 at 14:45 Magnesium Hydroxide (Milk Of Magnesia) 2,400 mg PRN QHS PRN PO CONSTIPATION; Start 11/03/16 at 14:45 Aspirin (Aspirin Enteric Coated) 81 mg DAILY PO Last administered on 11/19/16 07:47; Start 11/04/16 at 09:00 Cetirizine HCl (ZyrTEC) 10 mg DAILY PO Last administered on 11/19/16 07:48; Start 11/04/16 at 09:00 Losartan Potassium (Cozaar) 100 mg DAILY PO Last administered on 11/19/16 07: 46; Start 11/04/16 at 09:00 Benztropine Mesylate (Cogentin) 1 mg [id number] PO Last administered on 11/04/16 06 :04; Start 11/04/16 at 07:00; Stop 11/04/16 at 12:16; Status DC Haloperidol (Haldol) 5 mg PRN Q2HR PRN PO psychosis Last administered on 21:18; Start 11/04/16 at 00:00 Lorazepam (Ativan) 0.25 mg PRN Q2HR PRN PO ANXIETY / AGITATION Last administered on 11/04/16 23:45; Start 11/04/16 at 00:00 Quetiapine Fumarate (SEROquel) 50 mg QHS PO ; Start 11/04/16 at 21:00; Stop at 21:00; Status DC Albuterol Sulfate (Ventolin Hfa) 2 puff Q1HR PRN IH SHORTNESS OF BREATH; Start 11/04/16 at 00:00; Status UNV Amlodipine Besylate (Norvasc) 10 mg DAILY PO Last administered on 11/19/16 07: 47; Start 11/04/16 at 09:00 Throat Lozenges (Cepacol Sore Throat Lozenge) 1 katty PRN Q2HR PRN PO sore throat ; Start 11/04/16 at 00:00 Acetaminophen/ Hydrocodone Bitart (Lortab 5/325) 1 tab PRN Q6HRS PRN PO SEVERE PAIN; Start 11/04/16 at 00:00 Magnesium Oxide (Magnesium Oxide) 400 mg TID PO Last administered on 11/19/16 19:33; Start 11/04/16 at 09:00 Pantoprazole Sodium (Protonix) 40 mg DAILYAC PO Last administered on 11/19/16 07:48; Start 11/04/16 at 07:30 Atorvastatin Calcium (Lipitor) 10 mg QHS PO Last administered on 11/19/16 19: 33; Start 11/04/16 at 21:00 Sodium Chloride (Saline Mist Nasal) 1 jose de jesus PRN Q1HR PRN NS nasal congestion; Start 11/04/16 at 00:00 Metoprolol Succinate (Toprol Xl) 100 mg DAILY PO Last administered on 07:47; Start 11/04/16 at 09:00 Potassium Chloride (Klor-Con) 20 meq TID PO Last administered on 11/19/16 19: 33; Start 11/04/16 at 09:00 Albuterol Sulfate (Ventolin) 2.5 mg PRN Q1HR PRN NEB SHORTNESS OF BREATH Last administered on 11/06/16 20:59; Start 11/04/16 at 00:15 Rivastigmine (Exelon) 1 patch DAILY TD Last administered on 11/06/16 07:50; Start 11/05/16 at 09:00; Stop 11/06/16 at 18:07; Status DC Benztropine Mesylate (Cogentin) 1 mg DAILY PO Last administered on 11/06/16 07 :51; Start 11/05/16 at 09:00; Stop 11/06/16 at 15:28; Status DC Quetiapine Fumarate (SEROquel) 75 mg QHS PO Last administered on 11/08/16 19: 43; Start 11/04/16 at 21:00; Stop 11/09/16 at 18:09; Status DC Memantine (Namenda) 5 mg BID PO Last administered on 11/08/16 09:56; Start at 21:00; Stop 11/08/16 at 13:31; Status DC Hydralazine HCl (Apresoline) 25 mg TID PO Last administered on 11/19/16 19:33 ; Start 11/04/16 at 21:00 Clobetasol Propionate 1 jose de jesus BID TP Last administered on 11/19/16 19:35; Start 11/04/16 at 21:00 Mirtazapine (Remeron) 7.5 mg QHS PO Last administered on 11/16/16 20:27; Start 11/05/16 at 21:00; Stop 11/17/16 at 20:13; Status DC Info (FLU VACCINE per PROTOCOL) 1 ea PRN 1X PRN MC PER PROTOCOL; Start at 12:45; Stop 11/10/16 at 09:14; Status DC Rivastigmine (Exelon) 1 patch DAILY TD Last administered on 11/19/16 07:48; Start 11/07/16 at 09:00; Stop 11/19/16 at 18:24; Status DC Trazodone HCl (Desyrel) 100 mg QHS PO Last administered on 11/19/16 19:33; Start 11/06/16 at 21:00 Trazodone HCl (Desyrel) 100 mg PRN QHS PRN PO INSOMNIA, MAY REPEAT X1 Last administered on 11/12/16 21:18; Start 11/06/16 at 18:15 Memantine (Namenda) 10 mg BID PO Last administered on 11/19/16 19:33; Start at 21:00 Quetiapine Fumarate (SEROquel) 125 mg QHS PO Last administered on 11/11/16 19: 36; Start 11/09/16 at 21:00; Stop 11/12/16 at 18:12; Status DC Influenza Virus Vaccine Quadrival (Fluarix Quad Syringe) 0.5 ml 1X ONCE VAX IM ; Start 11/10/16 at 10:00; Stop 11/10/16 at 10:01; Status DC Influenza Virus Vaccine Quadrival (Fluarix Quad Syringe) 0.5 ml 1X ONCE VAX IM Last administered on 11/10/16 10:54; Start 11/10/16 at 11:00; Stop 11/10/16 at 11:01; Status DC Quetiapine Fumarate (SEROquel) 175 mg QHS PO Last administered on 11/18/16 19: 33; Start 11/12/16 at 21:00; Stop 11/19/16 at 18:19; Status DC Fluvoxamine Maleate (Luvox) 25 mg HS PO Last administered on 11/17/16 20:16; Start 11/14/16 at 21:00; Stop 11/18/16 at 12:39; Status DC Mirtazapine (Remeron) 7.5 mg QHS PO ; Start 11/17/16 at 21:00; Stop 11/17/16 at 21:00; Status DC Mirtazapine (Remeron) 15 mg QHS PO Last administered on 11/19/16 19:33; Start 11/17/16 at 21:00 Fluvoxamine Maleate (Luvox) 50 mg HS PO Last administered on 11/19/16 19:32; Start 11/18/16 at 21:00 Quetiapine Fumarate (SEROquel) 225 mg QHS PO Last administered on 11/19/16 19: 33; Start 11/19/16 at 21:00 Divalproex Sodium (Depakote Er) 500 mg QHS PO Last administered on 11/19/16 19 :35; Start 10/1/17 at 21:00 Donepezil HCl (Aricept) 10 mg DAILY PO ; Start 11/20/16 at 09:00 Active Scripts Active Reported Amlodipine Besylate 10 Mg Tablet 10 Mg PO DAILY Saline Nasal [place] (Sodium Chloride) 30 Ml [place] 30 Ml NS Q1HR PRN Seroquel (Quetiapine Fumarate) 50 Mg Tablet 50 Mg PO QHS Potassium Chloride 10 Meq Capsule.er 20 Meq PO TID Protonix (Pantoprazole Sodium) 40 Mg Tablet.dr 40 Mg PO DAILYAC Magnesium Oxide 400 Mg Tablet 400 Mg PO TID Lorazepam 0.5 Mg Tablet 0.25 Mg PO PRN Q2HR PRN Hydrocodone-Apap 5-325 (Hydrocodone Bit/Acetaminophen) 1 Each Tablet 1 Tab PO PRN Q6HRS PRN Haloperidol 5 Mg Tablet 5 Mg PO PRN Q2HR PRN Cepacol Sore Throat Lozenge (Benzocaine/Menthol) 1 Each Lozenge 1 Each PO PRN Q2HR PRN Ventolin Hfa Inhaler (Albuterol Sulfate) 18 Gm Hfa.aer.ad 2.5 Mg IH Q1HR PRN Zyrtec (Cetirizine Hcl) 10 Mg Tablet 1 Tab PO DAILY Simvastatin 20 Mg Tablet 20 Mg PO QHS Metoprolol Succinate ( Xl ) (Metoprolol Succinate) 100 Mg Tab.er.24h 100 Mg PO DAILY Benztropine Mesylate 1 Mg Tablet 1 Mg PO [id number] Aspir-Low (Aspirin) 81 Mg Tablet. 1 Tab PO DAILY Diagnosis: Problems: (1) Anxiety disorder (2) Impulse control disorder (3) Psychosis, atypical (4) Unspecified psychosis (5) Dementia, vascular, with delusions (6) Lewy body dementia with behavioral disturbance (7) Obsessive compulsive disorder JOSE NOLASCO MD Nov 19, 2016 21:06
[2016-11-19] MEDS ORDERED: ACET325T9 PO (23:55)
[2016-11-19] MEDS ORDERED: CLOB15CR2 TP (23:59)
[2016-11-19] MEDS ORDERED: DIVA500T4 PO (23:59)
[2016-11-20] MEDS ORDERED: DONE10TA61 PO
[2016-11-20] MEDS ORDERED: MAGN400O7 PO (00:03)
[2016-11-20] MEDS ORDERED: MAG30ORA2 PO (00:03)
[2016-11-20] MEDS ORDERED: MEMA10TA PO (00:04)
[2016-11-20] MEDS ORDERED: METH29OI TP (00:05)
[2016-11-20] MEDS ORDERED: MIRT15TA3 PO (00:06)
[2016-11-20] MEDS ORDERED: LOSA100T2 PO (00:06)
[2016-11-20] MEDS ORDERED: FLUV50TA2 PO (00:10)
[2016-11-20] MEDS ORDERED: TRAZ-90 PO ×2 (00:11→00:12)
[2016-11-20] MEDS ORDERED: HYDR-2868 PO (00:11)
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
[2016-11-20 05:43] VITALS: BP 148/85
[2016-11-20] MEDS: ASPIRIN ENTERIC COATED 81 MG TABLET.DR. PO SCH (09:03)
[2016-11-20] MEDS: hydrALAZINE 25 MG TABLET PO SCH ×3 (09:04→19:51)
[2016-11-20] MEDS: PANTOPRAZOLE 40 MG TABLET. PO SCH (09:04)
[2016-11-20] MEDS: DONEPEZIL HCL 10 MG TABLET PO SCH (09:04)
[2016-11-20] MEDS: CLOBETASOL EMOLLIENT 0.05% TOPICAL CREAM 15GM TUBE. TP SCH ×2 (09:04→19:52)
[2016-11-20] MEDS: POTASSIUM CHLORIDE 20 MEQ TABLET.ER. PO SCH ×3 (09:04→19:51)
[2016-11-20] MEDS: amLODIPine BESYLATE 10 MG TABLET PO SCH (09:04)
[2016-11-20] MEDS: MAGNESIUM OXIDE 400 MG TABLET PO SCH ×3 (09:04→19:51)
[2016-11-20] MEDS: MEMANTINE 10 MG TABLET. PO SCH ×2 (09:05→19:51)
[2016-11-20] MEDS: LOSARTAN 50 MG TABLET. PO SCH (09:05)
[2016-11-20] MEDS: CETIRIZINE HCL 10 MG TABLET PO SCH (09:05)
[2016-11-20] MEDS: METOPROLOL SUCC 24HR ER 50 MG TAB.ER.24H. PO SCH (09:06)
[2016-11-20] MEDS: CYANOCOBALAMIN (VITAMIN B-12) 1,000 MCG TABLET. PO SCH (16:20)
[2016-11-20 16:46] VITALS: BP 149/54
[2016-11-20] MEDS: QUEtiapine 50 MG TABLET. PO SCH (19:50)
[2016-11-20] MEDS: ATORVASTATIN CALCIUM 10 MG TABLET. PO SCH (19:51)
[2016-11-20] MEDS: DIVALPROEX ER 500 MG TAB.ER.24H PO SCH (19:51)
[2016-11-20] MEDS: traZODone 100 MG TABLET. PO SCH (19:51)
[2016-11-20] MEDS: MIRTAZAPINE 15 MG TABLET PO SCH (19:52)
--- NOTE | 2016-11-20 20:58 | PDOC ---
Exam Serg Demential Exam: Serg Note: Please also refer to the separate dictated note~for this date of service dictated separately.~Patient seen individually. Discussed the patient with Nursing staff reviewed the chart.~Reviewed interim history and current functioning. Reviewed vital signs,~Labs/ Radiology~and current medications noted below. Continue current treatment with the changes noted in the dictated addendum note Assessment: Vital Signs: Vital Signs Date Time Temp Pulse Resp B/P (MAP) Pulse Ox O2 Delivery O2 Flow Rate FiO2 11/20/16 19:51 65 149/74 11/20/16 16:46 97.2 20 96 11/19/16 05:57 Room Air I&O Intake and Output 11/21/16 07:00 Intake Total 1560 ml Balance 1560 ml Intake Oral 1560 ml Current Medications: Meds: Current Medications Acetaminophen (Tylenol) 650 mg PRN Q6HRS PRN PO PAIN / TEMP Last administered on 11/05/16 15:40; Start 11/03/16 at 14:45 Multi-Ingredient Ointment (Analgesic [place]) 1 morenita PRN QID PRN TP MUSCLE PAIN; Start 11/03/16 at 14:45 Al Hydroxide/Mg Hydroxide (Mylanta Plus Xs) 15 ml PRN AFTMEALHC PRN PO DYSPEPSIA Last administered on 11/18/16 16:09; Start 11/03/16 at 14:45 Magnesium Hydroxide (Milk Of Magnesia) 2,400 mg PRN QHS PRN PO CONSTIPATION; Start 11/03/16 at 14:45 Aspirin (Aspirin Enteric Coated) 81 mg DAILY PO Last administered on 11/20/16 09:03; Start 11/04/16 at 09:00 Cetirizine HCl (ZyrTEC) 10 mg DAILY PO Last administered on 11/20/16 09:05; Start 11/04/16 at 09:00 Losartan Potassium (Cozaar) 100 mg DAILY PO Last administered on 11/20/16 09: 05; Start 11/04/16 at 09:00 Benztropine Mesylate (Cogentin) 1 mg [id number] PO Last administered on 11/04/16 06 :04; Start 11/04/16 at 07:00; Stop 11/04/16 at 12:16; Status DC Haloperidol (Haldol) 5 mg PRN Q2HR PRN PO psychosis Last administered on 21:18; Start 11/04/16 at 00:00 Lorazepam (Ativan) 0.25 mg PRN Q2HR PRN PO ANXIETY / AGITATION Last administered on 11/04/16 23:45; Start 11/04/16 at 00:00 Quetiapine Fumarate (SEROquel) 50 mg QHS PO ; Start 11/04/16 at 21:00; Stop at 21:00; Status DC Albuterol Sulfate (Ventolin Hfa) 2 puff Q1HR PRN IH SHORTNESS OF BREATH; Start 11/04/16 at 00:00; Status UNV Amlodipine Besylate (Norvasc) 10 mg DAILY PO Last administered on 11/20/16 09: 04; Start 11/04/16 at 09:00 Throat Lozenges (Cepacol Sore Throat Lozenge) 1 katty PRN Q2HR PRN PO sore throat ; Start 11/04/16 at 00:00 Acetaminophen/ Hydrocodone Bitart (Lortab 5/325) 1 tab PRN Q6HRS PRN PO SEVERE PAIN; Start 11/04/16 at 00:00 Magnesium Oxide (Magnesium Oxide) 400 mg TID PO Last administered on 11/20/16 19:51; Start 11/04/16 at 09:00 Pantoprazole Sodium (Protonix) 40 mg DAILYAC PO Last administered on 11/20/16 09:04; Start 11/04/16 at 07:30 Atorvastatin Calcium (Lipitor) 10 mg QHS PO Last administered on 11/20/16 19: 51; Start 11/04/16 at 21:00 Sodium Chloride (Saline Mist Nasal) 1 morenita PRN Q1HR PRN NS nasal congestion; Start 11/04/16 at 00:00 Metoprolol Succinate (Toprol Xl) 100 mg DAILY PO Last administered on 09:06; Start 11/04/16 at 09:00 Potassium Chloride (Klor-Con) 20 meq TID PO Last administered on 11/20/16 19: 51; Start 11/04/16 at 09:00 Albuterol Sulfate (Ventolin) 2.5 mg PRN Q1HR PRN NEB SHORTNESS OF BREATH Last administered on 11/06/16 20:59; Start 11/04/16 at 00:15 Rivastigmine (Exelon) 1 patch DAILY TD Last administered on 11/06/16 07:50; Start 11/05/16 at 09:00; Stop 11/06/16 at 18:07; Status DC Benztropine Mesylate (Cogentin) 1 mg DAILY PO Last administered on 11/06/16 07 :51; Start 11/05/16 at 09:00; Stop 11/06/16 at 15:28; Status DC Quetiapine Fumarate (SEROquel) 75 mg QHS PO Last administered on 11/08/16 19: 43; Start 11/04/16 at 21:00; Stop 11/09/16 at 18:09; Status DC Memantine (Namenda) 5 mg BID PO Last administered on 11/08/16 09:56; Start at 21:00; Stop 11/08/16 at 13:31; Status DC Hydralazine HCl (Apresoline) 25 mg TID PO Last administered on 11/20/16 19:51 ; Start 11/04/16 at 21:00 Clobetasol Propionate 1 morenita BID TP Last administered on 11/20/16 19:52; Start 11/04/16 at 21:00 Mirtazapine (Remeron) 7.5 mg QHS PO Last administered on 11/16/16 20:27; Start 11/05/16 at 21:00; Stop 11/17/16 at 20:13; Status DC Info (FLU VACCINE per PROTOCOL) 1 ea PRN 1X PRN MC PER PROTOCOL; Start at 12:45; Stop 11/10/16 at 09:14; Status DC Rivastigmine (Exelon) 1 patch DAILY TD Last administered on 11/19/16 07:48; Start 11/07/16 at 09:00; Stop 11/19/16 at 18:24; Status DC Trazodone HCl (Desyrel) 100 mg QHS PO Last administered on 11/20/16 19:51; Start 11/06/16 at 21:00 Trazodone HCl (Desyrel) 100 mg PRN QHS PRN PO INSOMNIA, MAY REPEAT X1 Last administered on 9/24/17at 21:18; Start 11/06/16 at 18:15 Memantine (Namenda) 10 mg BID PO Last administered on 11/20/16 19:51; Start at 21:00 Quetiapine Fumarate (SEROquel) 125 mg QHS PO Last administered on 11/11/16 19: 36; Start 11/09/16 at 21:00; Stop 11/12/16 at 18:12; Status DC Influenza Virus Vaccine Quadrival (Fluarix Quad Syringe) 0.5 ml 1X ONCE VAX IM ; Start 11/10/16 at 10:00; Stop 11/10/16 at 10:01; Status DC Influenza Virus Vaccine Quadrival (Fluarix Quad Syringe) 0.5 ml 1X ONCE VAX IM Last administered on 11/10/16 10:54; Start 11/10/16 at 11:00; Stop 11/10/16 at 11:01; Status DC Quetiapine Fumarate (SEROquel) 175 mg QHS PO Last administered on 11/18/16 19: 33; Start 11/12/16 at 21:00; Stop 11/19/16 at 18:19; Status DC Fluvoxamine Maleate (Luvox) 25 mg HS PO Last administered on 11/17/16 20:16; Start 11/14/16 at 21:00; Stop 11/18/16 at 12:39; Status DC Mirtazapine (Remeron) 7.5 mg QHS PO ; Start 11/17/16 at 21:00; Stop 11/17/16 at 21:00; Status DC Mirtazapine (Remeron) 15 mg QHS PO Last administered on 11/20/16 19:52; Start 11/17/16 at 21:00 Fluvoxamine Maleate (Luvox) 50 mg HS PO Last administered on 11/20/16 19:52; Start 11/18/16 at 21:00 Quetiapine Fumarate (SEROquel) 225 mg QHS PO Last administered on 11/20/16 19: 50; Start 11/19/16 at 21:00 Divalproex Sodium (Depakote Er) 500 mg QHS PO Last administered on 11/20/16 19 :51; Start 11/19/16 at 21:00 Donepezil HCl (Aricept) 10 mg DAILY PO Last administered on 11/20/16 09:04; Start 11/20/16 at 09:00 Cyanocobalamin (Vitamin B-12) 1,000 mcg [id number] PO Last administered on 16:20; Start 11/20/16 at 17:00 Active Scripts Active Reported Trazodone Hcl 100 Mg Tablet 100 Mg PO PRN QHS PRN Trazodone Hcl 100 Mg Tablet 100 Mg PO QHS Hydralazine Hcl 25 Mg Tablet 25 Mg PO TID Fluvoxamine Maleate 50 Mg Tablet 50 Mg PO QHS Mirtazapine 15 Mg Tablet 15 Mg PO QHS Cozaar (Losartan Potassium) 100 Mg Tablet 100 Mg PO DAILY Analgesic [place] (Methyl Salicylate/Menthol) 28 Gm Oint...g. 1 [place] TP PRN QID PRN Namenda (Memantine Hcl) 10 Mg Tablet 10 Mg PO BID Milk Of Magnesia (Magnesium Hydroxide) 400 Mg/5 Ml Oral.susp 2,400 Mg PO PRN QHS PRN Mag-Al Plus Xs Suspension (Mag Hydrox/Al Hydrox/Simeth) 30 Ml Oral.susp 15 Ml PO PRN AFTMEALHC PRN Aricept (Donepezil Hcl) 10 Mg Tablet 10 Mg PO DAILY Depakote Er (Divalproex Sodium) 500 Mg Tab.er.24h 500 Mg PO QHS Clobetasol Emollient 0.05% Crm (Clobetasol Propionate/Emoll) 15 Gm Cream..g. 1 [place] TP BID Tylenol (Acetaminophen) 325 Mg Tablet 650 Mg PO PRN Q6HRS PRN Amlodipine Besylate 10 Mg Tablet 10 Mg PO DAILY Saline Nasal [place] (Sodium Chloride) 30 Ml [place] 30 Ml NS Q1HR PRN Seroquel (Quetiapine Fumarate) 50 Mg Tablet 50 Mg PO QHS Potassium Chloride 10 Meq Capsule.er 20 Meq PO TID Protonix (Pantoprazole Sodium) 40 Mg Tablet.dr 40 Mg PO DAILYAC Magnesium Oxide 400 Mg Tablet 400 Mg PO TID Lorazepam 0.5 Mg Tablet 0.25 Mg PO PRN Q2HR PRN Hydrocodone-Apap 5-325 (Hydrocodone Bit/Acetaminophen) 1 Each Tablet 1 Tab PO PRN Q6HRS PRN Haloperidol 5 Mg Tablet 5 Mg PO PRN Q2HR PRN Cepacol Sore Throat Lozenge (Benzocaine/Menthol) 1 Each Lozenge 1 Each PO PRN Q2HR PRN Ventolin Hfa Inhaler (Albuterol Sulfate) 18 Gm Hfa.aer.ad 2.5 Mg IH Q1HR PRN Zyrtec (Cetirizine Hcl) 10 Mg Tablet 1 Tab PO DAILY Simvastatin 20 Mg Tablet 20 Mg PO QHS Metoprolol Succinate ( Xl ) (Metoprolol Succinate) 100 Mg Tab.er.24h 100 Mg PO DAILY Benztropine Mesylate 1 Mg Tablet 1 Mg PO [id number] Aspir-Low (Aspirin) 81 Mg Tablet.dr 1 Tab PO DAILY Diagnosis: Problems: (1) Anxiety disorder (2) Impulse control disorder (3) Psychosis, atypical (4) Unspecified psychosis (5) Dementia, vascular, with delusions (6) Lewy body dementia with behavioral disturbance (7) Obsessive compulsive disorder JOSE NOLASCO MD Nov 20, 2016 20:58
[2016-11-20] MEDS ORDERED: CYAN10005 PO (23:10)
[2016-11-20] MEDS ORDERED: QUET25TA5 PO (23:13)
[2016-11-20] MEDS ORDERED: QUET200T4 PO (23:13)
[2016-11-21 05:47] VITALS: BP 117/68
[2016-11-21] MEDS: LOSARTAN 50 MG TABLET. PO SCH (07:57)
[2016-11-21] MEDS: POTASSIUM CHLORIDE 20 MEQ TABLET.ER. PO SCH ×2 (07:57→13:04)
[2016-11-21] MEDS: ASPIRIN ENTERIC COATED 81 MG TABLET.DR. PO SCH (07:57)
[2016-11-21] MEDS: MAGNESIUM OXIDE 400 MG TABLET PO SCH ×2 (07:57→13:04)
[2016-11-21] MEDS: PANTOPRAZOLE 40 MG TABLET. PO SCH (07:57)
[2016-11-21] MEDS: DONEPEZIL HCL 10 MG TABLET PO SCH (07:57)
[2016-11-21] MEDS: CETIRIZINE HCL 10 MG TABLET PO SCH (07:58)
[2016-11-21] MEDS: hydrALAZINE 25 MG TABLET PO SCH ×2 (07:58→13:09)
[2016-11-21] MEDS: amLODIPine BESYLATE 10 MG TABLET PO SCH (07:58)
[2016-11-21] MEDS: MEMANTINE 10 MG TABLET. PO SCH (07:58)
[2016-11-21] MEDS: METOPROLOL SUCC 24HR ER 50 MG TAB.ER.24H. PO SCH (08:00)
[2016-11-21] MEDS: CLOBETASOL EMOLLIENT 0.05% TOPICAL CREAM 15GM TUBE. TP SCH (08:06)
[2016-11-21] MEDS: CYANOCOBALAMIN (VITAMIN B-12) 1,000 MCG TABLET. PO SCH (13:04)
[2016-11-21 13:07] VITALS: BP 128/56
[2016-11-21 13:09] VITALS: BP 128/56
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
--- NOTE | 2016-11-21 18:36 | PDOC ---
Exam Serg Demential Exam: Serg Note: Please also refer to the separate dictated note~for this date of service dictated separately.~Patient seen individually. Discussed the patient with Nursing staff reviewed the chart.~Reviewed interim history and current functioning. Reviewed vital signs,~Labs/ Radiology~and current medications noted below. Continue current treatment with the changes noted in the dictated addendum note Assessment: Vital Signs: Vital Signs Date Time Temp Pulse Resp B/P (MAP) Pulse Ox O2 Delivery O2 Flow Rate FiO2 11/21/16 13:09 68 128/56 11/21/16 13:07 98.4 16 96 Room Air I&O Intake and Output 11/22/16 07:00 Intake Total 840 ml Balance 840 ml Intake Oral 840 ml Current Medications: Meds: Current Medications Acetaminophen (Tylenol) 650 mg PRN Q6HRS PRN PO PAIN / TEMP Last administered on 11/05/16 15:40; Start 11/03/16 at 14:45; Stop 11/21/16 at 14:50; Status DC Multi-Ingredient Ointment (Analgesic [place]) 1 morenita PRN QID PRN TP MUSCLE PAIN; Start 11/03/16 at 14:45; Stop 11/21/16 at 14:50; Status DC Al Hydroxide/Mg Hydroxide (Mylanta Plus Xs) 15 ml PRN AFTMEALHC PRN PO DYSPEPSIA Last administered on 11/18/16 16:09; Start 11/03/16 at 14:45; Stop 11/21/16 at 14:50; Status DC Magnesium Hydroxide (Milk Of Magnesia) 2,400 mg PRN QHS PRN PO CONSTIPATION; Start 11/03/16 at 14:45; Stop 11/21/16 at 14:50; Status DC Aspirin (Aspirin Enteric Coated) 81 mg DAILY PO Last administered on 11/21/16 07:57; Start 11/04/16 at 09:00; Stop 11/21/16 at 14:50; Status DC Cetirizine HCl (ZyrTEC) 10 mg DAILY PO Last administered on 11/21/16 07:58; Start 11/04/16 at 09:00; Stop 11/21/16 at 14:50; Status DC Losartan Potassium (Cozaar) 100 mg DAILY PO Last administered on 10/3/17at 07: 57; Start 11/04/16 at 09:00; Stop 11/21/16 at 14:50; Status DC Benztropine Mesylate (Cogentin) 1 mg [id number] PO Last administered on 11/04/16 06 :04; Start 11/04/16 at 07:00; Stop 11/04/16 at 12:16; Status DC Haloperidol (Haldol) 5 mg PRN Q2HR PRN PO psychosis Last administered on 21:18; Start 11/04/16 at 00:00; Stop 11/21/16 at 14:50; Status DC Lorazepam (Ativan) 0.25 mg PRN Q2HR PRN PO ANXIETY / AGITATION Last administered on 11/04/16 23:45; Start 11/04/16 at 00:00; Stop 11/21/16 at 14:50 ; Status DC Quetiapine Fumarate (SEROquel) 50 mg QHS PO ; Start 11/04/16 at 21:00; Stop at 21:00; Status DC Albuterol Sulfate (Ventolin Hfa) 2 puff Q1HR PRN IH SHORTNESS OF BREATH; Start 11/04/16 at 00:00; Status UNV Amlodipine Besylate (Norvasc) 10 mg DAILY PO Last administered on 11/21/16 07: 58; Start 11/04/16 at 09:00; Stop 11/21/16 at 14:50; Status DC Throat Lozenges (Cepacol Sore Throat Lozenge) 1 katty PRN Q2HR PRN PO sore throat ; Start 11/04/16 at 00:00; Stop 11/21/16 at 14:50; Status DC Acetaminophen/ Hydrocodone Bitart (Lortab 5/325) 1 tab PRN Q6HRS PRN PO SEVERE PAIN; Start 11/04/16 at 00:00; Stop 11/21/16 at 14:50; Status DC Magnesium Oxide (Magnesium Oxide) 400 mg TID PO Last administered on 11/21/16 13:04; Start 11/04/16 at 09:00; Stop 11/21/16 at 14:50; Status DC Pantoprazole Sodium (Protonix) 40 mg DAILYAC PO Last administered on 11/21/16 07:57; Start 11/04/16 at 07:30; Stop 11/21/16 at 14:50; Status DC Atorvastatin Calcium (Lipitor) 10 mg QHS PO Last administered on 11/20/16 19: 51; Start 11/04/16 at 21:00; Stop 11/21/16 at 14:50; Status DC Sodium Chloride (Saline Mist Nasal) 1 morenita PRN Q1HR PRN NS nasal congestion; Start 11/04/16 at 00:00; Stop 11/21/16 at 14:50; Status DC Metoprolol Succinate (Toprol Xl) 100 mg DAILY PO Last administered on 08:00; Start 11/04/16 at 09:00; Stop 11/21/16 at 14:50; Status DC Potassium Chloride (Klor-Con) 20 meq TID PO Last administered on 11/21/16 13: 04; Start 11/04/16 at 09:00; Stop 11/21/16 at 14:50; Status DC Albuterol Sulfate (Ventolin) 2.5 mg PRN Q1HR PRN NEB SHORTNESS OF BREATH Last administered on 11/06/16 20:59; Start 11/04/16 at 00:15; Stop 11/21/16 at 14:50 ; Status DC Rivastigmine (Exelon) 1 patch DAILY TD Last administered on 11/06/16 07:50; Start 11/05/16 at 09:00; Stop 11/06/16 at 18:07; Status DC Benztropine Mesylate (Cogentin) 1 mg DAILY PO Last administered on 11/06/16 07 :51; Start 11/05/16 at 09:00; Stop 11/06/16 at 15:28; Status DC Quetiapine Fumarate (SEROquel) 75 mg QHS PO Last administered on 11/08/16 19: 43; Start 11/04/16 at 21:00; Stop 11/09/16 at 18:09; Status DC Memantine (Namenda) 5 mg BID PO Last administered on 11/08/16 09:56; Start at 21:00; Stop 11/08/16 at 13:31; Status DC Hydralazine HCl (Apresoline) 25 mg TID PO Last administered on 11/21/16 13:09 ; Start 11/04/16 at 21:00; Stop 11/21/16 at 14:50; Status DC Clobetasol Propionate 1 morenita BID TP Last administered on 11/21/16 08:06; Start 11/04/16 at 21:00; Stop 11/21/16 at 14:50; Status DC Mirtazapine (Remeron) 7.5 mg QHS PO Last administered on 11/16/16 20:27; Start 11/05/16 at 21:00; Stop 11/17/16 at 20:13; Status DC Info (FLU VACCINE per PROTOCOL) 1 ea PRN 1X PRN MC PER PROTOCOL; Start at 12:45; Stop 11/10/16 at 09:14; Status DC Rivastigmine (Exelon) 1 patch DAILY TD Last administered on 11/19/16 07:48; Start 11/07/16 at 09:00; Stop 11/19/16 at 18:24; Status DC Trazodone HCl (Desyrel) 100 mg QHS PO Last administered on 11/20/16 19:51; Start 11/06/16 at 21:00; Stop 11/21/16 at 14:50; Status DC Trazodone HCl (Desyrel) 100 mg PRN QHS PRN PO INSOMNIA, MAY REPEAT X1 Last administered on 11/12/16 21:18; Start 11/06/16 at 18:15; Stop 11/21/16 at 14:50 ; Status DC Memantine (Namenda) 10 mg BID PO Last administered on 11/21/16 07:58; Start at 21:00; Stop 11/21/16 at 14:50; Status DC Quetiapine Fumarate (SEROquel) 125 mg QHS PO Last administered on 11/11/16 19: 36; Start 11/09/16 at 21:00; Stop 11/12/16 at 18:12; Status DC Influenza Virus Vaccine Quadrival (Fluarix Quad Syringe) 0.5 ml 1X ONCE VAX IM ; Start 11/10/16 at 10:00; Stop 11/10/16 at 10:01; Status DC Influenza Virus Vaccine Quadrival (Fluarix Quad Syringe) 0.5 ml 1X ONCE VAX IM Last administered on 11/10/16 10:54; Start 11/10/16 at 11:00; Stop 11/10/16 at 11:01; Status DC Quetiapine Fumarate (SEROquel) 175 mg QHS PO Last administered on 11/18/16 19: 33; Start 11/12/16 at 21:00; Stop 11/19/16 at 18:19; Status DC Fluvoxamine Maleate (Luvox) 25 mg HS PO Last administered on 11/17/16 20:16; Start 11/14/16 at 21:00; Stop 11/18/16 at 12:39; Status DC Mirtazapine (Remeron) 7.5 mg QHS PO ; Start 11/17/16 at 21:00; Stop 11/17/16 at 21:00; Status DC Mirtazapine (Remeron) 15 mg QHS PO Last administered on 11/20/16 19:52; Start 11/17/16 at 21:00; Stop 11/21/16 at 14:50; Status DC Fluvoxamine Maleate (Luvox) 50 mg HS PO Last administered on 11/20/16 19:52; Start 11/18/16 at 21:00; Stop 11/21/16 at 14:50; Status DC Quetiapine Fumarate (SEROquel) 225 mg QHS PO Last administered on 11/20/16 19: 50; Start 11/19/16 at 21:00; Stop 11/21/16 at 14:50; Status DC Divalproex Sodium (Depakote Er) 500 mg QHS PO Last administered on 11/20/16 19 :51; Start 11/19/16 at 21:00; Stop 11/21/16 at 14:50; Status DC Donepezil HCl (Aricept) 10 mg DAILY PO Last administered on 11/21/16 07:57; Start 11/20/16 at 09:00; Stop 11/21/16 at 14:50; Status DC Cyanocobalamin (Vitamin B-12) 1,000 mcg DAILYBFRSUP PO Last administered on 13:04; Start 11/20/16 at 17:00; Stop 11/21/16 at 14:50; Status DC Active Scripts Active Reported Seroquel (Quetiapine Fumarate) 200 Mg Tablet 200 Mg PO QHS Seroquel (Quetiapine Fumarate) 25 Mg Tablet 25 Mg PO QHS Vitamin B-12 (Cyanocobalamin (Vitamin B-12)) 1,000 Mcg Tablet 1,000 Mcg PO DAILYBFRSUP Trazodone Hcl 100 Mg Tablet 100 Mg PO PRN QHS PRN Trazodone Hcl 100 Mg Tablet 100 Mg PO QHS Hydralazine Hcl 25 Mg Tablet 25 Mg PO TID Fluvoxamine Maleate 50 Mg Tablet 50 Mg PO QHS Mirtazapine 15 Mg Tablet 15 Mg PO QHS Cozaar (Losartan Potassium) 100 Mg Tablet 100 Mg PO DAILY Analgesic [place] (Methyl Salicylate/Menthol) 28 Gm Oint...g. 1 Morenita TP PRN QID PRN Namenda (Memantine Hcl) 10 Mg Tablet 10 Mg PO BID Milk Of Magnesia (Magnesium Hydroxide) 400 Mg/5 Ml Oral.susp 2,400 Mg PO PRN QHS PRN Mag-Al Plus Xs Suspension (Mag Hydrox/Al Hydrox/Simeth) 30 Ml Oral.susp 15 Ml PO PRN AFTMEALHC PRN Aricept (Donepezil Hcl) 10 Mg Tablet 10 Mg PO DAILY Depakote Er (Divalproex Sodium) 500 Mg Tab.er.24h 500 Mg PO QHS Clobetasol Emollient 0.05% Crm (Clobetasol Propionate/Emoll) 15 Gm Cream..g. 1 Morenita TP BID Tylenol (Acetaminophen) 325 Mg Tablet 650 Mg PO PRN Q6HRS PRN MDD 4000mg Amlodipine Besylate 10 Mg Tablet 10 Mg PO DAILY Saline Nasal Huslia (Sodium Chloride) 30 Ml Huslia 1 Huslia NS Q1HR PRN Potassium Chloride 10 Meq Capsule.er 20 Meq PO TID Protonix (Pantoprazole Sodium) 40 Mg Tablet.dr 40 Mg PO DAILYAC Magnesium Oxide 400 Mg Tablet 400 Mg PO TID Lorazepam 0.5 Mg Tablet 0.25 Mg PO PRN Q4HRS PRN Hydrocodone-Apap 5-325 (Hydrocodone Bit/Acetaminophen) 1 Each Tablet 1 Tab PO PRN Q6HRS PRN Haloperidol 5 Mg Tablet 5 Mg PO PRN Q2HR PRN Cepacol Sore Throat Lozenge (Benzocaine/Menthol) 1 Each Lozenge 1 Each PO PRN Q2HR PRN Ventolin Hfa Inhaler (Albuterol Sulfate) 18 Gm Hfa.aer.ad 1 Puff IH PRN Q1HR PRN Zyrtec (Cetirizine Hcl) 10 Mg Tablet 10 Mg PO DAILY Simvastatin 20 Mg Tablet 20 Mg PO QHS Metoprolol Succinate ( Xl ) (Metoprolol Succinate) 100 Mg Tab.er.24h 100 Mg PO DAILY Aspir-Low (Aspirin) 81 Mg Tablet.dr 81 Mg PO DAILY Diagnosis: Problems: (1) Obsessive compulsive disorder (2) Lewy body dementia with behavioral disturbance (3) Dementia, vascular, with delusions (4) Unspecified psychosis (5) Psychosis, atypical (6) Impulse control disorder (7) Anxiety disorder JOSE NOLASCO MD Nov 21, 2016 18:36
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
== END 2016-11-21 14:49 | disposition home or self-care (01) | DRG 884 ==
LOC: GEROPSY 14:12
PROVIDERS: ADMIT Psychiatry & Neurology Psychiatry; ATTEND Psychiatry & Neurology Psychiatry
DX: F01.51 Vascular dementia, unspecified severity, with behavioral disturbance (principal); F02.81 Dementia in other diseases classified elsewhere, unspecified severity, with behavioral disturbance; G31.83 Neurocognitive disorder with Lewy bodies; F31.60 Bipolar disorder, current episode mixed, unspecified; F23 Brief psychotic disorder; E78.5 Hyperlipidemia, unspecified; F22 Delusional disorders; F41.9 Anxiety disorder, unspecified; F42.9 Obsessive-compulsive disorder, unspecified; F63.9 Impulse disorder, unspecified; I10 Essential (primary) hypertension; K21.9 Gastro-esophageal reflux disease without esophagitis; I25.10 Atherosclerotic heart disease of native coronary artery without angina pectoris; Z88.0 Allergy status to penicillin; I25.2 Old myocardial infarction; Z79.899 Other long term (current) drug therapy; Z87.891 Personal history of nicotine dependence; Z82.49 Family history of ischemic heart disease and other diseases of the circulatory system; Z82.62 Family history of osteoporosis
CPT/HCPCS: 36415; 70450; 80048; 80053; 80061; 82306; 82607; 83036; 83540; 83550; 83735; 84436; 84443; 84480; 85025; 86592; 86593; 90686; J7613

== ENCOUNTER 2016-11-22 08:32 | Inpatient (IN) | payer MEDICARE ==
[~2016-11-22] VITALS: Ht 167.6 cm; Wt 88.0 kg
[~2016-11-22 08:32] MED LIST changes: +ACET325T9 PO; +ALBU18HF IH; +AMLO10TA2 PO; +BENZ1LOZ48 PO; +CLOB15CR2 TP; +CYAN10005 PO; +DIVA500T4 PO; +DONE10TA61 PO; +FLUV50TA2 PO; +HALO5TAB PO; +HYDR-2758 PO; +HYDR-2868 PO; +LORA0.5T PO; +LOSA100T2 PO; +MAG30ORA2 PO; +MAGN400O7 PO; +MAGN400T3 PO; +MEMA10TA PO; +METH29OI TP; +MIRT15TA3 PO; +PANT40TA3 PO; +POTA10CA PO; +QUET200T4 PO; +QUET25TA5 PO; +QUET50TA5 PO; +SODI30SP NS; +TRAZ-90 PO
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
[2016-11-22] MEDS ORDERED: ACETAMINOPHEN 325 MG TABLET PO PRN ×2 (09:45→10:00)
[2016-11-22] MEDS ORDERED: METHYL SALICYLATE/MENTHOL TOPICAL OINTMENT 29GM TUBE. TP PRN ×2 (09:45→10:00)
[2016-11-22] MEDS ORDERED: MAGNESIUM HYDROXIDE 2,400 MG/30 ML ORAL.SUSP. PO PRN ×2 (09:45→10:00)
[2016-11-22] MEDS ORDERED: MAG HYDROX/AL HYDROX/SIMETH 30 ML ORAL.SUSP PO PRN (09:45)
[2016-11-22] MEDS ORDERED: BENZOCAINE/MENTHOL LOZENGE 16'S BOX. PO PRN (10:00)
[2016-11-22] MEDS ORDERED: LORazepam 0.5 MG TABLET PO PRN (10:00)
[2016-11-22] MEDS ORDERED: ALBUTEROL SULFATE 8GM INHALER. IH PRN (10:00)
[2016-11-22] MEDS ORDERED: HALOPERIDOL 5 MG TABLET PO PRN (10:00)
[2016-11-22] MEDS ORDERED: SODIUM CHLORIDE 0.65% NASAL SPRAY 45ML BOTTLE. NS PRN (10:00)
[2016-11-22] MEDS ORDERED: traZODone 100 MG TABLET. PO PRN (10:00)
[2016-11-22] MEDS ORDERED: HYDROcodone/APAP 5/325MG 1 TAB TABLET PO PRN (10:00)
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
--- NOTE | 2016-11-22 10:11 | NUR ---
When assessed, pt A/Ox4. Pt stated he was here because he had an "episode" last night. Pt states that "Hutch" was with him last night. Pt states that he cannot see or hear Hutch, but that he's always there. Pt states that Hutch wants him "committed." Pt once again stated that he does not want to stay here again. He is here to get his labs drawn and will leave. Will continue to monitor.
[2016-11-22 10:30] LABS: BASO % 1 % (0-3); EOS # 0.2 x10^3/uL (0.0-0.7); EOS % 4 % (0-3); HEMATOCRIT 33.3 % (39.0-53.0); HEMOGLOBIN 11.8 g/dL (13.0-17.5); LYMPH # 0.8 x10^3/uL (1.0-4.8); LYMPH % 14 % (24-48); MEAN CORPUSCULAR HEMOGLOBIN 31 pg (25-35); MEAN CORPUSCULAR HGB CONC 35 g/dL (31-37); MEAN CORPUSCULAR VOLUME 88 fL (79-100); MONO # 0.6 x10^3/uL (0.0-1.1); MONO % 11 % (0-9); NEUT # 4.1 x10^3uL (1.8-7.7); NEUT % 71 % (31-73); PLATELET COUNT 235 x10^3/uL (140-400); WHITE BLOOD COUNT 5.8 x10^3/uL (4.0-11.0)
[2016-11-22 10:44] LABS: ALBUMIN 3.6 g/dL (3.4-5.0); CALCIUM 8.7 mg/dL (8.5-10.1); CREATININE 1.1 mg/dL (0.7-1.3); MAGNESIUM 2.1 mg/dL (1.8-2.4); TOTAL BILIRUBIN 0.3 mg/dL (0.2-1.0); TOTAL PROTEIN 7.2 g/dL (6.4-8.2); VAL ACID 43 mcg/mL (50-100)
[2016-11-22] MEDS ORDERED: ALBUTEROL SULFATE 2.5 MG/3 ML NEBU. NEB PRN (10:45)
[2016-11-22 10:55] VITALS: BP 167/69
[2016-11-22] MEDS: LOSARTAN 50 MG TABLET. PO SCH (11:01)
[2016-11-22] MEDS: MEMANTINE 10 MG TABLET. PO SCH ×2 (11:02→20:44)
[2016-11-22] MEDS: MAGNESIUM OXIDE 400 MG TABLET PO SCH ×3 (11:02→20:44)
[2016-11-22] MEDS: METOPROLOL SUCC 24HR ER 50 MG TAB.ER.24H. PO SCH (11:02)
[2016-11-22] MEDS: amLODIPine BESYLATE 10 MG TABLET PO SCH (11:02)
[2016-11-22] MEDS: PANTOPRAZOLE 40 MG TABLET. PO SCH (11:02)
[2016-11-22] MEDS: DONEPEZIL HCL 10 MG TABLET PO SCH (11:03)
[2016-11-22] MEDS: POTASSIUM CHLORIDE 20 MEQ TABLET.ER. PO SCH ×3 (11:03→20:44)
[2016-11-22] MEDS: ASPIRIN ENTERIC COATED 81 MG TABLET.DR. PO SCH (11:03)
[2016-11-22] MEDS: CLOBETASOL EMOLLIENT 0.05% TOPICAL CREAM 15GM TUBE. TP SCH ×2 (11:03→20:48)
[2016-11-22] MEDS: CETIRIZINE HCL 10 MG TABLET PO SCH (11:03)
[2016-11-22] MEDS: hydrALAZINE 25 MG TABLET PO SCH ×3 (11:03→20:44)
--- NOTE | 2016-11-22 11:32 | NUR ---
Patient observed to be sleeping in bed and snoring loudly. When he awoke, pt asked what time lunch would be served. Pt compliant with medications given whole with water. Reiterated that he is NOT staying here.
--- NOTE | 2016-11-22 12:00 | EKG ---
[address] [address] Test Date: 2016-11-22 Test Time: 10:15:48 Pat Name: GEOVANNI ROQUE Department: [facility] Gender: M Environmental Conflict Manager: JACKIE : 1950 Requested By: JOSE NOLASCO Order Number: [id number] Reading MD: Measurements Intervals [place] Rate: 78 P: -3 DC: 198 QRS: -21 QRSD: 90 T: 74 QT: 376 QTc: 432 Interpretive Statements SINUS RHYTHM LEFTWARD AXIS QRS(T) CONTOUR ABNORMALITY CONSIDER ANTEROSEPTAL MYOCARDIAL DAMAGE T ABNORMALITY IN HIGH LATERAL LEADS ABNORMAL ECG RI6.01 No previous ECG available for comparison
[2016-11-22 13:45] LABS: THYROID STIM HORMONE (TSH) 3.518 uIU/mL (0.358-3.740)
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
[2016-11-22 15:30] VITALS: BP 159/64
[2016-11-22] MEDS: CYANOCOBALAMIN (VITAMIN B-12) 1,000 MCG TABLET. PO SCH (15:33)
[2016-11-22 15:52] LABS: BILIRUBIN,URINE NEG (NEG); CLARITY,URINE HAZY; COLOR,URINE YELLOW; GLUCOSE,URINE 100 mg/dL (NEG)
[2016-11-22 15:53] LABS: BACTERIA,URINE 0 /HPF (0-FEW); NITRITE,URINE NEG (NEG); RBC,URINE OCC /HPF (0-2); SQUAMOUS EPITHELIAL CELL,UR OCC /LPF; UROBILINOGEN,URINE 0.2 mg/dL (0.2 mg/dL); WBC,URINE OCC /HPF (0-4)
[2016-11-22 16:27] VITALS: BP 159/64
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
--- NOTE | 2016-11-22 16:59 | NUR ---
SW reviewed pt insurance information, pt has Medicare primary per Face sheet, [employer].
[2016-11-22 19:11] LABS: THYROXINE 7.1 ug/dL (4.5-12.0)
[2016-11-22] MEDS: MIRTAZAPINE 15 MG TABLET PO SCH (20:47)
[2016-11-22] MEDS: DIVALPROEX ER 250 MG TAB.ER.24H. PO SCH (20:47)
[2016-11-22] MEDS: QUEtiapine 100 MG TABLET. PO SCH (20:47)
[2016-11-22] MEDS: traZODone 100 MG TABLET. PO SCH (20:47)
[2016-11-22] MEDS: SIMVASTATIN 20 MG TABLET PO SCH (20:48)
--- NOTE | 2016-11-22 20:54 | PDOC ---
Exam Serg Demential Exam: Serg Note: Please also refer to the separate dictated note~for this date of service dictated separately.~Patient seen individually. Discussed the patient with Nursing staff reviewed the chart.~Reviewed interim history and current functioning. Reviewed vital signs,~Labs/ Radiology~and current medications noted below. Continue current treatment with the changes noted in the dictated addendum note Assessment: Vital Signs: Vital Signs Date Time Temp Pulse Resp B/P (MAP) Pulse Ox O2 Delivery O2 Flow Rate FiO2 11/22/16 20:44 72 159/64 11/22/16 16:27 98.7 18 96 I&O Intake and Output 11/23/16 07:00 Intake Total 720 ml Balance 720 ml Intake Oral 720 ml Labs: Laboratory Tests Test 11/22/16 09:56 11/22/16 15:15 White Blood Count 5.8 x10^3/uL (4.0-11.0) Red Blood Count 3.80 x10^6/uL (4.30-5.70) L Hemoglobin 11.8 g/dL (13.0-17.5) L Hematocrit 33.3 % (39.0-53.0) L Mean Corpuscular Volume 88 fL (79-100) Mean Corpuscular Hemoglobin 31 pg (25-35) Mean Corpuscular Hemoglobin Concent 35 g/dL (31-37) Red Cell Distribution Width 14.0 % (11.5-14.5) Platelet Count 235 x10^3/uL (140-400) Neutrophils (%) (Auto) 71 % (31-73) Lymphocytes (%) (Auto) 14 % (24-48) L Monocytes (%) (Auto) 11 % (0-9) H Eosinophils (%) (Auto) 4 % (0-3) H Basophils (%) (Auto) 1 % (0-3) Neutrophils # (Auto) 4.1 x10^3uL (1.8-7.7) Lymphocytes # (Auto) 0.8 x10^3/uL (1.0-4.8) L Monocytes # (Auto) 0.6 x10^3/uL (0.0-1.1) Eosinophils # (Auto) 0.2 x10^3/uL (0.0-0.7) Basophils # (Auto) 0.0 x10^3/uL (0.0-0.2) Sodium Level 135 mmol/L (136-145) L Potassium Level 4.0 mmol/L (3.5-5.1) Chloride Level 99 mmol/L (98-107) Carbon Dioxide Level 25 mmol/L (21-32) Anion Gap 11 (6-14) Blood Urea Nitrogen 14 mg/dL (8-26) Creatinine 1.1 mg/dL (0.7-1.3) Estimated GFR (Cockcroft-Gault) 67.0 BUN/Creatinine Ratio 13 (6-20) Glucose Level 109 mg/dL (70-99) H Calcium Level 8.7 mg/dL (8.5-10.1) Magnesium Level 2.1 mg/dL (1.8-2.4) Iron Level 63 ug/dL (65-175) L Total Iron Binding Capacity 231 ug/dL (250-450) L Iron Saturation 27 % (15-34) Total Bilirubin 0.3 mg/dL (0.2-1.0) Aspartate Amino Transferase (AST) 23 U/L (15-37) Alanine Aminotransferase (ALT) 44 U/L (16-63) Alkaline Phosphatase 62 U/L (46-116) Total Protein 7.2 g/dL (6.4-8.2) Albumin 3.6 g/dL (3.4-5.0) Albumin/Globulin Ratio 1.0 (1.0-1.7) Triglycerides Level 66 mg/dL (0-150) Cholesterol Level 134 mg/dL (0-200) LDL Cholesterol, Calculated 70 mg/dL (0-100) VLDL Cholesterol, Calculated 13 mg/dL (0-40) Non-HDL Cholesterol Calculated 83 mg/dL (0-129) HDL Cholesterol 51 mg/dL (40-60) Cholesterol/HDL Ratio 2.0 Vitamin B12 Level 388 pg/mL (247-911) 25-Hydroxy Vitamin D Total Pending Thyroid Stimulating Hormone (TSH) 3.518 uIU/mL (0.358-3.740) Thyroxine (T4) 7.1 ug/dL (4.5-12.0) Total Triiodothyronine (TT3) 115 ng/dL (71-180) Valproic Acid Level 43 mcg/mL (50-100) L Valproic Acid Last Dose Date 11/21/2016 Valproic Acid Last Dose Time 2100 Urine Collection Type Unknown Urine Color Yellow Urine Clarity Hazy Urine pH 6.5 Urine Specific Beatty 1.015 Urine Protein Neg (NEG-TRACE) Urine Glucose (UA) 100 mg/dL (NEG) Urine Ketones (Stick) Neg mg/dL (NEG) Urine Blood Neg (NEG) Urine Nitrite Neg (NEG) Urine Bilirubin Neg (NEG) Urine Urobilinogen Dipstick 0.2 mg/dL (0.2 mg/dL) Urine Leukocyte Esterase Neg (NEG) Urine RBC Occ /HPF (0-2) Urine WBC Occ /HPF (0-4) Urine Squamous Epithelial Cells Occ /LPF Urine Bacteria 0 /HPF (0-FEW) Current Medications: Meds: Current Medications Acetaminophen (Tylenol) 650 mg PRN Q6HRS PRN PO PAIN / TEMP; Start 11/22/16 at 09:45; Status Cancel Multi-Ingredient Ointment (Analgesic Beacon) 1 morenita PRN QID PRN TP MUSCLE PAIN; Start 11/22/16 at 09:45; Status Cancel Al Hydroxide/Mg Hydroxide (Mylanta Plus Xs) 15 ml PRN AFTMEALHC PRN PO DYSPEPSIA; Start 11/22/16 at 09:45; Status Cancel Magnesium Hydroxide (Milk Of Magnesia) 2,400 mg PRN QHS PRN PO CONSTIPATION; Start 11/22/16 at 09:45; Status Cancel Acetaminophen (Tylenol) 650 mg PRN Q6HRS PRN PO PAIN / TEMP; Start 11/22/16 at 10:00 Albuterol Sulfate (Ventolin Hfa) 1 puff PRN Q1HR PRN IH SHORTNESS OF BREATH; Start 11/22/16 at 10:00; Status UNV Amlodipine Besylate (Norvasc) 10 mg DAILY PO Last administered on 11/22/16 11: 02; Start 11/22/16 at 10:30 Aspirin (Aspirin Enteric Coated) 81 mg DAILY PO Last administered on 11/22/16 11:03; Start 11/22/16 at 10:30 Throat Lozenges (Cepacol Sore Throat Lozenge) 1 katty PRN Q2HR PRN PO sore throat ; Start 11/22/16 at 10:00 Cetirizine HCl (ZyrTEC) 10 mg DAILY PO Last administered on 11/22/16 11:03; Start 11/22/16 at 10:30 Clobetasol Propionate 1 morenita BID TP Last administered on 11/22/16 20:48; Start 11/22/16 at 11:00 Cyanocobalamin (Vitamin B-12) 1,000 mcg DAILYBFRSUP PO Last administered on 15:33; Start 11/22/16 at 17:00 Divalproex Sodium (Depakote Er) 500 mg QHS PO ; Start 11/22/16 at 21:00; Stop 11/22/16 at 21:00; Status DC Donepezil HCl (Aricept) 10 mg DAILY PO Last administered on 11/22/16 11:03; Start 11/22/16 at 10:30 Haloperidol (Haldol) 5 mg PRN Q2HR PRN PO PSYCHOSIS; Start 11/22/16 at 10:00 Hydralazine HCl (Apresoline) 25 mg TID PO Last administered on 11/22/16 20:44 ; Start 11/22/16 at 10:30 Acetaminophen/ Hydrocodone Bitart (Lortab 5/325) 1 tab PRN Q6HRS PRN PO PAIN; Start 11/22/16 at 10:00 Lorazepam (Ativan) 0.25 mg PRN Q4HRS PRN PO ANXIETY / AGITATION; Start at 10:00 Al Hydroxide/Mg Hydroxide (Mylanta Plus Xs) 15 ml PRN AFTMEALHC PRN PO DYSPEPSIA; Start 11/22/16 at 10:00 Magnesium Hydroxide (Milk Of Magnesia) 2,400 mg PRN QHS PRN PO CONSTIPATION; Start 11/22/16 at 10:00 Magnesium Oxide (Magnesium Oxide) 400 mg TID PO Last administered on 11/22/16 20:44; Start 11/22/16 at 10:30 Memantine (Namenda) 10 mg BID PO Last administered on 11/22/16 20:44; Start 11/22/16 at 10:30 Multi-Ingredient Ointment (Analgesic Beacon) 1 morenita PRN QID PRN TP MUSCLE PAIN; Start 11/22/16 at 10:00 Mirtazapine (Remeron) 15 mg QHS PO Last administered on 11/22/16 20:47; Start 11/22/16 at 21:00 Pantoprazole Sodium (Protonix) 40 mg DAILYAC PO Last administered on 11/22/16 11:02; Start 11/22/16 at 11:00 Quetiapine Fumarate (SEROquel) 25 mg QHS PO Last administered on 11/22/16 20: 47; Start 11/22/16 at 21:00 Simvastatin (Zocor) 20 mg QHS PO Last administered on 11/22/16 20:48; Start 11/22/16 at 21:00 Sodium Chloride (Saline Mist Nasal) 1 morenita Q1HR PRN NS Nasal Congestion; Start 11/22/16 at 10:00 Trazodone HCl (Desyrel) 100 mg PRN QHS PRN PO INSOMNIA, MAY REPEAT X1; Start 11/22/16 at 10:00 Trazodone HCl (Desyrel) 100 mg QHS PO Last administered on 11/22/16 20:47; Start 11/22/16 at 21:00 Fluvoxamine Maleate (Luvox) 50 mg QHS PO Last administered on 11/22/16 20:47; Start 11/22/16 at 21:00 Losartan Potassium (Cozaar) 100 mg DAILY PO Last administered on 11/22/16 11: 01; Start 11/22/16 at 10:30 Metoprolol Succinate (Toprol Xl) 100 mg DAILY PO Last administered on 11:02; Start 11/22/16 at 10:30 Potassium Chloride (Klor-Con) 20 meq TID PO Last administered on 11/22/16 20: 44; Start 11/22/16 at 10:30 Quetiapine Fumarate (SEROquel) 200 mg QHS PO Last administered on 11/22/16 20: 47; Start 11/22/16 at 21:00 Albuterol Sulfate (Ventolin) 2.5 mg PRN Q1HR PRN NEB SHORTNESS OF BREATH; Start 11/22/16 at 10:45 Divalproex Sodium (Depakote Er) 750 mg QHS PO Last administered on 11/22/16 20 :47; Start 11/22/16 at 21:00 Active Scripts Active Reported Seroquel (Quetiapine Fumarate) 200 Mg Tablet 200 Mg PO QHS Seroquel (Quetiapine Fumarate) 25 Mg Tablet 25 Mg PO QHS Vitamin B-12 (Cyanocobalamin (Vitamin B-12)) 1,000 Mcg Tablet 1,000 Mcg PO DAILYBFRSUP Trazodone Hcl 100 Mg Tablet 100 Mg PO PRN QHS PRN Trazodone Hcl 100 Mg Tablet 100 Mg PO QHS Hydralazine Hcl 25 Mg Tablet 25 Mg PO TID Fluvoxamine Maleate 50 Mg Tablet 50 Mg PO QHS Mirtazapine 15 Mg Tablet 15 Mg PO QHS Cozaar (Losartan Potassium) 100 Mg Tablet 100 Mg PO DAILY Analgesic Beacon (Methyl Salicylate/Menthol) 28 Gm Oint...g. 1 Morenita TP PRN QID PRN Namenda (Memantine Hcl) 10 Mg Tablet 10 Mg PO BID Milk Of Magnesia (Magnesium Hydroxide) 400 Mg/5 Ml Oral.susp 2,400 Mg PO PRN QHS PRN Mag-Al Plus Xs Suspension (Mag Hydrox/Al Hydrox/Simeth) 30 Ml Oral.susp 15 Ml PO PRN AFTMEALHC PRN Aricept (Donepezil Hcl) 10 Mg Tablet 10 Mg PO DAILY Depakote Er (Divalproex Sodium) 500 Mg Tab.er.24h 500 Mg PO QHS Clobetasol Emollient 0.05% Crm (Clobetasol Propionate/Emoll) 15 Gm Cream..g. 1 Morenita TP BID Tylenol (Acetaminophen) 325 Mg Tablet 650 Mg PO PRN Q6HRS PRN MDD 4000mg Amlodipine Besylate 10 Mg Tablet 10 Mg PO DAILY Saline Nasal [place] (Sodium Chloride) 30 Ml [place] 1 [place] NS Q1HR PRN Potassium Chloride 10 Meq Capsule.er 20 Meq PO TID Protonix (Pantoprazole Sodium) 40 Mg Tablet.dr 40 Mg PO DAILYAC Magnesium Oxide 400 Mg Tablet 400 Mg PO TID Lorazepam 0.5 Mg Tablet 0.25 Mg PO PRN Q4HRS PRN Hydrocodone-Apap 5-325 (Hydrocodone Bit/Acetaminophen) 1 Each Tablet 1 Tab PO PRN Q6HRS PRN Haloperidol 5 Mg Tablet 5 Mg PO PRN Q2HR PRN Cepacol Sore Throat Lozenge (Benzocaine/Menthol) 1 Each Lozenge 1 Each PO PRN Q2HR PRN Ventolin Hfa Inhaler (Albuterol Sulfate) 18 Gm Hfa.aer.ad 1 Puff IH PRN Q1HR PRN Zyrtec (Cetirizine Hcl) 10 Mg Tablet 10 Mg PO DAILY Simvastatin 20 Mg Tablet 20 Mg PO QHS Metoprolol Succinate ( Xl ) (Metoprolol Succinate) 100 Mg Tab.er.24h 100 Mg PO DAILY Aspir-Low (Aspirin) 81 Mg Tablet.dr 81 Mg PO DAILY Diagnosis: Problems: (1) Anxiety disorder (2) Impulse control disorder (3) Psychosis, atypical (4) Unspecified psychosis (5) Dementia, vascular, with delusions (6) Lewy body dementia with behavioral disturbance (7) Obsessive compulsive disorder JSOE NOLASCO MD Nov 22, 2016 20:54
[2016-11-22] MEDS ORDERED: DIVALPROEX ER 500 MG TAB.ER.24H PO SCH (21:00)
[2016-11-22] MEDS ORDERED: QUEtiapine 25 MG TABLET. PO SCH (21:00)
--- NOTE | 2016-11-22 21:53 | NUR ---
Behavior Intervention Response and Plan: BIRP Note: Behavior: Assumed Care of patient, patient located in Hallway at shift change. Patient exhibited the following behavior Wandering, Calm, Appropriate. Brief assessment on rounds of vital signs, medication needs, lab studies, and pain. Treatment plan problems 1 and 2. Intervention: Patient assessed and the following interventions initiated safety checks 15 Minute Checks Cognitive Assessment , Head to toe Assessment , Medications. Response: After interactions and interventions patient responded in the following manner, Calm , Compliant ,Cooperative. Continue to assess behaviors and condition will continue to monitor throughout the shift as needed. Patient educated on ADL's, and hand hygiene. Plan: Continue to monitor Master Treatment Plan for patient's progress toward short term goals of Decreased Anxiety, Decreased Agitation, terminal worker goals to return to previous living setting vs placement. Continue to assess patient for changes in above assessment. Monitor for medication needs, pain, and safety concerns. Hourly rounding performed to ensure safe environment.
[2016-11-23 06:19] VITALS: BP 128/70
[2016-11-23] MEDS: PANTOPRAZOLE 40 MG TABLET. PO SCH (08:53)
[2016-11-23] MEDS: DONEPEZIL HCL 10 MG TABLET PO SCH (08:54)
[2016-11-23] MEDS: amLODIPine BESYLATE 10 MG TABLET PO SCH (08:54)
[2016-11-23] MEDS: hydrALAZINE 25 MG TABLET PO SCH ×3 (08:54→20:50)
[2016-11-23] MEDS: METOPROLOL SUCC 24HR ER 50 MG TAB.ER.24H. PO SCH (08:54)
[2016-11-23] MEDS: CETIRIZINE HCL 10 MG TABLET PO SCH (08:55)
[2016-11-23] MEDS: MEMANTINE 10 MG TABLET. PO SCH ×2 (08:55→20:49)
[2016-11-23] MEDS: LOSARTAN 50 MG TABLET. PO SCH (08:55)
[2016-11-23] MEDS: POTASSIUM CHLORIDE 20 MEQ TABLET.ER. PO SCH ×3 (08:55→20:50)
[2016-11-23] MEDS: ASPIRIN ENTERIC COATED 81 MG TABLET.DR. PO SCH (08:55)
[2016-11-23] MEDS: MAGNESIUM OXIDE 400 MG TABLET PO SCH ×3 (08:56→20:50)
[2016-11-23] MEDS: CLOBETASOL EMOLLIENT 0.05% TOPICAL CREAM 15GM TUBE. TP SCH ×2 (09:00→20:50)
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
--- NOTE | 2016-11-23 11:43 | NUR ---
Behavior Intervention Response and Plan: BIRP Note: Behavior: Assumed Care of patient, patient located in day room at shift change. Patient exhibited the following behaviors: restless, compliant, and cooperative. Brief assessment on rounds of vital signs, medication needs, lab studies, and pain. Treatment plan problems. Intervention: Patient assessed and the following interventions initiated: safety checks, 15-minute checks, cognitive assessment, head to toe assessment, and medications. Response: After interactions and interventions patient responded in the following manner: social, compliant, and cooperative. Continue to assess behaviors and condition will continue to monitor throughout the shift as needed. Patient educated on ADL's and hand hygiene. Plan: Continue to monitor Master Treatment Plan for patient's progress toward short term goals of decreased anxiety and improved mood. intermediate project manager goals to return to previous living setting vs placement. Continue to assess patient for changes in above assessment. Monitor for medication needs, pain, and safety concerns. Hourly rounding performed to ensure safe environment.
--- NOTE | 2016-11-23 12:42 | HP ---
ADMIT DATE: 11/23/2016 REASON FOR ADMISSION TO THE SENIOR BEHAVIORAL UNIT: This is a 66-year-old male, who was just discharged from the [facility] on 11/21/2016 after a stay for psychosis. He was discharged home and evidently had an increase in delusions, paranoia, and anxiety. He was discharged home with his . He felt there was a man outside his window and refused to go into his room. PAST MEDICAL HISTORY: Includes anxiety, dementia, vascular with delusions, Lewy body dementia with behavior disturbance, obsessive-compulsive disorder, psychosis atypical, impulse control disorder, coronary artery disease, hypertension, hyperlipidemia, and GERD. PAST SURGICAL HISTORY: Left rotator cuff repair, EGD as well as colonoscopy. ALLERGIES: PENICILLIN. MEDICATIONS: Unchanged from the 11/21/2016 discharge and available on the MAR. SOCIAL HISTORY: The patient states he smoked for 10 years and then quit. He is not a . He used to drink a lot of beer, no longer. 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 He grew up in [place], [place]. FAMILY HISTORY: Father had a heart attack and at age 58. Mother had a stroke at age 86. REVIEW OF SYSTEMS: He has no specific complaints. PHYSICAL EXAMINATION: VITAL SIGNS: Blood pressure 128/70, pulse 76, temperature 98.3, respirations 20, pulse ox 97% on room air, height 66 inches, weight 194 pounds. GENERAL: A 66-year-old, in no acute distress. He was calm and cooperative throughout. He speaks in a very loud voice. HEENT: His TMs were intact bilaterally. Nose was patent. Throat was clear. Pupils are equal, round, react to light. Extraocular muscles were intact. NECK: Supple, without adenopathy. LUNGS: Clear to auscultation. CARDIOVASCULAR: Regular rhythm and rate without murmur. ABDOMEN: Soft, nontender, no masses palpated, mildly protuberant abdomen. EXTREMITIES: Without edema. MUSCULOSKELETAL: He passes get up and go test and ambulates without assistance. NEUROLOGIC: Cranial nerves able to cooperate, follow directions and all are intact. MENTAL STATUS: The patient admits to having some problem with his thoughts; however, other than that, he was quite cooperative without issue. LABORATORY DATA: Reviewed. Very mild iron deficiency. Lipids are normal. TSH is normal. B12 is 388. CBC slightly anemic. Urine is negative. ASSESSMENT: , dementia with behavior disturbance, hypertension, coronary artery disease, low normal B12 considered deficient by some standards. PLAN: replace his B12. Follow along with Dr. Alonzo, treat his other medical conditions as they come. CLARIBEL HAMLIN DO DR: JOE/shilo JOB#: [id number] / [id number]
--- NOTE | 2016-11-23 13:01 | NUR ---
SW spoke with pt and pt during visiting hours pt states she is upset she had to bring him back, however is glad that he is here, pt reports she thinks pt is upset with her. Pt replied "no, I just would like to be home with my dog."
[2016-11-23 16:16] VITALS: BP 113/60
[2016-11-23] MEDS: CYANOCOBALAMIN (VITAMIN B-12) 1,000 MCG TABLET. PO SCH (16:54)
--- NOTE | 2016-11-23 16:56 | NUR ---
WEEKLY THERAPEUTIC RECREATION NOTE Date of Admission: 11/22/2016 Date of AT Assessment:INCOMPLETE Goal aimed: TBD Initial goal:TBD Weekly progress towards goal: NA Group participation level: willing to participate. Behaviors observed: Quiet, keeps to self. Plan: Meet/ assess Pt.
[2016-11-23] MEDS: QUEtiapine 100 MG TABLET. PO SCH (20:48)
[2016-11-23] MEDS: SIMVASTATIN 20 MG TABLET PO SCH (20:49)
[2016-11-23] MEDS: traZODone 100 MG TABLET. PO SCH (20:49)
[2016-11-23] MEDS: DIVALPROEX ER 250 MG TAB.ER.24H. PO SCH (20:50)
[2016-11-23] MEDS: MIRTAZAPINE 15 MG TABLET PO SCH (20:50)
--- NOTE | 2016-11-23 20:57 | PDOC ---
Exam Serg Demential Exam: Serg Note: Please also refer to the separate dictated note~for this date of service dictated separately.~Patient seen individually. Discussed the patient with Nursing staff reviewed the chart.~Reviewed interim history and current functioning. Reviewed vital signs,~Labs/ Radiology~and current medications noted below. Continue current treatment with the changes noted in the dictated addendum note Assessment: Vital Signs: Vital Signs Date Time Temp Pulse Resp B/P (MAP) Pulse Ox O2 Delivery O2 Flow Rate FiO2 11/23/16 20:50 73 113/60 11/23/16 16:16 97.8 18 93 11/23/16 06:19 Room Air I&O Intake and Output 11/24/16 07:00 Intake Total 1020 ml Balance 1020 ml Intake Oral 1020 ml # Bowel Movements 1 Current Medications: Meds: Current Medications Acetaminophen (Tylenol) 650 mg PRN Q6HRS PRN PO PAIN / TEMP; Start 11/22/16 at 09:45; Status Cancel Multi-Ingredient Ointment (Analgesic [place]) 1 morenita PRN QID PRN TP MUSCLE PAIN; Start 11/22/16 at 09:45; Status Cancel Al Hydroxide/Mg Hydroxide (Mylanta Plus Xs) 15 ml PRN AFTMEALHC PRN PO DYSPEPSIA; Start 11/22/16 at 09:45; Status Cancel Magnesium Hydroxide (Milk Of Magnesia) 2,400 mg PRN QHS PRN PO CONSTIPATION; Start 11/22/16 at 09:45; Status Cancel Acetaminophen (Tylenol) 650 mg PRN Q6HRS PRN PO PAIN / TEMP; Start 11/22/16 at 10:00 Albuterol Sulfate (Ventolin Hfa) 1 puff PRN Q1HR PRN IH SHORTNESS OF BREATH; Start 11/22/16 at 10:00; Status UNV Amlodipine Besylate (Norvasc) 10 mg DAILY PO Last administered on 11/23/16 08: 54; Start 11/22/16 at 10:30 Aspirin (Aspirin Enteric Coated) 81 mg DAILY PO Last administered on 11/23/16 08:55; Start 11/22/16 at 10:30 Throat Lozenges (Cepacol Sore Throat Lozenge) 1 katty PRN Q2HR PRN PO sore throat ; Start 11/22/16 at 10:00 Cetirizine HCl (ZyrTEC) 10 mg DAILY PO Last administered on 11/23/16 08:55; Start 11/22/16 at 10:30 Clobetasol Propionate 1 morenita BID TP Last administered on 11/23/16 20:50; Start 11/22/16 at 11:00 Cyanocobalamin (Vitamin B-12) 1,000 mcg DAILYBFRSUP PO Last administered on 16:54; Start 11/22/16 at 17:00 Divalproex Sodium (Depakote Er) 500 mg QHS PO ; Start 11/22/16 at 21:00; Stop 11/22/16 at 21:00; Status DC Donepezil HCl (Aricept) 10 mg DAILY PO Last administered on 11/23/16 08:54; Start 11/22/16 at 10:30 Haloperidol (Haldol) 5 mg PRN Q2HR PRN PO PSYCHOSIS; Start 11/22/16 at 10:00 Hydralazine HCl (Apresoline) 25 mg TID PO Last administered on 11/23/16 20:50 ; Start 11/22/16 at 10:30 Acetaminophen/ Hydrocodone Bitart (Lortab 5/325) 1 tab PRN Q6HRS PRN PO PAIN; Start 11/22/16 at 10:00 Lorazepam (Ativan) 0.25 mg PRN Q4HRS PRN PO ANXIETY / AGITATION; Start at 10:00 Al Hydroxide/Mg Hydroxide (Mylanta Plus Xs) 15 ml PRN AFTMEALHC PRN PO DYSPEPSIA; Start 11/22/16 at 10:00 Magnesium Hydroxide (Milk Of Magnesia) 2,400 mg PRN QHS PRN PO CONSTIPATION; Start 11/22/16 at 10:00 Magnesium Oxide (Magnesium Oxide) 400 mg TID PO Last administered on 11/23/16 20:50; Start 11/22/16 at 10:30 Memantine (Namenda) 10 mg BID PO Last administered on 11/23/16 20:49; Start 11/22/16 at 10:30 Multi-Ingredient Ointment (Analgesic [place]) 1 morenita PRN QID PRN TP MUSCLE PAIN; Start 11/22/16 at 10:00 Mirtazapine (Remeron) 15 mg QHS PO Last administered on 11/23/16 20:50; Start 11/22/16 at 21:00 Pantoprazole Sodium (Protonix) 40 mg DAILYAC PO Last administered on 11/23/16 08:53; Start 11/22/16 at 11:00 Quetiapine Fumarate (SEROquel) 25 mg QHS PO Last administered on 11/22/16 20: 47; Start 11/22/16 at 21:00; Stop 11/23/16 at 10:19; Status DC Simvastatin (Zocor) 20 mg QHS PO Last administered on 11/23/16 20:49; Start 11/22/16 at 21:00 Sodium Chloride (Saline Mist Nasal) 1 morenita Q1HR PRN NS Nasal Congestion; Start 11/22/16 at 10:00 Trazodone HCl (Desyrel) 100 mg PRN QHS PRN PO INSOMNIA, MAY REPEAT X1; Start 11/22/16 at 10:00 Trazodone HCl (Desyrel) 100 mg QHS PO Last administered on 11/23/16 20:49; Start 11/22/16 at 21:00 Fluvoxamine Maleate (Luvox) 50 mg QHS PO Last administered on 11/23/16 20:49; Start 11/22/16 at 21:00 Losartan Potassium (Cozaar) 100 mg DAILY PO Last administered on 11/23/16 08: 55; Start 11/22/16 at 10:30 Metoprolol Succinate (Toprol Xl) 100 mg DAILY PO Last administered on 08:54; Start 11/22/16 at 10:30 Potassium Chloride (Klor-Con) 20 meq TID PO Last administered on 11/23/16 20: 50; Start 11/22/16 at 10:30 Quetiapine Fumarate (SEROquel) 200 mg QHS PO Last administered on 11/23/16 20: 48; Start 11/22/16 at 21:00 Albuterol Sulfate (Ventolin) 2.5 mg PRN Q1HR PRN NEB SHORTNESS OF BREATH; Start 11/22/16 at 10:45 Divalproex Sodium (Depakote Er) 750 mg QHS PO Last administered on 11/23/16 20 :50; Start 11/22/16 at 21:00 Quetiapine Fumarate (SEROquel) 75 mg QHS PO Last administered on 11/23/16 20: 49; Start 11/23/16 at 21:00 Cyanocobalamin (Vitamin B-12) 1,000 mcg DAILY PO ; Start 11/24/16 at 09:00 Active Scripts Active Reported Seroquel (Quetiapine Fumarate) 200 Mg Tablet 200 Mg PO QHS Seroquel (Quetiapine Fumarate) 25 Mg Tablet 25 Mg PO QHS Vitamin B-12 (Cyanocobalamin (Vitamin B-12)) 1,000 Mcg Tablet 1,000 Mcg PO DAILYBFRSUP Trazodone Hcl 100 Mg Tablet 100 Mg PO PRN QHS PRN Trazodone Hcl 100 Mg Tablet 100 Mg PO QHS Hydralazine Hcl 25 Mg Tablet 25 Mg PO TID Fluvoxamine Maleate 50 Mg Tablet 50 Mg PO QHS Mirtazapine 15 Mg Tablet 15 Mg PO QHS Cozaar (Losartan Potassium) 100 Mg Tablet 100 Mg PO DAILY Analgesic [place] (Methyl Salicylate/Menthol) 28 Gm Oint...g. 1 Morenita TP PRN QID PRN Namenda (Memantine Hcl) 10 Mg Tablet 10 Mg PO BID Milk Of Magnesia (Magnesium Hydroxide) 400 Mg/5 Ml Oral.susp 2,400 Mg PO PRN QHS PRN Mag-Al Plus Xs Suspension (Mag Hydrox/Al Hydrox/Simeth) 30 Ml Oral.susp 15 Ml PO PRN AFTMEALHC PRN Aricept (Donepezil Hcl) 10 Mg Tablet 10 Mg PO DAILY Depakote Er (Divalproex Sodium) 500 Mg Tab.er.24h 500 Mg PO QHS Clobetasol Emollient 0.05% Crm (Clobetasol Propionate/Emoll) 15 Gm Cream..g. 1 Morenita TP BID Tylenol (Acetaminophen) 325 Mg Tablet 650 Mg PO PRN Q6HRS PRN MDD 4000mg Amlodipine Besylate 10 Mg Tablet 10 Mg PO DAILY Saline Nasal [place] (Sodium Chloride) 30 Ml [place] 1 [place] NS Q1HR PRN Potassium Chloride 10 Meq Capsule.er 20 Meq PO TID Protonix (Pantoprazole Sodium) 40 Mg Tablet.dr 40 Mg PO DAILYAC Magnesium Oxide 400 Mg Tablet 400 Mg PO TID Lorazepam 0.5 Mg Tablet 0.25 Mg PO PRN Q4HRS PRN Hydrocodone-Apap 5-325 (Hydrocodone Bit/Acetaminophen) 1 Each Tablet 1 Tab PO PRN Q6HRS PRN Haloperidol 5 Mg Tablet 5 Mg PO PRN Q2HR PRN Cepacol Sore Throat Lozenge (Benzocaine/Menthol) 1 Each Lozenge 1 Each PO PRN Q2HR PRN Ventolin Hfa Inhaler (Albuterol Sulfate) 18 Gm Hfa.aer.ad 1 Puff IH PRN Q1HR PRN Zyrtec (Cetirizine Hcl) 10 Mg Tablet 10 Mg PO DAILY Simvastatin 20 Mg Tablet 20 Mg PO QHS Metoprolol Succinate ( Xl ) (Metoprolol Succinate) 100 Mg Tab.er.24h 100 Mg PO DAILY Aspir-Low (Aspirin) 81 Mg Tablet.dr 81 Mg PO DAILY Diagnosis: Problems: (1) Anxiety disorder (2) Impulse control disorder (3) Psychosis, atypical (4) Unspecified psychosis (5) Dementia, vascular, with delusions (6) Lewy body dementia with behavioral disturbance (7) Obsessive compulsive disorder JOSE NOLASCO MD Nov 23, 2016 20:57
[2016-11-23] MEDS ORDERED: QUEtiapine 50 MG TABLET. PO SCH (21:00)
--- NOTE | 2016-11-23 22:14 | NUR ---
Behavior Intervention Response and Plan: BIRP Note: Behavior: Assumed Care of patient, patient located in Day Room at shift change. Patient exhibited the following behavior Calm, Social, Cooperative. Brief assessment on rounds of vital signs, medication needs, lab studies, and pain. Treatment plan problems 1 and 2. Intervention: Patient assessed and the following interventions initiated safety checks 15 Minute Checks Cognitive Assessment , Head to toe Assessment , Medications. Response: After interactions and interventions patient responded in the following manner, Calm , Compliant ,Cooperative. Continue to assess behaviors and condition will continue to monitor throughout the shift as needed. Patient educated on ADL's, and hand hygiene. Plan: Continue to monitor Master Treatment Plan for patient's progress toward short term goals of No harm To self/ others, Improved Mood, oysterman goals to return to previous living setting vs placement. Continue to assess patient for changes in above assessment. Monitor for medication needs, pain, and safety concerns. Hourly rounding performed to ensure safe environment.
[2016-11-24 05:59] VITALS: BP 127/63
[2016-11-24] MEDS: MAGNESIUM OXIDE 400 MG TABLET PO SCH ×3 (07:59→19:29)
[2016-11-24] MEDS: ASPIRIN ENTERIC COATED 81 MG TABLET.DR. PO SCH (07:59)
[2016-11-24] MEDS: amLODIPine BESYLATE 10 MG TABLET PO SCH (07:59)
[2016-11-24] MEDS: CETIRIZINE HCL 10 MG TABLET PO SCH (07:59)
[2016-11-24] MEDS: hydrALAZINE 25 MG TABLET PO SCH ×3 (07:59→19:28)
--- NOTE | 2016-11-24 07:59 | NUR ---
SW weekly note: Pt was discharge earlier this week and returned to hospital less then 24 hours after discharge. Pt denies any sI/HI or psychosis here. Pt states he had a "rough night" at home. Pt states she would like pt to return home again after discharge. Pt goal is not have his co-worker following him. SW and pt goal for pt to be able to maintain at home with family, including sleeping through the night.
[2016-11-24] MEDS: LOSARTAN 50 MG TABLET. PO SCH (08:00)
[2016-11-24] MEDS: MEMANTINE 10 MG TABLET. PO SCH ×2 (08:00→19:28)
[2016-11-24] MEDS: POTASSIUM CHLORIDE 20 MEQ TABLET.ER. PO SCH ×3 (08:00→19:28)
[2016-11-24] MEDS: PANTOPRAZOLE 40 MG TABLET. PO SCH (08:01)
[2016-11-24] MEDS: METOPROLOL SUCC 24HR ER 50 MG TAB.ER.24H. PO SCH (08:01)
[2016-11-24] MEDS: DONEPEZIL HCL 10 MG TABLET PO SCH (08:01)
[2016-11-24] MEDS: CLOBETASOL EMOLLIENT 0.05% TOPICAL CREAM 15GM TUBE. TP SCH ×2 (08:03→21:00)
[2016-11-24] MEDS: CYANOCOBALAMIN (VITAMIN B-12) 1,000 MCG TABLET. PO SCH ×2 (08:03→17:19)
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
--- NOTE | 2016-11-24 12:40 | NUR ---
Behavior Intervention Response and Plan: BIRP Note: Behavior: Assumed Care of patient, patient located in Dining Room at shift change. Patient exhibited the following behavior Compliant, Cooperative, Anxious. Brief assessment on rounds of vital signs, medication needs, lab studies, and pain. Treatment plan problems . Intervention: Patient assessed and the following interventions initiated safety checks 15 Minute Checks Cognitive Assessment , Head to toe Assessment , Medications. Response: After interactions and interventions patient responded in the following manner, Compliant , Calm ,Cooperative. Continue to assess behaviors and condition will continue to monitor throughout the shift as needed. Patient educated on ADL's, and hand hygiene. Plan: Continue to monitor Master Treatment Plan for patient's progress toward short term goals of Decreased Agitation, Decreased Anxiety, medical terminologist goals to return to previous living setting vs placement. Continue to assess patient for changes in above assessment. Monitor for medication needs, pain, and safety concerns. Hourly rounding performed to ensure safe environment.
--- NOTE | 2016-11-24 15:30 | NUR ---
ACTIVITY THERAPY ASSESSMENT Completed based on observation and interview. Pt. was agreeable and pleasant to talk to, he goes by "Mega". He was able to recall most facts and details and really just wants to be with his dog. Pt. has dyslexia and believes there is someone entering his property and tampering with things. He likes to watch TV shoes about cars, antiques, storage wars. He loves working on cars and rock and roll music. Pt. asked why people keep closing the hallway doors into the day room. GLOVE CUTTER explained it was to help control noise. Pt. likes it open to see the hallway and the clocks. Initial goal aimed to increase socialization and relaxation: Pt. will participate in at least three groups and day and all relaxation groups.
[2016-11-24 15:39] VITALS: BP 115/59
--- NOTE | 2016-11-24 17:00 | NUR ---
pt up to meals and out to day room. compliant with meds and cares. stated to during lunch that there was something wrong with clothing so he kept sticking paper towels under shirt. refused to let remove them. at supper pt c/o about having sweaty hands per . thought it was a side effect of his meds. pt his several layers of clothing on. denies being hot. will mention to
[2016-11-24] MEDS: MIRTAZAPINE 15 MG TABLET PO SCH (19:28)
[2016-11-24] MEDS: SIMVASTATIN 20 MG TABLET PO SCH (19:28)
[2016-11-24] MEDS: traZODone 100 MG TABLET. PO SCH (19:29)
[2016-11-24] MEDS: DIVALPROEX ER 250 MG TAB.ER.24H. PO SCH (19:29)
[2016-11-24] MEDS: QUEtiapine 100 MG TABLET. PO SCH (19:29)
[2016-11-24] MEDS: QUEtiapine 25 MG TABLET. PO SCH (19:32)
--- NOTE | 2016-11-24 21:07 | PDOC ---
Exam Serg Demential Exam: Serg Note: Please also refer to the separate dictated note~for this date of service dictated separately.~Patient seen individually. Discussed the patient with Nursing staff reviewed the chart.~Reviewed interim history and current functioning. Reviewed vital signs,~Labs/ Radiology~and current medications noted below. Continue current treatment with the changes noted in the dictated addendum note Assessment: Vital Signs: Vital Signs Date Time Temp Pulse Resp B/P (MAP) Pulse Ox O2 Delivery O2 Flow Rate FiO2 11/24/16 19:28 69 115/68 11/24/16 15:39 98.7 20 96 11/23/16 06:19 Room Air I&O Intake and Output 11/25/16 07:00 Intake Total 1200 ml Balance 1200 ml Intake Oral 1200 ml # Bowel Movements 2 Current Medications: Meds: Current Medications Acetaminophen (Tylenol) 650 mg PRN Q6HRS PRN PO PAIN / TEMP; Start 11/22/16 at 09:45; Status Cancel Multi-Ingredient Ointment (Analgesic [place]) 1 morenita PRN QID PRN TP MUSCLE PAIN; Start 11/22/16 at 09:45; Status Cancel Al Hydroxide/Mg Hydroxide (Mylanta Plus Xs) 15 ml PRN AFTMEALHC PRN PO DYSPEPSIA; Start 11/22/16 at 09:45; Status Cancel Magnesium Hydroxide (Milk Of Magnesia) 2,400 mg PRN QHS PRN PO CONSTIPATION; Start 11/22/16 at 09:45; Status Cancel Acetaminophen (Tylenol) 650 mg PRN Q6HRS PRN PO PAIN / TEMP; Start 11/22/16 at 10:00 Albuterol Sulfate (Ventolin Hfa) 1 puff PRN Q1HR PRN IH SHORTNESS OF BREATH; Start 11/22/16 at 10:00; Status UNV Amlodipine Besylate (Norvasc) 10 mg DAILY PO Last administered on 11/24/16 07: 59; Start 11/22/16 at 10:30 Aspirin (Aspirin Enteric Coated) 81 mg DAILY PO Last administered on 11/24/16 07:59; Start 11/22/16 at 10:30 Throat Lozenges (Cepacol Sore Throat Lozenge) 1 katty PRN Q2HR PRN PO sore throat ; Start 10/4/17 at 10:00 Cetirizine HCl (ZyrTEC) 10 mg DAILY PO Last administered on 11/24/16 07:59; Start 11/22/16 at 10:30 Clobetasol Propionate 1 morenita BID TP Last administered on 11/24/16 08:03; Start 11/22/16 at 11:00 Cyanocobalamin (Vitamin B-12) 1,000 mcg DAILYBFRSUP PO Last administered on 17:19; Start 11/22/16 at 17:00 Divalproex Sodium (Depakote Er) 500 mg QHS PO ; Start 11/22/16 at 21:00; Stop 11/22/16 at 21:00; Status DC Donepezil HCl (Aricept) 10 mg DAILY PO Last administered on 11/24/16 08:01; Start 11/22/16 at 10:30 Haloperidol (Haldol) 5 mg PRN Q2HR PRN PO PSYCHOSIS; Start 11/22/16 at 10:00 Hydralazine HCl (Apresoline) 25 mg TID PO Last administered on 11/24/16 19:28 ; Start 11/22/16 at 10:30 Acetaminophen/ Hydrocodone Bitart (Lortab 5/325) 1 tab PRN Q6HRS PRN PO PAIN; Start 11/22/16 at 10:00 Lorazepam (Ativan) 0.25 mg PRN Q4HRS PRN PO ANXIETY / AGITATION; Start at 10:00 Al Hydroxide/Mg Hydroxide (Mylanta Plus Xs) 15 ml PRN AFTMEALHC PRN PO DYSPEPSIA; Start 11/22/16 at 10:00 Magnesium Hydroxide (Milk Of Magnesia) 2,400 mg PRN QHS PRN PO CONSTIPATION; Start 11/22/16 at 10:00 Magnesium Oxide (Magnesium Oxide) 400 mg TID PO Last administered on 11/24/16 19:29; Start 11/22/16 at 10:30 Memantine (Namenda) 10 mg BID PO Last administered on 11/24/16 19:28; Start 11/22/16 at 10:30 Multi-Ingredient Ointment (Analgesic [place]) 1 morenita PRN QID PRN TP MUSCLE PAIN; Start 11/22/16 at 10:00 Mirtazapine (Remeron) 15 mg QHS PO Last administered on 11/24/16 19:28; Start 11/22/16 at 21:00 Pantoprazole Sodium (Protonix) 40 mg DAILYAC PO Last administered on 11/24/16 08:01; Start 11/22/16 at 11:00 Quetiapine Fumarate (SEROquel) 25 mg QHS PO Last administered on 11/22/16 20: 47; Start 11/22/16 at 21:00; Stop 11/23/16 at 10:19; Status DC Simvastatin (Zocor) 20 mg QHS PO Last administered on 11/24/16 19:28; Start 11/22/16 at 21:00 Sodium Chloride (Saline Mist Nasal) 1 morenita Q1HR PRN NS Nasal Congestion; Start 11/22/16 at 10:00 Trazodone HCl (Desyrel) 100 mg PRN QHS PRN PO INSOMNIA, MAY REPEAT X1; Start 11/22/16 at 10:00 Trazodone HCl (Desyrel) 100 mg QHS PO Last administered on 11/24/16 19:29; Start 11/22/16 at 21:00 Fluvoxamine Maleate (Luvox) 50 mg QHS PO Last administered on 11/24/16 19:29; Start 11/22/16 at 21:00 Losartan Potassium (Cozaar) 100 mg DAILY PO Last administered on 11/24/16 08: 00; Start 11/22/16 at 10:30 Metoprolol Succinate (Toprol Xl) 100 mg DAILY PO Last administered on 08:01; Start 11/22/16 at 10:30 Potassium Chloride (Klor-Con) 20 meq TID PO Last administered on 11/24/16 19: 28; Start 11/22/16 at 10:30 Quetiapine Fumarate (SEROquel) 200 mg QHS PO Last administered on 11/23/16 20: 48; Start 11/22/16 at 21:00; Stop 11/24/16 at 19:21; Status DC Albuterol Sulfate (Ventolin) 2.5 mg PRN Q1HR PRN NEB SHORTNESS OF BREATH; Start 11/22/16 at 10:45 Divalproex Sodium (Depakote Er) 750 mg QHS PO Last administered on 11/24/16 19 :29; Start 11/22/16 at 21:00 Quetiapine Fumarate (SEROquel) 75 mg QHS PO Last administered on 11/23/16 20: 49; Start 11/23/16 at 21:00; Stop 11/24/16 at 19:21; Status DC Cyanocobalamin (Vitamin B-12) 1,000 mcg DAILY PO Last administered on 08:03; Start 11/24/16 at 09:00 Quetiapine Fumarate (SEROquel) 25 mg QHS PO Last administered on 11/24/16 19: 32; Start 11/24/16 at 21:00 Quetiapine Fumarate (SEROquel) 300 mg QHS PO Last administered on 11/24/16 19: 29; Start 11/24/16 at 21:00 Active Scripts Active Reported Seroquel (Quetiapine Fumarate) 200 Mg Tablet 200 Mg PO QHS Seroquel (Quetiapine Fumarate) 25 Mg Tablet 25 Mg PO QHS Vitamin B-12 (Cyanocobalamin (Vitamin B-12)) 1,000 Mcg Tablet 1,000 Mcg PO DAILYBFRSUP Trazodone Hcl 100 Mg Tablet 100 Mg PO PRN QHS PRN Trazodone Hcl 100 Mg Tablet 100 Mg PO QHS Hydralazine Hcl 25 Mg Tablet 25 Mg PO TID Fluvoxamine Maleate 50 Mg Tablet 50 Mg PO QHS Mirtazapine 15 Mg Tablet 15 Mg PO QHS Cozaar (Losartan Potassium) 100 Mg Tablet 100 Mg PO DAILY Analgesic [place] (Methyl Salicylate/Menthol) 28 Gm Oint...g. 1 Morenita TP PRN QID PRN Namenda (Memantine Hcl) 10 Mg Tablet 10 Mg PO BID Milk Of Magnesia (Magnesium Hydroxide) 400 Mg/5 Ml Oral.susp 2,400 Mg PO PRN QHS PRN Mag-Al Plus Xs Suspension (Mag Hydrox/Al Hydrox/Simeth) 30 Ml Oral.susp 15 Ml PO PRN AFTMEALHC PRN Aricept (Donepezil Hcl) 10 Mg Tablet 10 Mg PO DAILY Depakote Er (Divalproex Sodium) 500 Mg Tab.er.24h 500 Mg PO QHS Clobetasol Emollient 0.05% Crm (Clobetasol Propionate/Emoll) 15 Gm Cream..g. 1 Morenita TP BID Tylenol (Acetaminophen) 325 Mg Tablet 650 Mg PO PRN Q6HRS PRN MDD 4000mg Amlodipine Besylate 10 Mg Tablet 10 Mg PO DAILY Saline Nasal [place] (Sodium Chloride) 30 Ml [place] 1 [place] NS Q1HR PRN Potassium Chloride 10 Meq Capsule.er 20 Meq PO TID Protonix (Pantoprazole Sodium) 40 Mg Tablet. 40 Mg PO DAILYAC Magnesium Oxide 400 Mg Tablet 400 Mg PO TID Lorazepam 0.5 Mg Tablet 0.25 Mg PO PRN Q4HRS PRN Hydrocodone-Apap 5-325 (Hydrocodone Bit/Acetaminophen) 1 Each Tablet 1 Tab PO PRN Q6HRS PRN Haloperidol 5 Mg Tablet 5 Mg PO PRN Q2HR PRN Cepacol Sore Throat Lozenge (Benzocaine/Menthol) 1 Each Lozenge 1 Each PO PRN Q2HR PRN Ventolin Hfa Inhaler (Albuterol Sulfate) 18 Gm Hfa.aer.ad 1 Puff IH PRN Q1HR PRN Zyrtec (Cetirizine Hcl) 10 Mg Tablet 10 Mg PO DAILY Simvastatin 20 Mg Tablet 20 Mg PO QHS Metoprolol Succinate ( Xl ) (Metoprolol Succinate) 100 Mg Tab.er.24h 100 Mg PO DAILY Aspir-Low (Aspirin) 81 Mg Tablet. 81 Mg PO DAILY Diagnosis: Problems: (1) Anxiety disorder (2) Impulse control disorder (3) Psychosis, atypical (4) Unspecified psychosis (5) Dementia, vascular, with delusions (6) Lewy body dementia with behavioral disturbance (7) Obsessive compulsive disorder JOSE NOLASCO MD Nov 24, 2016 21:07
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
--- NOTE | 2016-11-24 21:41 | NUR ---
Behavior Intervention Response and Plan: BIRP Note: Behavior: Assumed Care of patient, patient located in Day Room at shift change. Patient exhibited the following behavior Wandering, Disorganized, Delusions. Brief assessment on rounds of vital signs, medication needs, lab studies, and pain. Treatment plan problems Altered Thought Process and Fall Risk. Intervention: Patient assessed and the following interventions initiated safety checks Cognitive Assessment , Head to toe Assessment , Medications. Response: After interactions and interventions patient responded in the following manner, Restless , Disorganized ,Delusions. Continue to assess behaviors and condition will continue to monitor throughout the shift as needed. Patient educated on ADL's, and hand hygiene. 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 Continue to assess patient for changes in above assessment. Monitor for medication needs, pain, and safety concerns. Hourly rounding performed to ensure safe environment.
[2016-11-24] MEDS ORDERED: POTA20TA4 PO (23:09)
[2016-11-25 06:02] VITALS: BP 148/72
[2016-11-25] MEDS: MAGNESIUM OXIDE 400 MG TABLET PO SCH ×3 (07:52→20:07)
[2016-11-25] MEDS: amLODIPine BESYLATE 10 MG TABLET PO SCH (07:53)
[2016-11-25] MEDS: METOPROLOL SUCC 24HR ER 50 MG TAB.ER.24H. PO SCH (07:53)
[2016-11-25] MEDS: LOSARTAN 50 MG TABLET. PO SCH (07:54)
[2016-11-25] MEDS: CETIRIZINE HCL 10 MG TABLET PO SCH (07:54)
[2016-11-25] MEDS: MEMANTINE 10 MG TABLET. PO SCH ×2 (07:54→20:07)
[2016-11-25] MEDS: POTASSIUM CHLORIDE 20 MEQ TABLET.ER. PO SCH ×3 (07:54→20:07)
[2016-11-25] MEDS: CYANOCOBALAMIN (VITAMIN B-12) 1,000 MCG TABLET. PO SCH ×2 (07:54→13:30)
[2016-11-25] MEDS: DONEPEZIL HCL 10 MG TABLET PO SCH (07:54)
[2016-11-25] MEDS: hydrALAZINE 25 MG TABLET PO SCH ×3 (07:54→20:05)
[2016-11-25] MEDS: PANTOPRAZOLE 40 MG TABLET. PO SCH (07:54)
[2016-11-25] MEDS: ASPIRIN ENTERIC COATED 81 MG TABLET.DR. PO SCH (07:55)
[2016-11-25] MEDS: CLOBETASOL EMOLLIENT 0.05% TOPICAL CREAM 15GM TUBE. TP SCH ×2 (07:55→20:08)
--- NOTE | 2016-11-25 09:48 | NUR ---
Behavior Intervention Response and Plan: BIRP Note: Behavior: Assumed Care of patient, patient located in Dining Room at shift change. Patient exhibited the following behavior Compliant, Cooperative, Anxious. Brief assessment on rounds of vital signs, medication needs, lab studies, and pain. Treatment plan problems . Intervention: Patient assessed and the following interventions initiated safety checks 15 Minute Checks Cognitive Assessment , Head to toe Assessment , Medications. Response: After interactions and interventions patient responded in the following manner, Compliant , Calm ,Cooperative. Continue to assess behaviors and condition will continue to monitor throughout the shift as needed. Patient educated on ADL's, and hand hygiene. 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 Continue to assess patient for changes in above assessment. Monitor for medication needs, pain, and safety concerns. Hourly rounding performed to ensure safe environment.
--- NOTE | 2016-11-25 12:15 | PN ---
DATE: 11/24/2016 PSYCHIATRIC PROGRESS NOTE This is a late entry 11/24/2016, covers elements not covered in my initial note 11/24/2016. SUBJECTIVE: The patient was seen individually evening of 11/24/2016. His visited twice during the day on 11/24/2016 and still was able to share with nursing staff. The patient remains psychotic, believes some liquid is on his clothes to poison him, wanting paper towels to under his clothes. Labs for the Depakote to be checked on the . REVIEW OF SYSTEMS: As above. No CV, , pulmonary, eye system symptoms on review. MENTAL STATUS EXAM: The patient is oriented to himself and situation. Speech is coherent, has a typical , abstraction fair, computation impaired, language function intact. Mood and affect somewhat withdrawn. LABORATORY DATA: Reviewed. IMPRESSION: Unchanged from initial note. PLAN: Increase Seroquel from 275 mg at bedtime to 325 mg at bedtime. Continue rest of psychotropics. Check CBC, CMP, valproic acid level on the . Adjust Depakote to reach a therapeutic level. The patient feels Seroquel may change to Risperdal again. Reviewed drug interactions. Risk/benefit ratio favors no further change. JOSE NOLASCO MD DR: SAMARA/shilo JOB#: [id number] / [id number]
[2016-11-25 16:10] VITALS: BP 128/56
--- NOTE | 2016-11-25 17:00 | NUR ---
pt up adl to meals. denies delusional thoughts today thus far. compliant with meds.
--- NOTE | 2016-11-25 20:00 | NUR ---
Behavior Intervention Response and Plan: BIRP Note: Behavior: Assumed Care of patient, patient located in Day Room at shift change. Patient exhibited the following behavior Calm, Disorganized, Compliant. Brief assessment on rounds of vital signs, medication needs, lab studies, and pain. Treatment plan problems 1. Intervention: Patient assessed and the following interventions initiated safety checks 15 Minute Checks Call hernandez in reach , Cognitive Assessment , Head to toe Assessment. Response: After interactions and interventions patient responded in the following manner, Calm , Disorganized ,Compliant. Continue to assess behaviors and condition will continue to monitor throughout the shift as needed. Patient educated on ADL's, and hand hygiene. 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 Continue to assess patient for changes in above assessment. Monitor for medication needs, pain, and safety concerns. Hourly rounding performed to ensure safe environment.
[2016-11-25] MEDS: DIVALPROEX ER 250 MG TAB.ER.24H. PO SCH (20:06)
[2016-11-25] MEDS: traZODone 100 MG TABLET. PO SCH (20:06)
[2016-11-25] MEDS: MIRTAZAPINE 15 MG TABLET PO SCH (20:07)
[2016-11-25] MEDS: SIMVASTATIN 20 MG TABLET PO SCH (20:07)
[2016-11-25] MEDS: QUEtiapine 25 MG TABLET. PO SCH (20:07)
[2016-11-25] MEDS: QUEtiapine 100 MG TABLET. PO SCH (21:53)
--- NOTE | 2016-11-25 22:52 | PDOC ---
Exam Serg Demential Exam: Serg Note: Please also refer to the separate dictated note~for this date of service dictated separately.~Patient seen individually. Discussed the patient with Nursing staff reviewed the chart.~Reviewed interim history and current functioning. Reviewed vital signs,~Labs/ Radiology~and current medications noted below. Continue current treatment with the changes noted in the dictated addendum note Assessment: Vital Signs: Vital Signs Date Time Temp Pulse Resp B/P (MAP) Pulse Ox O2 Delivery O2 Flow Rate FiO2 11/25/16 20:05 76 128/56 11/25/16 16:10 98.1 20 96 11/23/16 06:19 Room Air I&O Intake and Output 11/26/16 07:00 Intake Total 1200 ml Balance 1200 ml Intake Oral 1200 ml Current Medications: Meds: Current Medications Acetaminophen (Tylenol) 650 mg PRN Q6HRS PRN PO PAIN / TEMP; Start 11/22/16 at 09:45; Status Cancel Multi-Ingredient Ointment (Analgesic [place]) 1 morenita PRN QID PRN TP MUSCLE PAIN; Start 11/22/16 at 09:45; Status Cancel Al Hydroxide/Mg Hydroxide (Mylanta Plus Xs) 15 ml PRN AFTMEALHC PRN PO DYSPEPSIA; Start 11/22/16 at 09:45; Status Cancel Magnesium Hydroxide (Milk Of Magnesia) 2,400 mg PRN QHS PRN PO CONSTIPATION; Start 11/22/16 at 09:45; Status Cancel Acetaminophen (Tylenol) 650 mg PRN Q6HRS PRN PO PAIN / TEMP; Start 11/22/16 at 10:00 Albuterol Sulfate (Ventolin Hfa) 1 puff PRN Q1HR PRN IH SHORTNESS OF BREATH; Start 11/22/16 at 10:00; Status UNV Amlodipine Besylate (Norvasc) 10 mg DAILY PO Last administered on 11/25/16 07: 53; Start 11/22/16 at 10:30 Aspirin (Aspirin Enteric Coated) 81 mg DAILY PO Last administered on 11/25/16 07:55; Start 11/22/16 at 10:30 Throat Lozenges (Cepacol Sore Throat Lozenge) 1 katty PRN Q2HR PRN PO sore throat ; Start 11/22/16 at 10:00 Cetirizine HCl (ZyrTEC) 10 mg DAILY PO Last administered on 11/25/16 07:54; Start 11/22/16 at 10:30 Clobetasol Propionate 1 morenita BID TP Last administered on 11/25/16 07:55; Start 11/22/16 at 11:00 Cyanocobalamin (Vitamin B-12) 1,000 mcg DAILYBFRSUP PO Last administered on 13:30; Start 11/22/16 at 17:00 Divalproex Sodium (Depakote Er) 500 mg QHS PO ; Start 11/22/16 at 21:00; Stop 11/22/16 at 21:00; Status DC Donepezil HCl (Aricept) 10 mg DAILY PO Last administered on 11/25/16 07:54; Start 11/22/16 at 10:30 Haloperidol (Haldol) 5 mg PRN Q2HR PRN PO PSYCHOSIS; Start 11/22/16 at 10:00 Hydralazine HCl (Apresoline) 25 mg TID PO Last administered on 11/25/16 20:05 ; Start 11/22/16 at 10:30 Acetaminophen/ Hydrocodone Bitart (Lortab 5/325) 1 tab PRN Q6HRS PRN PO PAIN; Start 11/22/16 at 10:00 Lorazepam (Ativan) 0.25 mg PRN Q4HRS PRN PO ANXIETY / AGITATION; Start at 10:00 Al Hydroxide/Mg Hydroxide (Mylanta Plus Xs) 15 ml PRN AFTMEALHC PRN PO DYSPEPSIA; Start 11/22/16 at 10:00 Magnesium Hydroxide (Milk Of Magnesia) 2,400 mg PRN QHS PRN PO CONSTIPATION; Start 11/22/16 at 10:00 Magnesium Oxide (Magnesium Oxide) 400 mg TID PO Last administered on 11/25/16 20:07; Start 11/22/16 at 10:30 Memantine (Namenda) 10 mg BID PO Last administered on 11/25/16 20:07; Start 11/22/16 at 10:30 Multi-Ingredient Ointment (Analgesic [place]) 1 morenita PRN QID PRN TP MUSCLE PAIN; Start 11/22/16 at 10:00 Mirtazapine (Remeron) 15 mg QHS PO Last administered on 11/25/16 20:07; Start 11/22/16 at 21:00 Pantoprazole Sodium (Protonix) 40 mg DAILYAC PO Last administered on 11/25/16 07:54; Start 11/22/16 at 11:00 Quetiapine Fumarate (SEROquel) 25 mg QHS PO Last administered on 11/22/16 20: 47; Start 11/22/16 at 21:00; Stop 11/23/16 at 10:19; Status DC Simvastatin (Zocor) 20 mg QHS PO Last administered on 11/25/16 20:07; Start 11/22/16 at 21:00 Sodium Chloride (Saline Mist Nasal) 1 morenita Q1HR PRN NS Nasal Congestion; Start 11/22/16 at 10:00 Trazodone HCl (Desyrel) 100 mg PRN QHS PRN PO INSOMNIA, MAY REPEAT X1 Last administered on 11/24/16 21:48; Start 11/22/16 at 10:00 Trazodone HCl (Desyrel) 100 mg QHS PO Last administered on 11/25/16 20:06; Start 11/22/16 at 21:00 Fluvoxamine Maleate (Luvox) 50 mg QHS PO Last administered on 11/25/16 20:06; Start 11/22/16 at 21:00 Losartan Potassium (Cozaar) 100 mg DAILY PO Last administered on 11/25/16 07: 54; Start 11/22/16 at 10:30 Metoprolol Succinate (Toprol Xl) 100 mg DAILY PO Last administered on 07:53; Start 11/22/16 at 10:30 Potassium Chloride (Klor-Con) 20 meq TID PO Last administered on 11/25/16 20: 07; Start 11/22/16 at 10:30 Quetiapine Fumarate (SEROquel) 200 mg QHS PO Last administered on 11/23/16 20: 48; Start 11/22/16 at 21:00; Stop 11/24/16 at 19:21; Status DC Albuterol Sulfate (Ventolin) 2.5 mg PRN Q1HR PRN NEB SHORTNESS OF BREATH; Start 11/22/16 at 10:45 Divalproex Sodium (Depakote Er) 750 mg QHS PO Last administered on 11/25/16 20 :06; Start 11/22/16 at 21:00 Quetiapine Fumarate (SEROquel) 75 mg QHS PO Last administered on 11/23/16 20: 49; Start 11/23/16 at 21:00; Stop 11/24/16 at 19:21; Status DC Cyanocobalamin (Vitamin B-12) 1,000 mcg DAILY PO Last administered on 07:54; Start 11/24/16 at 09:00 Quetiapine Fumarate (SEROquel) 25 mg QHS PO Last administered on 11/25/16 20: 07; Start 11/24/16 at 21:00 Quetiapine Fumarate (SEROquel) 300 mg QHS PO Last administered on 11/25/16 21: 53; Start 11/24/16 at 21:00 Active Scripts Active Reported Klor-Con M20 (Potassium Chloride) 20 Meq Tab.er.prt 20 Meq PO TID Seroquel (Quetiapine Fumarate) 200 Mg Tablet 200 Mg PO QHS Seroquel (Quetiapine Fumarate) 25 Mg Tablet 25 Mg PO QHS Vitamin B-12 (Cyanocobalamin (Vitamin B-12)) 1,000 Mcg Tablet 1,000 Mcg PO DAILYBFRSUP Trazodone Hcl 100 Mg Tablet 100 Mg PO PRN QHS PRN Trazodone Hcl 100 Mg Tablet 100 Mg PO QHS Hydralazine Hcl 25 Mg Tablet 25 Mg PO TID Fluvoxamine Maleate 50 Mg Tablet 50 Mg PO QHS Mirtazapine 15 Mg Tablet 15 Mg PO QHS Cozaar (Losartan Potassium) 100 Mg Tablet 100 Mg PO DAILY Analgesic [place] (Methyl Salicylate/Menthol) 28 Gm Oint...g. 1 Moren[place] TP PRN QID PRN Namenda (Memantine Hcl) 10 Mg Tablet 10 Mg PO BID Milk Of Magnesia (Magnesium Hydroxide) 400 Mg/5 Ml Oral.susp 2,400 Mg PO PRN QHS PRN Mag-Al Plus Xs Suspension (Mag Hydrox/Al Hydrox/Simeth) 30 Ml Oral.susp 15 Ml PO PRN AFTMEALHC PRN Aricept (Donepezil Hcl) 10 Mg Tablet 10 Mg PO DAILY Depakote Er (Divalproex Sodium) 500 Mg Tab.er.24h 500 Mg PO QHS Clobetasol Emollient 0.05% Crm (Clobetasol Propionate/Emoll) 15 Gm Cream..g. 1 [place] TP BID Tylenol (Acetaminophen) 325 Mg Tablet 650 Mg PO PRN Q6HRS PRN MDD 4000mg Amlodipine Besylate 10 Mg Tablet 10 Mg PO DAILY Saline Nasal [place] (Sodium Chloride) 30 Ml [place] 1 [place] NS Q1HR PRN Protonix (Pantoprazole Sodium) 40 Mg Tablet.dr 40 Mg PO DAILYAC Magnesium Oxide 400 Mg Tablet 400 Mg PO TID Lorazepam 0.5 Mg Tablet 0.25 Mg PO PRN Q4HRS PRN Hydrocodone-Apap 5-325 (Hydrocodone Bit/Acetaminophen) 1 Each Tablet 1 Tab PO PRN Q6HRS PRN Haloperidol 5 Mg Tablet 5 Mg PO PRN Q2HR PRN Cepacol Sore Throat Lozenge (Benzocaine/Menthol) 1 Each Lozenge 1 Katty PO PRN Q2HR PRN Ventolin Hfa Inhaler (Albuterol Sulfate) 18 Gm Hfa.aer.ad 1 Puff IH PRN Q1HR PRN Zyrtec (Cetirizine Hcl) 10 Mg Tablet 10 Mg PO DAILY Simvastatin 20 Mg Tablet 20 Mg PO QHS Metoprolol Succinate ( Xl ) (Metoprolol Succinate) 100 Mg Tab.er.24h 100 Mg PO DAILY Aspir-Low (Aspirin) 81 Mg Tablet.dr 81 Mg PO DAILY Diagnosis: Problems: (1) Anxiety disorder (2) Impulse control disorder (3) Psychosis, atypical (4) Unspecified psychosis (5) Dementia, vascular, with delusions (6) Lewy body dementia with behavioral disturbance (7) Obsessive compulsive disorder JOSE NOLASCO MD Nov 25, 2016 22:52
[2016-11-26 05:48] VITALS: BP 104/54
[2016-11-26] MEDS: PANTOPRAZOLE 40 MG TABLET. PO SCH (07:33)
[2016-11-26] MEDS: POTASSIUM CHLORIDE 20 MEQ TABLET.ER. PO SCH ×3 (07:33→19:47)
[2016-11-26] MEDS: MAGNESIUM OXIDE 400 MG TABLET PO SCH ×3 (07:33→19:47)
[2016-11-26] MEDS: CYANOCOBALAMIN (VITAMIN B-12) 1,000 MCG TABLET. PO SCH ×2 (07:34→17:44)
[2016-11-26] MEDS: MEMANTINE 10 MG TABLET. PO SCH ×2 (07:34→19:47)
[2016-11-26] MEDS: DONEPEZIL HCL 10 MG TABLET PO SCH (07:34)
[2016-11-26] MEDS: hydrALAZINE 25 MG TABLET PO SCH ×3 (07:35→19:48)
[2016-11-26] MEDS: LOSARTAN 50 MG TABLET. PO SCH (07:35)
[2016-11-26] MEDS: METOPROLOL SUCC 24HR ER 50 MG TAB.ER.24H. PO SCH (07:35)
[2016-11-26] MEDS: ASPIRIN ENTERIC COATED 81 MG TABLET.DR. PO SCH (07:35)
[2016-11-26] MEDS: amLODIPine BESYLATE 10 MG TABLET PO SCH (07:36)
[2016-11-26] MEDS: CLOBETASOL EMOLLIENT 0.05% TOPICAL CREAM 15GM TUBE. TP SCH ×2 (07:36→19:47)
[2016-11-26] MEDS: CETIRIZINE HCL 10 MG TABLET PO SCH (07:38)
--- NOTE | 2016-11-26 08:55 | NUR ---
Behavior Intervention Response and Plan: BIRP Note: Behavior: Assumed Care of patient, patient located in Dining Room at shift change. Patient exhibited the following behavior Compliant, Cooperative, Anxious. Brief assessment on rounds of vital signs, medication needs, lab studies, and pain. Treatment plan problems . Intervention: Patient assessed and the following interventions initiated safety checks 15 Minute Checks Cognitive Assessment , Head to toe Assessment , Medications. Response: After interactions and interventions patient responded in the following manner, Compliant , Calm ,Cooperative. Continue to assess behaviors and condition will continue to monitor throughout the shift as needed. Patient educated on ADL's, and hand hygiene. 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 Continue to assess patient for changes in above assessment. Monitor for medication needs, pain, and safety concerns. Hourly rounding performed to ensure safe environment.
[2016-11-26 09:43] LABS: BASO # 0.1 x10^3/uL (0.0-0.2); BASO % 2 % (0-3); EOS # 0.4 x10^3/uL (0.0-0.7); EOS % 6 % (0-3); HEMATOCRIT 33.8 % (39.0-53.0); HEMOGLOBIN 11.5 g/dL (13.0-17.5); LYMPH # 1.2 x10^3/uL (1.0-4.8); LYMPH % 17 % (24-48); MEAN CORPUSCULAR HEMOGLOBIN 31 pg (25-35); MEAN CORPUSCULAR HGB CONC 34 g/dL (31-37); MEAN CORPUSCULAR VOLUME 90 fL (79-100); MONO # 0.7 x10^3/uL (0.0-1.1); MONO % 10 % (0-9); NEUT # 4.6 x10^3uL (1.8-7.7); NEUT % 66 % (31-73); PLATELET COUNT 262 x10^3/uL (140-400); RED BLOOD COUNT 3.76 x10^6/uL (4.30-5.70); RED CELL DISTRIBUTION WIDTH 13.9 % (11.5-14.5)
[2016-11-26 10:00] LABS: ALBUMIN 3.5 g/dL (3.4-5.0); ALK PHOS 55 U/L (46-116); ALT (SGPT) 37 U/L (16-63); ANION GAP 8 (6-14); AST (SGOT) 24 U/L (15-37); BLOOD UREA NITROGEN 11 mg/dL (8-26); BUN/CREATININE RATIO 8 (6-20); CALCIUM 8.6 mg/dL (8.5-10.1); CARBON DIOXIDE 27 mmol/L (21-32); CHLORIDE 102 mmol/L (98-107); CREATININE 1.4 mg/dL (0.7-1.3); GFR 50.7; GLUCOSE 147 mg/dL (70-99); POTASSIUM 4.4 mmol/L (3.5-5.1); SODIUM 137 mmol/L (136-145); TOTAL BILIRUBIN 0.4 mg/dL (0.2-1.0); TOTAL PROTEIN 6.9 g/dL (6.4-8.2)
--- NOTE | 2016-11-26 10:03 | PN ---
DATE: 11/25/2016 PSYCHIATRIC PROGRESS NOTE This is a late entry date of service 11/25/2016 covers elements not covered in my initial note of 11/25/2016. I met with the patient on the evening of 11/25/2016. Per nursing report, the patient has not voiced the delusions about Urban, his ex-coworker intruding on him on 11/25/2016. His visited him twice and reportedly did not share any information to the contrary but on my assessment, even though the patient verbalizes, he is not experiencing anything, he does seem somewhat paranoid. REVIEW OF SYSTEMS: No CV, , pulmonary, eye, ENT system symptoms on review. MENTAL STATUS EXAM: Oriented to himself and situation. Speech is coherent, somewhat typical in his rhythm and jannet, abstraction fair, computation impaired, language function intact. Mood and affect still somewhat anxious, labile, but improved. LABORATORY DATA: Reviewed. IMPRESSION: Unchanged from initial note. PLAN: Seroquel was increased to 325 mg at bedtime. Check CBC, CMP, valproic acid level morning of 11/26/2016, adjust to reach a therapeutic level, maintain rest of the psychotropics unchanged including Aricept, trazodone, Remeron, Namenda, and Luvox along with Ativan p.r.n. Reviewed drug interactions. Risk risk/benefit ratio favors no further change. MAN Delicia NOLASCO MD DR: SAMARA/shilo JOB#: [id number] / [id number]
[2016-11-26 10:05] LABS: VAL ACID 78 mcg/mL (50-100)
[2016-11-26] MEDS ORDERED: SELENIUM SULFIDE 2.5% SHAMPOO 120ML BOTTLE. TP PRN (12:30)
[2016-11-26 15:46] VITALS: BP 147/68
--- NOTE | 2016-11-26 16:27 | NUR ---
pt up adl to meals and groups. compliant with meds and cares. no delusions noted today.
[2016-11-26] MEDS: MIRTAZAPINE 15 MG TABLET PO SCH (19:47)
[2016-11-26] MEDS: traZODone 100 MG TABLET. PO SCH (19:47)
[2016-11-26] MEDS: SIMVASTATIN 20 MG TABLET PO SCH (19:47)
[2016-11-26] MEDS: QUEtiapine 100 MG TABLET. PO SCH (19:47)
[2016-11-26] MEDS: QUEtiapine 25 MG TABLET. PO SCH (19:48)
[2016-11-26] MEDS: DIVALPROEX ER 250 MG TAB.ER.24H. PO SCH (19:48)
--- NOTE | 2016-11-26 20:32 | PDOC ---
Exam Serg Demential Exam: Serg Note: Please also refer to the separate dictated note~for this date of service dictated separately.~Patient seen individually. Discussed the patient with Nursing staff reviewed the chart.~Reviewed interim history and current functioning. Reviewed vital signs,~Labs/ Radiology~and current medications noted below. Continue current treatment with the changes noted in the dictated addendum note Assessment: Vital Signs: Vital Signs Date Time Temp Pulse Resp B/P (MAP) Pulse Ox O2 Delivery O2 Flow Rate FiO2 11/26/16 19:48 74 147/68 11/26/16 15:46 97.5 19 97 11/23/16 06:19 Room Air I&O Intake and Output 11/27/16 07:00 Intake Total 960 ml Balance 960 ml Intake Oral 960 ml # Bowel Movements 2 Labs: Laboratory Tests Test 11/26/16 09:35 White Blood Count 7.0 x10^3/uL (4.0-11.0) Red Blood Count 3.76 x10^6/uL (4.30-5.70) L Hemoglobin 11.5 g/dL (13.0-17.5) L Hematocrit 33.8 % (39.0-53.0) L Mean Corpuscular Volume 90 fL (79-100) Mean Corpuscular Hemoglobin 31 pg (25-35) Mean Corpuscular Hemoglobin Concent 34 g/dL (31-37) Red Cell Distribution Width 13.9 % (11.5-14.5) Platelet Count 262 x10^3/uL (140-400) Neutrophils (%) (Auto) 66 % (31-73) Lymphocytes (%) (Auto) 17 % (24-48) L Monocytes (%) (Auto) 10 % (0-9) H Eosinophils (%) (Auto) 6 % (0-3) H Basophils (%) (Auto) 2 % (0-3) Neutrophils # (Auto) 4.6 x10^3uL (1.8-7.7) Lymphocytes # (Auto) 1.2 x10^3/uL (1.0-4.8) Monocytes # (Auto) 0.7 x10^3/uL (0.0-1.1) Eosinophils # (Auto) 0.4 x10^3/uL (0.0-0.7) Basophils # (Auto) 0.1 x10^3/uL (0.0-0.2) Sodium Level 137 mmol/L (136-145) Potassium Level 4.4 mmol/L (3.5-5.1) Chloride Level 102 mmol/L (98-107) Carbon Dioxide Level 27 mmol/L (21-32) Anion Gap 8 (6-14) Blood Urea Nitrogen 11 mg/dL (8-26) Creatinine 1.4 mg/dL (0.7-1.3) H Estimated GFR (Cockcroft-Gault) 50.7 BUN/Creatinine Ratio 8 (6-20) Glucose Level 147 mg/dL (70-99) H Calcium Level 8.6 mg/dL (8.5-10.1) Total Bilirubin 0.4 mg/dL (0.2-1.0) Aspartate Amino Transferase (AST) 24 U/L (15-37) Alanine Aminotransferase (ALT) 37 U/L (16-63) Alkaline Phosphatase 55 U/L (46-116) Total Protein 6.9 g/dL (6.4-8.2) Albumin 3.5 g/dL (3.4-5.0) Albumin/Globulin Ratio 1.0 (1.0-1.7) Valproic Acid Level 78 mcg/mL (50-100) Valproic Acid Last Dose Date 11/25/2016 Valproic Acid Last Dose Time 2100 Current Medications: Meds: Current Medications Acetaminophen (Tylenol) 650 mg PRN Q6HRS PRN PO PAIN / TEMP; Start 11/22/16 at 09:45; Status Cancel Multi-Ingredient Ointment (Analgesic [place]) 1 morenita PRN QID PRN TP MUSCLE PAIN; Start 11/22/16 at 09:45; Status Cancel Al Hydroxide/Mg Hydroxide (Mylanta Plus Xs) 15 ml PRN AFTMEALHC PRN PO DYSPEPSIA; Start 11/22/16 at 09:45; Status Cancel Magnesium Hydroxide (Milk Of Magnesia) 2,400 mg PRN QHS PRN PO CONSTIPATION; Start 11/22/16 at 09:45; Status Cancel Acetaminophen (Tylenol) 650 mg PRN Q6HRS PRN PO PAIN / TEMP; Start 11/22/16 at 10:00 Albuterol Sulfate (Ventolin Hfa) 1 puff PRN Q1HR PRN IH SHORTNESS OF BREATH; Start 11/22/16 at 10:00; Status UNV Amlodipine Besylate (Norvasc) 10 mg DAILY PO Last administered on 11/25/16 07: 53; Start 11/22/16 at 10:30 Aspirin (Aspirin Enteric Coated) 81 mg DAILY PO Last administered on 11/26/16 07:35; Start 11/22/16 at 10:30 Throat Lozenges (Cepacol Sore Throat Lozenge) 1 katty PRN Q2HR PRN PO sore throat ; Start 11/22/16 at 10:00 Cetirizine HCl (ZyrTEC) 10 mg DAILY PO Last administered on 11/26/16 07:38; Start 11/22/16 at 10:30 Clobetasol Propionate 1 morenita BID TP Last administered on 11/26/16 19:47; Start 11/22/16 at 11:00 Cyanocobalamin (Vitamin B-12) 1,000 mcg DAILYBFRSUP PO Last administered on 17:44; Start 11/22/16 at 17:00 Divalproex Sodium (Depakote Er) 500 mg QHS PO ; Start 11/22/16 at 21:00; Stop 11/22/16 at 21:00; Status DC Donepezil HCl (Aricept) 10 mg DAILY PO Last administered on 11/26/16 07:34; Start 11/22/16 at 10:30 Haloperidol (Haldol) 5 mg PRN Q2HR PRN PO PSYCHOSIS; Start 11/22/16 at 10:00 Hydralazine HCl (Apresoline) 25 mg TID PO Last administered on 11/26/16 19:48 ; Start 11/22/16 at 10:30 Acetaminophen/ Hydrocodone Bitart (Lortab 5/325) 1 tab PRN Q6HRS PRN PO PAIN; Start 11/22/16 at 10:00 Lorazepam (Ativan) 0.25 mg PRN Q4HRS PRN PO ANXIETY / AGITATION; Start at 10:00 Al Hydroxide/Mg Hydroxide (Mylanta Plus Xs) 15 ml PRN AFTMEALHC PRN PO DYSPEPSIA; Start 11/22/16 at 10:00 Magnesium Hydroxide (Milk Of Magnesia) 2,400 mg PRN QHS PRN PO CONSTIPATION; Start 11/22/16 at 10:00 Magnesium Oxide (Magnesium Oxide) 400 mg TID PO Last administered on 11/26/16 19:47; Start 11/22/16 at 10:30 Memantine (Namenda) 10 mg BID PO Last administered on 11/26/16 19:47; Start 11/22/16 at 10:30 Multi-Ingredient Ointment (Analgesic [place]) 1 morenita PRN QID PRN TP MUSCLE PAIN; Start 11/22/16 at 10:00 Mirtazapine (Remeron) 15 mg QHS PO Last administered on 11/26/16 19:47; Start 11/22/16 at 21:00 Pantoprazole Sodium (Protonix) 40 mg DAILYAC PO Last administered on 11/26/16 07:33; Start 11/22/16 at 11:00 Quetiapine Fumarate (SEROquel) 25 mg QHS PO Last administered on 11/22/16 20: 47; Start 11/22/16 at 21:00; Stop 11/23/16 at 10:19; Status DC Simvastatin (Zocor) 20 mg QHS PO Last administered on 11/26/16 19:47; Start 11/22/16 at 21:00 Sodium Chloride (Saline Mist Nasal) 1 morenita Q1HR PRN NS Nasal Congestion; Start 11/22/16 at 10:00 Trazodone HCl (Desyrel) 100 mg PRN QHS PRN PO INSOMNIA, MAY REPEAT X1 Last administered on 11/24/16 21:48; Start 11/22/16 at 10:00 Trazodone HCl (Desyrel) 100 mg QHS PO Last administered on 11/26/16 19:47; Start 11/22/16 at 21:00 Fluvoxamine Maleate (Luvox) 50 mg QHS PO Last administered on 11/26/16 19:47; Start 11/22/16 at 21:00 Losartan Potassium (Cozaar) 100 mg DAILY PO Last administered on 11/25/16 07: 54; Start 11/22/16 at 10:30 Metoprolol Succinate (Toprol Xl) 100 mg DAILY PO Last administered on 07:35; Start 11/22/16 at 10:30 Potassium Chloride (Klor-Con) 20 meq TID PO Last administered on 11/26/16 19: 47; Start 11/22/16 at 10:30 Quetiapine Fumarate (SEROquel) 200 mg QHS PO Last administered on 11/23/16 20: 48; Start 11/22/16 at 21:00; Stop 11/24/16 at 19:21; Status DC Albuterol Sulfate (Ventolin) 2.5 mg PRN Q1HR PRN NEB SHORTNESS OF BREATH; Start 11/22/16 at 10:45 Divalproex Sodium (Depakote Er) 750 mg QHS PO Last administered on 11/26/16 19 :48; Start 11/22/16 at 21:00 Quetiapine Fumarate (SEROquel) 75 mg QHS PO Last administered on 11/23/16 20: 49; Start 11/23/16 at 21:00; Stop 11/24/16 at 19:21; Status DC Cyanocobalamin (Vitamin B-12) 1,000 mcg DAILY PO Last administered on 07:34; Start 11/24/16 at 09:00 Quetiapine Fumarate (SEROquel) 25 mg QHS PO Last administered on 11/26/16 19: 48; Start 11/24/16 at 21:00 Quetiapine Fumarate (SEROquel) 300 mg QHS PO Last administered on 11/26/16 19: 47; Start 11/24/16 at 21:00 Selenium Sulfide ([place] Blue) 1 morenita PRN DAILY PRN TP ICHING SCALP; Start 11/26 at 12:30 Active Scripts Active Reported Klor-Con M20 (Potassium Chloride) 20 Meq Tab.er.prt 20 Meq PO TID Seroquel (Quetiapine Fumarate) 200 Mg Tablet 200 Mg PO QHS Seroquel (Quetiapine Fumarate) 25 Mg Tablet 25 Mg PO QHS Vitamin B-12 (Cyanocobalamin (Vitamin B-12)) 1,000 Mcg Tablet 1,000 Mcg PO DAILYBFRSUP Trazodone Hcl 100 Mg Tablet 100 Mg PO PRN QHS PRN Trazodone Hcl 100 Mg Tablet 100 Mg PO QHS Hydralazine Hcl 25 Mg Tablet 25 Mg PO TID Fluvoxamine Maleate 50 Mg Tablet 50 Mg PO QHS Mirtazapine 15 Mg Tablet 15 Mg PO QHS Cozaar (Losartan Potassium) 100 Mg Tablet 100 Mg PO DAILY Analgesic [place] (Methyl Salicylate/Menthol) 28 Gm Oint...g. 1 [place] TP PRN QID PRN Namenda (Memantine Hcl) 10 Mg Tablet 10 Mg PO BID Milk Of Magnesia (Magnesium Hydroxide) 400 Mg/5 Ml Oral.susp 2,400 Mg PO PRN QHS PRN Mag-Al Plus Xs Suspension (Mag Hydrox/Al Hydrox/Simeth) 30 Ml Oral.susp 15 Ml PO PRN AFTMEALHC PRN Aricept (Donepezil Hcl) 10 Mg Tablet 10 Mg PO DAILY Depakote Er (Divalproex Sodium) 500 Mg Tab.er.24h 500 Mg PO QHS Clobetasol Emollient 0.05% Crm (Clobetasol Propionate/Emoll) 15 Gm Cream..g. 1 [place] TP BID Tylenol (Acetaminophen) 325 Mg Tablet 650 Mg PO PRN Q6HRS PRN MDD 4000mg Amlodipine Besylate 10 Mg Tablet 10 Mg PO DAILY Saline Nasal [place] (Sodium Chloride) 30 Ml [place] 1 [place] NS Q1HR PRN Protonix (Pantoprazole Sodium) 40 Mg Tablet.dr 40 Mg PO DAILYAC Magnesium Oxide 400 Mg Tablet 400 Mg PO TID Lorazepam 0.5 Mg Tablet 0.25 Mg PO PRN Q4HRS PRN Hydrocodone-Apap 5-325 (Hydrocodone Bit/Acetaminophen) 1 Each Tablet 1 Tab PO PRN Q6HRS PRN Haloperidol 5 Mg Tablet 5 Mg PO PRN Q2HR PRN Cepacol Sore Throat Lozenge (Benzocaine/Menthol) 1 Each Lozenge 1 Katty PO PRN Q2HR PRN Ventolin Hfa Inhaler (Albuterol Sulfate) 18 Gm Hfa.aer.ad 1 Puff IH PRN Q1HR PRN Zyrtec (Cetirizine Hcl) 10 Mg Tablet 10 Mg PO DAILY Simvastatin 20 Mg Tablet 20 Mg PO QHS Metoprolol Succinate ( Xl ) (Metoprolol Succinate) 100 Mg Tab.er.24h 100 Mg PO DAILY Aspir-Low (Aspirin) 81 Mg Tablet.dr 81 Mg PO DAILY Diagnosis: Problems: (1) Anxiety disorder (2) Impulse control disorder (3) Psychosis, atypical (4) Unspecified psychosis (5) Dementia, vascular, with delusions (6) Lewy body dementia with behavioral disturbance (7) Obsessive compulsive disorder JOSE NOLASCO MD Nov 26, 2016 20:32
--- NOTE | 2016-11-26 23:34 | NUR ---
Behavior Intervention Response and Plan: BIRP Note: Behavior: Assumed Care of patient, patient located in Day Room at shift change. Patient exhibited the following behavior Calm, Delusions, Compliant. Brief assessment on rounds of vital signs, medication needs, lab studies, and pain. Treatment plan problems Altered Thought Process and Fall Risk. Intervention: Patient assessed and the following interventions initiated safety checks 15 Minute Checks Cognitive Assessment , Head to toe Assessment , Medications. Response: After interactions and interventions patient responded in the following manner, Calm , Cooperative ,Delusions. Continue to assess behaviors and condition will continue to monitor throughout the shift as needed. Patient educated on ADL's, and hand hygiene. Plan: Continue to monitor Master Treatment Plan for patient's progress toward short term goals of Decreased Agitation, Medication Compliance, technician terminal and repeater goals to return to previous living setting vs placement. Continue to assess patient for changes in above assessment. Monitor for medication needs, pain, and safety concerns. Hourly rounding performed to ensure safe environment.
[2016-11-27 06:19] VITALS: BP 121/69
[2016-11-27] MEDS: LOSARTAN 50 MG TABLET. PO SCH (09:38)
[2016-11-27] MEDS: PANTOPRAZOLE 40 MG TABLET. PO SCH (09:38)
[2016-11-27] MEDS: METOPROLOL SUCC 24HR ER 50 MG TAB.ER.24H. PO SCH (09:38)
[2016-11-27] MEDS: CYANOCOBALAMIN (VITAMIN B-12) 1,000 MCG TABLET. PO SCH ×2 (09:38→16:45)
[2016-11-27] MEDS: amLODIPine BESYLATE 10 MG TABLET PO SCH (09:39)
[2016-11-27] MEDS: ASPIRIN ENTERIC COATED 81 MG TABLET.DR. PO SCH (09:39)
[2016-11-27] MEDS: MEMANTINE 10 MG TABLET. PO SCH ×2 (09:39→19:56)
[2016-11-27] MEDS: hydrALAZINE 25 MG TABLET PO SCH ×4 (09:39→19:55)
[2016-11-27] MEDS: CETIRIZINE HCL 10 MG TABLET PO SCH (09:39)
[2016-11-27] MEDS: MAGNESIUM OXIDE 400 MG TABLET PO SCH ×3 (09:39→19:56)
[2016-11-27] MEDS: DONEPEZIL HCL 10 MG TABLET PO SCH (09:39)
[2016-11-27] MEDS: POTASSIUM CHLORIDE 20 MEQ TABLET.ER. PO SCH ×3 (09:40→19:56)
[2016-11-27] MEDS: CLOBETASOL EMOLLIENT 0.05% TOPICAL CREAM 15GM TUBE. TP SCH ×2 (09:40→20:02)
--- NOTE | 2016-11-27 10:59 | NUR ---
Behavior Intervention Response and Plan: BIRP Note: Behavior: Assumed Care of patient, patient located in Dining Room at shift change. Patient exhibited the following behavior Calm, Withdrawn, Drowsy. Brief assessment on rounds of vital signs, medication needs, lab studies, and pain. Treatment plan problems 1 and 2. Intervention: Patient assessed and the following interventions initiated safety checks 15 Minute Checks Cognitive Assessment , Head to toe Assessment , Medications. Response: After interactions and interventions patient responded in the following manner, Calm , Sleeping ,Compliant. Continue to assess behaviors and condition will continue to monitor throughout the shift as needed. Patient educated on ADL's, and hand hygiene. Plan: Continue to monitor Master Treatment Plan for patient's progress toward short term goals of Decreased Agitation, Decreased Anxiety, half-way goals to return to previous living setting vs placement. Continue to assess patient for changes in above assessment. Monitor for medication needs, pain, and safety concerns. Hourly rounding performed to ensure safe environment.
--- NOTE | 2016-11-27 12:59 | PN ---
DATE: 11/26/2016 PSYCHIATRIC PROGRESS NOTE This late entry date of service 11/26/2016 covers elements, not covered in my initial note of 11/26/2016. SUBJECTIVE: I met with the patient the evening of 11/26/2016. Overall, the patient has been more cooperative in the unit. Denies psychotic symptoms, but its again unclear if he is hiding these. His confirmed that he denied psychotic symptoms to her as well. REVIEW OF SYSTEMS: No CV, , pulmonary, eye, ENT system symptoms on review. Reliability varies. MENTAL STATUS EXAM: Oriented to himself and situation. Speech coherent, abstraction fair, computation impaired, language function intact, attention span short. Mood and affect is improved. Diagnosis mentioned in my initial note. PLAN: Continue current psychotropics. Reviewed drug interactions. Risk/benefit ratio favors no further change. MAN Delicia NOLASCO MD DR: SAMARA/shilo JOB#: [id number] / [id number]
[2016-11-27 13:38] VITALS: BP 112/58
--- NOTE | 2016-11-27 13:46 | NUR ---
SW met with pt and pt , pt reports he feels better, pt smiled and stated he seems better, however concerned as he was always wearing the same clothes and asked for staff to see if he is willing to wear other clothes to see if he thought there was something wrong with the other clothes. Pt states she told the nursing staff as well. SW and pt met without pt as well, SW talked to pt about pt and managing him if he has delusions pt states she is hoping the medication changes will help and that this will not be the case, however she states if it is then she will figure out how to make it work. Pt states goal is for him to come home.
--- NOTE | 2016-11-27 14:33 | NUR ---
SW tried to encourage pt to join group, pt declined, pt declined to meet with pt SW one on one.
[2016-11-27 16:04] VITALS: BP 123/66
--- NOTE | 2016-11-27 16:45 | NUR ---
Pt spouse (DPOA) stated that he had been wearing the same socks for three days. Also stated that he has psoriasis on the back of his head, his leg and pain in his big toe. Nurse aware of psoriasis and has been treating it with prescription cream per order. Will continue treatment as ordered and continue to monitor.
[2016-11-27] MEDS: QUEtiapine 25 MG TABLET. PO SCH (19:55)
[2016-11-27] MEDS: MIRTAZAPINE 15 MG TABLET PO SCH (19:56)
[2016-11-27] MEDS: traZODone 100 MG TABLET. PO SCH (19:56)
[2016-11-27] MEDS: SIMVASTATIN 20 MG TABLET PO SCH (19:56)
[2016-11-27] MEDS: QUEtiapine 100 MG TABLET. PO SCH (19:58)
[2016-11-27] MEDS: DIVALPROEX ER 250 MG TAB.ER.24H. PO SCH (20:01)
--- NOTE | 2016-11-27 20:21 | PDOC ---
Exam Serg Demential Exam: Serg Note: Please also refer to the separate dictated note~for this date of service dictated separately.~Patient seen individually. Discussed the patient with Nursing staff reviewed the chart.~Reviewed interim history and current functioning. Reviewed vital signs,~Labs/ Radiology~and current medications noted below. Continue current treatment with the changes noted in the dictated addendum note Assessment: Vital Signs: Vital Signs Date Time Temp Pulse Resp B/P (MAP) Pulse Ox O2 Delivery O2 Flow Rate FiO2 11/27/16 19:55 70 123/66 11/27/16 16:04 99.5 18 96 Room Air I&O Intake and Output 11/28/16 07:00 Intake Total 1620 ml Balance 1620 ml Intake Oral 1620 ml Current Medications: Meds: Current Medications Acetaminophen (Tylenol) 650 mg PRN Q6HRS PRN PO PAIN / TEMP; Start 11/22/16 at 09:45; Status Cancel Multi-Ingredient Ointment (Analgesic Keeler) 1 morenita PRN QID PRN TP MUSCLE PAIN; Start 11/22/16 at 09:45; Status Cancel Al Hydroxide/Mg Hydroxide (Mylanta Plus Xs) 15 ml PRN AFTMEALHC PRN PO DYSPEPSIA; Start 11/22/16 at 09:45; Status Cancel Magnesium Hydroxide (Milk Of Magnesia) 2,400 mg PRN QHS PRN PO CONSTIPATION; Start 11/22/16 at 09:45; Status Cancel Acetaminophen (Tylenol) 650 mg PRN Q6HRS PRN PO PAIN / TEMP; Start 11/22/16 at 10:00 Albuterol Sulfate (Ventolin Hfa) 1 puff PRN Q1HR PRN IH SHORTNESS OF BREATH; Start 11/22/16 at 10:00; Status UNV Amlodipine Besylate (Norvasc) 10 mg DAILY PO Last administered on 11/27/16 09: 39; Start 11/22/16 at 10:30 Aspirin (Aspirin Enteric Coated) 81 mg DAILY PO Last administered on 11/27/16 09:39; Start 11/22/16 at 10:30 Throat Lozenges (Cepacol Sore Throat Lozenge) 1 katty PRN Q2HR PRN PO sore throat ; Start 11/22/16 at 10:00 Cetirizine HCl (ZyrTEC) 10 mg DAILY PO Last administered on 11/27/16 09:39; Start 11/22/16 at 10:30 Clobetasol Propionate 1 morenita BID TP Last administered on 11/27/16 20:02; Start 11/22/16 at 11:00 Cyanocobalamin (Vitamin B-12) 1,000 mcg DAILYBFRSUP PO Last administered on 16:45; Start 11/22/16 at 17:00 Divalproex Sodium (Depakote Er) 500 mg QHS PO ; Start 11/22/16 at 21:00; Stop 11/22/16 at 21:00; Status DC Donepezil HCl (Aricept) 10 mg DAILY PO Last administered on 11/27/16 09:39; Start 11/22/16 at 10:30 Haloperidol (Haldol) 5 mg PRN Q2HR PRN PO PSYCHOSIS; Start 11/22/16 at 10:00 Hydralazine HCl (Apresoline) 25 mg TID PO Last administered on 11/27/16 19:55 ; Start 11/22/16 at 10:30 Acetaminophen/ Hydrocodone Bitart (Lortab 5/325) 1 tab PRN Q6HRS PRN PO PAIN; Start 11/22/16 at 10:00 Lorazepam (Ativan) 0.25 mg PRN Q4HRS PRN PO ANXIETY / AGITATION; Start at 10:00 Al Hydroxide/Mg Hydroxide (Mylanta Plus Xs) 15 ml PRN AFTMEALHC PRN PO DYSPEPSIA; Start 11/22/16 at 10:00 Magnesium Hydroxide (Milk Of Magnesia) 2,400 mg PRN QHS PRN PO CONSTIPATION; Start 11/22/16 at 10:00 Magnesium Oxide (Magnesium Oxide) 400 mg TID PO Last administered on 11/27/16 19:56; Start 11/22/16 at 10:30 Memantine (Namenda) 10 mg BID PO Last administered on 11/27/16 19:56; Start 11/22/16 at 10:30 Multi-Ingredient Ointment (Analgesic Keeler) 1 morenita PRN QID PRN TP MUSCLE PAIN; Start 11/22/16 at 10:00 Mirtazapine (Remeron) 15 mg QHS PO Last administered on 11/27/16 19:56; Start 11/22/16 at 21:00 Pantoprazole Sodium (Protonix) 40 mg DAILYAC PO Last administered on 11/27/16 09:38; Start 11/22/16 at 11:00 Quetiapine Fumarate (SEROquel) 25 mg QHS PO Last administered on 11/22/16 20: 47; Start 11/22/16 at 21:00; Stop 11/23/16 at 10:19; Status DC Simvastatin (Zocor) 20 mg QHS PO Last administered on 11/27/16 19:56; Start 11/22/16 at 21:00 Sodium Chloride (Saline Mist Nasal) 1 morenita Q1HR PRN NS Nasal Congestion; Start 11/22/16 at 10:00 Trazodone HCl (Desyrel) 100 mg PRN QHS PRN PO INSOMNIA, MAY REPEAT X1 Last administered on 11/24/16 21:48; Start 11/22/16 at 10:00 Trazodone HCl (Desyrel) 100 mg QHS PO Last administered on 11/27/16 19:56; Start 11/22/16 at 21:00 Fluvoxamine Maleate (Luvox) 50 mg QHS PO Last administered on 11/27/16 19:54; Start 11/22/16 at 21:00 Losartan Potassium (Cozaar) 100 mg DAILY PO Last administered on 11/27/16 09: 38; Start 11/22/16 at 10:30 Metoprolol Succinate (Toprol Xl) 100 mg DAILY PO Last administered on 09:38; Start 11/22/16 at 10:30 Potassium Chloride (Klor-Con) 20 meq TID PO Last administered on 11/27/16 19: 56; Start 11/22/16 at 10:30 Quetiapine Fumarate (SEROquel) 200 mg QHS PO Last administered on 11/23/16 20: 48; Start 11/22/16 at 21:00; Stop 11/24/16 at 19:21; Status DC Albuterol Sulfate (Ventolin) 2.5 mg PRN Q1HR PRN NEB SHORTNESS OF BREATH; Start 11/22/16 at 10:45 Divalproex Sodium (Depakote Er) 750 mg QHS PO Last administered on 11/27/16 20 :01; Start 11/22/16 at 21:00 Quetiapine Fumarate (SEROquel) 75 mg QHS PO Last administered on 11/23/16 20: 49; Start 11/23/16 at 21:00; Stop 11/24/16 at 19:21; Status DC Cyanocobalamin (Vitamin B-12) 1,000 mcg DAILY PO Last administered on 09:38; Start 11/24/16 at 09:00 Quetiapine Fumarate (SEROquel) 25 mg QHS PO Last administered on 11/26/16 19: 48; Start 11/24/16 at 21:00; Stop 11/27/16 at 14:55; Status DC Quetiapine Fumarate (SEROquel) 300 mg QHS PO Last administered on 11/27/16 19: 58; Start 11/24/16 at 21:00 Selenium Sulfide (Selsun Blue) 1 morenita PRN DAILY PRN TP ICHING SCALP; Start 11/26 at 12:30 Quetiapine Fumarate (SEROquel) 75 mg QHS PO Last administered on 11/27/16 19: 55; Start 11/27/16 at 21:00 Active Scripts Active Reported Klor-Con M20 (Potassium Chloride) 20 Meq Tab.er.prt 20 Meq PO TID Seroquel (Quetiapine Fumarate) 200 Mg Tablet 200 Mg PO QHS Seroquel (Quetiapine Fumarate) 25 Mg Tablet 25 Mg PO QHS Vitamin B-12 (Cyanocobalamin (Vitamin B-12)) 1,000 Mcg Tablet 1,000 Mcg PO DAILYBFRSUP Trazodone Hcl 100 Mg Tablet 100 Mg PO PRN QHS PRN Trazodone Hcl 100 Mg Tablet 100 Mg PO QHS Hydralazine Hcl 25 Mg Tablet 25 Mg PO TID Fluvoxamine Maleate 50 Mg Tablet 50 Mg PO QHS Mirtazapine 15 Mg Tablet 15 Mg PO QHS Cozaar (Losartan Potassium) 100 Mg Tablet 100 Mg PO DAILY Analgesic Keeler (Methyl Salicylate/Menthol) 28 Gm Oint...g. 1 Morenita TP PRN QID PRN Namenda (Memantine Hcl) 10 Mg Tablet 10 Mg PO BID Milk Of Magnesia (Magnesium Hydroxide) 400 Mg/5 Ml Oral.susp 2,400 Mg PO PRN QHS PRN Mag-Al Plus Xs Suspension (Mag Hydrox/Al Hydrox/Simeth) 30 Ml Oral.susp 15 Ml PO PRN AFTMEALHC PRN Aricept (Donepezil Hcl) 10 Mg Tablet 10 Mg PO DAILY Depakote Er (Divalproex Sodium) 500 Mg Tab.er.24h 500 Mg PO QHS Clobetasol Emollient 0.05% Crm (Clobetasol Propionate/Emoll) 15 Gm Cream..g. 1 Morenita TP BID Tylenol (Acetaminophen) 325 Mg Tablet 650 Mg PO PRN Q6HRS PRN MDD 4000mg Amlodipine Besylate 10 Mg Tablet 10 Mg PO DAILY Saline Nasal [place] (Sodium Chloride) 30 Ml [place] 1 [place] NS Q1HR PRN Protonix (Pantoprazole Sodium) 40 Mg Tablet.dr 40 Mg PO DAILYAC Magnesium Oxide 400 Mg Tablet 400 Mg PO TID Lorazepam 0.5 Mg Tablet 0.25 Mg PO PRN Q4HRS PRN Hydrocodone-Apap 5-325 (Hydrocodone Bit/Acetaminophen) 1 Each Tablet 1 Tab PO PRN Q6HRS PRN Haloperidol 5 Mg Tablet 5 Mg PO PRN Q2HR PRN Cepacol Sore Throat Lozenge (Benzocaine/Menthol) 1 Each Lozenge 1 Katty PO PRN Q2HR PRN Ventolin Hfa Inhaler (Albuterol Sulfate) 18 Gm Hfa.aer.ad 1 Puff IH PRN Q1HR PRN Zyrtec (Cetirizine Hcl) 10 Mg Tablet 10 Mg PO DAILY Simvastatin 20 Mg Tablet 20 Mg PO QHS Metoprolol Succinate ( Xl ) (Metoprolol Succinate) 100 Mg Tab.er.24h 100 Mg PO DAILY Aspir-Low (Aspirin) 81 Mg Tablet.dr 81 Mg PO DAILY Diagnosis: Problems: (1) Anxiety disorder (2) Impulse control disorder (3) Psychosis, atypical (4) Unspecified psychosis (5) Dementia, vascular, with delusions (6) Lewy body dementia with behavioral disturbance (7) Obsessive compulsive disorder JOSE NOLASCO MD Nov 27, 2016 20:21
--- NOTE | 2016-11-27 22:19 | NUR ---
Behavior Intervention Response and Plan: BIRP Note: Behavior: Assumed Care of patient, patient located in Day Room at shift change. Patient exhibited the following behavior Calm, Withdrawn, Cooperative. Brief assessment on rounds of vital signs, medication needs, lab studies, and pain. Treatment plan problems . Intervention: Patient assessed and the following interventions initiated safety checks 15 Minute Checks Cognitive Assessment , Head to toe Assessment , Medications. Response: After interactions and interventions patient responded in the following manner, Cooperative , Calm ,Compliant. Continue to assess behaviors and condition will continue to monitor throughout the shift as needed. Patient educated on ADL's, and hand hygiene. Plan: Continue to monitor Master Treatment Plan for patient's progress toward short term goals of Decreased Anxiety, Medication Compliance, prison goals to return to previous living setting vs placement. Continue to assess patient for changes in above assessment. Monitor for medication needs, pain, and safety concerns. Hourly rounding performed to ensure safe environment.
[2016-11-28] MEDS: MAG HYDROX/AL HYDROX/SIMETH 30 ML ORAL.SUSP PO PRN (02:08)
[2016-11-28 07:09] VITALS: BP 120/67
[2016-11-28] MEDS: MAGNESIUM OXIDE 400 MG TABLET PO SCH ×3 (08:57→20:09)
[2016-11-28] MEDS: METOPROLOL SUCC 24HR ER 50 MG TAB.ER.24H. PO SCH (08:57)
[2016-11-28] MEDS: CETIRIZINE HCL 10 MG TABLET PO SCH (08:58)
[2016-11-28] MEDS: CYANOCOBALAMIN (VITAMIN B-12) 1,000 MCG TABLET. PO SCH ×2 (08:58→17:27)
[2016-11-28] MEDS: hydrALAZINE 25 MG TABLET PO SCH ×3 (08:58→20:10)
[2016-11-28] MEDS: DONEPEZIL HCL 10 MG TABLET PO SCH (08:58)
[2016-11-28] MEDS: ASPIRIN ENTERIC COATED 81 MG TABLET.DR. PO SCH (08:59)
[2016-11-28] MEDS: PANTOPRAZOLE 40 MG TABLET. PO SCH (08:59)
[2016-11-28] MEDS: LOSARTAN 50 MG TABLET. PO SCH (08:59)
[2016-11-28] MEDS: POTASSIUM CHLORIDE 20 MEQ TABLET.ER. PO SCH ×3 (08:59→20:10)
[2016-11-28] MEDS: amLODIPine BESYLATE 10 MG TABLET PO SCH (08:59)
[2016-11-28] MEDS: MEMANTINE 10 MG TABLET. PO SCH ×2 (08:59→20:17)
[2016-11-28] MEDS: CLOBETASOL EMOLLIENT 0.05% TOPICAL CREAM 15GM TUBE. TP SCH ×2 (09:00→20:11)
--- NOTE | 2016-11-28 11:00 | NUR ---
Behavior Intervention Response and Plan: BIRP Note: Behavior: Assumed Care of patient, patient located in Day Room at shift change. Patient exhibited the following behavior Calm, Drowsy, Withdrawn. Brief assessment on rounds of vital signs, medication needs, lab studies, and pain. Treatment plan problems 1 and 2. Intervention: Patient assessed and the following interventions initiated safety checks 15 Minute Checks Cognitive Assessment , Head to toe Assessment , Medications. Response: After interactions and interventions patient responded in the following manner, Interactive , Restless ,Drowsy. Continue to assess behaviors and condition will continue to monitor throughout the shift as needed. Patient educated on ADL's, and hand hygiene. 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 Continue to assess patient for changes in above assessment. Monitor for medication needs, pain, and safety concerns. Hourly rounding performed to ensure safe environment.
--- NOTE | 2016-11-28 11:11 | NUR ---
Patient took shower independently. Clean clothes and clean socks provided. Prescription cream applied to patient neck, back of head and shins for psoriasis.
--- NOTE | 2016-11-28 11:51 | NUR ---
SW spoke at length to pt , pt states she is concerned about pt coming home with delusions. SW spoke with her regarding this. Pt states that the delusions were gone once and feels that they should be able to be resolved completely and not come back. Pt discussed how she wishes she would have listened to the Dr. when they talked about the steroid and it making psychiatric issues worse sometimes. SW listened and validated her concerns. Pt reports she is hoping this hospitalization will help as their grandchildren live with them and she is concerned about them seeing him with these delusions as they are young. JOEL will continue to work with pt and family regarding reason for hospitalization.
[2016-11-28 15:53] VITALS: BP 116/56
[2016-11-28] MEDS: MIRTAZAPINE 15 MG TABLET PO SCH (20:07)
[2016-11-28] MEDS: QUEtiapine 100 MG TABLET. PO SCH (20:07)
[2016-11-28] MEDS: DIVALPROEX ER 250 MG TAB.ER.24H. PO SCH (20:07)
[2016-11-28] MEDS: QUEtiapine 25 MG TABLET. PO SCH (20:08)
[2016-11-28] MEDS: traZODone 100 MG TABLET. PO SCH (20:10)
[2016-11-28] MEDS: SIMVASTATIN 20 MG TABLET PO SCH (20:10)
--- NOTE | 2016-11-28 20:41 | PDOC ---
Exam Serg Demential Exam: Serg Note: Please also refer to the separate dictated note~for this date of service dictated separately.~Patient seen individually. Discussed the patient with Nursing staff reviewed the chart.~Reviewed interim history and current functioning. Reviewed vital signs,~Labs/ Radiology~and current medications noted below. Continue current treatment with the changes noted in the dictated addendum note Assessment: Vital Signs: Vital Signs Date Time Temp Pulse Resp B/P (MAP) Pulse Ox O2 Delivery O2 Flow Rate FiO2 11/28/16 20:10 71 116/56 11/28/16 15:53 98.0 19 96 11/27/16 16:04 Room Air I&O Intake and Output 11/29/16 07:00 Intake Total 1440 ml Balance 1440 ml Intake Oral 1440 ml # Bowel Movements 3 Current Medications: Meds: Current Medications Acetaminophen (Tylenol) 650 mg PRN Q6HRS PRN PO PAIN / TEMP; Start 11/22/16 at 09:45; Status Cancel Multi-Ingredient Ointment (Analgesic [place]) 1 morenita PRN QID PRN TP MUSCLE PAIN; Start 11/22/16 at 09:45; Status Cancel Al Hydroxide/Mg Hydroxide (Mylanta Plus Xs) 15 ml PRN AFTMEALHC PRN PO DYSPEPSIA; Start 11/22/16 at 09:45; Status Cancel Magnesium Hydroxide (Milk Of Magnesia) 2,400 mg PRN QHS PRN PO CONSTIPATION; Start 11/22/16 at 09:45; Status Cancel Acetaminophen (Tylenol) 650 mg PRN Q6HRS PRN PO PAIN / TEMP Last administered on 11/28/16 02:08; Start 11/22/16 at 10:00 Albuterol Sulfate (Ventolin Hfa) 1 puff PRN Q1HR PRN IH SHORTNESS OF BREATH; Start 11/22/16 at 10:00; Status UNV Amlodipine Besylate (Norvasc) 10 mg DAILY PO Last administered on 11/28/16 08 :59; Start 11/22/16 at 10:30 Aspirin (Aspirin Enteric Coated) 81 mg DAILY PO Last administered on 08:59; Start 11/22/16 at 10:30 Throat Lozenges (Cepacol Sore Throat Lozenge) 1 katty PRN Q2HR PRN PO sore throat ; Start 11/22/16 at 10:00 Cetirizine HCl (ZyrTEC) 10 mg DAILY PO Last administered on 11/28/16 08:58; Start 11/22/16 at 10:30 Clobetasol Propionate 1 morenita BID TP Last administered on 11/28/16 20:11; Start 11/22/16 at 11:00 Cyanocobalamin (Vitamin B-12) 1,000 mcg DAILYBFRSUP PO Last administered on 17:27; Start 11/22/16 at 17:00 Divalproex Sodium (Depakote Er) 500 mg QHS PO ; Start 11/22/16 at 21:00; Stop 11/22/16 at 21:00; Status DC Donepezil HCl (Aricept) 10 mg DAILY PO Last administered on 11/28/16 08:58; Start 11/22/16 at 10:30 Haloperidol (Haldol) 5 mg PRN Q2HR PRN PO PSYCHOSIS; Start 11/22/16 at 10:00 Hydralazine HCl (Apresoline) 25 mg TID PO Last administered on 11/28/16 20:10 ; Start 11/22/16 at 10:30 Acetaminophen/ Hydrocodone Bitart (Lortab 5/325) 1 tab PRN Q6HRS PRN PO PAIN; Start 11/22/16 at 10:00 Lorazepam (Ativan) 0.25 mg PRN Q4HRS PRN PO ANXIETY / AGITATION; Start at 10:00 Al Hydroxide/Mg Hydroxide (Mylanta Plus Xs) 15 ml PRN AFTMEALHC PRN PO DYSPEPSIA Last administered on 11/28/16 02:08; Start 11/22/16 at 10:00 Magnesium Hydroxide (Milk Of Magnesia) 2,400 mg PRN QHS PRN PO CONSTIPATION; Start 11/22/16 at 10:00 Magnesium Oxide (Magnesium Oxide) 400 mg TID PO Last administered on 20:09; Start 11/22/16 at 10:30 Memantine (Namenda) 10 mg BID PO Last administered on 11/28/16 20:17; Start 11/22/16 at 10:30 Multi-Ingredient Ointment (Analgesic [place]) 1 morenita PRN QID PRN TP MUSCLE PAIN; Start 11/22/16 at 10:00 Mirtazapine (Remeron) 15 mg QHS PO Last administered on 11/28/16 20:07; Start 11/22/16 at 21:00 Pantoprazole Sodium (Protonix) 40 mg DAILYAC PO Last administered on 08:59; Start 11/22/16 at 11:00 Quetiapine Fumarate (SEROquel) 25 mg QHS PO Last administered on 11/22/16 20: 47; Start 11/22/16 at 21:00; Stop 11/23/16 at 10:19; Status DC Simvastatin (Zocor) 20 mg QHS PO Last administered on 11/28/16 20:10; Start 11/22/16 at 21:00 Sodium Chloride (Saline Mist Nasal) 1 morenita Q1HR PRN NS Nasal Congestion; Start 11/22/16 at 10:00 Trazodone HCl (Desyrel) 100 mg PRN QHS PRN PO INSOMNIA, MAY REPEAT X1 Last administered on 11/24/16 21:48; Start 11/22/16 at 10:00 Trazodone HCl (Desyrel) 100 mg QHS PO Last administered on 11/28/16 20:10; Start 11/22/16 at 21:00 Fluvoxamine Maleate (Luvox) 50 mg QHS PO Last administered on 11/27/16 19:54; Start 11/22/16 at 21:00; Stop 11/28/16 at 18:29; Status DC Losartan Potassium (Cozaar) 100 mg DAILY PO Last administered on 11/28/16 08: 59; Start 11/22/16 at 10:30 Metoprolol Succinate (Toprol Xl) 100 mg DAILY PO Last administered on 08:57; Start 11/22/16 at 10:30 Potassium Chloride (Klor-Con) 20 meq TID PO Last administered on 11/28/16 20: 10; Start 11/22/16 at 10:30 Quetiapine Fumarate (SEROquel) 200 mg QHS PO Last administered on 11/23/16 20: 48; Start 11/22/16 at 21:00; Stop 11/24/16 at 19:21; Status DC Albuterol Sulfate (Ventolin) 2.5 mg PRN Q1HR PRN NEB SHORTNESS OF BREATH; Start 11/22/16 at 10:45 Divalproex Sodium (Depakote Er) 750 mg QHS PO Last administered on 11/28/16 20:07; Start 11/22/16 at 21:00 Quetiapine Fumarate (SEROquel) 75 mg QHS PO Last administered on 11/23/16 20: 49; Start 11/23/16 at 21:00; Stop 11/24/16 at 19:21; Status DC Cyanocobalamin (Vitamin B-12) 1,000 mcg DAILY PO Last administered on 08:58; Start 11/24/16 at 09:00 Quetiapine Fumarate (SEROquel) 25 mg QHS PO Last administered on 11/26/16 19: 48; Start 11/24/16 at 21:00; Stop 11/27/16 at 14:55; Status DC Quetiapine Fumarate (SEROquel) 300 mg QHS PO Last administered on 11/28/16 20 :07; Start 11/24/16 at 21:00 Selenium Sulfide (Selsun Blue) 1 morenita PRN DAILY PRN TP ICHING SCALP; Start 11/26 at 12:30 Quetiapine Fumarate (SEROquel) 75 mg QHS PO Last administered on 11/28/16 20: 08; Start 11/27/16 at 21:00 Fluvoxamine Maleate (Luvox) 75 mg QHS PO Last administered on 11/28/16 20:09 ; Start 11/28/16 at 21:00 Active Scripts Active Reported Klor-Con M20 (Potassium Chloride) 20 Meq Tab.er.prt 20 Meq PO TID Seroquel (Quetiapine Fumarate) 200 Mg Tablet 200 Mg PO QHS Seroquel (Quetiapine Fumarate) 25 Mg Tablet 25 Mg PO QHS Vitamin B-12 (Cyanocobalamin (Vitamin B-12)) 1,000 Mcg Tablet 1,000 Mcg PO DAILYBFRSUP Trazodone Hcl 100 Mg Tablet 100 Mg PO PRN QHS PRN Trazodone Hcl 100 Mg Tablet 100 Mg PO QHS Hydralazine Hcl 25 Mg Tablet 25 Mg PO TID Fluvoxamine Maleate 50 Mg Tablet 50 Mg PO QHS Mirtazapine 15 Mg Tablet 15 Mg PO QHS Cozaar (Losartan Potassium) 100 Mg Tablet 100 Mg PO DAILY Analgesic [place] (Methyl Salicylate/Menthol) 28 Gm Oint...g. 1 Morenita TP PRN QID PRN Namenda (Memantine Hcl) 10 Mg Tablet 10 Mg PO BID Milk Of Magnesia (Magnesium Hydroxide) 400 Mg/5 Ml Oral.susp 2,400 Mg PO PRN QHS PRN Mag-Al Plus Xs Suspension (Mag Hydrox/Al Hydrox/Simeth) 30 Ml Oral.susp 15 Ml PO PRN AFTMEALHC PRN Aricept (Donepezil Hcl) 10 Mg Tablet 10 Mg PO DAILY Depakote Er (Divalproex Sodium) 500 Mg Tab.er.24h 500 Mg PO QHS Clobetasol Emollient 0.05% Crm (Clobetasol Propionate/Emoll) 15 Gm Cream..g. 1 [place] TP BID Tylenol (Acetaminophen) 325 Mg Tablet 650 Mg PO PRN Q6HRS PRN MDD 4000mg Amlodipine Besylate 10 Mg Tablet 10 Mg PO DAILY Saline Nasal [place] (Sodium Chloride) 30 Ml [place] 1 [place] NS Q1HR PRN Protonix (Pantoprazole Sodium) 40 Mg Tablet.dr 40 Mg PO DAILYAC Magnesium Oxide 400 Mg Tablet 400 Mg PO TID Lorazepam 0.5 Mg Tablet 0.25 Mg PO PRN Q4HRS PRN Hydrocodone-Apap 5-325 (Hydrocodone Bit/Acetaminophen) 1 Each Tablet 1 Tab PO PRN Q6HRS PRN Haloperidol 5 Mg Tablet 5 Mg PO PRN Q2HR PRN Cepacol Sore Throat Lozenge (Benzocaine/Menthol) 1 Each Lozenge 1 Katty PO PRN Q2HR PRN Ventolin Hfa Inhaler (Albuterol Sulfate) 18 Gm Hfa.aer.ad 1 Puff IH PRN Q1HR PRN Zyrtec (Cetirizine Hcl) 10 Mg Tablet 10 Mg PO DAILY Simvastatin 20 Mg Tablet 20 Mg PO QHS Metoprolol Succinate ( Xl ) (Metoprolol Succinate) 100 Mg Tab.er.24h 100 Mg PO DAILY Aspir-Low (Aspirin) 81 Mg Tablet.dr 81 Mg PO DAILY Diagnosis: Problems: (1) Anxiety disorder (2) Impulse control disorder (3) Psychosis, atypical (4) Unspecified psychosis (5) Dementia, vascular, with delusions (6) Lewy body dementia with behavioral disturbance (7) Obsessive compulsive disorder JOSE NOLASCO MD Nov 28, 2016 20:41
--- NOTE | 2016-11-28 23:18 | NUR ---
Behavior Intervention Response and Plan: BIRP Note: Behavior: Assumed Care of patient, patient located in Day Room at shift change. Patient exhibited the following behavior Calm, Cooperative, Withdrawn. Brief assessment on rounds of vital signs, medication needs, lab studies, and pain. Treatment plan problems . Intervention: Patient assessed and the following interventions initiated safety checks 15 Minute Checks Head to toe Assessment , Medications , Oral Hydration. Response: After interactions and interventions patient responded in the following manner, Compliant , Calm ,Interactive. Continue to assess behaviors and condition will continue to monitor throughout the shift as needed. Patient educated on ADL's, and hand hygiene. 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 Continue to assess patient for changes in above assessment. Monitor for medication needs, pain, and safety concerns. Hourly rounding performed to ensure safe environment.
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
[2016-11-29 05:55] VITALS: BP 151/73
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
[2016-11-29] MEDS: DONEPEZIL HCL 10 MG TABLET PO SCH (08:18)
[2016-11-29] MEDS: POTASSIUM CHLORIDE 20 MEQ TABLET.ER. PO SCH ×3 (08:19→20:43)
[2016-11-29] MEDS: amLODIPine BESYLATE 10 MG TABLET PO SCH (08:19)
[2016-11-29] MEDS: PANTOPRAZOLE 40 MG TABLET. PO SCH (08:19)
[2016-11-29] MEDS: MAGNESIUM OXIDE 400 MG TABLET PO SCH ×3 (08:20→20:43)
[2016-11-29] MEDS: CETIRIZINE HCL 10 MG TABLET PO SCH (08:20)
[2016-11-29] MEDS: METOPROLOL SUCC 24HR ER 50 MG TAB.ER.24H. PO SCH (08:20)
[2016-11-29] MEDS: LOSARTAN 50 MG TABLET. PO SCH (08:20)
[2016-11-29] MEDS: MEMANTINE 10 MG TABLET. PO SCH ×2 (08:21→20:43)
[2016-11-29] MEDS: CYANOCOBALAMIN (VITAMIN B-12) 1,000 MCG TABLET. PO SCH ×2 (08:21→16:20)
[2016-11-29] MEDS: hydrALAZINE 25 MG TABLET PO SCH ×3 (08:22→20:43)
[2016-11-29] MEDS: ASPIRIN ENTERIC COATED 81 MG TABLET.DR. PO SCH (08:22)
[2016-11-29] MEDS: CLOBETASOL EMOLLIENT 0.05% TOPICAL CREAM 15GM TUBE. TP SCH ×2 (08:22→21:09)
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
--- NOTE | 2016-11-29 13:03 | NUR ---
Behavior Intervention Response and Plan: BIRP Note: Behavior: Assumed Care of patient, patient located in Hallway at shift change. Patient exhibited the following behavior Calm, Withdrawn, Cooperative. Brief assessment on rounds of vital signs, medication needs, lab studies, and pain. Treatment plan problems altered thought process and fall risk. Intervention: Patient assessed and the following interventions initiated safety checks 15 Minute Checks Cognitive Assessment , Head to toe Assessment , Medications. Response: After interactions and interventions patient responded in the following manner, Calm , Compliant ,Withdrawn. Continue to assess behaviors and condition will continue to monitor throughout the shift as needed. Patient educated on ADL's, and hand hygiene. Plan: Continue to monitor Master Treatment Plan for patient's progress toward short term goals of Decreased Anxiety, Improved Mood, residential goals to return to previous living setting vs placement. Continue to assess patient for changes in above assessment. Monitor for medication needs, pain, and safety concerns. Hourly rounding performed to ensure safe environment.
[2016-11-29 16:35] VITALS: BP 119/51
--- NOTE | 2016-11-29 20:23 | PDOC ---
Exam Serg Demential Exam: Serg Note: Please also refer to the separate dictated note~for this date of service dictated separately.~Patient seen individually. Discussed the patient with Nursing staff reviewed the chart.~Reviewed interim history and current functioning. Reviewed vital signs,~Labs/ Radiology~and current medications noted below. Continue current treatment with the changes noted in the dictated addendum note Assessment: Vital Signs: Vital Signs Date Time Temp Pulse Resp B/P (MAP) Pulse Ox O2 Delivery O2 Flow Rate FiO2 11/29/16 16:35 98.4 71 20 119/51 (73) 95 11/27/16 16:04 Room Air I&O Intake and Output 11/30/16 07:00 Intake Total 1320 ml Balance 1320 ml Intake Oral 1320 ml Current Medications: Meds: Current Medications Acetaminophen (Tylenol) 650 mg PRN Q6HRS PRN PO PAIN / TEMP; Start 11/22/16 at 09:45; Status Cancel Multi-Ingredient Ointment (Analgesic [place]) 1 morenita PRN QID PRN TP MUSCLE PAIN; Start 11/22/16 at 09:45; Status Cancel Al Hydroxide/Mg Hydroxide (Mylanta Plus Xs) 15 ml PRN AFTMEALHC PRN PO DYSPEPSIA; Start 11/22/16 at 09:45; Status Cancel Magnesium Hydroxide (Milk Of Magnesia) 2,400 mg PRN QHS PRN PO CONSTIPATION; Start 11/22/16 at 09:45; Status Cancel Acetaminophen (Tylenol) 650 mg PRN Q6HRS PRN PO PAIN / TEMP Last administered on 11/28/16 02:08; Start 11/22/16 at 10:00 Albuterol Sulfate (Ventolin Hfa) 1 puff PRN Q1HR PRN IH SHORTNESS OF BREATH; Start 11/22/16 at 10:00; Status UNV Amlodipine Besylate (Norvasc) 10 mg DAILY PO Last administered on 11/29/16 08 :19; Start 11/22/16 at 10:30 Aspirin (Aspirin Enteric Coated) 81 mg DAILY PO Last administered on 08:22; Start 11/22/16 at 10:30 Throat Lozenges (Cepacol Sore Throat Lozenge) 1 katty PRN Q2HR PRN PO sore throat ; Start 11/22/16 at 10:00 Cetirizine HCl (ZyrTEC) 10 mg DAILY PO Last administered on 11/29/16 08:20; Start 11/22/16 at 10:30 Clobetasol Propionate 1 morenita BID TP Last administered on 11/29/16 08:22; Start 11/22/16 at 11:00 Cyanocobalamin (Vitamin B-12) 1,000 mcg DAILYBFRSUP PO Last administered on 16:20; Start 11/22/16 at 17:00 Divalproex Sodium (Depakote Er) 500 mg QHS PO ; Start 11/22/16 at 21:00; Stop 11/22/16 at 21:00; Status DC Donepezil HCl (Aricept) 10 mg DAILY PO Last administered on 11/29/16 08:18; Start 11/22/16 at 10:30 Haloperidol (Haldol) 5 mg PRN Q2HR PRN PO PSYCHOSIS; Start 11/22/16 at 10:00 Hydralazine HCl (Apresoline) 25 mg TID PO Last administered on 11/29/16 14:37 ; Start 11/22/16 at 10:30 Acetaminophen/ Hydrocodone Bitart (Lortab 5/325) 1 tab PRN Q6HRS PRN PO PAIN; Start 11/22/16 at 10:00 Lorazepam (Ativan) 0.25 mg PRN Q4HRS PRN PO ANXIETY / AGITATION; Start at 10:00 Al Hydroxide/Mg Hydroxide (Mylanta Plus Xs) 15 ml PRN AFTMEALHC PRN PO DYSPEPSIA Last administered on 11/28/16 02:08; Start 11/22/16 at 10:00 Magnesium Hydroxide (Milk Of Magnesia) 2,400 mg PRN QHS PRN PO CONSTIPATION; Start 11/22/16 at 10:00 Magnesium Oxide (Magnesium Oxide) 400 mg TID PO Last administered on 14:34; Start 11/22/16 at 10:30 Memantine (Namenda) 10 mg BID PO Last administered on 11/29/16 08:21; Start 11/22/16 at 10:30 Multi-Ingredient Ointment (Analgesic [place]) 1 morenita PRN QID PRN TP MUSCLE PAIN; Start 11/22/16 at 10:00 Mirtazapine (Remeron) 15 mg QHS PO Last administered on 11/28/16 20:07; Start 11/22/16 at 21:00 Pantoprazole Sodium (Protonix) 40 mg DAILYAC PO Last administered on 08:19; Start 11/22/16 at 11:00 Quetiapine Fumarate (SEROquel) 25 mg QHS PO Last administered on 11/22/16 20: 47; Start 11/22/16 at 21:00; Stop 11/23/16 at 10:19; Status DC Simvastatin (Zocor) 20 mg QHS PO Last administered on 11/28/16 20:10; Start 11/22/16 at 21:00 Sodium Chloride (Saline Mist Nasal) 1 morenita Q1HR PRN NS Nasal Congestion; Start 11/22/16 at 10:00 Trazodone HCl (Desyrel) 100 mg PRN QHS PRN PO INSOMNIA, MAY REPEAT X1 Last administered on 11/24/16 21:48; Start 11/22/16 at 10:00 Trazodone HCl (Desyrel) 100 mg QHS PO Last administered on 11/28/16 20:10; Start 11/22/16 at 21:00 Fluvoxamine Maleate (Luvox) 50 mg QHS PO Last administered on 11/27/16 19:54; Start 11/22/16 at 21:00; Stop 11/28/16 at 18:29; Status DC Losartan Potassium (Cozaar) 100 mg DAILY PO Last administered on 11/29/16 08: 20; Start 11/22/16 at 10:30 Metoprolol Succinate (Toprol Xl) 100 mg DAILY PO Last administered on 08:20; Start 11/22/16 at 10:30 Potassium Chloride (Klor-Con) 20 meq TID PO Last administered on 11/29/16 14: 34; Start 11/22/16 at 10:30 Quetiapine Fumarate (SEROquel) 200 mg QHS PO Last administered on 11/23/16 20: 48; Start 11/22/16 at 21:00; Stop 11/24/16 at 19:21; Status DC Albuterol Sulfate (Ventolin) 2.5 mg PRN Q1HR PRN NEB SHORTNESS OF BREATH; Start 11/22/16 at 10:45 Divalproex Sodium (Depakote Er) 750 mg QHS PO Last administered on 11/28/16 20:07; Start 11/22/16 at 21:00 Quetiapine Fumarate (SEROquel) 75 mg QHS PO Last administered on 11/23/16 20: 49; Start 11/23/16 at 21:00; Stop 11/24/16 at 19:21; Status DC Cyanocobalamin (Vitamin B-12) 1,000 mcg DAILY PO Last administered on 08:21; Start 11/24/16 at 09:00 Quetiapine Fumarate (SEROquel) 25 mg QHS PO Last administered on 11/26/16 19: 48; Start 11/24/16 at 21:00; Stop 11/27/16 at 14:55; Status DC Quetiapine Fumarate (SEROquel) 300 mg QHS PO Last administered on 11/28/16 20 :07; Start 11/24/16 at 21:00 Selenium Sulfide (Selsun Blue) 1 morenita PRN DAILY PRN TP ICHING SCALP; Start 11/26 at 12:30 Quetiapine Fumarate (SEROquel) 75 mg QHS PO Last administered on 11/28/16 20: 08; Start 11/27/16 at 21:00 Fluvoxamine Maleate (Luvox) 75 mg QHS PO Last administered on 11/28/16 20:09 ; Start 11/28/16 at 21:00 Active Scripts Active Reported Klor-Con M20 (Potassium Chloride) 20 Meq Tab.er.prt 20 Meq PO TID Seroquel (Quetiapine Fumarate) 200 Mg Tablet 200 Mg PO QHS Seroquel (Quetiapine Fumarate) 25 Mg Tablet 25 Mg PO QHS Vitamin B-12 (Cyanocobalamin (Vitamin B-12)) 1,000 Mcg Tablet 1,000 Mcg PO DAILYBFRSUP Trazodone Hcl 100 Mg Tablet 100 Mg PO PRN QHS PRN Trazodone Hcl 100 Mg Tablet 100 Mg PO QHS Hydralazine Hcl 25 Mg Tablet 25 Mg PO TID Fluvoxamine Maleate 50 Mg Tablet 50 Mg PO QHS Mirtazapine 15 Mg Tablet 15 Mg PO QHS Cozaar (Losartan Potassium) 100 Mg Tablet 100 Mg PO DAILY Analgesic [place] (Methyl Salicylate/Menthol) 28 Gm Oint...g. 1 Morenita TP PRN QID PRN Namenda (Memantine Hcl) 10 Mg Tablet 10 Mg PO BID Milk Of Magnesia (Magnesium Hydroxide) 400 Mg/5 Ml Oral.susp 2,400 Mg PO PRN QHS PRN Mag-Al Plus Xs Suspension (Mag Hydrox/Al Hydrox/Simeth) 30 Ml Oral.susp 15 Ml PO PRN AFTMEALHC PRN Aricept (Donepezil Hcl) 10 Mg Tablet 10 Mg PO DAILY Depakote Er (Divalproex Sodium) 500 Mg Tab.er.24h 500 Mg PO QHS Clobetasol Emollient 0.05% Crm (Clobetasol Propionate/Emoll) 15 Gm Cream..g. 1 Morenita TP BID Tylenol (Acetaminophen) 325 Mg Tablet 650 Mg PO PRN Q6HRS PRN MDD 4000mg Amlodipine Besylate 10 Mg Tablet 10 Mg PO DAILY Saline Nasal [place] (Sodium Chloride) 30 Ml [place] 1 [place] NS Q1HR PRN Protonix (Pantoprazole Sodium) 40 Mg Tablet.dr 40 Mg PO DAILYAC Magnesium Oxide 400 Mg Tablet 400 Mg PO TID Lorazepam 0.5 Mg Tablet 0.25 Mg PO PRN Q4HRS PRN Hydrocodone-Apap 5-325 (Hydrocodone Bit/Acetaminophen) 1 Each Tablet 1 Tab PO PRN Q6HRS PRN Haloperidol 5 Mg Tablet 5 Mg PO PRN Q2HR PRN Cepacol Sore Throat Lozenge (Benzocaine/Menthol) 1 Each Lozenge 1 Katty PO PRN Q2HR PRN Ventolin Hfa Inhaler (Albuterol Sulfate) 18 Gm Hfa.aer.ad 1 Puff IH PRN Q1HR PRN Zyrtec (Cetirizine Hcl) 10 Mg Tablet 10 Mg PO DAILY Simvastatin 20 Mg Tablet 20 Mg PO QHS Metoprolol Succinate ( Xl ) (Metoprolol Succinate) 100 Mg Tab.er.24h 100 Mg PO DAILY Aspir-Low (Aspirin) 81 Mg Tablet.dr 81 Mg PO DAILY Diagnosis: Problems: (1) Anxiety disorder (2) Impulse control disorder (3) Psychosis, atypical (4) Unspecified psychosis (5) Dementia, vascular, with delusions (6) Lewy body dementia with behavioral disturbance (7) Obsessive compulsive disorder JOSE NOLASCO MD Nov 29, 2016 20:23
[2016-11-29] MEDS: QUEtiapine 100 MG TABLET. PO SCH (20:42)
[2016-11-29] MEDS: traZODone 100 MG TABLET. PO SCH (20:42)
[2016-11-29] MEDS: MIRTAZAPINE 15 MG TABLET PO SCH (20:42)
[2016-11-29] MEDS: QUEtiapine 25 MG TABLET. PO SCH (20:42)
[2016-11-29] MEDS: SIMVASTATIN 20 MG TABLET PO SCH (20:42)
[2016-11-29] MEDS: DIVALPROEX ER 250 MG TAB.ER.24H. PO SCH (20:47)
[2016-11-29] MEDS: MAG HYDROX/AL HYDROX/SIMETH 30 ML ORAL.SUSP PO PRN (21:11)
--- NOTE | 2016-11-29 22:52 | NUR ---
Behavior Intervention Response and Plan: BIRP Note: Behavior: Assumed Care of patient, patient located in Day Room at shift change. Patient exhibited the following behavior Calm, Withdrawn, Disorganized. Brief assessment on rounds of vital signs, medication needs, lab studies, and pain. Treatment plan problems . Intervention: Patient assessed and the following interventions initiated safety checks 15 Minute Checks Head to toe Assessment , Medications , Medications. Response: After interactions and interventions patient responded in the following manner, Compliant , Withdrawn ,Compliant. Continue to assess behaviors and condition will continue to monitor throughout the shift as needed. Patient educated on ADL's, and hand hygiene. Plan: Continue to monitor Master Treatment Plan for patient's progress toward short term goals of Decreased Agitation, Decreased Anxiety, intermediate goals to return to previous living setting vs placement. Continue to assess patient for changes in above assessment. Monitor for medication needs, pain, and safety concerns. Hourly rounding performed to ensure safe environment.
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
[2016-11-30 06:01] VITALS: BP 124/58
[2016-11-30] MEDS: CETIRIZINE HCL 10 MG TABLET PO SCH (08:18)
[2016-11-30] MEDS: amLODIPine BESYLATE 10 MG TABLET PO SCH (08:18)
[2016-11-30] MEDS: ASPIRIN ENTERIC COATED 81 MG TABLET.DR. PO SCH (08:18)
[2016-11-30] MEDS: POTASSIUM CHLORIDE 20 MEQ TABLET.ER. PO SCH ×3 (08:18→20:42)
[2016-11-30] MEDS: LOSARTAN 50 MG TABLET. PO SCH (08:18)
[2016-11-30] MEDS: MAGNESIUM OXIDE 400 MG TABLET PO SCH ×3 (08:19→20:36)
[2016-11-30] MEDS: PANTOPRAZOLE 40 MG TABLET. PO SCH (08:19)
[2016-11-30] MEDS: hydrALAZINE 25 MG TABLET PO SCH ×3 (08:19→20:42)
[2016-11-30] MEDS: CYANOCOBALAMIN (VITAMIN B-12) 1,000 MCG TABLET. PO SCH ×2 (08:19→15:05)
[2016-11-30] MEDS: MEMANTINE 10 MG TABLET. PO SCH ×2 (08:19→20:36)
[2016-11-30] MEDS: METOPROLOL SUCC 24HR ER 50 MG TAB.ER.24H. PO SCH (08:19)
[2016-11-30] MEDS: CLOBETASOL EMOLLIENT 0.05% TOPICAL CREAM 15GM TUBE. TP SCH ×2 (08:20→21:00)
[2016-11-30] MEDS: DONEPEZIL HCL 10 MG TABLET PO SCH (08:20)
--- NOTE | 2016-11-30 09:44 | NUR ---
Behavior Intervention Response and Plan: BIRP Note: Behavior: Assumed Care of patient, patient located in Hallway at shift change. Patient exhibited the following behavior Calm, Able to Focus on Task, Appropriate. Brief assessment on rounds of vital signs, medication needs, lab studies, and pain. Treatment plan problems 1 and 2. Intervention: Patient assessed and the following interventions initiated safety checks 15 Minute Checks Cognitive Assessment , Head to toe Assessment , Medications. Response: After interactions and interventions patient responded in the following manner, Calm , Compliant ,Appropriate. Continue to assess behaviors and condition will continue to monitor throughout the shift as needed. Patient educated on ADL's, and hand hygiene. 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 Continue to assess patient for changes in above assessment. Monitor for medication needs, pain, and safety concerns. Hourly rounding performed to ensure safe environment.
--- NOTE | 2016-11-30 09:45 | NUR ---
Pt showered himself, provided PRN dandruff control shampoo per order.
--- NOTE | 2016-11-30 15:35 | NUR ---
SW met with pt prior to visiting hours, pt was part of treatment team and stated she feels that her is doing better and it would be more difficult for him if he missed a family event. This was discussed with Dr. Alonzo during treatment team, Dr. Alonzo stated it was the 's decision on this as he does not feel pt is a danger to self or others. Dr. Alonzo went over with pt the plan for increasing pt meds and states he will provide this in a discharge note as well. Pt states she is planning [facility], Plan for pt to go to outpt day groups. Pt states pt will be around family and not left alone this weekend until after he goes for his outpt intake appt.
[2016-11-30 16:25] VITALS: BP 102/71
--- NOTE | 2016-11-30 17:00 | NUR ---
WEEKLY THERAPEUTIC RECREATION NOTE Date of Admission: 11/22/2016 Date of AT Assessment:11/24/2016 Goal aimed: to increase socialization and relaxation Initial goal: Pt. will participate in at least three groups and day and all relaxation groups. Weekly progress towards goal:on track Group participation level: Pt. met his goal; however, he is withdrawn in groups Behaviors observed: more anxious, squeezing palm, choosing to watch TV rather than participate in groups Plan: no changes to goal
--- NOTE | 2016-11-30 20:30 | PDOC ---
Exam Serg Demential Exam: Serg Note: Please also refer to the separate dictated note~for this date of service dictated separately.~Patient seen individually. Discussed the patient with Nursing staff reviewed the chart.~Reviewed interim history and current functioning. Reviewed vital signs,~Labs/ Radiology~and current medications noted below. Continue current treatment with the changes noted in the dictated addendum note Assessment: Vital Signs: Vital Signs Date Time Temp Pulse Resp B/P (MAP) Pulse Ox O2 Delivery O2 Flow Rate FiO2 11/30/16 16:25 97.5 69 18 102/71 (81) 95 11/27/16 16:04 Room Air I&O Intake and Output 12/01/16 07:00 Intake Total 1440 ml Balance 1440 ml Intake Oral 1440 ml Current Medications: Meds: Current Medications Acetaminophen (Tylenol) 650 mg PRN Q6HRS PRN PO PAIN / TEMP; Start 11/22/16 at 09:45; Status Cancel Multi-Ingredient Ointment (Analgesic [place]) 1 morenita PRN QID PRN TP MUSCLE PAIN; Start 11/22/16 at 09:45; Status Cancel Al Hydroxide/Mg Hydroxide (Mylanta Plus Xs) 15 ml PRN AFTMEALHC PRN PO DYSPEPSIA; Start 11/22/16 at 09:45; Status Cancel Magnesium Hydroxide (Milk Of Magnesia) 2,400 mg PRN QHS PRN PO CONSTIPATION; Start 11/22/16 at 09:45; Status Cancel Acetaminophen (Tylenol) 650 mg PRN Q6HRS PRN PO PAIN / TEMP Last administered on 11/28/16 02:08; Start 11/22/16 at 10:00 Albuterol Sulfate (Ventolin Hfa) 1 puff PRN Q1HR PRN IH SHORTNESS OF BREATH; Start 11/22/16 at 10:00; Status UNV Amlodipine Besylate (Norvasc) 10 mg DAILY PO Last administered on 11/30/16 08 :18; Start 11/22/16 at 10:30 Aspirin (Aspirin Enteric Coated) 81 mg DAILY PO Last administered on 08:18; Start 11/22/16 at 10:30 Throat Lozenges (Cepacol Sore Throat Lozenge) 1 katty PRN Q2HR PRN PO sore throat ; Start 11/22/16 at 10:00 Cetirizine HCl (ZyrTEC) 10 mg DAILY PO Last administered on 11/30/16 08:18; Start 11/22/16 at 10:30 Clobetasol Propionate 1 morenita BID TP Last administered on 11/30/16 08:20; Start 11/22/16 at 11:00 Cyanocobalamin (Vitamin B-12) 1,000 mcg DAILYBFRSUP PO Last administered on 15:05; Start 11/22/16 at 17:00 Divalproex Sodium (Depakote Er) 500 mg QHS PO ; Start 11/22/16 at 21:00; Stop 11/22/16 at 21:00; Status DC Donepezil HCl (Aricept) 10 mg DAILY PO Last administered on 11/30/16 08:20; Start 11/22/16 at 10:30 Haloperidol (Haldol) 5 mg PRN Q2HR PRN PO PSYCHOSIS; Start 11/22/16 at 10:00 Hydralazine HCl (Apresoline) 25 mg TID PO Last administered on 11/30/16 08:19 ; Start 11/22/16 at 10:30 Acetaminophen/ Hydrocodone Bitart (Lortab 5/325) 1 tab PRN Q6HRS PRN PO PAIN; Start 11/22/16 at 10:00 Lorazepam (Ativan) 0.25 mg PRN Q4HRS PRN PO ANXIETY / AGITATION; Start at 10:00 Al Hydroxide/Mg Hydroxide (Mylanta Plus Xs) 15 ml PRN AFTMEALHC PRN PO DYSPEPSIA Last administered on 11/29/16 21:11; Start 11/22/16 at 10:00 Magnesium Hydroxide (Milk Of Magnesia) 2,400 mg PRN QHS PRN PO CONSTIPATION; Start 11/22/16 at 10:00 Magnesium Oxide (Magnesium Oxide) 400 mg TID PO Last administered on 15:05; Start 11/22/16 at 10:30 Memantine (Namenda) 10 mg BID PO Last administered on 11/30/16 08:19; Start 11/22/16 at 10:30 Multi-Ingredient Ointment (Analgesic [place]) 1 morenita PRN QID PRN TP MUSCLE PAIN; Start 11/22/16 at 10:00 Mirtazapine (Remeron) 15 mg QHS PO Last administered on 11/29/16 20:42; Start 11/22/16 at 21:00 Pantoprazole Sodium (Protonix) 40 mg DAILYAC PO Last administered on 08:19; Start 11/22/16 at 11:00 Quetiapine Fumarate (SEROquel) 25 mg QHS PO Last administered on 11/22/16 20: 47; Start 11/22/16 at 21:00; Stop 11/23/16 at 10:19; Status DC Simvastatin (Zocor) 20 mg QHS PO Last administered on 11/29/16 20:42; Start 11/22/16 at 21:00 Sodium Chloride (Saline Mist Nasal) 1 morenita Q1HR PRN NS Nasal Congestion; Start 11/22/16 at 10:00 Trazodone HCl (Desyrel) 100 mg PRN QHS PRN PO INSOMNIA, MAY REPEAT X1 Last administered on 11/24/16 21:48; Start 11/22/16 at 10:00 Trazodone HCl (Desyrel) 100 mg QHS PO Last administered on 11/29/16 20:42; Start 11/22/16 at 21:00 Fluvoxamine Maleate (Luvox) 50 mg QHS PO Last administered on 11/27/16 19:54; Start 11/22/16 at 21:00; Stop 11/28/16 at 18:29; Status DC Losartan Potassium (Cozaar) 100 mg DAILY PO Last administered on 11/30/16 08: 18; Start 11/22/16 at 10:30 Metoprolol Succinate (Toprol Xl) 100 mg DAILY PO Last administered on 08:19; Start 11/22/16 at 10:30 Potassium Chloride (Klor-Con) 20 meq TID PO Last administered on 11/30/16 15: 05; Start 11/22/16 at 10:30 Quetiapine Fumarate (SEROquel) 200 mg QHS PO Last administered on 11/23/16 20: 48; Start 11/22/16 at 21:00; Stop 11/24/16 at 19:21; Status DC Albuterol Sulfate (Ventolin) 2.5 mg PRN Q1HR PRN NEB SHORTNESS OF BREATH; Start 11/22/16 at 10:45 Divalproex Sodium (Depakote Er) 750 mg QHS PO Last administered on 11/29/16 20:47; Start 11/22/16 at 21:00 Quetiapine Fumarate (SEROquel) 75 mg QHS PO Last administered on 11/23/16 20: 49; Start 11/23/16 at 21:00; Stop 11/24/16 at 19:21; Status DC Cyanocobalamin (Vitamin B-12) 1,000 mcg DAILY PO Last administered on 08:19; Start 11/24/16 at 09:00 Quetiapine Fumarate (SEROquel) 25 mg QHS PO Last administered on 11/26/16 19: 48; Start 11/24/16 at 21:00; Stop 11/27/16 at 14:55; Status DC Quetiapine Fumarate (SEROquel) 300 mg QHS PO Last administered on 11/29/16 20 :42; Start 11/24/16 at 21:00; Stop 11/30/16 at 10:54; Status DC Selenium Sulfide (Selsun Blue) 1 morenita PRN DAILY PRN TP ICHING SCALP Last administered on 11/30/16 08:50; Start 11/26/16 at 12:30 Quetiapine Fumarate (SEROquel) 75 mg QHS PO Last administered on 11/29/16 20: 42; Start 11/27/16 at 21:00; Stop 11/30/16 at 10:54; Status DC Fluvoxamine Maleate (Luvox) 75 mg QHS PO Last administered on 11/29/16 20:41 ; Start 11/28/16 at 21:00 Quetiapine Fumarate (SEROquel) 400 mg QHS PO ; Start 11/30/16 at 21:00 Quetiapine Fumarate (SEROquel) 25 mg QHS PO ; Start 11/30/16 at 21:00 Active Scripts Active Reported Klor-Con M20 (Potassium Chloride) 20 Meq Tab.er.prt 20 Meq PO TID Seroquel (Quetiapine Fumarate) 200 Mg Tablet 200 Mg PO QHS Seroquel (Quetiapine Fumarate) 25 Mg Tablet 25 Mg PO QHS Vitamin B-12 (Cyanocobalamin (Vitamin B-12)) 1,000 Mcg Tablet 1,000 Mcg PO DAILYBFRSUP Trazodone Hcl 100 Mg Tablet 100 Mg PO PRN QHS PRN Trazodone Hcl 100 Mg Tablet 100 Mg PO QHS Hydralazine Hcl 25 Mg Tablet 25 Mg PO TID Fluvoxamine Maleate 50 Mg Tablet 50 Mg PO QHS Mirtazapine 15 Mg Tablet 15 Mg PO QHS Cozaar (Losartan Potassium) 100 Mg Tablet 100 Mg PO DAILY Analgesic [place] (Methyl Salicylate/Menthol) 28 Gm Oint...g. 1 [place] TP PRN QID PRN Namenda (Memantine Hcl) 10 Mg Tablet 10 Mg PO BID Milk Of Magnesia (Magnesium Hydroxide) 400 Mg/5 Ml Oral.susp 2,400 Mg PO PRN QHS PRN Mag-Al Plus Xs Suspension (Mag Hydrox/Al Hydrox/Simeth) 30 Ml Oral.susp 15 Ml PO PRN AFTMEALHC PRN Aricept (Donepezil Hcl) 10 Mg Tablet 10 Mg PO DAILY Depakote Er (Divalproex Sodium) 500 Mg Tab.er.24h 500 Mg PO QHS Clobetasol Emollient 0.05% Crm (Clobetasol Propionate/Emoll) 15 Gm Cream..g. 1 [place] TP BID Tylenol (Acetaminophen) 325 Mg Tablet 650 Mg PO PRN Q6HRS PRN MDD 4000mg Amlodipine Besylate 10 Mg Tablet 10 Mg PO DAILY Saline Nasal [place] (Sodium Chloride) 30 Ml [place] 1 [place] NS Q1HR PRN Protonix (Pantoprazole Sodium) 40 Mg Tablet.dr 40 Mg PO DAILYAC Magnesium Oxide 400 Mg Tablet 400 Mg PO TID Lorazepam 0.5 Mg Tablet 0.25 Mg PO PRN Q4HRS PRN Hydrocodone-Apap 5-325 (Hydrocodone Bit/Acetaminophen) 1 Each Tablet 1 Tab PO PRN Q6HRS PRN Haloperidol 5 Mg Tablet 5 Mg PO PRN Q2HR PRN Cepacol Sore Throat Lozenge (Benzocaine/Menthol) 1 Each Lozenge 1 Katty PO PRN Q2HR PRN Ventolin Hfa Inhaler (Albuterol Sulfate) 18 Gm Hfa.aer.ad 1 Puff IH PRN Q1HR PRN Zyrtec (Cetirizine Hcl) 10 Mg Tablet 10 Mg PO DAILY Simvastatin 20 Mg Tablet 20 Mg PO QHS Metoprolol Succinate ( Xl ) (Metoprolol Succinate) 100 Mg Tab.er.24h 100 Mg PO DAILY Aspir-Low (Aspirin) 81 Mg Tablet.dr 81 Mg PO DAILY Diagnosis: Problems: (1) Anxiety disorder (2) Impulse control disorder (3) Psychosis, atypical (4) Unspecified psychosis (5) Dementia, vascular, with delusions (6) Lewy body dementia with behavioral disturbance (7) Obsessive compulsive disorder JOSE NOLASCO MD Nov 30, 2016 20:30
[2016-11-30] MEDS: SIMVASTATIN 20 MG TABLET PO SCH (20:42)
[2016-11-30] MEDS: MIRTAZAPINE 15 MG TABLET PO SCH (20:42)
[2016-11-30] MEDS: traZODone 100 MG TABLET. PO SCH (20:42)
[2016-11-30] MEDS: DIVALPROEX ER 250 MG TAB.ER.24H. PO SCH (20:47)
[2016-11-30] MEDS ORDERED: QUEtiapine 100 MG TABLET. PO SCH (21:00)
[2016-11-30] MEDS ORDERED: QUEtiapine 25 MG TABLET. PO SCH (21:00)
--- NOTE | 2016-12-01 01:08 | NUR ---
Behavior Intervention Response and Plan: BIRP Note: Behavior: Assumed Care of patient, patient located in Day Room at shift change. Patient exhibited the following behavior Calm, Compliant, Cooperative. Brief assessment on rounds of vital signs, medication needs, lab studies, and pain. Treatment plan problems Altered Thought Process and Fall Risk. Intervention: Patient assessed and the following interventions initiated safety checks 15 Minute Checks Cognitive Assessment , Medications , Oral Hydration. Response: After interactions and interventions patient responded in the following manner, Calm , Compliant ,Cooperative. Continue to assess behaviors and condition will continue to monitor throughout the shift as needed. Patient educated on ADL's, and hand hygiene. 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 Continue to assess patient for changes in above assessment. Monitor for medication needs, pain, and safety concerns. Hourly rounding performed to ensure safe environment.
--- NOTE | 2016-12-01 03:26 | PN ---
DATE: 11/29/2016 This late entry 11/29/2016 covers elements not covered in my initial note of 11/29/2016. SUBJECTIVE: I met with the patient in the evening of 11/29/2016. The patient minimizes the psychotic symptoms, but on close questioning, he feels that the person can get to him here. 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 He slept 6-3/4 hours previous night. REVIEW OF SYSTEMS: No CV, , pulmonary, eye, ENT system symptoms on review. MENTAL STATUS EXAM: Oriented to himself and situation. Speech is coherent. Has typical jannet, abstraction fair, computation impaired, language function intact, attention span short. Mood and affect remain somewhat withdrawn at times. LABORATORY DATA: Reviewed. IMPRESSION: Unchanged from initial note. PLAN: Continue current psychotropics. Reviewed drug interactions. Risk/benefit ratio favors no further change. MAN Delicia NOLASCO MD DR: SAMARA/shilo JOB#: [id number] / [id number]
[2016-12-01] MEDS ORDERED: CYAN100031 PO (04:53)
[2016-12-01 06:13] VITALS: BP 113/72
[2016-12-01] MEDS: PANTOPRAZOLE 40 MG TABLET. PO SCH (07:38)
[2016-12-01] MEDS: CYANOCOBALAMIN (VITAMIN B-12) 1,000 MCG TABLET. PO SCH (07:41)
[2016-12-01] MEDS: POTASSIUM CHLORIDE 20 MEQ TABLET.ER. PO SCH ×2 (07:41→13:27)
[2016-12-01] MEDS: amLODIPine BESYLATE 10 MG TABLET PO SCH (07:41)
[2016-12-01] MEDS: METOPROLOL SUCC 24HR ER 50 MG TAB.ER.24H. PO SCH (07:42)
[2016-12-01] MEDS: MAGNESIUM OXIDE 400 MG TABLET PO SCH ×2 (07:42→13:27)
[2016-12-01] MEDS: MEMANTINE 10 MG TABLET. PO SCH (07:42)
[2016-12-01] MEDS: LOSARTAN 50 MG TABLET. PO SCH (07:42)
[2016-12-01] MEDS: ASPIRIN ENTERIC COATED 81 MG TABLET.DR. PO SCH (07:42)
[2016-12-01] MEDS: DONEPEZIL HCL 10 MG TABLET PO SCH (07:43)
[2016-12-01] MEDS: hydrALAZINE 25 MG TABLET PO SCH ×2 (07:43→13:29)
[2016-12-01] MEDS: CETIRIZINE HCL 10 MG TABLET PO SCH (07:43)
[2016-12-01] MEDS: CLOBETASOL EMOLLIENT 0.05% TOPICAL CREAM 15GM TUBE. TP SCH (07:52)
--- NOTE | 2016-12-01 08:49 | NUR ---
Behavior Intervention Response and Plan: BIRP Note: Behavior: Assumed Care of patient, patient located in Hallway at shift change. Patient exhibited the following behavior Calm, Interactive, Appropriate. Brief assessment on rounds of vital signs, medication needs, lab studies, and pain. Treatment plan problems 1 and 2. Intervention: Patient assessed and the following interventions initiated safety checks 15 Minute Checks Cognitive Assessment , Head to toe Assessment , Medications. Response: After interactions and interventions patient responded in the following manner, Calm , Compliant ,Cooperative. Continue to assess behaviors and condition will continue to monitor throughout the shift as needed. Patient educated on ADL's, and hand hygiene. 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 Continue to assess patient for changes in above assessment. Monitor for medication needs, pain, and safety concerns. Hourly rounding performed to ensure safe environment.
--- NOTE | 2016-12-01 09:49 | NUR ---
[facility] Social Work Discharge Planning Form Patient Name GEOVANNI ROQUE Admit Date: 11/22/16 DISCHARGE PLAN Discharge Destination: Home Transportation: 14:15 Special Instructions/Notes: PCP: Dr. Stockton Psychiatrist: [facility] DISCHARGE TO HOME: Address: [place] [address] Responsible Republican: Pharmacy Gustavo Hernandez Psychiatrist/Mental Health Follow Up [facility] [id number] [place] [address] Stockton office will call for follow up after receiving the discharge summary. Contact Information [phone]
[2016-12-01] MEDS ORDERED: SELE180S3 TP (10:13)
[2016-12-01 13:29] VITALS: BP 133/69
--- NOTE | 2016-12-01 14:30 | NUR ---
Discharge to Home accompanied by spouse. Transportation provided by family.
--- NOTE | 2016-12-01 14:30 | NUR ---
Transition Record was faxed to follow-up provider with the following elements: Reason for admission, procedures, tests, principal diagnosis, pending studies, patient instructions, 11/09 contact information for unit, phone number to obtain pending test results, plan for follow-up care, physician follow-up, advanced directive information, and medication list with dose, duration and instructions. This information was included in the following documents: History and physical, lab results, study results, progress notes, social work planning form, DC instruction form, patient visit summary, and medication reconciliation form. Date & time record faxed: 12/01 1030 Record faxed to: Dr. Stockton/[facility]/Scripts to David Record discussed with/ report given to: Family member/spouse & patient
--- NOTE | 2016-12-01 18:15 | PDOC ---
Exam Serg Demential Exam: Serg Note: Please also refer to the separate dictated note~for this date of service dictated separately.~Patient seen individually. Discussed the patient with Nursing staff reviewed the chart.~Reviewed interim history and current functioning. Reviewed vital signs,~Labs/ Radiology~and current medications noted below. Continue current treatment with the changes noted in the dictated addendum note Assessment: Vital Signs: Vital Signs Date Time Temp Pulse Resp B/P (MAP) Pulse Ox O2 Delivery O2 Flow Rate FiO2 12/01/16 13:29 120 133/69 12/01/16 06:13 98.2 22 93 11/27/16 16:04 Room Air I&O Intake and Output 12/02/16 07:00 Intake Total 480 ml Balance 480 ml Intake Oral 480 ml # Bowel Movements 1 Current Medications: Meds: Current Medications Acetaminophen (Tylenol) 650 mg PRN Q6HRS PRN PO PAIN / TEMP; Start 11/22/16 at 09:45; Status Cancel Multi-Ingredient Ointment (Analgesic [place]) 1 morenita PRN QID PRN TP MUSCLE PAIN; Start 11/22/16 at 09:45; Status Cancel Al Hydroxide/Mg Hydroxide (Mylanta Plus Xs) 15 ml PRN AFTMEALHC PRN PO DYSPEPSIA; Start 11/22/16 at 09:45; Status Cancel Magnesium Hydroxide (Milk Of Magnesia) 2,400 mg PRN QHS PRN PO CONSTIPATION; Start 11/22/16 at 09:45; Status Cancel Acetaminophen (Tylenol) 650 mg PRN Q6HRS PRN PO PAIN / TEMP Last administered on 11/28/16 02:08; Start 11/22/16 at 10:00; Stop 12/01/16 at 15:47; Status DC Albuterol Sulfate (Ventolin Hfa) 1 puff PRN Q1HR PRN IH SHORTNESS OF BREATH; Start 11/22/16 at 10:00; Status UNV Amlodipine Besylate (Norvasc) 10 mg DAILY PO Last administered on 12/01/16 07 :41; Start 11/22/16 at 10:30; Stop 12/01/16 at 15:47; Status DC Aspirin (Aspirin Enteric Coated) 81 mg DAILY PO Last administered on 07:42; Start 11/22/16 at 10:30; Stop 12/01/16 at 15:47; Status DC Throat Lozenges (Cepacol Sore Throat Lozenge) 1 katty PRN Q2HR PRN PO sore throat ; Start 11/22/16 at 10:00; Stop 12/01/16 at 15:47; Status DC Cetirizine HCl (ZyrTEC) 10 mg DAILY PO Last administered on 12/01/16 07:43; Start 11/22/16 at 10:30; Stop 12/01/16 at 15:47; Status DC Clobetasol Propionate 1 morenita BID TP Last administered on 12/01/16 07:52; Start 11/22/16 at 11:00; Stop 12/01/16 at 15:47; Status DC Cyanocobalamin (Vitamin B-12) 1,000 mcg DAILYBFRSUP PO Last administered on 15:05; Start 11/22/16 at 17:00; Stop 12/01/16 at 15:47; Status DC Divalproex Sodium (Depakote Er) 500 mg QHS PO ; Start 11/22/16 at 21:00; Stop 11/22/16 at 21:00; Status DC Donepezil HCl (Aricept) 10 mg DAILY PO Last administered on 12/01/16 07:43; Start 11/22/16 at 10:30; Stop 12/01/16 at 15:47; Status DC Haloperidol (Haldol) 5 mg PRN Q2HR PRN PO PSYCHOSIS; Start 11/22/16 at 10:00; Stop 12/01/16 at 15:47; Status DC Hydralazine HCl (Apresoline) 25 mg TID PO Last administered on 12/01/16 13:29 ; Start 11/22/16 at 10:30; Stop 12/01/16 at 15:47; Status DC Acetaminophen/ Hydrocodone Bitart (Lortab 5/325) 1 tab PRN Q6HRS PRN PO PAIN; Start 11/22/16 at 10:00; Stop 12/01/16 at 15:47; Status DC Lorazepam (Ativan) 0.25 mg PRN Q4HRS PRN PO ANXIETY / AGITATION; Start at 10:00; Stop 12/01/16 at 15:47; Status DC Al Hydroxide/Mg Hydroxide (Mylanta Plus Xs) 15 ml PRN AFTMEALHC PRN PO DYSPEPSIA Last administered on 11/29/16 21:11; Start 11/22/16 at 10:00; Stop 12/01/16 at 15:47; Status DC Magnesium Hydroxide (Milk Of Magnesia) 2,400 mg PRN QHS PRN PO CONSTIPATION; Start 11/22/16 at 10:00; Stop 12/01/16 at 15:47; Status DC Magnesium Oxide (Magnesium Oxide) 400 mg TID PO Last administered on 13:27; Start 11/22/16 at 10:30; Stop 12/01/16 at 15:47; Status DC Memantine (Namenda) 10 mg BID PO Last administered on 12/01/16 07:42; Start 11/22/16 at 10:30; Stop 12/01/16 at 15:47; Status DC Multi-Ingredient Ointment (Analgesic [place]) 1 morenita PRN QID PRN TP MUSCLE PAIN; Start 11/22/16 at 10:00; Stop 12/01/16 at 15:47; Status DC Mirtazapine (Remeron) 15 mg QHS PO Last administered on 11/30/16 20:42; Start 11/22/16 at 21:00; Stop 12/01/16 at 15:47; Status DC Pantoprazole Sodium (Protonix) 40 mg DAILYAC PO Last administered on 07:38; Start 11/22/16 at 11:00; Stop 12/01/16 at 15:47; Status DC Quetiapine Fumarate (SEROquel) 25 mg QHS PO Last administered on 11/22/16 20: 47; Start 11/22/16 at 21:00; Stop 11/23/16 at 10:19; Status DC Simvastatin (Zocor) 20 mg QHS PO Last administered on 11/30/16 20:42; Start 11/22/16 at 21:00; Stop 12/01/16 at 15:47; Status DC Sodium Chloride (Saline Mist Nasal) 1 morenita Q1HR PRN NS Nasal Congestion; Start 11/22/16 at 10:00; Stop 12/01/16 at 15:47; Status DC Trazodone HCl (Desyrel) 100 mg PRN QHS PRN PO INSOMNIA, MAY REPEAT X1 Last administered on 11/24/16 21:48; Start 11/22/16 at 10:00; Stop 12/01/16 at 15: 47; Status DC Trazodone HCl (Desyrel) 100 mg QHS PO Last administered on 11/30/16 20:42; Start 11/22/16 at 21:00; Stop 12/01/16 at 15:47; Status DC Fluvoxamine Maleate (Luvox) 50 mg QHS PO Last administered on 11/27/16 19:54; Start 11/22/16 at 21:00; Stop 11/28/16 at 18:29; Status DC Losartan Potassium (Cozaar) 100 mg DAILY PO Last administered on 12/01/16 07: 42; Start 11/22/16 at 10:30; Stop 12/01/16 at 15:47; Status DC Metoprolol Succinate (Toprol Xl) 100 mg DAILY PO Last administered on 07:42; Start 11/22/16 at 10:30; Stop 12/01/16 at 15:47; Status DC Potassium Chloride (Klor-Con) 20 meq TID PO Last administered on 12/01/16 13: 27; Start 11/22/16 at 10:30; Stop 12/01/16 at 15:47; Status DC Quetiapine Fumarate (SEROquel) 200 mg QHS PO Last administered on 11/23/16 20: 48; Start 11/22/16 at 21:00; Stop 11/24/16 at 19:21; Status DC Albuterol Sulfate (Ventolin) 2.5 mg PRN Q1HR PRN NEB SHORTNESS OF BREATH; Start 11/22/16 at 10:45; Stop 12/01/16 at 15:47; Status DC Divalproex Sodium (Depakote Er) 750 mg QHS PO Last administered on 11/30/16 20:47; Start 11/22/16 at 21:00; Stop 12/01/16 at 15:47; Status DC Quetiapine Fumarate (SEROquel) 75 mg QHS PO Last administered on 11/23/16 20: 49; Start 11/23/16 at 21:00; Stop 11/24/16 at 19:21; Status DC Cyanocobalamin (Vitamin B-12) 1,000 mcg DAILY PO Last administered on 07:41; Start 11/24/16 at 09:00; Stop 12/01/16 at 15:47; Status DC Quetiapine Fumarate (SEROquel) 25 mg QHS PO Last administered on 11/26/16 19: 48; Start 11/24/16 at 21:00; Stop 11/27/16 at 14:55; Status DC Quetiapine Fumarate (SEROquel) 300 mg QHS PO Last administered on 11/29/16 20 :42; Start 11/24/16 at 21:00; Stop 11/30/16 at 10:54; Status DC Selenium Sulfide (Selsun Blue) 1 morenita PRN DAILY PRN TP ICHING SCALP Last administered on 11/30/16 08:50; Start 11/26/16 at 12:30; Stop 12/01/16 at 15: 47; Status DC Quetiapine Fumarate (SEROquel) 75 mg QHS PO Last administered on 11/29/16 20: 42; Start 11/27/16 at 21:00; Stop 11/30/16 at 10:54; Status DC Fluvoxamine Maleate (Luvox) 75 mg QHS PO Last administered on 11/30/16 20:36 ; Start 11/28/16 at 21:00; Stop 12/01/16 at 15:47; Status DC Quetiapine Fumarate (SEROquel) 400 mg QHS PO Last administered on 11/30/16 20 :46; Start 11/30/16 at 21:00; Stop 12/01/16 at 15:47; Status DC Quetiapine Fumarate (SEROquel) 25 mg QHS PO Last administered on 11/30/16 20: 47; Start 11/30/16 at 21:00; Stop 12/01/16 at 15:47; Status DC Active Scripts Active Reported Selenium Sulfide 180 Ml Shampoo 180 Ml TP DAILY B-12 (Cyanocobalamin (Vitamin B-12)) 1,000 Mcg Tablet.er 1,000 Mcg PO DAILY Klor-Con M20 (Potassium Chloride) 20 Meq Tab.er.prt 20 Meq PO TID Seroquel (Quetiapine Fumarate) 200 Mg Tablet 400 Mg PO QHS Seroquel (Quetiapine Fumarate) 25 Mg Tablet 25 Mg PO QHS Vitamin B-12 (Cyanocobalamin (Vitamin B-12)) 1,000 Mcg Tablet 1,000 Mcg PO DAILYBFRSUP Trazodone Hcl 100 Mg Tablet 100 Mg PO PRN QHS PRN Trazodone Hcl 100 Mg Tablet 100 Mg PO QHS Hydralazine Hcl 25 Mg Tablet 25 Mg PO TID Fluvoxamine Maleate 50 Mg Tablet 75 Mg PO QHS Mirtazapine 15 Mg Tablet 15 Mg PO QHS Cozaar (Losartan Potassium) 100 Mg Tablet 100 Mg PO DAILY Analgesic [place] (Methyl Salicylate/Menthol) 28 Gm Oint...g. 1 [place] TP PRN QID PRN Namenda (Memantine Hcl) 10 Mg Tablet 10 Mg PO BID Milk Of Magnesia (Magnesium Hydroxide) 400 Mg/5 Ml Oral.susp 2,400 Mg PO PRN QHS PRN Mag-Al Plus Xs Suspension (Mag Hydrox/Al Hydrox/Simeth) 30 Ml Oral.susp 15 Ml PO PRN AFTMEALHC PRN Aricept (Donepezil Hcl) 10 Mg Tablet 10 Mg PO DAILY Depakote Er (Divalproex Sodium) 500 Mg Tab.er.24h 750 Mg PO QHS Clobetasol Emollient 0.05% Crm (Clobetasol Propionate/Emoll) 15 Gm Cream..g. 1 [place] TP BID Tylenol (Acetaminophen) 325 Mg Tablet 650 Mg PO PRN Q6HRS PRN MDD 4000mg Amlodipine Besylate 10 Mg Tablet 10 Mg PO DAILY Saline Nasal [place] (Sodium Chloride) 30 Ml [place] 1 [place] NS Q1HR PRN Protonix (Pantoprazole Sodium) 40 Mg Tablet.dr 40 Mg PO DAILYAC Magnesium Oxide 400 Mg Tablet 400 Mg PO TID Lorazepam 0.5 Mg Tablet 0.25 Mg PO PRN Q4HRS PRN Hydrocodone-Apap 5-325 (Hydrocodone Bit/Acetaminophen) 1 Each Tablet 1 Tab PO PRN Q6HRS PRN Haloperidol 5 Mg Tablet 5 Mg PO PRN Q2HR PRN Cepacol Sore Throat Lozenge (Benzocaine/Menthol) 1 Each Lozenge 1 Katty PO PRN Q2HR PRN Ventolin Hfa Inhaler (Albuterol Sulfate) 18 Gm Hfa.aer.ad 1 Puff IH PRN Q1HR PRN Zyrtec (Cetirizine Hcl) 10 Mg Tablet 10 Mg PO DAILY Simvastatin 20 Mg Tablet 20 Mg PO QHS Metoprolol Succinate ( Xl ) (Metoprolol Succinate) 100 Mg Tab.er.24h 100 Mg PO DAILY Aspir-Low (Aspirin) 81 Mg Tablet.dr 81 Mg PO DAILY Diagnosis: Problems: (1) Obsessive compulsive disorder (2) Lewy body dementia with behavioral disturbance (3) Dementia, vascular, with delusions (4) Unspecified psychosis (5) Psychosis, atypical (6) Impulse control disorder (7) Anxiety disorder JOSE NOLASCO MD Dec 01, 2016 18:15
--- NOTE | 2016-12-02 03:32 | PN ---
DATE: 11/30/2016 PSYCHIATRIC PROGRESS NOTE This late entry 11/30/2016 covers elements not covered in my initial note of 11/30/2016. SUBJECTIVE: The patient was staffed at a treatment team meeting with the entire team morning of 11/30/2016 together with the patient's , Sarah attending the conference. The patient slept 6-7 hours on average, appetite is fair. He is still intermittently psychotic, believes hutch is able to put things on his clothes, but as of 11/30/2016 he is minimizing this because he wants to be discharged and ahead of an upcoming family get together. REVIEW OF SYSTEMS: No CV, , pulmonary, eye, ENT system symptoms on review. MENTAL STATUS EXAM: Oriented to himself and situation. Speech is coherent, somewhat high pitched, typical for him. Abstraction fair, computation impaired, language function intact, attention span fair. Mood and affect showing improvement and less lability. LABORATORIES: Reviewed. IMPRESSION: Unchanged from initial note. PLAN: Increase Seroquel from 375 mg at bedtime to 425 mg p.o. at bedtime. I had a lengthy discussion with the patient and his about the premature discharge, but they quite insistent on doing this on Sunday and we will go ahead with that. He would be going to the day program at the [facility] and further adjustments in psychotropics can be made there. Review drug interactions, risks/benefit ratio favors no further change. JOSE NOLASCO MD DR: SAMARA/shilo JOB#: [id number] / [id number]
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
== END 2016-12-01 14:30 | disposition home or self-care (01) | DRG 884 ==
LOC: GEROPSY 08:59
PROVIDERS: ADMIT Psychiatry & Neurology Psychiatry; ATTEND Psychiatry & Neurology Psychiatry
DX: F01.51 Vascular dementia, unspecified severity, with behavioral disturbance (principal); G30.9 Alzheimer's disease, unspecified; G31.83 Neurocognitive disorder with Lewy bodies; F02.81 Dementia in other diseases classified elsewhere, unspecified severity, with behavioral disturbance; F23 Brief psychotic disorder; J32.9 Chronic sinusitis, unspecified; E78.5 Hyperlipidemia, unspecified; F25.0 Schizoaffective disorder, bipolar type; F41.9 Anxiety disorder, unspecified; F42.9 Obsessive-compulsive disorder, unspecified; F63.9 Impulse disorder, unspecified; I10 Essential (primary) hypertension; I25.10 Atherosclerotic heart disease of native coronary artery without angina pectoris; K21.9 Gastro-esophageal reflux disease without esophagitis; Z82.3 Family history of stroke; Z82.49 Family history of ischemic heart disease and other diseases of the circulatory system; L40.9 Psoriasis, unspecified; Z88.0 Allergy status to penicillin
CPT/HCPCS: 36415; 80053; 80061; 80164; 81001; 82306; 82607; 83540; 83550; 83735; 84436; 84443; 84480; 85025; 93005

== ENCOUNTER → 2017-04-13 | Outpatient (CLI) | payer MEDICARE ==
[~2017-04-13] MED LIST changes: +CYAN100031 PO; +POTA20TA4 PO; +SELE180S3 TP
[2017-04-13 10:05] LABS: ALBUMIN 3.4 g/dL (3.4-5.0); ALBUMIN/GLOBULIN RATIO 0.9 (1.0-1.7); ALK PHOS 38 U/L (46-116); ALT (SGPT) 60 U/L (16-63); ANION GAP 8 (6-14); AST (SGOT) 45 U/L (15-37); BLOOD UREA NITROGEN 15 mg/dL (8-26); BUN/CREATININE RATIO 12 (6-20); CALCIUM 8.6 mg/dL (8.5-10.1); CARBON DIOXIDE 31 mmol/L (21-32); CHLORIDE 103 mmol/L (98-107); CREATININE 1.3 mg/dL (0.7-1.3); GFR 55.2; GLUCOSE 88 mg/dL (70-99); POTASSIUM 4.1 mmol/L (3.5-5.1); SODIUM 142 mmol/L (136-145); TOTAL BILIRUBIN 0.5 mg/dL (0.2-1.0); TOTAL PROTEIN 7.2 g/dL (6.4-8.2)
[2017-04-13 10:13] LABS: VAL ACID 68 mcg/mL (50-100)
[2017-04-13 10:24] LABS: BASO # 0.1 x10^3/uL (0.0-0.2); BASO % 2 % (0-3); EOS # 0.2 x10^3/uL (0.0-0.7); EOS % 5 % (0-3); HEMOGLOBIN 14.5 g/dL (13.0-17.5); LYMPH # 1.7 x10^3/uL (1.0-4.8); LYMPH % 44 % (24-48); MEAN CORPUSCULAR HEMOGLOBIN 30 pg (25-35); MEAN CORPUSCULAR HGB CONC 34 g/dL (31-37); MEAN CORPUSCULAR VOLUME 88 fL (79-100); MONO # 0.5 x10^3/uL (0.0-1.1); MONO % 11 % (0-9); NEUT # 1.5 x10^3uL (1.8-7.7); NEUT % 38 % (31-73); PLATELET COUNT 157 x10^3/uL (140-400); RED BLOOD COUNT 4.86 x10^6/uL (4.30-5.70); RED CELL DISTRIBUTION WIDTH 14.4 % (11.5-14.5)
[2017-04-13 14:41] LABS: FREE T4 0.65 ng/dL (0.76-1.46); THYROID STIM HORMONE (TSH) 6.437 uIU/mL (0.358-3.740)
== END | disposition home or self-care (01) ==
LOC: LAB 08:10
PROVIDERS: ATTEND Physician Assistant
DX: Z79.899 Other long term (current) drug therapy (principal)
CPT/HCPCS: 36415; 80053; 80061; 80164; 84439; 84443; 84480; 85025